=== PATIENT | male | born 1940 | race African-American/Black ===

== ENCOUNTER 2016-10-16 19:13 | Inpatient (IN) | payer MEDICARE, OTHER ==
[~2016-10-16] VITALS: Ht 172.7 cm; Wt 74.4 kg
[~2016-10-16 19:13] MED LIST: ACETAMINOP650 MG/20. PO; ACETAMINOPHEN650 M2 ORAL; ACETAMINOPHEN650 MG PO; ALBUTEROL2.5 MG/3 M HHN; ALLEGRA30 MG/5 ML PO; AMBIEN5 MG ORAL; ARANESP40 MCG/1 M IJ; ARTIFICIAL TEAR15 ML BOTH EYES; BENADRYL25 MG PO; BISACODYL10 M1 RECTAL; BISACODYL5 MG PO; BYSTOLIC 10MG10 MG ORAL; CALCITRIOL1 MCG/1 ML PO; CALCIUM ACETAT667 M1 PO; CALCIUM ACETAT667 MG ORAL; CATAPRES0.1 MG ORAL; CATAPRES0.1 MG PO; CILOXAN 0.3% O1 DROP BOTH EYES; CLARITIN10 M2 ORAL; CLONIDINE HCL0.1 MG PO; CLONIDINE0.1 MG ORAL; CLONIDINE1 EAC1 PO; COLACE100 MG PO; COUMADIN5 MG ORAL; CRANBERRY307 MG PO; CREON DR 3,0001 EACH PO; DIPHENHYDRAMINE25 M1 ORAL; DOCUSATE SODIU100 MG ORAL; DOCUSATE SODIU250 MG ORAL; DRISDOL50000 UNIT ORAL; DULCOLAX10 MG RC; EPOGEN20000 UNIT IJ; FERROUS SULFAT325 M2 PO; FERROUS SULFAT325 MG ORAL; FEXOFENADINE HC60 MG PO; FLEET ENEMA133 ML RECTAL; HEPARIN SO5000 UNIT6 IJ; HYDRALAZINE HCL25 M1 ORAL; INSULIN ASPART; IPRATROPIU0.2 MG/1 M HHN; JANUVIA25 MG ORAL; LACTULOSE20 GM/301 ORAL; LEVAQUIN500 MG ORAL; LINZESS145 MCG PO; MILK OF MA400 MG/51 ORAL; MIRALAX17 G2 ORAL; NEPHRO PO; NEPHRO-VITE RX1 EAC1 PO; NEPHROVITE1 TAB ORAL; NITROGLYCERIN0.4 MG SL; NORCO 5-325 TA1 EACH PO; NORVASC10 MG ORAL; NORVASC5 MG PO; NOVOLIN R100 UNIT/1 SUBQ; NOVOLOG100 UNIT/3 SUBQ; OMEPRAZOLE40 M1 ORAL; OXYCODONE-ACET1 EAC3 ORAL; PANCREASE1 EA ORAL; PRILOSEC20 MG ORAL; PROCRIT10000 UNIT SUBQ; PROCRIT3000 UNIT/ SUBQ; REGLAN5 MG ORAL; RENA-VITE TABL0.8 M1 PO; ROBAXIN500 MG ORAL; ROBITUSSIN DM T10 ML ORAL; SENEKOT PO; SENOKOT1 TAB ORAL; SIMETHICONE125 MG PO; SIMETHICONE80 MG ORAL; SIMETHICONE80 MG PO; SODIUM BICARBO650 MG PO; SORBITOL 70%30 ML ORAL; SORBITOL 70%30 ML PO; TRAMADOL HCL50 MG ORAL; VITAMIN C500 M1 ORAL; VITAMIN C500 M5 PO; Warfarin RX monitoring MISC; ZOFRAN8 M1 ORAL; [UNRECOGNIZED DRUG - OTHER] ORAL; [UNRECOGNIZED DRUG - REMARK]; phoslo PO
--- NOTE | 2016-10-16 19:20 | Emergency Room Report ---
History of Present Illness General Chief Complaint: Generalized Weakness Source: EMS Present Illness HPI Patient presents with hypotension. His finger on for 2 hours. The patient denies any chest pain or shortness of breath. Also denies any fevers or chills. The patient is a dialysis patient. Paramedics gave the patient a 250 mL bolus. Had dialysis yesterday. States eating well. No vomit blood, black stools. Not make urine. No URI sy. No rashes. Has vascath R. Patient poor historian who refuses to answer many questions. Patient DNR/DNI. Allergies: Coded Allergies: No Known Allergies (Unverified , 02/01/12) Patient History Limited by: medical condition Past Medical History: see triage record Social History: Reports: smoking - former, Denies: alcohol use, drug use Social History Narrative SNF Reviewed Nursing Documentation: PMH: Agreed, PSxH: Agreed Nursing Documentation-PMH Past Medical History: No History, Except For Hx Cardiac Problems: Yes - hyperlipidemia. anemia, ESRD, Hx Hypertension: No - hypotension Hx COPD: Yes Hx Diabetes: Yes Hx Cancer: No Hx Gastrointestinal Problems: Yes - Diabetic gastroparesis gastritis, colon polyps Hx Dialysis: Yes - Right upper chest Shunt (monday, , saturdays) History Of Psychiatric Problem: Yes - depression Hx Neurological Problems: Yes - Diabetic neuropathy Hx Vertigo: Yes Hx Dizziness: Yes Hx Syncope: Yes Hx Headaches: Yes Hx Numbness: Yes Hx Weakness: Yes Hx Fatigue: Yes Review of Systems All Other Systems: limited Physical Exam Vital Signs Date Time Temp Pulse Resp B/P (MAP) Pulse Ox O2 Delivery O2 Flow Rate FiO2 10/16/16 19:01 98.1 82 14 106/47 99 Room Air Sp02 EP Interpretation: reviewed, normal General Appearance: no apparent distress, other - GCS 14, Chronically Ill Head: normocephalic Eyes: bilateral eye normal inspection, bilateral eye PERRL ENT: moist mucus membranes Neck: supple Respiratory: lungs clear, normal breath sounds, other - vascath R Cardiovascular #1: regular rate, rhythm Cardiovascular #2: 2+ radial (R) Gastrointestinal: normal inspection, normal bowel sounds, non tender, no mass, non-distended Musculoskeletal: back normal, gait/station normal, normal range of motion Neurologic: alert, motor strength/tone normal, DTRs symmetric, sensory intact, oriented - X2 Psychiatric: no suicidal/homicidal ideation, other - argumentative Skin: normal inspection, warm/dry Medical Decision Making Diagnostic Impression: Primary Impression: Hypotension (arterial) Qualified Codes: I95.9 - Hypotension, unspecified Additional Impression: ESRD (end stage renal disease) on dialysis ER Course Patient with hypotension for 2 hours one day post last dialysis. DDx; AMI, sepsis, PE, dehydration, excess medication amongst others. Very complicated patient needing comprehensive analysis with EKG, CXR, labs. Will begin with gentle but aggressive (for dialysis patient) rehydration. EKG no OK. CXR, no CHF or infiltrate. Labs with negative lactate. Patient responding to fluids. BP better. He is refusimg to stay in the hospital. Discussed with Dr. Peralta. Ambulance here to take patient to SNF. Now patient refuses to go. Admit tele Dr. Peralta. Laboratory Tests Test 10/16/16 20:00 10/17/16 10:00 White Blood Count 10.8 K/UL (4.8-10.8) Red Blood Count 3.12 M/UL (4.70-6.10) L Hemoglobin 10.5 G/DL (14.2-18.0) L Hematocrit 31.2 % (42.0-52.0) L Mean Corpuscular Volume 100 FL (80-99) H Mean Corpuscular Hemoglobin 33.6 PG (27.0-31.0) H Mean Corpuscular Hemoglobin Concent 33.7 G/DL (32.0-36.0) Red Cell Distribution Width 14.2 % (11.6-14.8) Platelet Count 184 K/UL (150-450) Mean Platelet Volume 7.9 FL (6.5-10.1) Neutrophils (%) (Auto) 63.1 % (45.0-75.0) Lymphocytes (%) (Auto) 27.0 % (20.0-45.0) Monocytes (%) (Auto) 7.1 % (1.0-10.0) Eosinophils (%) (Auto) 2.1 % (0.0-3.0) Basophils (%) (Auto) 0.7 % (0.0-2.0) Prothrombin Time 11.7 SEC (9.30-11.50) H Prothrombin Time INR 1.2 (0.9-1.1) H PTT 29 SEC (23-33) Sodium Level 141 mEQ/L (135-145) Potassium Level 4.6 mEQ/L (3.4-4.9) Chloride Level 103 mEQ/L (98-107) Carbon Dioxide Level 22 mEQ/L (20-30) Anion Gap 16 (5-15) H Blood Urea Nitrogen 46 mg/dL (7-23) H Creatinine 7.6 mg/dL (0.7-1.2) H Estimate Glomerular Filtration Rate mL/min (>60) Glucose Level 153 mg/dL (74-106) H Lactic Acid Level 1.30 mmol/L (0.66-2.22) Calcium Level 8.9 mg/dL (8.6-10.2) Phosphorus Level 3.4 mg/dL (2.5-4.8) Magnesium Level 2.4 mg/dL (1.7-2.5) Total Bilirubin 0.3 mg/dL (0.0-1.2) Aspartate Amino Transferase (AST) 12 U/L (5-40) Alanine Aminotransferase (ALT) 11 U/L (3-41) Alkaline Phosphatase 102 U/L (40-129) Total Creatine Kinase 34 U/L (38-174) L Troponin I < 0.30 ng/mL (<=0.30) Pro-B-Type Natriuretic Peptide 713 pg/mL (0-450) H Total Protein 7.1 g/dL (6.6-8.7) Albumin 3.6 g/dL (3.5-5.2) Globulin 3.5 g/dL Albumin/Globulin Ratio 1.0 (1.0-2.7) Lipase 144 U/L (< 60) H Hemoglobin A1c 6.7 % (< 6.0) H EKG Diagnostic Results Rate: normal Rhythm: NSR ST Segments: no acute changes Rhythm Strip Diag. Results EP Interpretation: yes Rhythm: NSR, no PVC's, no ectopy Chest X-Ray Diagnostic Results Chest X-Ray Diagnostic Results : Chest X-Ray Ordered: Yes # of Views/Limited/Complete: 1 View Indication: Other Interpretation: no consolidation, no effusion, no pneumothorax, other - vascath Impression: Other Interpreting ER Provider: Electronically signed by Tru Bunn MD Last Vital Signs Date Time Temp Pulse Resp B/P (MAP) Pulse Ox O2 Delivery O2 Flow Rate FiO2 10/16/16 19:01 98.1 82 14 106/47 99 Room Air Disposition: ADMITTED INPATIENT Condition: Serious Tru Bunn M.D. Oct 16, 2016 19:20
[2016-10-16 19:30] VITALS: BP 107/81
[2016-10-16 20:34] LABS: BASOPHILS % (AUTO) 0.7 % (0.0-2.0); EOSINOPHILS % (AUTO) 2.1 % (0.0-3.0); MEAN CORPUSCULAR HEMOGLOBIN 33.6 PG (27.0-31.0); MEAN CORPUSCULAR HGB CONC 33.7 G/DL (32.0-36.0); MEAN CORPUSCULAR VOLUME 100 FL (80-99); MEAN PLATELET VOLUME 7.9 FL (6.5-10.1); MONOCYTES % (AUTO) 7.1 % (1.0-10.0); NEUTROPHILS % (AUTO) 63.1 % (45.0-75.0); PLATELET COUNT 184 K/UL (150-450); RED BLOOD COUNT 3.12 M/UL (4.70-6.10); RED CELL DISTRIBUTION WIDTH 14.2 % (11.6-14.8); WHITE BLOOD COUNT 10.8 K/UL (4.8-10.8)
[2016-10-16 20:37] VITALS: BP 115/53
[2016-10-16 20:45] LABS: INR 1.2 (0.9-1.1); PROTHROMBIN TIME 11.7 SEC (9.30-11.50)
[2016-10-16 20:52] LABS: TROPONIN I < 0.30 ng/mL (<=0.30)
[2016-10-16 20:57] LABS: ALANINE AMINOTRANSFERASE 11 U/L (3-41); ANION GAP 16 (5-15); ASPARTATE AMINO TRANSFERASE 12 U/L (5-40); CALCIUM 8.9 mg/dL (8.6-10.2); CARBON DIOXIDE 22 mEQ/L (20-30); CHLORIDE 103 mEQ/L (98-107); CREATININE 7.6 mg/dL (0.7-1.2); HEMOLYSIS 11; LIPASE 144 U/L (< 60); MAGNESIUM 2.4 mg/dL (1.7-2.5); PHOSPHORUS 3.4 mg/dL (2.5-4.8); POTASSIUM 4.6 mEQ/L (3.4-4.9); SODIUM 141 mEQ/L (135-145); TOTAL PROTEIN 7.1 g/dL (6.6-8.7)
[2016-10-16 21:47] VITALS: BP 112/49
[2016-10-16 23:25] VITALS: BP 110/55
[2016-10-17] VITALS (7 sets, daily range): BP systolic 99–123; BP diastolic 41–76
[2016-10-17] MEDS ORDERED: MIRTAZAPINE15 MG ORAL (01:30)
[2016-10-17] MEDS ORDERED: CREON DR 3,0001 EACH PO ×2 (01:30→03:27)
[2016-10-17] MEDS ORDERED: GLIPIZIDE5 MG ORAL (01:30)
[2016-10-17] MEDS ORDERED: MECLIZINE HCL25 MG ORAL (01:30)
[2016-10-17] MEDS ORDERED: MELATONIN3 MG ORAL (01:30)
[2016-10-17] MEDS ORDERED: AMITIZA24 MCG ORAL (01:30)
[2016-10-17] MEDS ORDERED: MIDODRINE HCL10 MG ORAL (01:30)
[2016-10-17] MEDS ORDERED: NORCO 10/3251 EA ORAL (03:23)
[2016-10-17] MEDS ORDERED: Midodrine 10mg tab ORAL SCH (05:00)
[2016-10-17] MEDS ORDERED: Simethicone 80mg tab ORAL PRN (05:00)
[2016-10-17] MEDS ORDERED: Zolpidem 5mg tab ORAL PRN (05:00)
[2016-10-17] MEDS ORDERED: Norco 10mg/325mg tab ORAL PRN (05:15)
[2016-10-17] MEDS ORDERED: GlipiZIDE 5mg tab ORAL SCH ×2 (06:30)
[2016-10-17] MEDS: NovoLOG Insulin Flexpen SUBQ SCH ×4 (06:58→22:22)
[2016-10-17] MEDS: sitaGLIPtin 25mg tab ORAL SCH (07:25)
[2016-10-17] MEDS ORDERED: Warfarin Sodium 5mg ORAL SCH (09:00)
[2016-10-17] MEDS ORDERED: HydrALAZINE 25mg tab ORAL SCH ×3 (09:00→21:00)
[2016-10-17] MEDS: Amitiza 24mcg cap ORAL SCH ×2 (10:18→22:16)
[2016-10-17] MEDS: Lactulose 20gm/30ml UDC ORAL SCH (10:20)
--- NOTE | 2016-10-17 12:03 | History & Physical ---
History and Physical History & Physicial Dictated for Int Med-Dr Peralta no. [id number]. ANTOINE PEARSON Oct 17, 2016 12:03
[2016-10-17] MEDS ORDERED: Heparin Sod 1000 units/ml 10ml IV PRN (12:30)
--- NOTE | 2016-10-17 12:47 | Consultation ---
Consult Note Consult Note Nephrology consult dictated#[id number] BELTRAN LAUREN Oct 17, 2016 12:47
--- NOTE | 2016-10-17 15:19 | Consultation ---
History of Present Illness General Date patient seen: Oct 17, 2016 Chief Complaint: Generalized Weakness Reason for Consultation: inpatinet management Present Illness HPI 76 year old male, with hx of ESRF on HD, HTN, DM, brought in from care home with CC of Hypotension. He was combative and needed restrains. He is not able to provide any history. Allergies: Coded Allergies: No Known Allergies (Unverified , 02/01/12) Medication History Scheduled Amlodipine Besylate (Norvasc), 5 MG ORAL DAILY, (Reported) Bysto (Bystolic), 10 MG ORAL DAILY, (Reported) Calcitriol (Calcitriol*), 0.25 MCG PO DAILY, (Reported) Calcium Acetate (Calcium Acetate), 667 MG PO TID, (Reported) Ciprofloxacin (Ciprofloxacin HCl), 2 DROP BOTH EYES Q4H Clonidine (Clonidine), 0.1 MG PO DAILY, (Reported) Clonidine Hcl* (Catapres*), 0.1 MG ORAL EVERY 12 HOURS, (Reported) Dextran 70/Hypromellose (Artificial Tears Eye Drops*), 2 DROP BOTH EYES EVERY 2 HOURS, (Reported) Docusate Sodium* (Docusate Sodium*), 100 MG ORAL TWICE A DAY, (Reported) Glipizide* (Glipizide*), 20 MG ORAL BIDAC, (Reported) Hydralazine Hcl* (Hydralazine Hcl*), 25 MG ORAL BID, (Reported) Insulin Regular, Human* (Novolin R*), 0 SUBQ .SLIDING SCALE, (Reported) Lactulose (Lactulose*), 30 ML ORAL DAILY, (Reported) Levofloxacin* (Levaquin*), 500 MG ORAL DAILY Linaclotide (Linzess), 145 MCG PO DAILY, (Reported) Lipase/Protease/Amylase (Creon Dr 3,000 Units Capsule), 3 EACH PO TID, (Reported ) Lipase/Protease/Amylase (Creon Dr 3,000 Units Capsule), 3 EACH PO THREE TIMES A DAY, (Reported) Loratadine (Claritin), 10 MG ORAL DAILY, (Reported) Loratadine (Claritin), 10 MG ORAL DAILY, (Reported) Lubiprostone (Amitiza*), 24 MCG ORAL EVERY 12 HOURS, (Reported) Magnesium Hydroxide* (Milk Of Magnesia*), 30 ML ORAL DAILY, (Reported) Meclizine Hcl* (Meclizine*), 25 MG ORAL THREE TIMES A DAY, (Reported) Midodrine* (Proamatine*), 10 MG ORAL PRN, (Reported) Mirtazapine* (Remeron*), 7.5 MG ORAL BEDTIME, (Reported) Na Phos,M-B/Na Phos,Di-Ba* (Fleet Enema*), 133 ML RECTAL DAILY, (Reported) Omeprazole (Omeprazole), 40 MG ORAL DAILY, (Reported) Polyethylene Glycol 3350* (Miralax*), 17 GM ORAL BID, (Reported) Sennosides (Senna-Gen), 2 TAB ORAL BEDTIME, (Reported) Sitagliptin* (Januvia*), 25 MG ORAL DAILY, (Reported) Vit B Cmplx 3/Fa/Vit C/Biotin (Nephro-Mary Rx Tablet), 1 EACH PO DAILY, ( Reported) Vitamin B Cmplx/Vit C/Folic AC (Nephro-Mary Tablet), 1 TAB ORAL DAILY, (Reported ) Warfarin Sod* (Coumadin*), 5 MG ORAL DAILY, (Reported) Scheduled PRN Acetaminophen (Acetaminophen 8 Hour), 650 MG ORAL Q6HR PRN for For Pain, ( Reported) Bisacodyl (Dulcolax), 10 MG RC DAILY PRN for Constipation, (Reported) Clonidine HCl (Clonidine HCl), 0.1 MG ORAL Q6HR PRN for For High Blood Pressure, (Reported) Diphenhydramine Hcl* (Diphenhydramine Hcl*), 25 MG ORAL Q4HR PRN for Itching, ( Reported) Hydrocodone/Acetaminophen (Hydrocodon-Acetaminophn 10-325), 1 TAB ORAL Q4H PRN for For Pain, (Reported) Melatonin (Melatonin), 3 MG ORAL BEDTIME PRN for Insomnia, (Reported) Oxycodone Hcl/Acetaminophen 5-325* (Oxycodone-Acetaminophen 5-325*), 1 TAB ORAL Q6H PRN for For Pain, (Reported) Simethicone* (Simethicone*), 80 MG ORAL Q4HR PRN, (Reported) Sorbitol (Sorbitol), 30 ML PO Q8HR PRN for Constipation, (Reported) Tramadol Hcl* (Ultram*), 50 MG ORAL Q6H PRN for For Pain, (Reported) Zolpidem Tartrate* (Ambien*), 5 MG ORAL BEDTIME PRN for Insomnia, (Reported) Zolpidem Tartrate* (Ambien*), 5 MG ORAL BEDTIME PRN for Insomnia, (Reported) [Warfarin RX monitoring], 1 EA MISC DAILY PRN for Per rx protocol Miscellaneous Medications Lipase/Protease/Amylase (Creon Dr 3,000 Units Capsule), 1 EACH PO, (Reported) Patient History Healthcare decision maker LIANG CABRERA ALEM B Resuscitation status Do Not Resuscitate Advanced Directive on File No Review of Systems All Other Systems: negative except mentioned in HPI Physical Exam Lines, tubes and drains: peripheral, central line HEENT: normocephalic, atraumatic Neck: non-tender, normal alignment, limited range of motion Respiratory/Chest: chest wall non-tender, normal breath sounds Cardiovascular/Chest: normal rate Abdomen: non tender Genitourinary/Rectal: normal genital exam, normal rectal exam Last 24 Hour Vital Signs Date Time Temp Pulse Resp B/P (MAP) Pulse Ox O2 Delivery O2 Flow Rate FiO2 10/17/16 12:00 97.4 79 18 118/57 97 Room Air 10/17/16 08:00 97.0 84 22 110/47 97 Room Air 10/17/16 04:00 99.4 87 20 120/41 100 Room Air 10/17/16 01:45 99.4 87 21 120/41 100 Room Air 10/17/16 01:20 98.1 88 21 102/51 95 Room Air 10/17/16 01:02 98.1 88 21 102/51 95 Room Air 10/16/16 23:25 98.1 82 21 110/55 96 Room Air 10/16/16 21:47 98.1 84 21 112/49 100 Room Air 10/16/16 20:37 98.1 85 22 115/53 100 Room Air 10/16/16 19:30 82 18 107/81 100 Room Air 10/16/16 19:01 98.1 82 14 106/47 99 Room Air Intake and Output 10/17/16 10/18/16 19:00 07:00 Intake Total 60 ml Balance 60 ml Intake Oral 60 ml Laboratory Tests Test 10/16/16 20:00 10/17/16 10:00 White Blood Count 10.8 K/UL (4.8-10.8) Red Blood Count 3.12 M/UL (4.70-6.10) L Hemoglobin 10.5 G/DL (14.2-18.0) L Hematocrit 31.2 % (42.0-52.0) L Mean Corpuscular Volume 100 FL (80-99) H Mean Corpuscular Hemoglobin 33.6 PG (27.0-31.0) H Mean Corpuscular Hemoglobin Concent 33.7 G/DL (32.0-36.0) Red Cell Distribution Width 14.2 % (11.6-14.8) Platelet Count 184 K/UL (150-450) Mean Platelet Volume 7.9 FL (6.5-10.1) Neutrophils (%) (Auto) 63.1 % (45.0-75.0) Lymphocytes (%) (Auto) 27.0 % (20.0-45.0) Monocytes (%) (Auto) 7.1 % (1.0-10.0) Eosinophils (%) (Auto) 2.1 % (0.0-3.0) Basophils (%) (Auto) 0.7 % (0.0-2.0) Prothrombin Time 11.7 SEC (9.30-11.50) H Prothromb Time International Ratio 1.2 (0.9-1.1) H Activated Partial Thromboplast Time 29 SEC (23-33) Urine Color Pending Urine Appearance Pending Urine pH Pending Urine Specific [place] Pending Urine Protein Pending Urine Glucose (UA) Pending Urine Ketones Pending Urine Occult Blood Pending Urine Nitrite Pending Urine Bilirubin Pending Urine Urobilinogen Pending Urine Leukocyte Esterase Pending Sodium Level 141 mEQ/L (135-145) Potassium Level 4.6 mEQ/L (3.4-4.9) Chloride Level 103 mEQ/L (98-107) Carbon Dioxide Level 22 mEQ/L (20-30) Anion Gap 16 (5-15) H Blood Urea Nitrogen 46 mg/dL (7-23) H Creatinine 7.6 mg/dL (0.7-1.2) H Estimat Glomerular Filtration Rate mL/min (>60) Glucose Level 153 mg/dL (74-106) H Lactic Acid Level 1.30 mmol/L (0.66-2.22) Calcium Level 8.9 mg/dL (8.6-10.2) Phosphorus Level 3.4 mg/dL (2.5-4.8) Magnesium Level 2.4 mg/dL (1.7-2.5) Total Bilirubin 0.3 mg/dL (0.0-1.2) Aspartate Amino Transf (AST/SGOT) 12 U/L (5-40) Alanine Aminotransferase (ALT/SGPT) 11 U/L (3-41) Alkaline Phosphatase 102 U/L (40-129) Total Creatine Kinase 34 U/L (38-174) L Troponin I < 0.30 ng/mL (<=0.30) Pro-B-Type Natriuretic Peptide 713 pg/mL (0-450) H Total Protein 7.1 g/dL (6.6-8.7) Albumin 3.6 g/dL (3.5-5.2) Globulin 3.5 g/dL Albumin/Globulin Ratio 1.0 (1.0-2.7) Lipase 144 U/L (< 60) H Hemoglobin A1c 6.7 % (< 6.0) H Height (Feet): 5 Height (Inches): 8.00 Weight (Pounds): 164 Medications Current Medications Medications (Trade) Dose Ordered Sig/Tess Route PRN Reason Start Time Stop Time Status Last Admin Dose Admin Acetaminophen (Tylenol) 650 mg Q6H PRN ORAL Mild Pain/Temp > 100.5 10/17/16 05:15 11/16/16 05:14 Acetaminophen/ Hydrocodone Bitart ([place] 10/325) 1 ea Q4H PRN ORAL For Pain 10/17/16 05:15 10/24/16 05:14 Bisacodyl (Dulcolax) 10 mg DAILY PRN RECTAL Constipation 10/17/16 05:00 11/16/16 04:59 Clonidine HCl (Catapres) 0.1 mg Q6HR PRN ORAL For High Blood Pressure 10/17/16 05:00 11/16/16 04:59 Dextrose (Dextrose 50%) STAT PRN IV Hypoglycemia 10/17/16 05:45 11/16/16 05:44 Diphenhydramine HCl (Benadryl) 25 mg Q4HR PRN ORAL Itching 10/17/16 05:00 11/16/16 04:59 Glipizide (Glucotrol) 20 mg BIAC ORAL 10/17/16 16:30 11/16/16 16:29 Heparin Sodium (Porcine) (Heparin Sod 1000 units/ml 10ml) 2,000 unit ONCE PRN IV FOR HD USE ONLY 10/17/16 12:30 10/18/16 23:59 Insulin Aspart (NovoLOG) BEFORE MEALS AND HS SUBQ 10/17/16 06:30 11/16/16 06:29 10/17/16 06:58 Lactulose (Cephulac) 20 gm DAILY ORAL 10/17/16 09:00 11/16/16 08:59 Lubiprostone (Amitiza) 24 mcg EVERY 12 HOURS ORAL 10/17/16 09:00 11/16/16 08:59 Midodrine (Pro-Amatine) 10 mg TuThSa ORAL 10/18/16 09:00 11/17/16 08:59 Mirtazapine (Remeron) 7.5 mg BEDTIME ORAL 10/17/16 21:00 11/16/16 20:59 Sennosides (Senokot) 8.6 mg BEDTIME ORAL 10/17/16 21:00 11/16/16 20:59 Simethicone (Mylicon) 80 mg Q4HR PRN ORAL GAS 10/17/16 05:00 11/16/16 04:59 Sitagliptin Phosphate (Januvia) 25 mg ACBREAKFAST ORAL 10/17/16 06:30 11/16/16 06:29 10/17/16 07:25 Warfarin Sodium (Coumadin per pharmacy) 1 ea DAILY PRN MISC . 10/17/16 07:00 11/16/16 06:59 Warfarin Sodium (Coumadin) 5 mg COUMADIN ONCE ORAL 10/17/16 17:00 10/17/16 17:01 Zolpidem Tartrate (Ambien) 5 mg BEDTIME PRN ORAL Insomnia 10/17/16 05:00 10/24/16 04:59 Assessment/Plan Problem List: (1) Hypotension ICD Codes: I95.9 - Hypotension, unspecified SNOMED: 52638294 (2) Acute encephalopathy ICD Codes: G93.40 - Encephalopathy, unspecified SNOMED: 1403598 (3) Psychosis ICD Codes: F29 - Unspecified psychosis not due to a substance or known physiological condition SNOMED: 68511109 (4) Failure to thrive ICD Codes: R62.51 - Failure to thrive (child) SNOMED: 75075014 (5) ESRD (end stage renal disease) ICD Codes: N18.6 - End stage renal disease SNOMED: 47003104 Assessment/Plan adjust BP meds Hd psych evaluation DVT prophylaxis DIANDRA MASCORRO Oct 17, 2016 15:19
[2016-10-17] MEDS ORDERED: Warfarin Sodium 5mg ORAL ONE (17:00)
--- NOTE | 2016-10-17 17:56 | Cardiac Electrophysiology PN ---
Subjective Subjective [id number] Objective Last 24 Hour Vital Signs Date Time Temp Pulse Resp B/P (MAP) Pulse Ox O2 Delivery O2 Flow Rate FiO2 10/17/16 12:00 97.4 79 18 118/57 97 Room Air 10/17/16 08:00 97.0 84 22 110/47 97 Room Air 10/17/16 04:00 99.4 87 20 120/41 100 Room Air 10/17/16 01:45 99.4 87 21 120/41 100 Room Air 10/17/16 01:20 98.1 88 21 102/51 95 Room Air 10/17/16 01:02 98.1 88 21 102/51 95 Room Air 10/16/16 23:25 98.1 82 21 110/55 96 Room Air 10/16/16 21:47 98.1 84 21 112/49 100 Room Air 10/16/16 20:37 98.1 85 22 115/53 100 Room Air 10/16/16 19:30 82 18 107/81 100 Room Air 10/16/16 19:01 98.1 82 14 106/47 99 Room Air Intake and Output 10/17/16 10/18/16 19:00 07:00 Intake Total 60 ml Balance 60 ml Intake Oral 60 ml Laboratory Tests Test 10/16/16 20:00 10/17/16 10:00 White Blood Count 10.8 K/UL (4.8-10.8) Red Blood Count 3.12 M/UL (4.70-6.10) L Hemoglobin 10.5 G/DL (14.2-18.0) L Hematocrit 31.2 % (42.0-52.0) L Mean Corpuscular Volume 100 FL (80-99) H Mean Corpuscular Hemoglobin 33.6 PG (27.0-31.0) H Mean Corpuscular Hemoglobin Concent 33.7 G/DL (32.0-36.0) Red Cell Distribution Width 14.2 % (11.6-14.8) Platelet Count 184 K/UL (150-450) Mean Platelet Volume 7.9 FL (6.5-10.1) Neutrophils (%) (Auto) 63.1 % (45.0-75.0) Lymphocytes (%) (Auto) 27.0 % (20.0-45.0) Monocytes (%) (Auto) 7.1 % (1.0-10.0) Eosinophils (%) (Auto) 2.1 % (0.0-3.0) Basophils (%) (Auto) 0.7 % (0.0-2.0) Prothrombin Time 11.7 SEC (9.30-11.50) H Prothromb Time International Ratio 1.2 (0.9-1.1) H Activated Partial Thromboplast Time 29 SEC (23-33) Urine Color Pending Urine Appearance Pending Urine pH Pending Urine Specific [place] Pending Urine Protein Pending Urine Glucose (UA) Pending Urine Ketones Pending Urine Occult Blood Pending Urine Nitrite Pending Urine Bilirubin Pending Urine Urobilinogen Pending Urine Leukocyte Esterase Pending Sodium Level 141 mEQ/L (135-145) Potassium Level 4.6 mEQ/L (3.4-4.9) Chloride Level 103 mEQ/L (98-107) Carbon Dioxide Level 22 mEQ/L (20-30) Anion Gap 16 (5-15) H Blood Urea Nitrogen 46 mg/dL (7-23) H Creatinine 7.6 mg/dL (0.7-1.2) H Estimat Glomerular Filtration Rate mL/min (>60) Glucose Level 153 mg/dL (74-106) H Lactic Acid Level 1.30 mmol/L (0.66-2.22) Calcium Level 8.9 mg/dL (8.6-10.2) Phosphorus Level 3.4 mg/dL (2.5-4.8) Magnesium Level 2.4 mg/dL (1.7-2.5) Total Bilirubin 0.3 mg/dL (0.0-1.2) Aspartate Amino Transf (AST/SGOT) 12 U/L (5-40) Alanine Aminotransferase (ALT/SGPT) 11 U/L (3-41) Alkaline Phosphatase 102 U/L (40-129) Total Creatine Kinase 34 U/L (38-174) L Troponin I < 0.30 ng/mL (<=0.30) Pro-B-Type Natriuretic Peptide 713 pg/mL (0-450) H Total Protein 7.1 g/dL (6.6-8.7) Albumin 3.6 g/dL (3.5-5.2) Globulin 3.5 g/dL Albumin/Globulin Ratio 1.0 (1.0-2.7) Lipase 144 U/L (< 60) H Hemoglobin A1c 6.7 % (< 6.0) H LUCY RG Oct 17, 2016 17:56
[2016-10-17] MEDS: GlipiZIDE 10mg tab ORAL SCH (18:48)
--- NOTE | 2016-10-17 19:34 | Cardiology Report ---
APPROVED REPORT EXAM: Two-dimensional and M-mode echocardiogram with Doppler and color Doppler. INDICATION Congestive Heart Failure M-Mode DIMENSIONS IVSd1.1 (0.7-1.1cm)Left Atrium (MM)3.1 (1.6-4.0cm) LVDd4.9 (3.5-5.6cm)Aortic Root2.7 (2.0-3.7cm) PWd0.9 (0.7-1.1cm)Aortic Cusp Exc.1.7 (1.5-2.0cm) LVDs2.5 (2.5-4.0cm) PWs1.2 cm Technically difficult study due to poor acoustic windows. Normal left ventricular chamber size, systolic function and wall motion. Left ventricular ejection fraction estimated to be 60-65%. No evidence of left ventricular hypertrophy. Small posterior pericardial fat or effusion. Right cardiac chamber sizes are within normal limits. Mild left atrial enlargement by 2D. Mild focal aortic valve sclerosis with adequate cusp excursion Thickened mitral valve leaflets with normal excursion. Mitral annulus and aortic root calcification. Pulmonic valve not well visualized. Normal tricuspid valve structure. IVC is normal in size with physiologic collapse. A color flow and spectral Doppler study was performed and revealed: No aortic regurgitation. No mitral regurgitation. Left ventricular diastolic dysfunction grade 1. No tricuspid regurgitation.
--- NOTE | 2016-10-17 19:40 | Cardiology Report ---
APPROVED REPORT EKG Measurement Heart [id number] Normal sinus rhythm Nonspecific T wave abnormality Abnormal ECG
--- NOTE | 2016-10-17 22:45 | History and Physical Report ---
DATE OF ADMISSION: 10/17/[address] Peralta. CHIEF COMPLAINT: The patient is a 76-year-old male, who presents with a chief complaint of low blood pressure. HISTORY OF PRESENT ILLNESS: The patient is a resident of [facility]. According to the staff at [facility], the patient was hypotensive yesterday, 10/16/2016. The patient had dialysis on Monday. The patient presented to [facility] emergency room. The patient had received a bolus of 250 mL normal saline in the field. The patient apparently was threatening to leave against medical advice from the emergency room. The patient himself is uncooperative with the history and physical. Much of the history and physical is obtained from the patient's chart. The patient is admitted for hypotension to rule out sepsis. PAST MEDICAL HISTORY: Significant for: 1. Hypertension. 2. Diabetes type 2. 3. End-stage renal disease, on hemodialysis every Monday, , and Monday at [facility] by Dr. Aalmo. 4. Diabetes type 2. 5. Lupus anticoagulant. 6. History of renal mass. 7. Chronic pancreatitis. 8. History of thyroid mass. 9. Diabetic nephropathy. 10. Diabetic retinopathy. 11. Diabetic gastropathy. PAST SURGICAL HISTORY: 1. Significant for arteriovenous graft in the right upper extremity for dialysis. 2. Appendectomy. CURRENT MEDICATIONS: 1. Coumadin 5 mg one tablet p.o. daily. 2. Tylenol 650 mg p.o. q.4 hours p.r.n. 3. Ambien 5 mg one tablet p.o. at bedtime p.r.n. 4. Amitiza 24 mcg p.o. twice daily. 5. Clonidine 0.1 mg one tablet p.o. q.6 hours p.r.n. 6. Bystolic 10 mg one tablet p.o. every Monday, Monday, Monday, and Monday. 7. Creon three capsules p.o. three times daily. 8. Benadryl 25 mg one tablet p.o. q.4 h. p.r.n. itching. 9. Glipizide 20 mg p.o. twice daily. 10. Hydralazine 25 mg one tablet p.o. twice daily on Monday, Monday, Monday, and Monday. 11. [place] 10/325 mg one tablet p.o. q.4 hours p.r.n. 12. Januvia 25 mg p.o. daily. 13. Lactulose 20 g p.o. daily. 14. Claritin 10 mg one tablet p.o. daily. 15. Meclizine 25 mg p.o. p.r.n. 16. Melatonin 3 mg p.o. at bedtime. 17. Midodrine 10 mg one tablet p.o. every Monday, , and Monday. 18. Novolin sliding scale. 19. Mirtazapine 7.5 mg one tablet p.o. at bedtime. 20. Senokot two tablets p.o. at bedtime. ALLERGIES: No known drug allergies. CODE STATUS: The patient is DNR/DNI per post in the chart. SOCIAL HISTORY: 1. The patient previously used tobacco, however, quit two years previously. 2. The patient also chewed tobacco, however, he quit two years previously. The patient denies alcohol or drug abuse. REVIEW OF SYSTEMS: Constitutional: The patient denies weight loss or weight gain. The patient denies fevers or chills. HEENT: The patient denies ear or throat pain. The patient denies headache. Cardiovascular: The patient has hypotension as above. The patient denies palpitations or chest pain. Chest: The patient denies wheeze or shortness of breath. Abdomen: The patient denies nausea, vomiting, diarrhea, or constipation. Genitourinary: The patient denies dysuria or increased frequency of urination. Neuromuscular: The patient denies seizures or generalized weakness. PHYSICAL EXAMINATION: VITAL SIGNS: Temperature 98.1 degrees, respirations 14, pulse 82, and blood pressure 106/47. GENERAL: The patient is a well-developed and well-nourished thin-appearing male, in no apparent distress. HEENT: Eyes, pupils equal and responsive to light and accommodation. Extraocular movements are intact. NECK: Supple without lymphadenopathy. CHEST: Lungs are clear to auscultation bilaterally without wheezes or rales. CARDIOVASCULAR: Regular rhythm and rate. S1 and S2 are normal without murmurs, rubs, or gallops. ABDOMEN: Soft, nontender, and nondistended. Positive bowel sounds. No evidence of hepatosplenomegaly. Currently, no rebounding or guarding noted. EXTREMITIES: Negative for clubbing, cyanosis, or edema. RECTAL/GENITAL: Refused. NEUROLOGIC: Cranial nerves II to XII are grossly intact without focal deficits. Motor strength is 5/5 bilaterally. Deep tendon reflexes are 2+ plantar. LABORATORY STUDIES: WBC 10.8, hemoglobin 10.5, hematocrit 31.2, and platelets 184,000. Sodium 141, potassium 4.6, chloride 103, CO2 22, BUN 46, creatinine 7.6, and glucose 153. Troponin less than 0.3. BNP elevated at 713. INR was 1.2. ASSESSMENT: This is a 76-year-old male. 1. Hypotension. 2. Diabetes type 2. 3. End-stage renal disease. 4. Lupus anticoagulant. 5. Renal mass. 6. Thyroid mass. 7. Chronic pancreatitis. 8. Diabetic retinopathy. 9. Diabetic gastropathy. TREATMENT: 1. Hypotension. A Cardiology consultation is pending with Dr. Guardado. Blood pressure medication will be withheld. Hypotension may be secondary to sepsis versus post dialysis hypotension. We will follow recommendations of Cardiology. 2. Diabetes type 2. Continue NovoLog sliding scale. 3. End-stage renal disease. A Nephrology consultation was obtained with Dr. Alamo. The patient's last hemodialysis was 10/15/2016. We will follow recommendations of Nephrology. 4. Lupus anticoagulant. Continue Coumadin as above. 5. History of renal mass. 6. History of thyroid mass. 7. History of chronic pancreatitis. 8. History of diabetic retinopathy. 9. History of diabetic gastropathy. Watson Sutherland M.D. DR: PREET JOB#: [id number] CC:
--- NOTE | 2016-10-18 02:30 | Consultation ---
DATE OF CONSULTATION: 10/17/2016 NEPHROLOGY CONSULT REFERRING PHYSICIAN: Eddie Peralta M.D. REASON FOR CONSULT: The patient with end-stage renal disease, has presented with generalized weakness. HISTORY OF PRESENT ILLNESS: This is a very pleasant, 76-year-old [place] gentleman, who has had end-stage renal disease secondary to diabetic nephropathy. He has been on hemodialysis for the past five to six years, has been in his usual state of health. He has been living in a [place], was brought to the emergency room of [facility] for generalized weakness. Apparently, he was found to be hypotensive, 250 mL of normal saline bolus was given, and has been admitted for further evaluation. His lipase was a little bit elevated and he denies however any abdominal pain. No nausea, vomiting or diarrhea. I have been asked to see him for his hemodialysis needs. He also denies any chest pain or shortness of breath at this point. PAST MEDICAL HISTORY: Significant for end-stage renal disease secondary to diabetic nephropathy, long-standing diabetes mellitus, diabetic gastroparesis, chronic constipation, internal hemorrhoids, colonic polyp, chronic pancreatitis, anemia of chronic kidney disease, dyslipidemia, and renal mass suspicious of possible renal cell carcinoma that he refused to have it worked out. PAST SURGICAL HISTORY: Status post right arm AV fistula creation. SOCIAL HISTORY: He is a resident of a [place] [facility] [place]. 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 He does chew tobacco. No alcohol abuse. He is alienated from his family. FAMILY HISTORY: Noncontributory. MEDICATIONS: Prior to admission has been amlodipine 10 mg p.o. daily, Bystolic 10 mg p.o. daily, calcitriol 0.25 mcg p.o. daily, calcium acetate 667 mg p.o. t.i.d. with each meal, clonidine patch #1 applying on a weekly basis, Artificial Tears every two hours, hydralazine 25 mg p.o. b.i.d., lactulose 20 g p.o. daily, Linzess 145 mcg p.o. daily, Creon 1 p.o. t.i.d., Claritin 10 mg p.o. daily, Amitiza 24 mcg p.o. b.i.d., meclizine 25 mg p.o. b.i.d. p.r.n., midodrine 10 mg p.o. p.r.n., mirtazapine 15 mg p.o. nightly, simethicone 80 mg p.o. daily, Januvia 25 mg p.o. daily, tramadol 50 mg p.o. q.6 hours p.r.n., [place] 5/325 mg q.6 hours p.r.n., Coumadin 5 mg p.o. daily, and Ambien 5 mg p.o. nightly p.r.n. REVIEW OF SYSTEMS: General: He has not had any significant weight change. Denies any chills and fever. Cardiovascular: Denies any chest pain, dyspnea with exertion or orthopnea. Skin: Denies any rash or photosensitivity. Musculoskeletal: Denies any arthralgia or myalgia. Urinary: He is anuric, on hemodialysis. Neurological: He has some paresthesia in the lower extremities. Endocrine: Blood sugars in the range of 120s to 130s in average. His hemoglobin A1c was 6.7%. Hematological: Denies any easy bruising or easy bleeding. Respiratory: Denies any cough, purulent sputum production, hemoptysis or wheezing. The remainder of the review of the systems has been essentially negative. PHYSICAL EXAMINATION: GENERAL: He does not seem to be in much acute distress. VITAL SIGNS: Blood pressure is 120/41, pulse of 87, respirations 20, and temperature 99.4. HEENT: Head is atraumatic. Eyes, pupils reactive to light. No evidence of papilledema. Ears, canals are clear. Tympanic membranes are intact. Nose, nares are patent without any nasal discharge. Throat without inflammation or exudates. NECK: Supple. Jugular venous distention is within normal limits. No cervical adenopathies. No thyromegaly. HEART: Regular rhythm. No gallop. LUNGS: Clear to auscultation. ABDOMEN: Supple. Bowel sounds positive. No hepatosplenomegaly. EXTREMITIES: Lower extremity shows no cyanosis or clubbing. No pedal edema. NEUROLOGICAL: Cranial nerves are intact. There is decreased deep tendon reflexes in both lower extremities. LABORATORY DATA: Showing a WBC of 10.8, hemoglobin 10.5, hematocrit is 31.2, and platelets of 184,000. Sodium 141, potassium 4.6, chloride 103, carbon dioxide 23, BUN is 46, creatinine is 7.6, and glucose 153. LFTs within normal range. Lipase was 144 and troponin less than 0.30. IMPRESSION: 1. Transient episode of hypotension and generalized weakness without any obvious source of infection. 2. He might have some pancreatitis however he does have much pain. This is in the light of the fact that he has some mild elevation of the lipase. 3. Longstanding diabetes mellitus with multiple complications. 4. End-stage renal disease, on hemodialysis. 5. He does not seem to be in volume overload, at this point. PLAN: We are going to arrange for hemodialysis tomorrow and not much fluid removal. We will check the serial lipase. At the end I would like to thank you, Dr. Peralta, for letting me involved in the care of this very nice gentleman. Please do not hesitate to contact me if you have any questions. Sincerely, Yassine Alamo M.D. DR: LUZ JOB#: [id number] CC:
[2016-10-18 04:00] VITALS: BP 115/58
--- NOTE | 2016-10-18 04:45 | Consultation ---
DATE OF CONSULTATION: 10/17/2016 CARDIOLOGY CONSULTATION CONSULTING PHYSICIAN: Cullen Guardado M.D. REFERRING PHYSICIAN: Eddie Peralta M.D. REASON FOR CONSULTATION: Management of hypotension and congestive heart failure. HISTORY OF PRESENT ILLNESS: The patient is a 76-year-old gentleman with history of hypertension, diabetes, and end-stage renal disease, on hemodialysis [facility]. The patient was also combative and needed to be restrained. The patient is unable to provide any information and was admitted to the floor and a Cardiology consultation was obtained for further evaluation and management. The patient was also on Coumadin, and his first troponin was negative. PAST MEDICAL HISTORY: 1. Hypertension. 2. Chronic encephalopathy. 3. Psychosis. 4. End-stage renal disease, on hemodialysis. FAMILY HISTORY: Noncontributory. REVIEW OF SYSTEMS: Cannot be obtained. PHYSICAL EXAMINATION: VITAL SIGNS: Blood pressure is 118/57, pulse 79, respirations 18, and temperature 97.4 degrees. HEAD AND NECK: Showed no JVD. LUNGS: Clear. CARDIOVASCULAR: Shows regular S1 and S2 with no gallop or murmur. ABDOMEN: Soft. Extremities: No pitting edema. There 01:29 in the right subclavian area. LABORATORY DATA: White count 10.8, hemoglobin 10.5, hematocrit 31.2, and platelet count 184,000. Sodium 141, potassium 4.6, BUN of 43, creatinine 7.6, and glucose 153. Troponin is negative. BNP is 713. Lipase is 144. INR is 1.2. ASSESSMENT AND PLAN: 1. Hypotension. The patient's blood pressure has stabilized and currently on midodrine 10 mg Monday, , and Monday. The patient's Bystolic and hydralazine were discontinued. We will watch the patient for further evaluation. We will get an echocardiogram to evaluate for ejection fraction and wall motion abnormality. 2. Elevated BNP, likely due to volume overload secondary to end-stage renal disease. 3. End-stage renal disease, on hemodialysis. 4. Diabetes, on Glucotrol. 5. It is also of note that the patient is on Coumadin per pharmacy, but no history of atrial fibrillation and could be secondary to his deep vein thrombosis that will be reassessed by Dr. Peralta. Thank you very much, Dr. Peralta, for allowing me to participate in the care of this gentleman. Please do not hesitate to contact me if you have any questions regarding my evaluation. It is of note that the patient's preliminary echocardiogram showed ejection fraction of 60% to 65%. Cullen Guardado M.D. DR: CHEL JOB#: [id number] CC:
[2016-10-18] MEDS: sitaGLIPtin 25mg tab ORAL SCH (06:32)
[2016-10-18] MEDS: GlipiZIDE 10mg tab ORAL SCH ×2 (06:33→16:28)
[2016-10-18] MEDS: NovoLOG Insulin Flexpen SUBQ SCH ×4 (06:34→21:00)
[2016-10-18 06:38] LABS: BASOPHILS % (AUTO) 0.5 % (0.0-2.0); EOSINOPHILS % (AUTO) 2.3 % (0.0-3.0); LYMPHOCYTES % (AUTO) 20.2 % (20.0-45.0); MEAN CORPUSCULAR HEMOGLOBIN 32.4 PG (27.0-31.0); MEAN CORPUSCULAR HGB CONC 32.4 G/DL (32.0-36.0); MEAN CORPUSCULAR VOLUME 100 FL (80-99); MEAN PLATELET VOLUME 8.3 FL (6.5-10.1); MONOCYTES % (AUTO) 7.6 % (1.0-10.0); NEUTROPHILS % (AUTO) 69.5 % (45.0-75.0); PLATELET COUNT 182 K/UL (150-450); RED BLOOD COUNT 2.93 M/UL (4.70-6.10); RED CELL DISTRIBUTION WIDTH 13.9 % (11.6-14.8); WHITE BLOOD COUNT 7.8 K/UL (4.8-10.8)
[2016-10-18 06:52] LABS: INR 1.4 (0.9-1.1); PROTHROMBIN TIME 14.7 SEC (9.30-11.50)
[2016-10-18 07:12] LABS: ALANINE AMINOTRANSFERASE 10 U/L (3-41); ANION GAP 20 (5-15); ASPARTATE AMINO TRANSFERASE 14 U/L (5-40); CALCIUM 8.5 mg/dL (8.6-10.2); CARBON DIOXIDE 19 mEQ/L (20-30); CHLORIDE 104 mEQ/L (98-107); CREATININE 11.5 mg/dL (0.7-1.2); HEMOLYSIS 4; POTASSIUM 4.5 mEQ/L (3.4-4.9); SODIUM 143 mEQ/L (135-145); TOTAL PROTEIN 6.6 g/dL (6.6-8.7); TROPONIN I < 0.30 ng/mL (<=0.30)
[2016-10-18 07:49] VITALS: BP 106/62
[2016-10-18] MEDS: Amitiza 24mcg cap ORAL SCH ×2 (09:00→10:05)
[2016-10-18] MEDS: Lactulose 20gm/30ml UDC ORAL SCH ×2 (09:00→10:05)
[2016-10-18] MEDS ORDERED: Midodrine 10mg tab ORAL SCH (09:00)
[2016-10-18 11:36] VITALS: BP 97/58
--- NOTE | 2016-10-18 13:52 | Nephrology Progress Note ---
Assessment/Plan Assessment 1) ESRD 2) Failure to thrive 3) No CHF 4) Toe pain ? etiology, Plan: Continue HD as ordered Will get foot xray Subjective Subjective He seen on HD, complaining of toe pain, not inflammed, no c/p or sob Objective Objective Last 24 Hour Vital Signs Date Time Temp Pulse Resp B/P (MAP) Pulse Ox O2 Delivery O2 Flow Rate FiO2 10/18/16 11:36 97.8 73 21 97/58 99 Room Air 10/18/16 10:20 Room Air 10/18/16 07:49 98.2 70 20 106/62 95 Room Air 10/18/16 04:00 97.8 77 20 115/58 99 Room Air 10/17/16 20:00 97.7 72 18 99/42 98 Room Air Laboratory Tests 10/18/16 05:50: White Blood Count 7.8, Red Blood Count 2.93L, Hemoglobin 9.5L, Hematocrit 29.4L , Mean Corpuscular Volume 100H, Mean Corpuscular Hemoglobin 32.4H, Mean Corpuscular Hemoglobin Concent 32.4, Red Cell Distribution Width 13.9, Platelet Count 182, Mean Platelet Volume 8.3, Neutrophils (%) (Auto) 69.5, Lymphocytes (% ) (Auto) 20.2, Monocytes (%) (Auto) 7.6, Eosinophils (%) (Auto) 2.3, Basophils ( %) (Auto) 0.5, Prothrombin Time 14.7H, Prothromb Time International Ratio 1.4H, Sodium Level 143, Potassium Level 4.5, Chloride Level 104, Carbon Dioxide Level 19L, Anion Gap 20H, Blood Urea Nitrogen 76#H, Creatinine 11.5#H, Estimat Glomerular Filtration Rate , Glucose Level 117H, Calcium Level 8.5L, Total Bilirubin 0.4, Aspartate Amino Transf (AST/SGOT) 14, Alanine Aminotransferase ( ALT/SGPT) 10, Alkaline Phosphatase 90, Troponin I < 0.30, Pro-B-Type Natriuretic Peptide 1474H, Total Protein 6.6, Albumin 3.3L, Globulin 3.3, Albumin/Globulin Ratio 1.0, Lipase 159H Height (Feet): 5 Height (Inches): 8.00 Weight (Pounds): 164 General Appearance: WD/WN EENT: PERRL/EOMI, normal ENT inspection, TMs normal Neck: non-tender, normal alignment, supple Cardiovascular: normal rate, regular rhythm Respiratory/Chest: lungs clear Abdomen: normal bowel sounds, non tender, soft Extremities: normal range of motion, non-tender, normal inspection 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
--- NOTE | 2016-10-18 15:55 | Diagnostic Imaging Report ---
Indication: Pain Comparison: None Findings: 3 views of the right foot were obtained. Bones are moderately osteopenic. There is no obvious fracture or malalignment. Extensive small vessel calcifications involving arteries demonstrated. Impression: Extensive vascular disease
--- NOTE | 2016-10-18 15:56 | Diagnostic Imaging Report ---
Indication: Pain Comparison: None Findings: 3 views of the left foot were obtained. There is a small punched-out erosion involving the distal phalange of the second toe. Please correlate clinically. This may be an old injury or erosion. Extensive vascular calcifications involving small arteries noted. Bones are moderately osteopenic. There is no acute fracture identified. Impression: Small focus of erosion involving the tuft of the second toe. Please correlate clinically. Vascular disease
[2016-10-18] MEDS ORDERED: Mylanta II UD 30ml ORAL PRN (16:15)
--- NOTE | 2016-10-18 16:15 | Internal Med Progress Note ---
Subjective Date of Service: Oct 18, 2016 Physician Name SutherlandAntoine Attending Physician Eddie Peralta MD Current Medications Medications (Trade) Dose Ordered Sig/Tess Route PRN Reason Start Time Stop Time Status Last Admin Dose Admin Acetaminophen (Tylenol) 650 mg Q6H PRN ORAL Mild Pain/Temp > 100.5 10/17/16 05:15 11/16/16 05:14 Acetaminophen/ Hydrocodone Bitart ([place] 10/325) 1 ea Q4H PRN ORAL For Pain 10/17/16 05:15 10/24/16 05:14 10/18/16 14:15 Bisacodyl (Dulcolax) 10 mg DAILY PRN RECTAL Constipation 10/17/16 05:00 11/16/16 04:59 Clonidine HCl (Catapres) 0.1 mg Q6HR PRN ORAL For High Blood Pressure 10/17/16 05:00 11/16/16 04:59 Dextrose (Dextrose 50%) STAT PRN IV Hypoglycemia 10/17/16 05:45 11/16/16 05:44 Diphenhydramine HCl (Benadryl) 25 mg Q4HR PRN ORAL Itching 10/17/16 05:00 11/16/16 04:59 Glipizide (Glucotrol) 20 mg BIAC ORAL 10/17/16 16:30 11/16/16 16:29 10/18/16 06:33 Heparin Sodium (Porcine) (Heparin Sod 1000 units/ml 10ml) 2,000 unit ONCE PRN IV FOR HD USE ONLY 10/17/16 12:30 10/18/16 23:59 Insulin Aspart (NovoLOG) BEFORE MEALS AND HS SUBQ 10/17/16 06:30 11/16/16 06:29 10/18/16 11:42 Lactulose (Cephulac) 20 gm DAILY ORAL 10/17/16 09:00 11/16/16 08:59 Lubiprostone (Amitiza) 24 mcg EVERY 12 HOURS ORAL 10/17/16 09:00 11/16/16 08:59 10/18/16 09:00 Midodrine (Pro-Amatine) 10 mg TuThSa ORAL 10/18/16 09:00 11/17/16 08:59 10/18/16 10:06 Mirtazapine (Remeron) 7.5 mg BEDTIME ORAL 10/17/16 21:00 11/16/16 20:59 10/17/16 22:15 Sennosides (Senokot) 8.6 mg BEDTIME ORAL 10/17/16 21:00 11/16/16 20:59 10/17/16 22:15 Simethicone (Mylicon) 80 mg Q4HR PRN ORAL GAS 10/17/16 05:00 11/16/16 04:59 Sitagliptin Phosphate (Januvia) 25 mg ACBREAKFAST ORAL 10/17/16 06:30 11/16/16 06:29 10/18/16 06:32 Warfarin Sodium (Coumadin per pharmacy) 1 ea DAILY PRN MISC . 10/17/16 07:00 11/16/16 06:59 Warfarin Sodium (Coumadin) 5 mg COUMADIN ORAL 10/18/16 17:00 10/18/16 17:01 Zolpidem Tartrate (Ambien) 5 mg BEDTIME PRN ORAL Insomnia 10/17/16 05:00 10/24/16 04:59 Allergies: Coded Allergies: No Known Allergies (Unverified , 02/01/12) ROS Limited/Unobtainable: No Constitutional: Reports: no symptoms HEENT: Reports: no symptoms Cardiovascular: Reports: no symptoms Respiratory: Reports: no symptoms Gastrointestinal/Abdominal: Reports: abdominal pain Genitourinary: Reports: no symptoms Neurologic/Psychiatric: Reports: no symptoms Subjective 76 YO M admitted with hypotension. C/O epigastric pain. C/O right foot pain. Cover for Falguni Peralta. Objective Last Vital Signs Date Time Temp Pulse Resp B/P (MAP) Pulse Ox O2 Delivery O2 Flow Rate FiO2 10/18/16 14:22 Room Air 10/18/16 11:36 97.8 73 21 97/58 99 General Appearance: WD/WN, no apparent distress, alert EENT: PERRL/EOMI, normal ENT inspection Neck: non-tender, normal alignment, supple Cardiovascular: normal peripheral pulses, normal rate, regular rhythm, no gallop/murmur, no JVD Respiratory/Chest: chest wall non-tender, lungs clear, normal breath sounds, no respiratory distress, no accessory muscle use Abdomen: normal bowel sounds, no organomegaly, no mass, decreased bowel sounds , tender Extremities: normal range of motion 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 Skin: normal pigmentation Laboratory Tests Test 10/18/16 05:50 White Blood Count 7.8 K/UL (4.8-10.8) Red Blood Count 2.93 M/UL (4.70-6.10) L Hemoglobin 9.5 G/DL (14.2-18.0) L Hematocrit 29.4 % (42.0-52.0) L Mean Corpuscular Volume 100 FL (80-99) H Mean Corpuscular Hemoglobin 32.4 PG (27.0-31.0) H Mean Corpuscular Hemoglobin Concent 32.4 G/DL (32.0-36.0) Red Cell Distribution Width 13.9 % (11.6-14.8) Platelet Count 182 K/UL (150-450) Mean Platelet Volume 8.3 FL (6.5-10.1) Neutrophils (%) (Auto) 69.5 % (45.0-75.0) Lymphocytes (%) (Auto) 20.2 % (20.0-45.0) Monocytes (%) (Auto) 7.6 % (1.0-10.0) Eosinophils (%) (Auto) 2.3 % (0.0-3.0) Basophils (%) (Auto) 0.5 % (0.0-2.0) Prothrombin Time 14.7 SEC (9.30-11.50) H Prothromb Time International Ratio 1.4 (0.9-1.1) H Sodium Level 143 mEQ/L (135-145) Potassium Level 4.5 mEQ/L (3.4-4.9) Chloride Level 104 mEQ/L (98-107) Carbon Dioxide Level 19 mEQ/L (20-30) L Anion Gap 20 (5-15) H Blood Urea Nitrogen 76 mg/dL (7-23) #H Creatinine 11.5 mg/dL (0.7-1.2) #H Estimat Glomerular Filtration Rate mL/min (>60) Glucose Level 117 mg/dL (74-106) H Calcium Level 8.5 mg/dL (8.6-10.2) L Total Bilirubin 0.4 mg/dL (0.0-1.2) Aspartate Amino Transf (AST/SGOT) 14 U/L (5-40) Alanine Aminotransferase (ALT/SGPT) 10 U/L (3-41) Alkaline Phosphatase 90 U/L (40-129) Troponin I < 0.30 ng/mL (<=0.30) Pro-B-Type Natriuretic Peptide 1474 pg/mL (0-450) H Total Protein 6.6 g/dL (6.6-8.7) Albumin 3.3 g/dL (3.5-5.2) L Globulin 3.3 g/dL Albumin/Globulin Ratio 1.0 (1.0-2.7) Lipase 159 U/L (< 60) H Microbiology Date/Time Source Procedure Growth Status 10/16/16 20:15 Blood Blood Culture - Preliminary NO GROWTH AFTER 24 HOURS Resulted 10/16/16 20:00 Blood Blood Culture - Preliminary NO GROWTH AFTER 24 HOURS Resulted Intake and Output 10/18/16 10/19/16 19:00 07:00 Output Total 2100 ml Balance -2100 ml Output Hemodialysis UF 2100 ml Assessment/Plan Problem List: (1) Diabetes mellitus Assessment & Plan: Continue glipizide, januvia and novolog. (2) Lupus anticoagulant disorder (3) Renal mass (4) Thyroid mass (5) Chronic pancreatitis (6) Diabetic retinopathy (7) Hypotension Assessment & Plan: Post dialysis vs antihypertensive meds. See cardiology note. (8) ESRD (end stage renal disease) on dialysis Assessment & Plan: Hemodialysis today per Dr Alamo. Status: ANTOINE Mcmanus Oct 18, 2016 16:15
[2016-10-18 16:23] VITALS: BP 118/57
[2016-10-18] MEDS ORDERED: Warfarin Sodium 5mg ORAL SCH (17:00)
--- NOTE | 2016-10-18 17:23 | Cardiac Electrophysiology PN ---
Assessment/Plan Assessment/Plan 1. Hypotension. Better on midodrine 10 mg Monday, , and Monday. Echocardiogram showed EF 65% 2. Elevated BNP, likely due to volume overload secondary to end-stage renal disease. 3. End-stage renal disease, on hemodialysis. 4. Diabetes, on Glucotrol. 5. DVT hx on Coumadin. CLARK RN Subjective Subjective Had feet pain and had X ray done. No chest pain or SOB. Had HD today Objective Last 24 Hour Vital Signs Date Time Temp Pulse Resp B/P (MAP) Pulse Ox O2 Delivery O2 Flow Rate FiO2 10/18/16 16:23 98.0 73 19 118/57 97 Room Air 10/18/16 14:22 Room Air 10/18/16 11:36 97.8 73 21 97/58 99 Room Air 10/18/16 10:20 Room Air 10/18/16 07:49 98.2 70 20 106/62 95 Room Air 10/18/16 04:00 97.8 77 20 115/58 99 Room Air 10/17/16 20:00 97.7 72 18 99/42 98 Room Air Intake and Output 10/18/16 10/19/16 19:00 07:00 Output Total 2100 ml Balance -2100 ml Output Hemodialysis UF 2100 ml Laboratory Tests Test 10/18/16 05:50 White Blood Count 7.8 K/UL (4.8-10.8) Red Blood Count 2.93 M/UL (4.70-6.10) L Hemoglobin 9.5 G/DL (14.2-18.0) L Hematocrit 29.4 % (42.0-52.0) L Mean Corpuscular Volume 100 FL (80-99) H Mean Corpuscular Hemoglobin 32.4 PG (27.0-31.0) H Mean Corpuscular Hemoglobin Concent 32.4 G/DL (32.0-36.0) Red Cell Distribution Width 13.9 % (11.6-14.8) Platelet Count 182 K/UL (150-450) Mean Platelet Volume 8.3 FL (6.5-10.1) Neutrophils (%) (Auto) 69.5 % (45.0-75.0) Lymphocytes (%) (Auto) 20.2 % (20.0-45.0) Monocytes (%) (Auto) 7.6 % (1.0-10.0) Eosinophils (%) (Auto) 2.3 % (0.0-3.0) Basophils (%) (Auto) 0.5 % (0.0-2.0) Prothrombin Time 14.7 SEC (9.30-11.50) H Prothromb Time International Ratio 1.4 (0.9-1.1) H Sodium Level 143 mEQ/L (135-145) Potassium Level 4.5 mEQ/L (3.4-4.9) Chloride Level 104 mEQ/L (98-107) Carbon Dioxide Level 19 mEQ/L (20-30) L Anion Gap 20 (5-15) H Blood Urea Nitrogen 76 mg/dL (7-23) #H Creatinine 11.5 mg/dL (0.7-1.2) #H Estimat Glomerular Filtration Rate mL/min (>60) Glucose Level 117 mg/dL (74-106) H Calcium Level 8.5 mg/dL (8.6-10.2) L Total Bilirubin 0.4 mg/dL (0.0-1.2) Aspartate Amino Transf (AST/SGOT) 14 U/L (5-40) Alanine Aminotransferase (ALT/SGPT) 10 U/L (3-41) Alkaline Phosphatase 90 U/L (40-129) Troponin I < 0.30 ng/mL (<=0.30) Pro-B-Type Natriuretic Peptide 1474 pg/mL (0-450) H Total Protein 6.6 g/dL (6.6-8.7) Albumin 3.3 g/dL (3.5-5.2) L Globulin 3.3 g/dL Albumin/Globulin Ratio 1.0 (1.0-2.7) Lipase 159 U/L (< 60) H Microbiology Date/Time Source Procedure Growth Status 10/16/16 20:15 Blood Blood Culture - Preliminary NO GROWTH AFTER 24 HOURS Resulted 10/16/16 20:00 Blood Blood Culture - Preliminary NO GROWTH AFTER 24 HOURS Resulted Objective HEAD AND NECK: Showed no JVD. LUNGS: Clear. CARDIOVASCULAR: regular S1 and S2 with no gallop or murmur. ABDOMEN: Soft. Extremities: No pitting edema. PermCath in the right subclavian area. LUCY RG Oct 18, 2016 17:23
--- NOTE | 2016-10-18 19:14 | Pulmonology Progress Note ---
Assessment/Plan Problems: (1) Hypotension (2) Acute encephalopathy (3) Psychosis (4) Failure to thrive (5) ESRD (end stage renal disease) Assessment/Plan BP better on HD, pt/ot Dr clayton for psych Subjective ROS Limited/Unobtainable: No Constitutional: Reports: no symptoms HEENT: Repors: no symptoms Respiratory: Reports: no symptoms Allergies: Coded Allergies: No Known Allergies (Unverified , 02/01/12) Objective Last 24 Hour Vital Signs Date Time Temp Pulse Resp B/P (MAP) Pulse Ox O2 Delivery O2 Flow Rate FiO2 10/18/16 16:23 98.0 73 19 118/57 97 Room Air 10/18/16 14:22 Room Air 10/18/16 11:36 97.8 73 21 97/58 99 Room Air 10/18/16 10:20 Room Air 10/18/16 07:49 98.2 70 20 106/62 95 Room Air 10/18/16 04:00 97.8 77 20 115/58 99 Room Air 10/17/16 20:00 97.7 72 18 99/42 98 Room Air Intake and Output 10/18/16 10/19/16 19:00 07:00 Intake Total 320 ml Output Total 2100 ml Balance -1780 ml Intake Oral 320 ml Output Urine Total 0 ml Hemodialysis UF 2100 ml # Bowel Movements 1 General Appearance: WD/WN HEENT: normocephalic, anicteric Respiratory/Chest: chest wall non-tender, lungs clear Cardiovascular: normal peripheral pulses, normal rate Abdomen: normal bowel sounds, soft, non tender Genitourinary: normal external genitalia Skin: no rash 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 Microbiology Date/Time Source Procedure Growth Status 10/16/16 20:15 Blood Blood Culture - Preliminary NO GROWTH AFTER 24 HOURS Resulted 10/16/16 20:00 Blood Blood Culture - Preliminary NO GROWTH AFTER 24 HOURS Resulted Laboratory Tests 10/18/16 05:50: White Blood Count 7.8, Red Blood Count 2.93L, Hemoglobin 9.5L, Hematocrit 29.4L , Mean Corpuscular Volume 100H, Mean Corpuscular Hemoglobin 32.4H, Mean Corpuscular Hemoglobin Concent 32.4, Red Cell Distribution Width 13.9, Platelet Count 182, Mean Platelet Volume 8.3, Neutrophils (%) (Auto) 69.5, Lymphocytes (% ) (Auto) 20.2, Monocytes (%) (Auto) 7.6, Eosinophils (%) (Auto) 2.3, Basophils ( %) (Auto) 0.5, Prothrombin Time 14.7H, Prothromb Time International Ratio 1.4H, Sodium Level 143, Potassium Level 4.5, Chloride Level 104, Carbon Dioxide Level 19L, Anion Gap 20H, Blood Urea Nitrogen 76#H, Creatinine 11.5#H, Estimat Glomerular Filtration Rate , Glucose Level 117H, Calcium Level 8.5L, Total Bilirubin 0.4, Aspartate Amino Transf (AST/SGOT) 14, Alanine Aminotransferase ( ALT/SGPT) 10, Alkaline Phosphatase 90, Troponin I < 0.30, Pro-B-Type Natriuretic Peptide 1474H, Total Protein 6.6, Albumin 3.3L, Globulin 3.3, Albumin/Globulin Ratio 1.0, Lipase 159H Current Medications Medications (Trade) Dose Ordered Sig/Tess Route PRN Reason Start Time Stop Time Status Last Admin Dose Admin Acetaminophen (Tylenol) 650 mg Q6H PRN ORAL Mild Pain/Temp > 100.5 10/17/16 05:15 11/16/16 05:14 Acetaminophen/ Hydrocodone Bitart ([place] 10/325) 1 ea Q4H PRN ORAL For Pain 10/17/16 05:15 10/24/16 05:14 10/18/16 14:15 Al Hydroxide/Mg Hydroxide (Mylanta II) 30 ml Q6H PRN ORAL Abdominal cramps 10/18/16 16:15 11/17/16 16:14 Bisacodyl (Dulcolax) 10 mg DAILY PRN RECTAL Constipation 10/17/16 05:00 11/16/16 04:59 Clonidine HCl (Catapres) 0.1 mg Q6HR PRN ORAL For High Blood Pressure 10/17/16 05:00 11/16/16 04:59 Dextrose (Dextrose 50%) STAT PRN IV Hypoglycemia 10/17/16 05:45 11/16/16 05:44 Diphenhydramine HCl (Benadryl) 25 mg Q4HR PRN ORAL Itching 10/17/16 05:00 11/16/16 04:59 Glipizide (Glucotrol) 20 mg BIAC ORAL 10/17/16 16:30 11/16/16 16:29 10/18/16 16:28 Heparin Sodium (Porcine) (Heparin Sod 1000 units/ml 10ml) 2,000 unit ONCE PRN IV FOR HD USE ONLY 10/17/16 12:30 10/18/16 23:59 Insulin Aspart (NovoLOG) BEFORE MEALS AND HS SUBQ 10/17/16 06:30 11/16/16 06:29 10/18/16 16:31 Lactulose (Cephulac) 20 gm DAILY ORAL 10/17/16 09:00 11/16/16 08:59 Lubiprostone (Amitiza) 24 mcg EVERY 12 HOURS ORAL 10/17/16 09:00 11/16/16 08:59 10/18/16 09:00 Midodrine (Pro-Amatine) 10 mg TuThSa ORAL 10/18/16 09:00 11/17/16 08:59 10/18/16 10:06 Mirtazapine (Remeron) 7.5 mg BEDTIME ORAL 10/17/16 21:00 11/16/16 20:59 10/17/16 22:15 Pantoprazole (Protonix) 40 mg DAILY ORAL 10/18/16 17:15 11/17/16 17:14 10/18/16 16:54 Sennosides (Senokot) 8.6 mg BEDTIME ORAL 10/17/16 21:00 11/16/16 20:59 10/17/16 22:15 Simethicone (Mylicon) 80 mg Q4HR PRN ORAL GAS 10/17/16 05:00 11/16/16 04:59 Sitagliptin Phosphate (Januvia) 25 mg ACBREAKFAST ORAL 10/17/16 06:30 11/16/16 06:29 10/18/16 06:32 Warfarin Sodium (Coumadin per pharmacy) 1 ea DAILY PRN MISC . 10/17/16 07:00 11/16/16 06:59 Zolpidem Tartrate (Ambien) 5 mg BEDTIME PRN ORAL Insomnia 10/17/16 05:00 10/24/16 04:59 DIANDRA MASCORRO Oct 18, 2016 19:14
[2016-10-18 19:46] VITALS: BP 108/49
[2016-10-19 00:10] VITALS: BP 112/56
[2016-10-19 04:00] VITALS: BP 115/61
[2016-10-19] MEDS: NovoLOG Insulin Flexpen SUBQ SCH ×2 (06:30→12:06)
[2016-10-19] MEDS: GlipiZIDE 10mg tab ORAL SCH (06:30)
[2016-10-19] MEDS: sitaGLIPtin 25mg tab ORAL SCH (06:30)
[2016-10-19 07:03] LABS: BASOPHILS % (AUTO) 0.5 % (0.0-2.0); EOSINOPHILS % (AUTO) 2.5 % (0.0-3.0); LYMPHOCYTES % (AUTO) 32.5 % (20.0-45.0); MEAN CORPUSCULAR HEMOGLOBIN 32.1 PG (27.0-31.0); MEAN CORPUSCULAR HGB CONC 32.5 G/DL (32.0-36.0); MEAN CORPUSCULAR VOLUME 99 FL (80-99); MEAN PLATELET VOLUME 8.2 FL (6.5-10.1); MONOCYTES % (AUTO) 6.6 % (1.0-10.0); NEUTROPHILS % (AUTO) 57.8 % (45.0-75.0); PLATELET COUNT 174 K/UL (150-450); RED BLOOD COUNT 2.96 M/UL (4.70-6.10); RED CELL DISTRIBUTION WIDTH 13.5 % (11.6-14.8); WHITE BLOOD COUNT 7.7 K/UL (4.8-10.8)
[2016-10-19 07:12] LABS: INR 1.6 (0.9-1.1); PROTHROMBIN TIME 16.3 SEC (9.30-11.50)
[2016-10-19 07:21] LABS: ANION GAP 19 (5-15); CALCIUM 8.1 mg/dL (8.6-10.2); CARBON DIOXIDE 26 mEQ/L (20-30); CHLORIDE 99 mEQ/L (98-107); CREATININE 10.1 mg/dL (0.7-1.2); HEMOLYSIS 1; POTASSIUM 3.5 mEQ/L (3.4-4.9); SODIUM 144 mEQ/L (135-145)
[2016-10-19] MEDS: Amitiza 24mcg cap ORAL SCH (09:40)
[2016-10-19] MEDS: Lactulose 20gm/30ml UDC ORAL SCH (09:41)
[2016-10-19] MEDS ORDERED: CLONIDINE0.1 MG ORAL (10:42)
--- NOTE | 2016-10-19 10:42 | Consultation ---
History of Present Illness General Date patient seen: Oct 18, 2016 Chief Complaint: Generalized Weakness Reason for Consultation: inpatinet management Present Illness HPI pt was seen yesterday 76-year-old [place] gentleman, who has had end-stage renal disease secondary to diabetic nephropathy. the ot has episodes of agitation the pt is on 1:1. the pt was disorganized and a poor historian. the pt has waxing and waning of consciousness and impairment of cognition. poor insight. Allergies: Coded Allergies: No Known Allergies (Unverified , 02/01/12) Medication History Scheduled Amlodipine Besylate (Norvasc), 5 MG ORAL DAILY, (Reported) Bysto (Bystolic), 10 MG ORAL DAILY, (Reported) Calcitriol (Calcitriol*), 0.25 MCG PO DAILY, (Reported) Calcium Acetate (Calcium Acetate), 667 MG PO TID, (Reported) Ciprofloxacin (Ciprofloxacin HCl), 2 DROP BOTH EYES Q4H Clonidine (Clonidine), 0.1 MG PO DAILY, (Reported) Clonidine Hcl* (Catapres*), 0.1 MG ORAL EVERY 12 HOURS, (Reported) Dextran 70/Hypromellose (Artificial Tears Eye Drops*), 2 DROP BOTH EYES EVERY 2 HOURS, (Reported) Docusate Sodium* (Docusate Sodium*), 100 MG ORAL TWICE A DAY, (Reported) Glipizide* (Glipizide*), 20 MG ORAL BIDAC, (Reported) Hydralazine Hcl* (Hydralazine Hcl*), 25 MG ORAL BID, (Reported) Insulin Regular, Human* (Novolin R*), 0 SUBQ .SLIDING SCALE, (Reported) Lactulose (Lactulose*), 30 ML ORAL DAILY, (Reported) Levofloxacin* (Levaquin*), 500 MG ORAL DAILY Linaclotide (Linzess), 145 MCG PO DAILY, (Reported) Lipase/Protease/Amylase (Creon Dr 3,000 Units Capsule), 3 EACH PO TID, (Reported ) Lipase/Protease/Amylase (Creon Dr 3,000 Units Capsule), 3 EACH PO THREE TIMES A DAY, (Reported) Loratadine (Claritin), 10 MG ORAL DAILY, (Reported) Loratadine (Claritin), 10 MG ORAL DAILY, (Reported) Lubiprostone (Amitiza*), 24 MCG ORAL EVERY 12 HOURS, (Reported) Magnesium Hydroxide* (Milk Of Magnesia*), 30 ML ORAL DAILY, (Reported) Meclizine Hcl* (Meclizine*), 25 MG ORAL THREE TIMES A DAY, (Reported) Midodrine* (Proamatine*), 10 MG ORAL PRN, (Reported) Mirtazapine* (Remeron*), 7.5 MG ORAL BEDTIME, (Reported) Na Phos,M-B/Na Phos,Di-Ba* (Fleet Enema*), 133 ML RECTAL DAILY, (Reported) Omeprazole (Omeprazole), 40 MG ORAL DAILY, (Reported) Polyethylene Glycol 3350* (Miralax*), 17 GM ORAL BID, (Reported) Sennosides (Senna-Gen), 2 TAB ORAL BEDTIME, (Reported) Sitagliptin* (Januvia*), 25 MG ORAL DAILY, (Reported) Vit B Cmplx 3/Fa/Vit C/Biotin (Nephro-Mary Rx Tablet), 1 EACH PO DAILY, ( Reported) Vitamin B Cmplx/Vit C/Folic AC (Nephro-Mary Tablet), 1 TAB ORAL DAILY, (Reported ) Warfarin Sod* (Coumadin*), 5 MG ORAL DAILY, (Reported) Scheduled PRN Acetaminophen (Acetaminophen 8 Hour), 650 MG ORAL Q6HR PRN for For Pain, ( Reported) Bisacodyl (Dulcolax), 10 MG RC DAILY PRN for Constipation, (Reported) Clonidine HCl (Clonidine HCl), 0.1 MG ORAL Q6HR PRN for For High Blood Pressure, (Reported) Diphenhydramine Hcl* (Diphenhydramine Hcl*), 25 MG ORAL Q4HR PRN for Itching, ( Reported) Hydrocodone/Acetaminophen (Hydrocodon-Acetaminophn 10-325), 1 TAB ORAL Q4H PRN for For Pain, (Reported) Melatonin (Melatonin), 3 MG ORAL BEDTIME PRN for Insomnia, (Reported) Oxycodone Hcl/Acetaminophen 5-325* (Oxycodone-Acetaminophen 5-325*), 1 TAB ORAL Q6H PRN for For Pain, (Reported) Simethicone* (Simethicone*), 80 MG ORAL Q4HR PRN, (Reported) Sorbitol (Sorbitol), 30 ML PO Q8HR PRN for Constipation, (Reported) Tramadol Hcl* (Ultram*), 50 MG ORAL Q6H PRN for For Pain, (Reported) Zolpidem Tartrate* (Ambien*), 5 MG ORAL BEDTIME PRN for Insomnia, (Reported) Zolpidem Tartrate* (Ambien*), 5 MG ORAL BEDTIME PRN for Insomnia, (Reported) [Warfarin RX monitoring], 1 EA MISC DAILY PRN for Per rx protocol Miscellaneous Medications Lipase/Protease/Amylase (Dyana Bates 3,000 Units Capsule), 1 EACH PO, (Reported) Patient History History Provided By: Patient, Medical Record, PMD Healthcare decision maker LIANG CABRERA ALEM B Resuscitation status Do Not Resuscitate Advanced Directive on File No Past Medical/Surgical History Past Medical/Surgical History: (1) [id number] (2) [id number] (3) [id number] (4) epididymitis (5) [id number] (6) Diarrhea (7) Anemia (8) Pancreatitis (9) Abdominal pain (10) C. difficile colitis (11) Edema (12) Conjunctivitis (13) Conjunctivitis (14) Swelling around both eyes (15) Flank pain (16) Proeb-xh-hoxwlge kidney injury (17) CHF (congestive heart failure) (18) Renal failure (19) Failure to thrive (20) Psychosis (21) ESRD (end stage renal disease) (22) Hypotension (23) Acute encephalopathy (24) Hypotension (arterial) (25) ESRD (end stage renal disease) on dialysis (26) Lupus anticoagulant disorder (27) Diabetes mellitus (28) Chronic pancreatitis (29) Diabetic retinopathy (30) Renal mass (31) Thyroid mass Review of Systems Constitutional: Reports: weakness Psychiatric: Reports: prior hx, emotional problems, hallucinations Physical Exam General Appearance: no apparent distress, alert, confused, agitated, overweight Neurologic: alert, responsive, disoriented Last 24 Hour Vital Signs Date Time Temp Pulse Resp B/P (MAP) Pulse Ox O2 Delivery O2 Flow Rate FiO2 10/19/16 04:00 98.4 62 20 115/61 95 10/19/16 00:10 98.2 59 18 112/56 97 Room Air 10/18/16 19:46 98.8 69 20 108/49 97 Room Air 10/18/16 16:23 98.0 73 19 118/57 97 Room Air 10/18/16 14:22 Room Air 10/18/16 11:36 97.8 73 21 97/58 99 Room Air Laboratory Tests Test 10/19/16 05:20 White Blood Count 7.7 K/UL (4.8-10.8) Red Blood Count 2.96 M/UL (4.70-6.10) L Hemoglobin 9.5 G/DL (14.2-18.0) L Hematocrit 29.3 % (42.0-52.0) L Mean Corpuscular Volume 99 FL (80-99) Mean Corpuscular Hemoglobin 32.1 PG (27.0-31.0) H Mean Corpuscular Hemoglobin Concent 32.5 G/DL (32.0-36.0) Red Cell Distribution Width 13.5 % (11.6-14.8) Platelet Count 174 K/UL (150-450) Mean Platelet Volume 8.2 FL (6.5-10.1) Neutrophils (%) (Auto) 57.8 % (45.0-75.0) Lymphocytes (%) (Auto) 32.5 % (20.0-45.0) Monocytes (%) (Auto) 6.6 % (1.0-10.0) Eosinophils (%) (Auto) 2.5 % (0.0-3.0) Basophils (%) (Auto) 0.5 % (0.0-2.0) Prothrombin Time 16.3 SEC (9.30-11.50) H Prothromb Time International Ratio 1.6 (0.9-1.1) H Sodium Level 144 mEQ/L (135-145) Potassium Level 3.5 mEQ/L (3.4-4.9) Chloride Level 99 mEQ/L (98-107) Carbon Dioxide Level 26 mEQ/L (20-30) Anion Gap 19 (5-15) H Blood Urea Nitrogen 57 mg/dL (7-23) H Creatinine 10.1 mg/dL (0.7-1.2) H Estimat Glomerular Filtration Rate mL/min (>60) Glucose Level 59 mg/dL (74-106) L Calcium Level 8.1 mg/dL (8.6-10.2) L Height (Feet): 5 Height (Inches): 8.00 Weight (Pounds): 164 Medications Current Medications Medications (Trade) Dose Ordered Sig/Tess Route PRN Reason Start Time Stop Time Status Last Admin Dose Admin Acetaminophen (Tylenol) 650 mg Q6H PRN ORAL Mild Pain/Temp > 100.5 10/17/16 05:15 11/16/16 05:14 Acetaminophen/ Hydrocodone Bitart ([place] 10/325) 1 ea Q4H PRN ORAL For Pain 10/17/16 05:15 10/24/16 05:14 10/18/16 14:15 Al Hydroxide/Mg Hydroxide (Mylanta II) 30 ml Q6H PRN ORAL Abdominal cramps 10/18/16 16:15 11/17/16 16:14 Bisacodyl (Dulcolax) 10 mg DAILY PRN RECTAL Constipation 10/17/16 05:00 11/16/16 04:59 Clonidine HCl (Catapres) 0.1 mg Q6HR PRN ORAL For High Blood Pressure 10/17/16 05:00 11/16/16 04:59 Dextrose (Dextrose 50%) STAT PRN IV Hypoglycemia 10/17/16 05:45 11/16/16 05:44 Diphenhydramine HCl (Benadryl) 25 mg Q4HR PRN ORAL Itching 10/17/16 05:00 11/16/16 04:59 Glipizide (Glucotrol) 20 mg BIAC ORAL 10/17/16 16:30 11/16/16 16:29 10/18/16 16:28 Insulin Aspart (NovoLOG) BEFORE MEALS AND HS SUBQ 10/17/16 06:30 11/16/16 06:29 10/18/16 16:31 Lactulose (Cephulac) 20 gm DAILY ORAL 10/17/16 09:00 11/16/16 08:59 Lubiprostone (Amitiza) 24 mcg EVERY 12 HOURS ORAL 10/17/16 09:00 11/16/16 08:59 10/18/16 09:00 Midodrine (Pro-Amatine) 10 mg TuThSa ORAL 10/18/16 09:00 11/17/16 08:59 10/18/16 10:06 Mirtazapine (Remeron) 7.5 mg BEDTIME ORAL 10/17/16 21:00 11/16/16 20:59 10/18/16 21:48 Pantoprazole (Protonix) 40 mg DAILY ORAL 10/18/16 17:15 11/17/16 17:14 10/18/16 16:54 Risperidone (RisperDAL) 1 mg BEDTIME ORAL 10/19/16 21:00 11/18/16 20:59 Sennosides (Senokot) 8.6 mg BEDTIME ORAL 10/17/16 21:00 11/16/16 20:59 10/18/16 21:48 Simethicone (Mylicon) 80 mg Q4HR PRN ORAL GAS 10/17/16 05:00 11/16/16 04:59 Sitagliptin Phosphate (Januvia) 25 mg ACBREAKFAST ORAL 10/17/16 06:30 11/16/16 06:29 10/18/16 06:32 Warfarin Sodium (Coumadin per pharmacy) 1 ea DAILY PRN MISC . 10/17/16 07:00 11/16/16 06:59 Warfarin Sodium (Coumadin) 6 mg COUMADIN ORAL 10/19/16 17:00 10/19/16 17:01 Zolpidem Tartrate (Ambien) 5 mg BEDTIME PRN ORAL Insomnia 10/17/16 05:00 10/24/16 04:59 Assessment/Plan Status: unchanged Assessment/Plan delirium, psychosis -risperdal -cont Frank Ray M.D. Oct 19, 2016 10:42
--- NOTE | 2016-10-19 10:44 | Internal Med Progress Note ---
Subjective Date of Service: Oct 19, 2016 Physician Name Antoine Sutherland Attending Physician Eddie Peralta MD Current Medications Medications (Trade) Dose Ordered Sig/Tess Route PRN Reason Start Time Stop Time Status Last Admin Dose Admin Acetaminophen (Tylenol) 650 mg Q6H PRN ORAL Mild Pain/Temp > 100.5 10/17/16 05:15 11/16/16 05:14 Acetaminophen/ Hydrocodone Bitart ([place] 10/325) 1 ea Q4H PRN ORAL For Pain 10/17/16 05:15 10/24/16 05:14 10/18/16 14:15 Al Hydroxide/Mg Hydroxide (Mylanta II) 30 ml Q6H PRN ORAL Abdominal cramps 10/18/16 16:15 11/17/16 16:14 Bisacodyl (Dulcolax) 10 mg DAILY PRN RECTAL Constipation 10/17/16 05:00 11/16/16 04:59 Clonidine HCl (Catapres) 0.1 mg Q6HR PRN ORAL For High Blood Pressure 10/17/16 05:00 11/16/16 04:59 Dextrose (Dextrose 50%) STAT PRN IV Hypoglycemia 10/17/16 05:45 11/16/16 05:44 Diphenhydramine HCl (Benadryl) 25 mg Q4HR PRN ORAL Itching 10/17/16 05:00 11/16/16 04:59 Glipizide (Glucotrol) 20 mg BIAC ORAL 10/17/16 16:30 11/16/16 16:29 10/18/16 16:28 Insulin Aspart (NovoLOG) BEFORE MEALS AND HS SUBQ 10/17/16 06:30 11/16/16 06:29 10/18/16 16:31 Lactulose (Cephulac) 20 gm DAILY ORAL 10/17/16 09:00 11/16/16 08:59 Lubiprostone (Amitiza) 24 mcg EVERY 12 HOURS ORAL 10/17/16 09:00 11/16/16 08:59 10/18/16 09:00 Midodrine (Pro-Amatine) 10 mg TuThSa ORAL 10/18/16 09:00 11/17/16 08:59 10/18/16 10:06 Mirtazapine (Remeron) 7.5 mg BEDTIME ORAL 10/17/16 21:00 11/16/16 20:59 10/18/16 21:48 Pantoprazole (Protonix) 40 mg DAILY ORAL 10/18/16 17:15 11/17/16 17:14 10/18/16 16:54 Risperidone (RisperDAL) 1 mg BEDTIME ORAL 10/19/16 21:00 11/18/16 20:59 Sennosides (Senokot) 8.6 mg BEDTIME ORAL 10/17/16 21:00 11/16/16 20:59 10/18/16 21:48 Simethicone (Mylicon) 80 mg Q4HR PRN ORAL GAS 10/17/16 05:00 11/16/16 04:59 Sitagliptin Phosphate (Januvia) 25 mg ACBREAKFAST ORAL 10/17/16 06:30 11/16/16 06:29 10/18/16 06:32 Warfarin Sodium (Coumadin per pharmacy) 1 ea DAILY PRN MISC . 10/17/16 07:00 11/16/16 06:59 Warfarin Sodium (Coumadin) 6 mg COUMADIN ORAL 10/19/16 17:00 10/19/16 17:01 Zolpidem Tartrate (Ambien) 5 mg BEDTIME PRN ORAL Insomnia 10/17/16 05:00 10/24/16 04:59 Allergies: Coded Allergies: No Known Allergies (Unverified , 02/01/12) ROS Limited/Unobtainable: No Constitutional: Reports: no symptoms HEENT: Reports: no symptoms Cardiovascular: Reports: no symptoms Respiratory: Reports: no symptoms Gastrointestinal/Abdominal: Reports: no symptoms Genitourinary: Reports: no symptoms Neurologic/Psychiatric: Reports: no symptoms Subjective 76 YO M admitted with hypotension. Cover for Int Mario-Dr Peralta. Objective Last Vital Signs Date Time Temp Pulse Resp B/P (MAP) Pulse Ox O2 Delivery O2 Flow Rate FiO2 10/19/16 04:00 98.4 62 20 115/61 95 10/19/16 00:10 Room Air Laboratory Tests Test 10/19/16 05:20 White Blood Count 7.7 K/UL (4.8-10.8) Red Blood Count 2.96 M/UL (4.70-6.10) L Hemoglobin 9.5 G/DL (14.2-18.0) L Hematocrit 29.3 % (42.0-52.0) L Mean Corpuscular Volume 99 FL (80-99) Mean Corpuscular Hemoglobin 32.1 PG (27.0-31.0) H Mean Corpuscular Hemoglobin Concent 32.5 G/DL (32.0-36.0) Red Cell Distribution Width 13.5 % (11.6-14.8) Platelet Count 174 K/UL (150-450) Mean Platelet Volume 8.2 FL (6.5-10.1) Neutrophils (%) (Auto) 57.8 % (45.0-75.0) Lymphocytes (%) (Auto) 32.5 % (20.0-45.0) Monocytes (%) (Auto) 6.6 % (1.0-10.0) Eosinophils (%) (Auto) 2.5 % (0.0-3.0) Basophils (%) (Auto) 0.5 % (0.0-2.0) Prothrombin Time 16.3 SEC (9.30-11.50) H Prothromb Time International Ratio 1.6 (0.9-1.1) H Sodium Level 144 mEQ/L (135-145) Potassium Level 3.5 mEQ/L (3.4-4.9) Chloride Level 99 mEQ/L (98-107) Carbon Dioxide Level 26 mEQ/L (20-30) Anion Gap 19 (5-15) H Blood Urea Nitrogen 57 mg/dL (7-23) H Creatinine 10.1 mg/dL (0.7-1.2) H Estimat Glomerular Filtration Rate mL/min (>60) Glucose Level 59 mg/dL (74-106) L Calcium Level 8.1 mg/dL (8.6-10.2) L Microbiology Date/Time Source Procedure Growth Status 10/16/16 20:15 Blood Blood Culture - Preliminary NO GROWTH AFTER 48 HOURS Resulted 10/16/16 20:00 Blood Blood Culture - Preliminary NO GROWTH AFTER 48 HOURS Resulted Objective General Appearance: WD/WN, no apparent distress, alert EENT: PERRL/EOMI, normal ENT inspection Neck: non-tender, normal alignment, supple Cardiovascular: normal peripheral pulses, normal rate, regular rhythm, no gallop/murmur, no JVD Respiratory/Chest: chest wall non-tender, lungs clear, normal breath sounds, no respiratory distress, no accessory muscle use Abdomen: normal bowel sounds, no organomegaly, no mass, decreased bowel sounds , tender Extremities: normal range of motion 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 (2) Lupus anticoagulant disorder (3) Renal mass (4) Thyroid mass (5) Chronic pancreatitis (6) Diabetic retinopathy (7) Hypotension Assessment & Plan: Post dialysis vs antihypertensive meds. See cardiology note. (8) ESRD (end stage renal disease) on dialysis Assessment & Plan: Hemodialysis today per Dr [place]amo. Status: stable Assessment/Plan Discharge to [facility] when bed available. ANTOINE SUTHERLAND Oct 19, 2016 10:44
--- NOTE | 2016-10-19 11:33 | Nephrology Progress Note ---
Assessment/Plan Assessment 1) ESRD 2) Failure to thrive 3) No CHF 4) Toe pain ? etiology, Plan: OK to be discharged HD as o/p tomorrow Subjective Subjective He had HD yesterday, no major complaint, confused Objective Objective Last 24 Hour Vital Signs Date Time Temp Pulse Resp B/P (MAP) Pulse Ox O2 Delivery O2 Flow Rate FiO2 10/19/16 04:00 98.4 62 20 115/61 95 10/19/16 00:10 98.2 59 18 112/56 97 Room Air 10/18/16 19:46 98.8 69 20 108/49 97 Room Air 10/18/16 16:23 98.0 73 19 118/57 97 Room Air 10/18/16 14:22 Room Air 10/18/16 11:36 97.8 73 21 97/58 99 Room Air Laboratory Tests 10/19/16 05:20: White Blood Count 7.7, Red Blood Count 2.96L, Hemoglobin 9.5L, Hematocrit 29.3L , Mean Corpuscular Volume 99, Mean Corpuscular Hemoglobin 32.1H, Mean Corpuscular Hemoglobin Concent 32.5, Red Cell Distribution Width 13.5, Platelet Count 174, Mean Platelet Volume 8.2, Neutrophils (%) (Auto) 57.8, Lymphocytes (% ) (Auto) 32.5, Monocytes (%) (Auto) 6.6, Eosinophils (%) (Auto) 2.5, Basophils ( %) (Auto) 0.5, Prothrombin Time 16.3H, Prothromb Time International Ratio 1.6H, Sodium Level 144, Potassium Level 3.5, Chloride Level 99, Carbon Dioxide Level 26, Anion Gap 19H, Blood Urea Nitrogen 57H, Creatinine 10.1H, Estimat Glomerular Filtration Rate , Glucose Level 59L, Calcium Level 8.1L Height (Feet): 5 Height (Inches): 8.00 Weight (Pounds): 164 General Appearance: WD/WN, no apparent distress EENT: PERRL/EOMI Neck: non-tender, normal alignment Cardiovascular: normal peripheral pulses, normal rate Respiratory/Chest: chest wall non-tender, lungs clear Abdomen: normal bowel sounds, non tender Neurologic: hospital nurse II-XII grossly normal, alert BELTRAN LAUREN Oct 19, 2016 11:33
[2016-10-19 12:00] VITALS: BP 104/57
--- NOTE | 2016-10-19 15:46 | Pulmonology Progress Note ---
Assessment/Plan Problems: (1) Hypotension (2) Acute encephalopathy (3) Psychosis (4) Failure to thrive (5) ESRD (end stage renal disease) Assessment/Plan BP better on HD, pt/ot Dr clayton for psych dc planning Subjective ROS Limited/Unobtainable: No Constitutional: Reports: no symptoms HEENT: Repors: no symptoms Respiratory: Reports: no symptoms Allergies: Coded Allergies: No Known Allergies (Unverified , 02/01/12) Objective Last 24 Hour Vital Signs Date Time Temp Pulse Resp B/P (MAP) Pulse Ox O2 Delivery O2 Flow Rate FiO2 10/19/16 12:00 98.0 87 18 104/57 95 Room Air 10/19/16 04:00 98.4 62 20 115/61 95 10/19/16 00:10 98.2 59 18 112/56 97 Room Air 10/18/16 19:46 98.8 69 20 108/49 97 Room Air 10/18/16 16:23 98.0 73 19 118/57 97 Room Air General Appearance: WD/WN, no acute distress HEENT: atraumatic, anicteric Respiratory/Chest: chest wall non-tender, lungs clear, normal breath sounds Cardiovascular: normal peripheral pulses, normal rate Abdomen: normal bowel sounds, soft, non tender Genitourinary: normal external genitalia Extremities: no cyanosis Skin: no rash Microbiology Date/Time Source Procedure Growth Status 10/16/16 20:15 Blood Blood Culture - Preliminary NO GROWTH AFTER 48 HOURS Resulted 10/16/16 20:00 Blood Blood Culture - Preliminary NO GROWTH AFTER 48 HOURS Resulted 10/17/16 01:00 Nasal Nares MRSA Culture - Final NO METHICILLIN RESISTANT STAPH AUREUS... Complete Laboratory Tests 10/19/16 05:20: White Blood Count 7.7, Red Blood Count 2.96L, Hemoglobin 9.5L, Hematocrit 29.3L , Mean Corpuscular Volume 99, Mean Corpuscular Hemoglobin 32.1H, Mean Corpuscular Hemoglobin Concent 32.5, Red Cell Distribution Width 13.5, Platelet Count 174, Mean Platelet Volume 8.2, Neutrophils (%) (Auto) 57.8, Lymphocytes (% ) (Auto) 32.5, Monocytes (%) (Auto) 6.6, Eosinophils (%) (Auto) 2.5, Basophils ( %) (Auto) 0.5, Prothrombin Time 16.3H, Prothromb Time International Ratio 1.6H, Sodium Level 144, Potassium Level 3.5, Chloride Level 99, Carbon Dioxide Level 26, Anion Gap 19H, Blood Urea Nitrogen 57H, Creatinine 10.1H, Estimat Glomerular Filtration Rate , Glucose Level 59L, Calcium Level 8.1L DIANDRA MASCORRO Oct 19, 2016 15:46
[2016-10-19] MEDS ORDERED: Warfarin Sodium 3mg ORAL SCH (17:00)
--- NOTE | 2016-10-20 00:08 | General Progress Note ---
Assessment/Plan Status: stable, progressing Assessment/Plan -cont current treatment Subjective Date patient seen: Oct 19, 2016 Constitutional: Reports: malaise, weakness Neurologic/Psychiatric: Reports: anxiety, depressed, emotional problems Allergies: Coded Allergies: No Known Allergies (Unverified , 02/01/12) Objective Last 24 Hour Vital Signs Date Time Temp Pulse Resp B/P (MAP) Pulse Ox O2 Delivery O2 Flow Rate FiO2 10/19/16 12:00 98.0 87 18 104/57 95 Room Air 10/19/16 04:00 98.4 62 20 115/61 95 10/19/16 00:10 98.2 59 18 112/56 97 Room Air Laboratory Tests 10/19/16 05:20: White Blood Count 7.7, Red Blood Count 2.96L, Hemoglobin 9.5L, Hematocrit 29.3L , Mean Corpuscular Volume 99, Mean Corpuscular Hemoglobin 32.1H, Mean Corpuscular Hemoglobin Concent 32.5, Red Cell Distribution Width 13.5, Platelet Count 174, Mean Platelet Volume 8.2, Neutrophils (%) (Auto) 57.8, Lymphocytes (% ) (Auto) 32.5, Monocytes (%) (Auto) 6.6, Eosinophils (%) (Auto) 2.5, Basophils ( %) (Auto) 0.5, Prothrombin Time 16.3H, Prothromb Time International Ratio 1.6H, Sodium Level 144, Potassium Level 3.5, Chloride Level 99, Carbon Dioxide Level 26, Anion Gap 19H, Blood Urea Nitrogen 57H, Creatinine 10.1H, Estimat Glomerular Filtration Rate , Glucose Level 59L, Calcium Level 8.1L Height (Feet): 5 Height (Inches): 8.00 Weight (Pounds): 164 General Appearance: no apparent distress, alert, confused, overweight Neurologic: alert, responsive, disoriented, depressed affect Frank Aguilera M.D. Oct 20, 2016 00:08
--- NOTE | 2016-10-20 16:03 | Discharge Summary ---
Discharge Summary Hospital Course Date of Admission Oct 17, 2016 at 01:50 Date of Discharge Oct 19, 2016 at 15:01 Admitting Diagnosis hypotension,ESRD,on dialysis KENNA Faiza Tolentino is a 76 year old male who was admitted on Oct 17, 2016 at 01:50 for Hypotension,Esrd,On Dialysis Hospital Course [id number] Discharge Discharge Disposition Patient was discharged to SNF/Subacute Facility(03) Discharge Diagnoses: Nehal Barnhart NP Oct 20, 2016 16:03
== END 2016-10-19 15:01 | DRG 314 ==
LOC: EDBD 19:13 → EMR 21:57 → EDBEDREQ 23:05 → EDBEDREQSVC 23:05 → EDBEDREQTM 23:05 → EDBEDREQ 10-17 00:15 → EDBEDREQSVC 10-17 00:41 → EDBEDREQ 10-17 00:43 → EMR 10-17 01:20 → 4E 10-17 01:20
PROC: 5A1D00Z (ICD-10-PCS; principal; 2016-10-18)
DX: I95.89 Other hypotension (principal); G93.40 Encephalopathy, unspecified; E11.22 Type 2 diabetes mellitus with diabetic chronic kidney disease; N18.6 End stage renal disease; I12.0 Hypertensive chronic kidney disease with stage 5 chronic kidney disease or end stage renal disease; K86.1 Other chronic pancreatitis; Z99.2 Dependence on renal dialysis; R62.7 Adult failure to thrive; F29 Unspecified psychosis not due to a substance or known physiological condition; Z66 Do not resuscitate; R76.0 Raised antibody titer; Z72.0 Tobacco use; E11.319 Type 2 diabetes mellitus with unspecified diabetic retinopathy without macular edema; E11.43 Type 2 diabetes mellitus with diabetic autonomic (poly)neuropathy; K31.84 Gastroparesis; Z78.1 Physical restraint status; R41.0 Disorientation, unspecified; D63.1 Anemia in chronic kidney disease; E78.5 Hyperlipidemia, unspecified; M79.674 Pain in right toe(s); F41.9 Anxiety disorder, unspecified; F32.89 Other specified depressive episodes; Z79.01 Long term (current) use of anticoagulants; Z86.718 Personal history of other venous thrombosis and embolism; Z79.84 Long term (current) use of oral hypoglycemic drugs; E07.89 Other specified disorders of thyroid
CPT/HCPCS: 36415; 71010; 80048; 80053; 82550; 82962; 83036; 83605; 83690; 83735; 83880; 84100; 84484; 85025; 85610; 85730; 86850; 86900; 86901; 87040; 87081; 93005; 93306; 99285; J1815

== ENCOUNTER 2019-01-15 11:21 | Inpatient (IN) | payer MEDICARE, OTHER ==
[~2019-01-15] VITALS: Ht 170.2 cm; Wt 47.3 kg
[~2019-01-15 11:21] MED LIST changes: +AMITIZA24 MCG ORAL; +GLIPIZIDE5 MG ORAL; +MECLIZINE HCL25 MG ORAL; +MELATONIN3 MG ORAL; +MIDODRINE HCL10 MG ORAL; +MIRTAZAPINE15 MG ORAL; +NORCO 10/3251 EA ORAL
[2019-01-15] MEDS ORDERED: ATORVASTATIN CA40 MG ORAL (11:42)
[2019-01-15 11:48] VITALS: BP 157/125
--- NOTE | 2019-01-15 11:48 | NUR ---
ED Nurse Note: Pt BRIE from [facility] d/t bilateral knee pain 11/29. Patient is a dialysis patient but has not had dialysis today. Patient placed into gown and quality assurance monitor. Patient aao x 3 and nonambulatory, needs assist. Patient c/o generalized weakness. No acute cardiovascular or respiratory distress.
[2019-01-15] MEDS ORDERED: PLAVIX75 MG ORAL (11:59)
[2019-01-15] MEDS ORDERED: HYDRALAZINE HCL25 M1 ORAL (11:59)
[2019-01-15] MEDS ORDERED: MIRTAZAPINE15 MG ORAL (11:59)
[2019-01-15] MEDS ORDERED: NORCO 5-325 TA1 EACH ORAL (11:59)
[2019-01-15] MEDS ORDERED: METOPROLOL SUC100 MG ORAL (11:59)
[2019-01-15] MEDS ORDERED: LISINOPRIL5 MG ORAL (11:59)
[2019-01-15] MEDS ORDERED: CREON DR 3,0001 EACH PO (11:59)
[2019-01-15] MEDS ORDERED: Morphine Sulfate 2mg/ml Inj(IV/IM USE ONLY) IVP ONE (12:00)
--- NOTE | 2019-01-15 12:00 | Emergency Room Report ---
History of Present Illness General Chief Complaint: General Complaint Source: Patient Present Illness HPI Patient is a 78-year-old male sent in by facility from [facility] who presented after increased bilateral lower extremity pain and weakness. Patient reports having increased pain to both knees. He reportedly had been receiving dialysis. He reports having increased pain to both knees. He denies any recent trauma. History is markedly limited by poor historian. Allergies: Coded Allergies: No Known Allergies (Unverified , 02/01/12) Patient History Past Medical History: see triage record, old chart reviewed Reviewed Nursing Documentation: PMH: Agreed; PSxH: Agreed Nursing Documentation-PMH Past Medical History: No History, Except For Hx Hypertension: Yes - MT, ESR, ENCEPHALOPATHY Hx COPD: Yes Hx Diabetes: Yes Hx Cancer: No Hx Dialysis: Yes - T TH SAT Hx Neurological Problems: Yes - Diabetic neuropathy Hx Vertigo: Yes Hx Dizziness: Yes Hx Syncope: Yes Hx Headaches: Yes Hx Numbness: Yes Hx Weakness: Yes Hx Fatigue: Yes Review of Systems All Other Systems: limited - Review of systems: Review systems is limited by patient's being a poor historian Physical Exam Vital Signs Date Time Temp Pulse Resp B/P (MAP) Pulse Ox O2 Delivery O2 Flow Rate FiO2 01/15/19 11:29 97.9 80 15 128/65 (86) 97 Room Air Sp02 EP Interpretation: reviewed, normal General Appearance: alert, cachetic, Chronically Ill Head: atraumatic Eyes: bilateral eye normal inspection ENT: normal ENT inspection, hearing grossly normal, normal voice Neck: normal inspection, full range of motion, supple, no bony tend Respiratory: normal inspection, lungs clear, normal breath sounds, no respiratory distress, no retraction, no wheezing Cardiovascular #1: regular rate, rhythm, no edema Gastrointestinal: normal inspection, normal bowel sounds, non tender, soft, no guarding, no hernia Genitourinary: no CVA tenderness Musculoskeletal: normal inspection, back normal, normal range of motion Neurologic: alert, responsive, speech normal, normal inspection Skin: no rash Medical Decision Making Diagnostic Impression: Primary Impression: Acute encephalopathy Additional Impressions: ESRD (end stage renal disease) Uncontrolled diabetes mellitus ER Course Patient presented with bilateral knee pain and generalized weakness. Differential diagnosis include was not limited to arthritis, contracture, encephalopathy among others. Patient was noted to be somewhat confused and was unable to provide some history. Patient's laboratory testing was ordered due to some confusion. Patient does show some evidence of chronic renal failure as well as uncontrolled diabetes. X-ray imaging showed degenerative changes without any definite fracture . patient will be admitted for further work-up. Dr. Eddie Peralta was contacted for inpatient management Laboratory Tests Test 01/17/19 10:10 White Blood Count 15.8 K/UL (4.8-10.8) H Red Blood Count 2.92 M/UL (4.70-6.10) L Hemoglobin 8.7 G/DL (14.2-18.0) L Hematocrit 26.8 % (42.0-52.0) L Mean Corpuscular Volume 92 FL (80-99) Mean Corpuscular Hemoglobin 30.0 PG (27.0-31.0) Mean Corpuscular Hemoglobin Concent 32.7 G/DL (32.0-36.0) Red Cell Distribution Width 16.5 % (11.6-14.8) H Platelet Count 179 K/UL (150-450) Mean Platelet Volume 6.8 FL (6.5-10.1) Neutrophils (%) (Auto) % (45.0-75.0) Lymphocytes (%) (Auto) % (20.0-45.0) Monocytes (%) (Auto) % (1.0-10.0) Eosinophils (%) (Auto) % (0.0-3.0) Basophils (%) (Auto) % (0.0-2.0) Differential Total Cells Counted 100 Neutrophils % (Manual) 85 % (45-75) H Lymphocytes % (Manual) 8 % (20-45) L Monocytes % (Manual) 7 % (1-10) Eosinophils % (Manual) 0 % (0-3) Basophils % (Manual) 0 % (0-2) Band Neutrophils 0 % (0-8) Platelet Estimate Adequate Platelet Morphology Normal Hypochromasia 2+ Anisocytosis 1+ Spherocytes 1+ Prothrombin Time 10.3 SEC (9.30-11.50) Prothrombin Time INR 1.0 (0.9-1.1) Sodium Level 144 MMOL/L (136-145) Potassium Level 6.0 MMOL/L (3.5-5.1) *H Chloride Level 104 MMOL/L (98-107) Carbon Dioxide Level 27 MMOL/L (21-32) Anion Gap 13 mmol/L (5-15) Blood Urea Nitrogen 123 mg/dL (7-18) H Creatinine 11.2 MG/DL (0.55-1.30) H Estimate Glomerular Filtration Rate mL/min (>60) Glucose Level 186 MG/DL (74-106) H Uric Acid 8.5 MG/DL (2.6-7.2) H Calcium Level 9.3 MG/DL (8.5-10.1) Calcium (Send out) Pending Phosphorus Level 4.8 MG/DL (2.5-4.9) Total Bilirubin 0.4 MG/DL (0.2-1.0) Aspartate Amino Transferase (AST) 19 U/L (15-37) Alanine Aminotransferase (ALT) 25 U/L (12-78) Alkaline Phosphatase 115 U/L (46-116) Troponin I 0.003 ng/mL (0.000-0.056) Total Protein 6.8 G/DL (6.4-8.2) Albumin 2.7 G/DL (3.4-5.0) L Globulin 4.1 g/dL Albumin/Globulin Ratio 0.7 (1.0-2.7) L Thyroid Stimulating Hormone (TSH) 0.031 uiU/mL (0.358-3.740) Free Thyroxine 0.99 NG/DL (0.76-1.46) Parathyroid Hormone (Intact) Pending Hepatitis B Surface Antigen Pending Last Vital Signs Date Time Temp Pulse Resp B/P (MAP) Pulse Ox O2 Delivery O2 Flow Rate FiO2 01/15/19 11:29 97.9 80 15 128/65 (86) 97 Room Air Status: unchanged Disposition: ADMITTED INPATIENT Condition: Stable Que Richter MD Jan 15, 2019 12:00
[2019-01-15 12:44] LABS: BASOPHILS % (AUTO) 0.2 % (0.0-2.0); EOSINOPHILS % (AUTO) 0.4 % (0.0-3.0); HEMATOCRIT 27.3 % (42.0-52.0); HEMOGLOBIN 8.8 G/DL (14.2-18.0); LYMPHOCYTES % (AUTO) 23.9 % (20.0-45.0); MEAN CORPUSCULAR VOLUME 93 FL (80-99); MONOCYTES % (AUTO) 7.3 % (1.0-10.0); NEUTROPHILS % (AUTO) 68.2 % (45.0-75.0); PLATELET COUNT 162 K/UL (150-450); RED BLOOD COUNT 2.93 M/UL (4.70-6.10); RED CELL DISTRIBUTION WIDTH 16.7 % (11.6-14.8); WHITE BLOOD COUNT 8.7 K/UL (4.8-10.8)
[2019-01-15 12:46] LABS: ANION GAP 10 mmol/L (5-15); BLOOD UREA NITROGEN 94 mg/dL (7-18); CALCIUM 9.4 MG/DL (8.5-10.1); CARBON DIOXIDE 29 MMOL/L (21-32); CHLORIDE 104 MMOL/L (98-107); CREATININE 7.7 MG/DL (0.55-1.30); SODIUM 143 MMOL/L (136-145)
[2019-01-15 12:51] LABS: ALANINE AMINOTRANSFERASE 30 U/L (12-78); ALBUMIN 2.8 G/DL (3.4-5.0); ALBUMIN/GLOBULIN RATIO 0.7 (1.0-2.7); ALKALINE PHOSPHATASE 117 U/L (46-116); ASPARTATE AMINO TRANSFERASE 23 U/L (15-37); BILIRUBIN,TOTAL 0.4 MG/DL (0.2-1.0)
--- NOTE | 2019-01-15 13:12 | NUR ---
ED Nurse Note: Patient arrived here with no dressing over dialysis catheter on the right puneet. No redness, swelling or tenderness around the area noted. Cleaned the area and applied sterile dressing.
[2019-01-15 13:28] VITALS: BP 144/59
--- NOTE | 2019-01-15 14:21 | NUR ---
ED Nurse Note: Report given to ASHA Gar. Patient has redness on bilateral heels; No open wound noted.
--- NOTE | 2019-01-15 14:33 | Diagnostic Imaging Report ---
Indication: Right knee Pain 3 views of the right knee were obtained. Findings: The right knee is severely contracted anteflexed. There is no obvious fracture identified. The bones are osteopenic. There is extensive vascular calcification present. IMPRESSION: Severe contraction deformity of the right knee which is flexed. No obvious acute fracture identified. Extensive vascular disease
--- NOTE | 2019-01-15 14:35 | NUR ---
ED Nurse Note: MRSA and VRE swabs sent to lab.
--- NOTE | 2019-01-15 14:40 | NUR ---
ED Nurse Note: Transfered patient to telemetry unit, accompained by JULES Grey with all his belongings. Patient maintaining lying position with knees bent.
--- NOTE | 2019-01-15 14:40 | NUR ---
ED Nurse Note: ERMD ok to send patient to telemetry unit with pending x-ray result. Ensorsed to f/u on the result to ASHA Gar.
--- NOTE | 2019-01-15 15:06 | Diagnostic Imaging Report ---
INDICATION: Knee Pain COMPARISON: None 3 views of the left knee were obtained. FINDINGS: These severely flexed and contracted. No obvious fracture seen. Extensive vascular calcification demonstrated. Bones are osteopenic. IMPRESSION: No obvious acute fracture. Severe chronic contraction deformity
--- NOTE | 2019-01-15 15:10 | NUR ---
NURSE NOTES: Pt was admitted to the unit arrived by kadeem. Pt Ox2 resistive to care and combative at times. Vitals WNL, on room air, lower extremities contracted, wound care involved and saw the pt, Md Sutherland notified of pt admission, skin shows injury to skin bilateral heels. IV access left AC 20,
--- NOTE | 2019-01-15 15:30 | NUR ---
NURSE NOTES:Pt presented on admission with boggy and non-blanchable R and L heels. R heel extends into plantar aspect. at distal /lateral R foot an area of fluctuance with purple area in center noted. Sacrum is dry and intact without evidence of skin breakdown.Pt observed to keep both knees drawn but was able to extend lower ext. with PROM. However,pt demonstrated physical aggression towards staff during assessment -hitting staff and immediately return to initial position withdrawing knees towards chest with both heels plantaed into mattress. Attempted to off-load heels with pillow but pt again became aggressive and kicked pillow. Tx.Plan: Apply Cavilon Skin Barrier to both heels ,malleoli and lateral aspects of both feet. Change every 7 days and prn. Apply Moisture Barrier to both heels. Cover Sacrum with Optifoam drsg. Change every 3 days and prn. Reposition at least every 2hours or as tolerated. Off-load heels with pillow.
[2019-01-15 16:40] VITALS: BP 142/74
[2019-01-15] MEDS ORDERED: LORazepam 1mg tab ORAL PRN (17:00)
[2019-01-15] MEDS ORDERED: Lisinopril 2.5mg tab ORAL PRN (17:00)
[2019-01-15] MEDS ORDERED: HYDROcodone/Acetamin 5/325 tab ORAL PRN (17:13)
[2019-01-15] MEDS ORDERED: oxyCODONE HCL/Acetaminophen 5/325mg ORAL PRN (17:15)
[2019-01-15] MEDS ORDERED: Albuterol/Ipratropium 3ml neb HHN PRN (17:15)
[2019-01-15] MEDS ORDERED: Ketorolac 30mg Inj IV PRN (17:15)
[2019-01-15] MEDS ORDERED: Miralax 17gm pkt ORAL PRN (17:15)
[2019-01-15] MEDS ORDERED: Nitroglycerin Subl 0.4mg tab SL PRN (17:15)
--- NOTE | 2019-01-15 17:33 | History & Physical ---
History and Physical History & Physicial Dictated for Int Med-Dr Peralta no. [id number] Watson Sutherland MD Jan 15, 2019 17:33
[2019-01-15] MEDS: HydrALAZINE 25mg tab ORAL SCH (18:00)
[2019-01-15] MEDS: Meclizine 25mg tab ORAL SCH (18:00)
[2019-01-15] MEDS: Morphine Sulfate 2mg/ml Inj(IV/IM USE ONLY) IVP PRN (19:08)
--- NOTE | 2019-01-15 19:50 | NUR ---
NURSE NOTES: Received pt and report from ASHA Ricketts. Observed pt resting in bed with both eyes closed; arousable to voice. desk monitor is in placed; pt is NSR. IV site intact, asymptomatic and patent. Pt has a right upper chest PermCath for HD. Bed is in the lowest position and locked, call light and bedside table within reach. No signs/symptoms of acute distress noted at this time. Will continue plan of care.
[2019-01-15 20:00] VITALS: BP 141/72
--- NOTE | 2019-01-15 20:02 | NUR ---
HAND-OFF: Report given to Josephine Nickerson.
[2019-01-15] MEDS ORDERED: NovoLOG Insulin Flexpen SUBQ SCH (21:00)
[2019-01-15] MEDS: Atorvastatin 80mg tab ORAL SCH (21:29)
[2019-01-15] MEDS: NovoLOG Insulin Flexpen SUBQ SCH (21:30)
[2019-01-15] MEDS: Heparin 5000 units/ml inj SUBQ SCH (21:31)
--- NOTE | 2019-01-15 22:00 | NUR ---
NURSE NOTES: Pt refused to get swab for CRE/VRE of rectum. Pt became agitated and states, "Please leave me alone." Will attempt to swab pt again in the morning/endorsed to dayshift nurse.
--- NOTE | 2019-01-15 22:15 | History and Physical Report ---
DATE OF ADMISSION: 01/15/2019 CHIEF COMPLAINT: The patient is a 78-year-old male, who presents with a chief complaint of bilateral knee pain and bilateral lower extremity weakness. HISTORY OF PRESENT ILLNESS: The patient is a resident of [facility]. The patient apparently was undergoing dialysis today. The patient began to experience bilateral knee pain. The patient himself is unable to contribute much to the history and physical. Much of the history and physical is taken from the patient's chart. The patient presented to [facility] emergency room. The patient is admitted with generalized weakness and bilateral knee pain. REVIEW OF SYSTEMS: Unable to assess secondary to the patient's mental status. PAST MEDICAL HISTORY: Significant for, 1. Hypertension. 2. Diabetes type 2. 3. End-stage renal disease, on hemodialysis every Monday, , and Monday at [facility] by Dr. Alamo. 4. Coronary artery disease, status post percutaneous transluminal coronary angioplasty with stent placement in December 2017. 5. Diabetes type 2. 6. Chronic obstructive pulmonary disease. 7. History of lupus anticoagulant. 8. History of renal mass. 9. Chronic pancreatitis. 10. History of thyroid mass. 11. Diabetic nephropathy. 12. Diabetic retinopathy. 13. Diabetic gastropathy. 14. Gastroesophageal reflux disease. 15. Dysphagia. 16. Major depression. 17. Hypercholesterolemia. 18. Diabetic neuropathy. 19. Vitamin D deficiency. 20. Anemia of chronic renal disease. 21. Recent hospitalization for sepsis. 22. Toxic encephalopathy secondary to sepsis as above. 23. Chronic deep venous thrombosis. 24. Protein-calorie malnutrition. PAST SURGICAL HISTORY: Significant for: 1. Arteriovenous graft in the right upper extremity for dialysis. 2. Cardiac catheterization with stent placement in December of 2017. 3. PermCath placement for dialysis. 4. Appendectomy. CURRENT MEDICATIONS: 1. Tylenol 650 mg one tab p.o. q.6 hours p.r.n. 2. Atorvastatin 80 mg p.o. at bedtime. 3. Calcium acetate 667 mg p.o. 3 times daily. 4. Plavix 75 mg p.o. daily. 5. Docusate 250 mg p.o. twice daily. 6. Hydralazine 25 mg p.o. twice daily. 7. Murray 5/325 mg one tablet p.o. q.4 hours p.r.n. 8. Regular insulin sliding scale. 9. Lactulose 30 mL p.o. daily. 10. Creon 3000 units 3 tablets p.o. 3 times daily. 11. Lisinopril 2.5 mg p.o. daily. 12. Claritin 10 mg p.o. daily. 13. Amitiza 24 mcg p.o. q.12 hours. 14. Meclizine 25 mg p.o. 3 times daily. 15. Melatonin 3 mg p.o. at bedtime. 16. Metoprolol ER 100 mg p.o. daily. 17. Remeron 7.5 mg p.o. at bedtime. 18. Omeprazole 40 mg p.o. daily. 19. MiraLAX 17 g p.o. twice daily. 20. Senna-Gen 2 tablets p.o. at bedtime. 21. Simethicone 80 mg p.o. q.4 hours p.r.n. 22. Januvia 25 mg p.o. daily. 23. Sorbitol 30 mL p.o. q.8 hours p.r.n. 24. Tramadol 50 mg p.o. q.6 hours p.r.n. 25. Vitamin B complex 1 tablet p.o. daily. 26. Coumadin 5 mg p.o. daily. ALLERGIES: No known drug allergies. SOCIAL HISTORY: The patient is . The patient denies tobacco or alcohol use. PHYSICAL EXAMINATION: VITAL SIGNS: Temperature 97.5, respirations 19, pulse 77, blood pressure 157/125. GENERAL: The patient is a well-developed and well-nourished male, who is somnolent, but arousable. HEENT: Eyes, pupils are equal and responsive to light and accommodation. Extraocular movements are intact. NECK: Supple. No lymphadenopathy. CHEST: Lungs are clear to auscultation bilaterally without wheezes or rales. CARDIOVASCULAR: Regular rhythm and rate. S1, S2 are normal without murmurs, rubs, or gallops. ABDOMEN: Soft, nontender, and nondistended. Positive bowel sounds. No evidence of hepatosplenomegaly. Currently, no rebound or guarding noted. EXTREMITIES: Negative for clubbing, cyanosis, or edema. RECTAL/GENITAL: Not performed. NEUROLOGIC: Cranial nerves II through XII are grossly intact without focal deficits. LABORATORY STUDIES: WBC 8.7, hemoglobin 8.8, hematocrit 27.3, and platelets 162,000. Sodium 143, potassium 5.0, chloride 104, CO2 29, BUN 94, creatinine 7.7, and glucose 329. Troponin 0.054. An x-ray of the bilateral knees showed severe contractures, otherwise no acute fracture. ASSESSMENT: This is a 78-year-old male. 1. Bilateral knee pain. 2. Generalized weakness. 3. Diabetes type 2. 4. End-stage renal disease. 5. Chronic obstructive pulmonary disease. 6. Coronary artery disease. 7. Lupus anticoagulant. 8. Chronic pancreatitis. 9. Diabetic nephropathy. 10. Diabetic retinopathy. 11. Diabetic gastropathy. 12. Gastroesophageal reflux disease. 13. Dysphagia. 14. Major depression. 15. Hypercholesterolemia. 16. Diabetic neuropathy. 17. Anemia of chronic renal disease. 18. Protein-calorie malnutrition. TREATMENT: 1. Bilateral knee pain. Initial x-rays were negative for fracture. The patient does have contractures. The patient will be offered Murray as above for knee pain. 2. Weakness of bilateral lower extremities. The patient has permanent contractures of bilateral knees. 3. Diabetes type 2. NovoLog sliding scale has been instituted. 4. End-stage renal disease, on hemodialysis. A Nephrology consultation has been obtained with Dr. Alamo. The patient apparently was at dialysis today. We will follow recommendations of Nephrology. 5. Chronic obstructive pulmonary disease. 6. Coronary artery disease. The patient is status post percutaneous transluminal coronary angioplasty in December of 2017 with stent placement. 7. Lupus anticoagulant. 8. Chronic pancreatitis. 9. Diabetic nephropathy. 10. Diabetic gastroparesis. 11. Gastroesophageal reflux disease. 12. Dysphagia. 13. Major depression. 14. Hypercholesterolemia. 15. Diabetic neuropathy. 16. Vitamin D deficiency. 17. Anemia of renal failure. 18. Encephalopathy. 19. Chronic deep venous thrombosis. Continue Coumadin as above. Watson Sutherland M.D. DR: PREET JOB#: [id number] CC:
[2019-01-16] VITALS: BP 148/85
[2019-01-16] MEDS: NovoLOG Insulin Flexpen SUBQ SCH ×4 (06:30→20:22)
--- NOTE | 2019-01-16 06:34 | NUR ---
NURSE NOTES: Pt refused 0400 VS, sponge bath, Insulin subQ, and morning labs. Pt states, "Please leave me alone! Please leave me alone!" Asked drama teacher to attempt blood draw again after breakfast.
--- NOTE | 2019-01-16 07:45 | NUR ---
HAND-OFF: Report given to ASHA Rivas. Plan of care endorsed.
--- NOTE | 2019-01-16 07:46 | NUR ---
NURSE NOTES: Received report from ASHA Burton. The patient is resting on the bed without acute distress or shortness of breath. The patient's bed in the lowest position, call light in reach, and fall and aspiration precaution reinforced. IV site intact and patent. R upper arm AV graft intact. The patient is resistant in all types of care. Will continue plan of care.
[2019-01-16 08:00] VITALS: BP 162/78
[2019-01-16 08:27] VITALS: BP 162/78
--- NOTE | 2019-01-16 08:30 | NUR ---
NURSE NOTES: Notified Dr. Washington regarding refusal of oral medication. Notified Dr. Washington regarding no PO intake. Notified Dr. Washington regarding abnormal vital signs of elevated blood pressure and heart rate. No new order yet. Will continue plan of care.
[2019-01-16] MEDS: Nephrovite tab (Rena-Vite) ORAL SCH ×2 (08:57→09:00)
[2019-01-16] MEDS: sitaGLIPtin 25mg tab ORAL SCH ×2 (08:57→09:00)
[2019-01-16] MEDS: Meclizine 25mg tab ORAL SCH ×4 (08:57→17:32)
[2019-01-16] MEDS: HydrALAZINE 25mg tab ORAL SCH ×4 (08:57→18:55)
[2019-01-16] MEDS: Heparin 5000 units/ml inj SUBQ SCH ×2 (08:58→20:22)
[2019-01-16] MEDS: Metoprolol Succinate XL 100mg tab ORAL SCH ×2 (08:58→09:00)
--- NOTE | 2019-01-16 09:00 | NUR ---
NURSE NOTES: Notified Dr. Washington, Dr. Sutherland, Dr. Saleem, and Dr. Alamo regarding refusal of blood test, oral medication intake, and no food intake. The patient is being combative. No new order yet. Will continue plan of care.
--- NOTE | 2019-01-16 11:47 | Internal Med Progress Note ---
Subjective Date of Service: Jan 16, 2019 Physician Name Watson Sutherland Attending Physician Eddie Peralta MD Current Medications Medications (Trade) Dose Ordered Sig/Tess Route PRN Reason Start Time Stop Time Status Last Admin Dose Admin Acetaminophen (Tylenol) 650 mg Q4H PRN ORAL Mild Pain (Pain Scale 1-3) 01/15/19 17:00 02/14/19 16:59 Acetaminophen (Tylenol) 650 mg Q4H PRN ORAL fever 01/15/19 17:00 02/14/19 16:59 Acetaminophen/ Hydrocodone Bitart (Shirley 5/325) 1 tab Q4H PRN ORAL For Pain 01/15/19 17:13 01/22/19 17:12 Albuterol/ Ipratropium (Albuterol/ Ipratropium) 3 ml Q4H PRN HHN Shortness of Breath 01/15/19 17:15 01/20/19 17:14 Atorvastatin Calcium (Lipitor) 80 mg BEDTIME ORAL 01/15/19 21:00 02/14/19 20:59 01/15/19 21:29 Clonidine HCl (Catapres Tab) 0.1 mg Q4H PRN ORAL sbp more than 160 01/15/19 17:15 02/14/19 17:14 Clopidogrel Bisulfate (Plavix) 75 mg DAILY ORAL 01/16/19 09:00 02/15/19 08:59 Dextrose (Dextrose 50%) 25 ml Q30M PRN IV Hypoglycemia 01/15/19 17:00 02/14/19 16:59 Dextrose (Dextrose 50%) 50 ml Q30M PRN IV Hypoglycemia 01/15/19 17:00 02/14/19 16:59 Heparin Sodium (Porcine) (Heparin 5000 units/ml) 5,000 units EVERY 12 HOURS SUBQ 01/15/19 21:00 02/14/19 20:59 01/16/19 08:58 Hydralazine HCl (Apresoline) 25 mg BID ORAL 01/15/19 18:00 02/14/19 17:59 Insulin Aspart (NovoLOG) BEFORE MEALS AND HS SUBQ 01/15/19 21:00 02/14/19 20:59 01/15/19 21:30 Ketorolac Tromethamine (Toradol 30mg) 30 mg Q6H PRN IV moderate pain 4-6 01/15/19 17:15 01/20/19 17:14 Lorazepam (Ativan) 1 mg Q4H PRN ORAL For Anxiety 01/15/19 17:00 01/22/19 16:59 Meclizine HCl (Antivert) 25 mg THREE TIMES A DAY ORAL 01/15/19 18:00 02/14/19 17:59 Metoprolol Succinate (Toprol XL) 100 mg DAILY ORAL 01/16/19 09:00 02/15/19 08:59 Mirtazapine (Remeron) 7.5 mg BEDTIME ORAL 01/15/19 21:00 02/14/19 20:59 01/15/19 21:29 Mirtazapine (Remeron) 7.5 mg BEDTIME PRN ORAL depression 01/15/19 17:00 02/14/19 16:59 Morphine Sulfate (Morphine Sulfate) 2 mg Q4H PRN IVP severe pain 7-10 01/15/19 17:15 01/22/19 17:14 01/15/19 19:08 Nitroglycerin (Ntg) 0.4 mg Q5M X 3 DOSES PRN SL Prn Chest Pain 01/15/19 17:15 02/14/19 17:14 Ondansetron HCl (Zofran) 4 mg Q6H PRN IVP Nausea & Vomiting 01/15/19 17:00 02/14/19 16:59 Oxycodone/ Acetaminophen (Percocet 5-325) 1 tab Q6H PRN ORAL pain 4-10 01/15/19 17:15 01/22/19 17:14 Pantoprazole (Protonix) 40 mg DAILY ORAL 01/16/19 09:00 02/15/19 08:59 Polyethylene Glycol (Miralax) 17 gm HSPRN PRN ORAL Constipation 01/15/19 17:15 02/14/19 17:14 Sitagliptin Phosphate (Januvia) 25 mg DAILY ORAL 01/16/19 09:00 02/15/19 08:59 Temazepam (Restoril) 15 mg HSPRN PRN ORAL Insomnia 01/15/19 17:15 01/22/19 17:14 Vitamin B Complex/ Vit C/Folic Acid (Nephrovite) 1 tab DAILY ORAL 01/16/19 09:00 02/15/19 08:59 Warfarin Sodium (Coumadin per pharmacy) 1 ea DAILY PRN MISC Per rx protocol 01/15/19 17:00 02/14/19 16:59 UNV Allergies: Coded Allergies: No Known Allergies (Unverified , 02/01/12) ROS Limited/Unobtainable: Yes Subjective 78 YO M admitted with chief complaint bilateral knee pain and gen weakness. Cover for Int Mario-Dr Peralta Objective Last Vital Signs Date Time Temp Pulse Resp B/P (MAP) Pulse Ox O2 Delivery O2 Flow Rate FiO2 01/16/19 09:00 Room Air 01/16/19 09:00 97 162/78 01/16/19 08:27 97.9 19 95 Laboratory Tests Test 01/15/19 11:48 White Blood Count 8.7 K/UL (4.8-10.8) Red Blood Count 2.93 M/UL (4.70-6.10) L Hemoglobin 8.8 G/DL (14.2-18.0) L Hematocrit 27.3 % (42.0-52.0) L Mean Corpuscular Volume 93 FL (80-99) Mean Corpuscular Hemoglobin 30.0 PG (27.0-31.0) Mean Corpuscular Hemoglobin Concent 32.3 G/DL (32.0-36.0) Red Cell Distribution Width 16.7 % (11.6-14.8) H Platelet Count 162 K/UL (150-450) Mean Platelet Volume 7.1 FL (6.5-10.1) Neutrophils (%) (Auto) 68.2 % (45.0-75.0) Lymphocytes (%) (Auto) 23.9 % (20.0-45.0) Monocytes (%) (Auto) 7.3 % (1.0-10.0) Eosinophils (%) (Auto) 0.4 % (0.0-3.0) Basophils (%) (Auto) 0.2 % (0.0-2.0) Activated Partial Thromboplast Time 27 SEC (23-33) Sodium Level 143 MMOL/L (136-145) Potassium Level 5.0 MMOL/L (3.5-5.1) Chloride Level 104 MMOL/L (98-107) Carbon Dioxide Level 29 MMOL/L (21-32) Anion Gap 10 mmol/L (5-15) Blood Urea Nitrogen 94 mg/dL (7-18) H Creatinine 7.7 MG/DL (0.55-1.30) H Estimat Glomerular Filtration Rate mL/min (>60) Glucose Level 329 MG/DL (74-106) H Hemoglobin A1c 5.8 % (4.3-6.0) Calcium Level 9.4 MG/DL (8.5-10.1) Total Bilirubin 0.4 MG/DL (0.2-1.0) Aspartate Amino Transf (AST/SGOT) 23 U/L (15-37) Alanine Aminotransferase (ALT/SGPT) 30 U/L (12-78) Alkaline Phosphatase 117 U/L (46-116) H Troponin I 0.054 ng/mL (0.000-0.056) Total Protein 6.7 G/DL (6.4-8.2) Albumin 2.8 G/DL (3.4-5.0) L Globulin 3.9 g/dL Albumin/Globulin Ratio 0.7 (1.0-2.7) L Intake and Output 01/15/19 01/16/19 19:00 07:00 Intake Total 0 ml 120 ml Balance 0 ml 120 ml Intake Oral 0 ml 120 ml Objective PHYSICAL EXAMINATION: GENERAL: The patient is a well-developed and well-nourished male, who is somnolent, but arousable. HEENT: Eyes, pupils are equal and responsive to light and accommodation. Extraocular movements are intact. NECK: Supple. No lymphadenopathy. CHEST: Lungs are clear to auscultation bilaterally without wheezes or rales. CARDIOVASCULAR: Regular rhythm and rate. S1, S2 are normal without murmurs, rubs, or gallops. ABDOMEN: Soft, nontender, and nondistended. Positive bowel sounds. No evidence of hepatosplenomegaly. Currently, no rebound or guarding noted. EXTREMITIES: Negative for clubbing, cyanosis, or edema. RECTAL/GENITAL: Not performed. NEUROLOGIC: Cranial nerves II through XII are grossly intact without focal deficits. Assessment/Plan Assessment/Plan ASSESSMENT: This is a 78-year-old male. 1. Bilateral knee pain. 2. Generalized weakness. 3. Diabetes type 2. 4. End-stage renal disease. 5. Chronic obstructive pulmonary disease. 6. Coronary artery disease. 7. Lupus anticoagulant. 8. Chronic pancreatitis. 9. Diabetic nephropathy. 10. Diabetic retinopathy. 11. Diabetic gastropathy. 12. Gastroesophageal reflux disease. 13. Dysphagia. 14. Major depression. 15. Hypercholesterolemia. 16. Diabetic neuropathy. 17. Anemia of chronic renal disease. 18. Protein-calorie malnutrition. 19. uncontrolled hypertension TREATMENT: 1. Bilateral knee pain. Initial x-rays were negative for fracture. The patient does have contractures. The patient will be offered Shirley as above for knee pain. 2. Weakness of bilateral lower extremities. The patient has permanent contractures of bilateral knees. 3. Diabetes type 2. NovoLog sliding scale has been instituted. 4. End-stage renal disease, on hemodialysis. A Nephrology consultation has been obtained with Dr. Alamo. The patient apparently was at dialysis today. We will follow recommendations of Nephrology. 5. Chronic obstructive pulmonary disease. 6. Coronary artery disease. The patient is status post percutaneous transluminal coronary angioplasty in December of 2017 with stent placement. 7. Lupus anticoagulant. 8. Chronic pancreatitis. 9. Diabetic nephropathy. 10. Diabetic gastroparesis. 11. Gastroesophageal reflux disease. 12. Dysphagia. 13. Major depression. 14. Hypercholesterolemia. 15. Diabetic neuropathy. 16. Vitamin D deficiency. 17. Anemia of renal failure. 18. Encephalopathy. 19. Chronic deep venous thrombosis. Continue Coumadin as above. 20. Continue hydralazine, clonidine and metoprolol Watson Sutherland MD Jan 16, 2019 11:47
[2019-01-16 12:00] VITALS: BP 141/72
--- NOTE | 2019-01-16 12:00 | NUR ---
NURSE NOTES: The patient is stable without acute distress or shortness of breath. Will continue plan of care.
--- NOTE | 2019-01-16 12:26 | Consultation ---
History of Present Illness General Date patient seen: Jan 16, 2019 Chief Complaint: General Complaint Present Illness HPI 78-year-old male with hx of DM, ESRF, on HD long term resident came from [facility] presented to ER with CC of bilateral lower extremity, knees pain and weakness. History is markedly limited by poor historian. He seems confused and doesn't know where he is. Allergies: Coded Allergies: No Known Allergies (Unverified , 02/01/12) Medication History Scheduled Atorvastatin Calcium* (Atorvastatin Calcium*), 80 MG ORAL BEDTIME, (Reported) Calcium Acetate (Calcium Acetate), 667 MG PO TID, (Reported) Clopidogrel Bisulfate* (Plavix*), 75 MG ORAL DAILY, (Reported) Docusate Sodium* (Docusate Sodium*), 100 MG ORAL TWICE A DAY, (Reported) Hydralazine Hcl* (Hydralazine Hcl*), 25 MG ORAL BID, (Reported) Insulin Regular, Human* (Novolin R*), 0 SUBQ .SLIDING SCALE, (Reported) Lactulose (Lactulose*), 30 ML ORAL DAILY, (Reported) Lipase/Protease/Amylase (Creon Dr 3,000 Units Capsule), 3 EACH PO TID, (Reported ) Lipase/Protease/Amylase (Creon Dr 3,000 Units Capsule), 3 EACH PO THREE TIMES A DAY, (Reported) Lipase/Protease/Amylase (Creon Dr 3,000 Units Capsule), 3 EACH PO THREE TIMES A DAY, (Reported) Loratadine (Claritin), 10 MG ORAL DAILY, (Reported) Loratadine (Claritin), 10 MG ORAL DAILY, (Reported) Lubiprostone (Amitiza*), 24 MCG ORAL EVERY 12 HOURS, (Reported) Magnesium Hydroxide* (Milk Of Magnesia*), 30 ML ORAL DAILY, (Reported) Meclizine Hcl* (Meclizine*), 25 MG ORAL THREE TIMES A DAY, (Reported) Metoprolol Succinate* (Metoprolol Succinate*), 100 MG ORAL DAILY, (Reported) Mirtazapine* (Remeron*), 7.5 MG ORAL BEDTIME, (Reported) Na Phos,M-B/Na Phos,Di-Ba* (Fleet Enema*), 133 ML RECTAL DAILY, (Reported) Omeprazole (Omeprazole), 40 MG ORAL DAILY, (Reported) Polyethylene Glycol 3350* (Miralax*), 17 GM ORAL BID, (Reported) Sennosides (Senna-Gen), 2 TAB ORAL BEDTIME, (Reported) Sitagliptin* (Januvia*), 25 MG ORAL DAILY, (Reported) Vit B Cmplx 3/Fa/Vit C/Biotin (Nephro-Mary Rx Tablet), 1 EACH PO DAILY, ( Reported) Vitamin B Cmplx/Vit C/Folic AC (Nephro-Mary Tablet), 1 TAB ORAL DAILY, (Reported ) Warfarin Sod* (Coumadin*), 5 MG ORAL DAILY, (Reported) Scheduled PRN Acetaminophen (Acetaminophen 8 Hour), 650 MG ORAL Q6HR PRN for For Pain, ( Reported) Hydrocodone Bit/Acetaminophen 5-325* (Pisgah 5-325*), 1 TAB ORAL Q4H PRN for For Pain, (Reported) Lisinopril (Lisinopril*), 2.5 MG ORAL DAILY PRN for For High Blood Pressure, ( Reported) Melatonin (Melatonin), 3 MG ORAL BEDTIME PRN for Insomnia, (Reported) Mirtazapine* (Remeron*), 7.5 MG ORAL BEDTIME PRN for depression, (Reported) Oxycodone Hcl/Acetaminophen 5-325* (Oxycodone-Acetaminophen 5-325*), 1 TAB ORAL Q6H PRN for For Pain, (Reported) Simethicone* (Simethicone*), 80 MG ORAL Q4HR PRN, (Reported) Sorbitol (Sorbitol), 30 ML PO Q8HR PRN for Constipation, (Reported) Tramadol Hcl* (Ultram*), 50 MG ORAL Q6H PRN for For Pain, (Reported) Zolpidem Tartrate* (Ambien*), 5 MG ORAL BEDTIME PRN for Insomnia, (Reported) Zolpidem Tartrate* (Ambien*), 5 MG ORAL BEDTIME PRN for Insomnia, (Reported) [Warfarin RX monitoring], 1 EA MISC DAILY PRN for Per rx protocol Miscellaneous Medications Lipase/Protease/Amylase (Creon Dr 3,000 Units Capsule), 1 EACH PO, (Reported) Discontinued Medications Amlodipine Besylate (Norvasc), 5 MG ORAL DAILY, (Reported) Discontinued Reason: Pt stopped taking med Bisacodyl (Dulcolax), 10 MG RC DAILY PRN for Constipation, (Reported) Discontinued Reason: Pt stopped taking med Calcitriol (Calcitriol*), 0.25 MCG PO DAILY, (Reported) Discontinued Reason: Pt stopped taking med Ciprofloxacin (Ciprofloxacin HCl), 2 DROP BOTH EYES Q4H Discontinued Reason: Pt stopped taking med Clonidine (Clonidine), 0.1 MG PO DAILY, (Reported) Discontinued Reason: Pt stopped taking med Clonidine HCl (Clonidine HCl), 0.1 MG ORAL Q6HR PRN Discontinued Reason: Pt stopped taking med Dextran 70/Hypromellose (Artificial Tears Eye Drops*), 2 DROP BOTH EYES EVERY 2 HOURS, (Reported) Discontinued Reason: Pt stopped taking med Diphenhydramine Hcl* (Diphenhydramine Hcl*), 25 MG ORAL Q4HR PRN for Itching, ( Reported) Discontinued Reason: Pt stopped taking med Glipizide* (Glipizide*), 20 MG ORAL BIDAC, (Reported) Discontinued Reason: Pt stopped taking med Hydrocodone/Acetaminophen (Hydrocodon-Acetaminophn 10-325), 1 TAB ORAL Q4H PRN for For Pain, (Reported) Discontinued Reason: Pt stopped taking med Levofloxacin* (Levaquin*), 500 MG ORAL DAILY Discontinued Reason: Pt stopped taking med Linaclotide (Linzess), 145 MCG PO DAILY, (Reported) Discontinued Reason: Pt stopped taking med Patient History Healthcare decision maker Resuscitation status Do Not Resuscitate Advanced Directive on File No Past Medical/Surgical History Past Medical/Surgical History: (1) ESRD (end stage renal disease) (2) Lupus anticoagulant disorder (3) Chronic pancreatitis (4) Diabetic retinopathy (5) Diabetes mellitus Review of Systems Constitutional: Reports: malaise, weakness All Other Systems: negative except mentioned in HPI Physical Exam General Appearance: cachetic, thin Lines, tubes and drains: peripheral HEENT: normocephalic, atraumatic Neck: non-tender, normal alignment Respiratory/Chest: chest wall non-tender, lungs clear Breasts: no masses Cardiovascular/Chest: normal rate Abdomen: normal bowel sounds, non tender Genitourinary/Rectal: normal genital exam Extremities: normal range of motion Skin Exam: normal pigmentation Last 24 Hour Vital Signs Date Time Temp Pulse Resp B/P (MAP) Pulse Ox O2 Delivery O2 Flow Rate FiO2 11/27/19 12:00 97.1 97 18 141/72 (95) 95 01/16/19 09:00 Room Air 01/16/19 09:00 97 162/78 01/16/19 09:00 162/78 01/16/19 08:27 97.9 97 19 162/78 (106) 95 01/16/19 08:00 97.9 97 18 162/78 (106) 95 01/16/19 08:00 101 01/16/19 04:00 100 01/16/19 00:00 98.1 87 20 148/85 (106) 100 01/16/19 00:00 83 01/15/19 21:00 Room Air 01/15/19 20:00 86 01/15/19 20:00 97.4 87 18 141/72 (95) 100 01/15/19 19:50 97.2 01/15/19 16:40 97.2 86 19 142/74 (96) 01/15/19 16:32 Room Air 01/15/19 16:00 78 01/15/19 14:23 78 16 159/66 99 Room Air 01/15/19 13:28 82 14 144/59 100 Room Air 01/15/19 12:51 97.5 Intake and Output 01/15/19 01/16/19 19:00 07:00 Intake Total 0 ml 120 ml Balance 0 ml 120 ml Intake Oral 0 ml 120 ml Height (Feet): 5 Height (Inches): 7.00 Weight (Pounds): 125 Medications Current Medications Medications (Trade) Dose Ordered Sig/Tess Route PRN Reason Start Time Stop Time Status Last Admin Dose Admin Acetaminophen (Tylenol) 650 mg Q4H PRN ORAL Mild Pain (Pain Scale 1-3) 01/15/19 17:00 02/14/19 16:59 Acetaminophen (Tylenol) 650 mg Q4H PRN ORAL fever 01/15/19 17:00 02/14/19 16:59 Acetaminophen/ Hydrocodone Bitart ([place]isgah 5/325) 1 tab Q4H PRN ORAL For Pain 01/15/19 17:13 01/22/19 17:12 Albuterol/ Ipratropium (Albuterol/ Ipratropium) 3 ml Q4H PRN HHN Shortness of Breath 01/15/19 17:15 121/19 17:14 Atorvastatin Calcium (Lipitor) 80 mg BEDTIME ORAL 01/15/19 21:00 02/14/19 20:59 01/15/19 21:29 Clonidine HCl (Catapres Tab) 0.1 mg Q4H PRN ORAL sbp more than 160 01/15/19 17:15 02/14/19 17:14 Clopidogrel Bisulfate (Plavix) 75 mg DAILY ORAL 01/16/19 09:00 02/15/19 08:59 Dextrose (Dextrose 50%) 25 ml Q30M PRN IV Hypoglycemia 01/15/19 17:00 02/14/19 16:59 Dextrose (Dextrose 50%) 50 ml Q30M PRN IV Hypoglycemia 01/15/19 17:00 02/14/19 16:59 Heparin Sodium (Porcine) (Heparin 5000 units/ml) 5,000 units EVERY 12 HOURS SUBQ 01/15/19 21:00 02/14/19 20:59 01/16/19 08:58 Hydralazine HCl (Apresoline) 25 mg BID ORAL 01/15/19 18:00 02/14/19 17:59 Insulin Aspart (NovoLOG) BEFORE MEALS AND HS SUBQ 01/15/19 21:00 02/14/19 20:59 01/15/19 21:30 Ketorolac Tromethamine (Toradol 30mg) 30 mg Q6H PRN IV moderate pain 4-6 01/15/19 17:15 01/20/19 17:14 Lorazepam (Ativan) 1 mg Q4H PRN ORAL For Anxiety 01/15/19 17:00 01/22/19 16:59 Meclizine HCl (Antivert) 25 mg THREE TIMES A DAY ORAL 01/15/19 18:00 02/14/19 17:59 Metoprolol Succinate (Toprol XL) 100 mg DAILY ORAL 01/16/19 09:00 02/15/19 08:59 Mirtazapine (Remeron) 7.5 mg BEDTIME ORAL 01/15/19 21:00 02/14/19 20:59 01/15/19 21:29 Mirtazapine (Remeron) 7.5 mg BEDTIME PRN ORAL depression 01/15/19 17:00 02/14/19 16:59 Morphine Sulfate (Morphine Sulfate) 2 mg Q4H PRN IVP severe pain 7-10 01/15/19 17:15 01/22/19 17:14 01/15/19 19:08 Nitroglycerin (Ntg) 0.4 mg Q5M X 3 DOSES PRN SL Prn Chest Pain 01/15/19 17:15 02/14/19 17:14 Ondansetron HCl (Zofran) 4 mg Q6H PRN IVP Nausea & Vomiting 01/15/19 17:00 02/14/19 16:59 Oxycodone/ Acetaminophen (Percocet 5-325) 1 tab Q6H PRN ORAL pain 4-10 01/15/19 17:15 01/22/19 17:14 Pantoprazole (Protonix) 40 mg DAILY ORAL 01/16/19 09:00 02/15/19 08:59 Polyethylene Glycol (Miralax) 17 gm HSPRN PRN ORAL Constipation 01/15/19 17:15 02/14/19 17:14 Sitagliptin Phosphate (Januvia) 25 mg DAILY ORAL 01/16/19 09:00 02/15/19 08:59 Temazepam (Restoril) 15 mg HSPRN PRN ORAL Insomnia 01/15/19 17:15 01/22/19 17:14 Vitamin B Complex/ Vit C/Folic Acid (Nephrovite) 1 tab DAILY ORAL 01/16/19 09:00 02/15/19 08:59 Warfarin Sodium (Coumadin per pharmacy) 1 ea DAILY PRN MISC Per rx protocol 01/15/19 17:00 02/14/19 16:59 UNV Assessment/Plan Problem List: (1) ESRD (end stage renal disease) ICD Codes: N18.6 - End stage renal disease SNOMED: 26369670 (2) Chronic pancreatitis ICD Codes: K86.1 - Other chronic pancreatitis SNOMED: 164474413 (3) Diabetic retinopathy ICD Codes: E11.319 - Type 2 diabetes mellitus with unspecified diabetic retinopathy without macular edema SNOMED: 8537644, 36494724 (4) Diabetes mellitus ICD Codes: E11.9 - Type 2 diabetes mellitus without complications SNOMED: 37760650 Assessment/Plan: symptomatic treatment titrate fio2 to pulse ox of 92% HD by powerhouse attendant sliding scale pain management knee XR's reviewed dvt prophylaxis. Kevin Washington MD Jan 16, 2019 12:26
--- NOTE | 2019-01-16 12:34 | NUR ---
RD ASSESSMENT & RECOMMENDATIONS SEE CARE ACTIVITY FOR COMPLETE ASSESSMENT DAILY ESTIMATED NEEDS: Needs based on ESRD, HD + DM/ 58kg 25-30 kcals/kg 7049-7732 total kcals 1.2-1.8 g protein/kg 70-104 g total protein 20-22 mL/kg 9607-0926 total fluid mLs NUTRITION DIAGNOSIS: * Increased kcal/prot needs R/T HD dep as evidenced by h/o ESRD, on HD, refusing meals at this time * Swallowing difficulty R/T dysphagia as evidenced by pt on [facility] soft chopped texture diet. CURRENT DIET:CCHO MED, mech soft chopped PO DIET RECOMMENDATIONS: RENAL, CCHO MED/ texture per REVERSAL PRINT INSPECTOR + Nepro BID w/ meals ADDITIONAL RECOMMENDATIONS: * Calibrated bedscale wt for accurate CBW * Monitor PO acceptance: refusing meals at this time * REVERSAL PRINT INSPECTOR eval for appropriate texture * Monitor BGs: 329 upon adm -> now improved
--- NOTE | 2019-01-16 13:00 | NUR ---
NURSE NOTES: Spoke with Galen Dejesus [facility] for HD schedule for 01/17/2019. Confirmed the schedule. Will continue plan of care.
--- NOTE | 2019-01-16 13:07 | Consultation ---
Consult Note Consult Note [id number] Yassine Alamo MD Jan 16, 2019 13:07
[2019-01-16] MEDS: Morphine Sulfate 2mg/ml Inj(IV/IM USE ONLY) IVP PRN (13:17)
--- NOTE | 2019-01-16 13:27 | NUR ---
RADIOLOGY DEPT., CHEST X-RAY DONE THIS AFTERNOON BY TECH: DARIUS
--- NOTE | 2019-01-16 14:24 | Diagnostic Imaging Report ---
Indication: Abnormal chest sounds Technique: One view of the chest Comparison: 10/16/2016 Findings: Right jugular tunneled dialysis catheter is again demonstrated. Atelectatic changes are seen at both lung bases. Lungs and pleural spaces are otherwise clear. There are surgical clips again demonstrated in the left arm. 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 No acute process otherwise Upper mediastinal mass deviating the trachea, demonstrated on multiple prior studies and seen on prior CT to represent an enlarged left thyroid lobe
--- NOTE | 2019-01-16 15:07 | Cardiology Report ---
APPROVED REPORT EKG Measurement Heart [id number] Normal sinus rhythm Normal ECG
[2019-01-16 16:00] VITALS: BP 173/87
--- NOTE | 2019-01-16 16:20 | NUR ---
NURSE NOTES: Notified Dr. Alamo regarding SBP>170 with refusal of oral blood pressure medication including scheduled Hydralazine and PRN Clonidine. No new order yet and waiting for the physician's response. The patient denies of physical symptoms. Will continue plan of care.
--- NOTE | 2019-01-16 16:21 | NUR ---
CASE MANAGEMENT: INITIAL REVIEW 78 YR OLD MALE BIBA FROM [facility] CC: GENERAL COMPLAINT SI:DM 97.8 80 15 128/65 97% ON RA H/H 8.8/27.3 BUN 94 CREAT 7.7 BG 329 ALK PHOS 117 IS: IV MORPHINE X1 \2E TELE UNIT DCP: RETURN TO FACILITY WHEN MEDICALLY STABLE PLAN: HD 01/17/19
--- NOTE | 2019-01-16 18:00 | NUR ---
NURSE NOTES: The patient is stable in terms of physical symptoms. No order received from Dr.Sharif quiroz. Will continue plan of care.
--- NOTE | 2019-01-16 18:59 | NUR ---
NURSE NOTES: Risk and benefit of non-compliance of medication explained to the patient again. The patient took blood pressure medication. Will continue plan of care.
--- NOTE | 2019-01-16 19:30 | NUR ---
HAND-OFF: Report given to ASHA Sommer. The patient is resting on the bed without acute distress or shortness of breath. The patient's bed in the lowest position, call light in reach, and fall and aspiration precaution reinforced. IV site intact and patent. AV graft and permacath intact. Endorsed plan of care.
--- NOTE | 2019-01-16 19:38 | NUR ---
NURSE NOTES: Received report from ASHA Rivas. Patient is in bed, awake and responsive. Breathing regular and unlabored with no SOB noted at this time. Monitoring patient's BP as per orders, BP meds were previously given by morning RN. Will re-check patient's BP. IV is intact and saline locked at the moment. Bed is in lowest position, breaks engaged, and call light within reach at all times. Will continue to monitor.
[2019-01-16 20:00] VITALS: BP 167/84
[2019-01-16] MEDS: Atorvastatin 80mg tab ORAL SCH (20:21)
--- NOTE | 2019-01-16 20:23 | NUR ---
Offered the patient his scheduled medications, but patient is refusing. Explained risks and benefits of all medications x3, but patient still refusing. CN Nicole was informed, patient remains stable. Will continue to monitor.
--- NOTE | 2019-01-16 20:25 | NUR ---
NURSE NOTES: Re-checked patient's BP and it is currently 167/84. Will continue to monitor and notify MD if the SBP is greater than 170. Patient is stable.
--- NOTE | 2019-01-16 21:15 | Consultation ---
DATE OF CONSULTATION: 01/16/2019 NEPHROLOGY CONSULTATION CONSULTING PHYSICIAN: Yassine Alamo M.D. REFERRING PHYSICIAN: Eddie Peralta M.D. REASON FOR CONSULT: The patient with end-stage renal disease, has presented with severe bilateral knee pain. HISTORY OF PRESENT ILLNESS: This is a very pleasant, 78-year-old gentleman resident of a shelter who I am seeing him on dialysis. He has end-stage renal disease being on hemodialysis three days a week on Monday, , and Monday. On Monday, almost at the end of his treatment in the dialysis unit, apparently he started to have severe pain in both knees and also felt some weakness for which he was brought to the emergency room of [facility] and has been admitted, and I have been asked to see him and assess him for his hemodialysis needs. He is somewhat forgetful and has some underlying dementia. He is not able to give me a very fruitful history nevertheless. He denies also any chills or fever. The knees are severely tender to touch. PAST MEDICAL HISTORY: Significant for type 2 diabetes mellitus, end-stage renal disease secondary to hypertension and diabetes mellitus, on hemodialysis three days a week, dyslipidemia, gastroesophageal reflux disease, chronic constipation, discovery of a left renal mass which has not been operated on, hypercoagulable state, previous ST-elevation myocardial infarction status post PCI of the LAD. Also previous upper GI bleed due to a small bowel source, status post angiogram with embolization of SMA branch which saved his life, and multinodular goiter which has been there for few years now. PAST SURGICAL HISTORY: He is status post appendectomy, status post lithotripsy, status post AV fistula creation for hemodialysis, and status post PermCath placement. MEDICATIONS: Prior to admission has been atorvastatin 80 mg p.o. daily, Nephro-Mary one tablet p.o. daily, Dulcolax 10 mg suppository as needed constipation, PhosLo 667 mg p.o. three times a day with each meal, Plavix 75 mg p.o. daily, Catapres 0.1 mg p.o. every 6 hours as needed hypertension, docusate 100 mg p.o. twice a day, Marinol 2.5 mg p.o. twice a day, hydralazine 25 mg p.o. twice a day, [place] 5/325 mg every 6 hours as needed, Humalog insulin on sliding scale, lactulose 45 mL as needed for constipation, Zestril 2.5 mg p.o. daily, metoprolol 100 mg p.o. daily, omeprazole 40 mg p.o. daily, MiraLAX 17 g p.o. daily, warfarin 10 mg p.o. daily which has been on hold now, and Creon three capsules p.o. three times a day with each meal. FAMILY HISTORY: Noncontributory. SOCIAL HISTORY: He is resident of a shelter. Does not have anybody with him. He has a son in [place] who is not very involved in his care. 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 He was born in [facility]. No smoking. No drinking. REVIEW OF SYSTEMS: Somewhat sketchy since he is not able to give me a very fruitful history. Other than the fact that he is having some bilateral knee pain, I cannot get much. He denies also any chest pain, shortness of breath, chills, or fever. No nausea or vomiting. PHYSICAL EXAMINATION: GENERAL: He does not seem to be in much acute distress. VITAL SIGNS: Blood pressure is 141/72, pulse of 95, respirations 18, and temperature 97.1. HEENT: Head is atraumatic. Eyes, pupils are reactive to light. No evidence of papilledema. Ears, canals are clear. Tympanic membranes are intact. Nose, nares are patent without any nasal discharge. Throat without inflammation or exudate. NECK: Supple. Jugular venous distention within normal limits. No cervical adenopathy. No thyromegaly. HEART: Regular rhythm. No gallop. LUNGS: Clear to auscultation. ABDOMEN: Supple. Bowel sounds positive. No hepatosplenomegaly. EXTREMITIES: Lower extremity shows no cyanosis or clubbing. No pedal edema. NEUROLOGICAL: Cranial nerves are grossly intact. Deep tendon reflexes are symmetrically decreased in both lower extremities. Both knees are very tender to touch. No redness or swelling of them. LABORATORY DATA: Showing sodium 143, potassium 5.0, chloride 104, carbon dioxide 29, BUN 94, and creatinine 7.7. Glucose 329. Hemoglobin A1c was 5.8. Calcium 9.4. Alkaline phosphatase is 117. LFTs within normal range. Albumin is 2.8. WBC is 8.7, hemoglobin 8.8, hematocrit 27.3, and platelets of 162,000. IMPRESSION: 1. End-stage renal disease. 2. Severe bilateral knee pain, rule out gout versus pseudogout. Also consider renal osteodystrophy causing problems with the knees. On x-rays, there is no signs of fracture at this point. 3. No signs of fluid overload or congestive heart failure. 4. Type 2 diabetes mellitus. PLAN: We are going to arrange for dialysis tomorrow. I am going to check his serum uric acid. We are going to check intact PTH and phosphorus level on him and we go from there. Yassine Alamo M.D. DR: CHELSEY JOB#: [id number] CC:
--- NOTE | 2019-01-17 00:34 | NUR ---
NURSE NOTES: Re-checked patient's BP and it is now 150/75. Patient is refusing to let us check the rest of his vital signs. Patient seems to be calm, but when re-positioned patient becomes agitated and does not want to be touched. Other cline patient is calm and not in distress. Will continue to monitor.
[2019-01-17 00:39] VITALS: BP 150/75
[2019-01-17 04:00] VITALS: BP 170/90
--- NOTE | 2019-01-17 04:54 | NUR ---
NURSE NOTES: Upon checking the patient's VS, the BP was 170/90. Notified about the patient's condition. Grant is refusing his BP meds, made aware. Will await for response. Patient is in stable condition.
--- NOTE | 2019-01-17 06:16 | NUR ---
NURSE NOTES: Dr. Alamo aware of patient's BP and he said "That's ok." Patient is in stable condition, will continue to monitor.
[2019-01-17] MEDS: NovoLOG Insulin Flexpen SUBQ SCH ×4 (06:30→20:39)
--- NOTE | 2019-01-17 07:13 | NUR ---
HAND-OFF: Report given to ASHA Rivas. Patient in stable condition. Plan of care endorsed.
--- NOTE | 2019-01-17 07:30 | NUR ---
NURSE NOTES: Received report from ASHA Ornelas. The patient is resting on the bed without acute distress or shortness of breath. The patient's bed in the lowest position, call light in reach, and fall and aspiration precaution reinforced. IV site intact and patent. Permacath and AV graft intact. The patient is scheduled for HD today. Will continue plan of care.
[2019-01-17 08:00] VITALS: BP 151/72
[2019-01-17] MEDS: Metoprolol Succinate XL 100mg tab ORAL SCH (09:00)
[2019-01-17] MEDS: HydrALAZINE 25mg tab ORAL SCH ×3 (09:00→17:45)
[2019-01-17] MEDS: Heparin 5000 units/ml inj SUBQ SCH ×2 (09:00→20:23)
[2019-01-17] MEDS: sitaGLIPtin 25mg tab ORAL SCH (09:10)
[2019-01-17] MEDS: Meclizine 25mg tab ORAL SCH ×4 (09:10→17:45)
[2019-01-17] MEDS: Nephrovite tab (Rena-Vite) ORAL SCH (09:11)
--- NOTE | 2019-01-17 10:10 | NUR ---
NURSE NOTES: HD nurse came in for scheduled HD per Dr. Alamo's order. The patient denies of acute distress or shortness of breath. Will continue plan of care.
--- NOTE | 2019-01-17 10:26 | Nephrology Progress Note ---
Assessment/Plan Assessment 1) ESRD 2) Dementia 3) bilateral knee pain Plan: Continue HD as ordered today Subjective Subjective He is seen on HD, tolerating it ok, no c/p or sob Objective Objective Last 24 Hour Vital Signs Date Time Temp Pulse Resp B/P (MAP) Pulse Ox O2 Delivery O2 Flow Rate FiO2 01/17/19 09:00 Room Air 01/17/19 09:00 91 151/72 01/17/19 09:00 151/72 01/17/19 08:25 80 16 96 Room Air 21 01/17/19 08:00 97.7 91 18 151/72 (98) 96 01/17/19 08:00 92 01/17/19 04:00 95 01/17/19 04:00 97.3 98 18 170/90 (116) 99 01/17/19 00:39 150/75 (100) 01/17/19 00:00 96 01/16/19 21:00 Room Air 01/16/19 20:00 97.7 104 20 167/84 (111) 97 01/16/19 20:00 101 01/16/19 20:00 78 18 97 Room Air 21 01/16/19 18:56 173/87 01/16/19 18:55 173/87 01/16/19 17:33 173/87 01/16/19 16:00 97.2 100 18 173/87 (115) 100 01/16/19 16:00 102 01/16/19 12:00 95 01/16/19 12:00 97.1 97 18 141/72 (95) 95 Intake and Output 01/16/19 01/17/19 19:00 07:00 Intake Total 100 ml 50 ml Balance 100 ml 50 ml Intake Oral 100 ml 50 ml Height (Feet): 5 Height (Inches): 7.00 Weight (Pounds): 120 General Appearance: WD/WN EENT: normal ENT inspection Neck: normal alignment Cardiovascular: normal rate, regular rhythm Respiratory/Chest: lungs clear Abdomen: non tender, soft 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
[2019-01-17 10:59] LABS: HEMATOCRIT 26.8 % (42.0-52.0); HEMOGLOBIN 8.7 G/DL (14.2-18.0); MEAN CORPUSCULAR VOLUME 92 FL (80-99); PLATELET COUNT 179 K/UL (150-450); RED BLOOD COUNT 2.92 M/UL (4.70-6.10); RED CELL DISTRIBUTION WIDTH 16.5 % (11.6-14.8); WHITE BLOOD COUNT 15.8 K/UL (4.8-10.8)
--- NOTE | 2019-01-17 11:00 | NUR ---
NURSE NOTES: Notified Dr. Alamo regarding abnormal lab including elevated potassium, low hemoglobin, elevated WBC, elevated BUN and Cr, and elevated uric acid level. The patient is getting HD now as scheduled per order. Also notified elevated WBC level to Dr. Washington. Dr. Washington consulted with Dr. Page. Notified Dr. Page regarding elevated WBC. Dr. Elmore will be informed about the patient's condition per Dr. Page. Will continue plan of care.
--- NOTE | 2019-01-17 11:04 | Pulmonology Progress Note ---
Assessment/Plan Problems: (1) ESRD (end stage renal disease) (2) Chronic pancreatitis (3) Diabetic retinopathy (4) Diabetes mellitus Assessment/Plan getting dialyzed now still confused symptomatic treatment sliding scale check electrolytes Subjective ROS Limited/Unobtainable: No Constitutional: Reports: no symptoms HEENT: Repors: no symptoms Respiratory: Reports: no symptoms Allergies: Coded Allergies: No Known Allergies (Unverified , 02/01/12) Objective Last 24 Hour Vital Signs Date Time Temp Pulse Resp B/P (MAP) Pulse Ox O2 Delivery O2 Flow Rate FiO2 01/17/19 09:00 Room Air 01/17/19 09:00 91 151/72 01/17/19 09:00 151/72 01/17/19 08:25 80 16 96 Room Air 21 01/17/19 08:00 97.7 91 18 151/72 (98) 96 01/17/19 08:00 92 01/17/19 04:00 95 01/17/19 04:00 97.3 98 18 170/90 (116) 99 01/17/19 00:39 150/75 (100) 01/17/19 00:00 96 01/16/19 21:00 Room Air 01/16/19 20:00 97.7 104 20 167/84 (111) 97 01/16/19 20:00 101 01/16/19 20:00 78 18 97 Room Air 21 01/16/19 18:56 173/87 01/16/19 18:55 173/87 01/16/19 17:33 173/87 01/16/19 16:00 97.2 100 18 173/87 (115) 100 01/16/19 16:00 102 01/16/19 12:00 95 01/16/19 12:00 97.1 97 18 141/72 (95) 95 Intake and Output 01/16/19 01/17/19 19:00 07:00 Intake Total 100 ml 50 ml Balance 100 ml 50 ml Intake Oral 100 ml 50 ml General Appearance: WD/WN HEENT: normocephalic, atraumatic Respiratory/Chest: chest wall non-tender, lungs clear Cardiovascular: normal peripheral pulses, normal rate Abdomen: normal bowel sounds, soft, non tender Genitourinary: normal external genitalia Extremities: no cyanosis Skin: no rash, no ulcers 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 Complete Laboratory Tests 01/17/19 10:10: White Blood Count [Pending], Red Blood Count [Pending], Hemoglobin [Pending], Hematocrit [Pending], Mean Corpuscular Volume [Pending], Mean Corpuscular Hemoglobin [Pending], Mean Corpuscular Hemoglobin Concent [Pending], Red Cell Distribution Width [Pending], Platelet Count [Pending], Mean Platelet Volume [ Pending], Neutrophils (%) (Auto) [Pending], Lymphocytes (%) (Auto) [Pending], Monocytes (%) (Auto) [Pending], Eosinophils (%) (Auto) [Pending], Basophils (%) (Auto) [Pending], Prothrombin Time [Pending], Prothromb Time International Ratio [Pending], Sodium Level [Pending], Potassium Level [Pending], Chloride Level [Pending], Carbon Dioxide Level [Pending], Blood Urea Nitrogen [Pending], Creatinine [Pending], Estimat Glomerular Filtration Rate [Pending], Glucose Level [Pending], Uric Acid [Pending], Calcium Level [Pending], Calcium (Send out ) [Pending], Phosphorus Level [Pending], Total Bilirubin [Pending], Aspartate Amino Transf (AST/SGOT) [Pending], Alanine Aminotransferase (ALT/SGPT) [Pending] , Alkaline Phosphatase [Pending], Troponin I [Pending], Total Protein [Pending] , Albumin [Pending], Globulin [Pending], Parathyroid Hormone (Intact) [Pending] Current Medications Medications (Trade) Dose Ordered Sig/Tess Route PRN Reason Start Time Stop Time Status Last Admin Dose Admin Acetaminophen (Tylenol) 650 mg Q4H PRN ORAL Mild Pain (Pain Scale 1-3) 01/15/19 17:00 02/14/19 16:59 Acetaminophen (Tylenol) 650 mg Q4H PRN ORAL fever 01/15/19 17:00 02/14/19 16:59 Acetaminophen/ Hydrocodone Bitart ([place] 5/325) 1 tab Q4H PRN ORAL For Pain 01/15/19 17:13 12/19 17:12 Albuterol/ Ipratropium (Albuterol/ Ipratropium) 3 ml Q4H PRN HHN Shortness of Breath 01/15/19 17:15 01/20/19 17:14 Atorvastatin Calcium (Lipitor) 80 mg BEDTIME ORAL 01/15/19 21:00 02/14/19 20:59 01/15/19 21:29 Clonidine HCl (Catapres Tab) 0.1 mg Q4H PRN ORAL sbp more than 160 01/15/19 17:15 02/14/19 17:14 01/16/19 18:56 Clopidogrel Bisulfate (Plavix) 75 mg DAILY ORAL 01/16/19 09:00 02/15/19 08:59 01/17/19 09:11 Dextrose (Dextrose 50%) 25 ml Q30M PRN IV Hypoglycemia 01/15/19 17:00 02/14/19 16:59 Dextrose (Dextrose 50%) 50 ml Q30M PRN IV Hypoglycemia 01/15/19 17:00 02/14/19 16:59 Heparin Sodium (Porcine) (Heparin 5000 units/ml) 5,000 units EVERY 12 HOURS SUBQ 01/15/19 21:00 02/14/19 20:59 01/16/19 08:58 Hydralazine HCl (Apresoline) 25 mg BID ORAL 01/15/19 18:00 02/14/19 17:59 01/16/19 18:55 Insulin Aspart (NovoLOG) BEFORE MEALS AND HS SUBQ 01/15/19 21:00 02/14/19 20:59 01/15/19 21:30 Ketorolac Tromethamine (Toradol 30mg) 30 mg Q6H PRN IV moderate pain 4-6 01/15/19 17:15 01/20/19 17:14 Lorazepam (Ativan) 1 mg Q4H PRN ORAL For Anxiety 01/15/19 17:00 01/22/19 16:59 Meclizine HCl (Antivert) 25 mg THREE TIMES A DAY ORAL 01/15/19 18:00 02/14/19 17:59 01/17/19 09:10 Metoprolol Succinate (Toprol XL) 100 mg DAILY ORAL 01/16/19 09:00 02/15/19 08:59 Mirtazapine (Remeron) 7.5 mg BEDTIME ORAL 01/15/19 21:00 02/14/19 20:59 01/15/19 21:29 Mirtazapine (Remeron) 7.5 mg BEDTIME PRN ORAL depression 01/15/19 17:00 02/14/19 16:59 Morphine Sulfate (Morphine Sulfate) 2 mg Q4H PRN IVP severe pain 7-10 01/15/19 17:15 01/22/19 17:14 01/16/19 13:17 Nitroglycerin (Ntg) 0.4 mg Q5M X 3 DOSES PRN SL Prn Chest Pain 01/15/19 17:15 02/14/19 17:14 Ondansetron HCl (Zofran) 4 mg Q6H PRN IVP Nausea & Vomiting 01/15/19 17:00 02/14/19 16:59 Oxycodone/ Acetaminophen (Percocet 5-325) 1 tab Q6H PRN ORAL pain 4-10 01/15/19 17:15 01/22/19 17:14 Pantoprazole (Protonix) 40 mg DAILY ORAL 01/16/19 09:00 02/15/19 08:59 01/17/19 09:11 Polyethylene Glycol (Miralax) 17 gm HSPRN PRN ORAL Constipation 01/15/19 17:15 02/14/19 17:14 Sitagliptin Phosphate (Januvia) 25 mg DAILY ORAL 01/16/19 09:00 02/15/19 08:59 01/17/19 09:10 Temazepam (Restoril) 15 mg HSPRN PRN ORAL Insomnia 01/15/19 17:15 01/22/19 17:14 Vitamin B Complex/ Vit C/Folic Acid (Nephrovite) 1 tab DAILY ORAL 01/16/19 09:00 02/15/19 08:59 01/17/19 09:11 Warfarin Sodium (Coumadin per pharmacy) 1 ea DAILY PRN MISC Per rx protocol 01/15/19 17:00 02/14/19 16:59 Kevin Milan MD Jan 17, 2019 11:04
--- NOTE | 2019-01-17 11:09 | General Progress Note ---
Assessment/Plan Problem List: (1) Thyroid mass ICD Codes: E07.9 - Disorder of thyroid, unspecified SNOMED: 484705577 (2) ESRD (end stage renal disease) ICD Codes: N18.6 - End stage renal disease SNOMED: 74373871 (3) Diabetes mellitus ICD Codes: E11.9 - Type 2 diabetes mellitus without complications SNOMED: 81136370 Assessment/Plan: continue Januvia 25 mg daily continue NISS ac / hs check thyroid function thyroid US ordered for evaluation of thyroid mass Subjective ROS Limited/Unobtainable: Yes Allergies: Coded Allergies: No Known Allergies (Unverified , 02/01/12) Subjective events noted glucose values are stable HD in progress Item Value Date Time Bedside Blood Glucose 198 mg/dl H 01/17/19 0630 Bedside Blood Glucose 197 mg/dl H 01/16/19 2100 Bedside Blood Glucose 158 mg/dl H 01/16/19 1630 Bedside Blood Glucose 146 mg/dl H 01/16/19 1130 Objective Last 24 Hour Vital Signs Date Time Temp Pulse Resp B/P (MAP) Pulse Ox O2 Delivery O2 Flow Rate FiO2 01/17/19 09:00 Room Air 01/17/19 09:00 91 151/72 01/17/19 09:00 151/72 01/17/19 08:25 80 16 96 Room Air 21 01/17/19 08:00 97.7 91 18 151/72 (98) 96 01/17/19 08:00 92 01/17/19 04:00 95 01/17/19 04:00 97.3 98 18 170/90 (116) 99 01/17/19 00:39 150/75 (100) 01/17/19 00:00 96 01/16/19 21:00 Room Air 01/16/19 20:00 97.7 104 20 167/84 (111) 97 01/16/19 20:00 101 01/16/19 20:00 78 18 97 Room Air 21 01/16/19 18:56 173/87 01/16/19 18:55 173/87 01/16/19 17:33 173/87 01/16/19 16:00 97.2 100 18 173/87 (115) 100 01/16/19 16:00 102 01/16/19 12:00 95 01/16/19 12:00 97.1 97 18 141/72 (95) 95 Intake and Output 01/16/19 01/17/19 19:00 07:00 Intake Total 100 ml 50 ml Balance 100 ml 50 ml Intake Oral 100 ml 50 ml Laboratory Tests 01/17/19 10:10: White Blood Count 15.8H, Red Blood Count 2.92L, Hemoglobin 8.7L, Hematocrit 26.8L, Mean Corpuscular Volume 92, Mean Corpuscular Hemoglobin 30.0, Mean Corpuscular Hemoglobin Concent 32.7, Red Cell Distribution Width 16.5H, Platelet Count 179, Mean Platelet Volume 6.8, Neutrophils (%) (Auto) , Lymphocytes (%) (Auto) , Monocytes (%) (Auto) , Eosinophils (%) (Auto) , Basophils (%) (Auto) , Neutrophils % (Manual) [Pending], Lymphocytes % (Manual) [Pending], Platelet Estimate [Pending], Platelet Morphology [Pending], Prothrombin Time [Pending], Prothromb Time International Ratio [Pending], Sodium Level [Pending], Potassium Level [Pending], Chloride Level [Pending], Carbon Dioxide Level [Pending], Blood Urea Nitrogen [Pending], Creatinine [ Pending], Estimat Glomerular Filtration Rate [Pending], Glucose Level [Pending] , Uric Acid [Pending], Calcium Level [Pending], Calcium (Send out) [Pending], Phosphorus Level [Pending], Total Bilirubin [Pending], Aspartate Amino Transf ( AST/SGOT) [Pending], Alanine Aminotransferase (ALT/SGPT) [Pending], Alkaline Phosphatase [Pending], Troponin I [Pending], Total Protein [Pending], Albumin [ Pending], Globulin [Pending], Parathyroid Hormone (Intact) [Pending], Hepatitis B Surface Antigen [Pending] Height (Feet): 5 Height (Inches): 7.00 Weight (Pounds): 120 General Appearance: no apparent distress Neck: normal alignment Cardiovascular: normal rate Respiratory/Chest: decreased breath sounds Abdomen: normal bowel sounds Objective Current Medications Medications (Trade) Dose Ordered Sig/Tess Route PRN Reason Start Time Stop Time Status Last Admin Dose Admin Acetaminophen (Tylenol) 650 mg Q4H PRN ORAL Mild Pain (Pain Scale 1-3) 01/15/19 17:00 02/14/19 16:59 Acetaminophen (Tylenol) 650 mg Q4H PRN ORAL fever 01/15/19 17:00 02/14/19 16:59 Acetaminophen/ Hydrocodone Bitart ([place] 5/325) 1 tab Q4H PRN ORAL For Pain 01/15/19 17:13 01/22/19 17:12 Albuterol/ Ipratropium (Albuterol/ Ipratropium) 3 ml Q4H PRN HHN Shortness of Breath 01/15/19 17:15 01/20/19 17:14 Atorvastatin Calcium (Lipitor) 80 mg BEDTIME ORAL 01/15/19 21:00 02/14/19 20:59 01/15/19 21:29 Clonidine HCl (Catapres Tab) 0.1 mg Q4H PRN ORAL sbp more than 160 01/15/19 17:15 02/14/19 17:14 01/16/19 18:56 Clopidogrel Bisulfate (Plavix) 75 mg DAILY ORAL 01/16/19 09:00 02/15/19 08:59 01/17/19 09:11 Dextrose (Dextrose 50%) 25 ml Q30M PRN IV Hypoglycemia 01/15/19 17:00 02/14/19 16:59 Dextrose (Dextrose 50%) 50 ml Q30M PRN IV Hypoglycemia 01/15/19 17:00 02/14/19 16:59 Heparin Sodium (Porcine) (Heparin 5000 units/ml) 5,000 units EVERY 12 HOURS SUBQ 01/15/19 21:00 02/14/19 20:59 01/16/19 08:58 Hydralazine HCl (Apresoline) 25 mg BID ORAL 01/15/19 18:00 02/14/19 17:59 01/16/19 18:55 Insulin Aspart (NovoLOG) BEFORE MEALS AND HS SUBQ 01/15/19 21:00 02/14/19 20:59 01/15/19 21:30 Ketorolac Tromethamine (Toradol 30mg) 30 mg Q6H PRN IV moderate pain 4-6 01/15/19 17:15 01/20/19 17:14 Lorazepam (Ativan) 1 mg Q4H PRN ORAL For Anxiety 01/15/19 17:00 01/22/19 16:59 Meclizine HCl (Antivert) 25 mg THREE TIMES A DAY ORAL 01/15/19 18:00 02/14/19 17:59 01/17/19 09:10 Metoprolol Succinate (Toprol XL) 100 mg DAILY ORAL 01/16/19 09:00 02/15/19 08:59 Mirtazapine (Remeron) 7.5 mg BEDTIME ORAL 01/15/19 21:00 02/14/19 20:59 01/15/19 21:29 Mirtazapine (Remeron) 7.5 mg BEDTIME PRN ORAL depression 01/15/19 17:00 02/14/19 16:59 Morphine Sulfate (Morphine Sulfate) 2 mg Q4H PRN IVP severe pain 7-10 01/15/19 17:15 01/22/19 17:14 01/16/19 13:17 Nitroglycerin (Ntg) 0.4 mg Q5M X 3 DOSES PRN SL Prn Chest Pain 01/15/19 17:15 02/14/19 17:14 Ondansetron HCl (Zofran) 4 mg Q6H PRN IVP Nausea & Vomiting 01/15/19 17:00 02/14/19 16:59 Oxycodone/ Acetaminophen (Percocet 5-325) 1 tab Q6H PRN ORAL pain 4-10 01/15/19 17:15 01/22/19 17:14 Pantoprazole (Protonix) 40 mg DAILY ORAL 01/16/19 09:00 02/15/19 08:59 01/17/19 09:11 Polyethylene Glycol (Miralax) 17 gm HSPRN PRN ORAL Constipation 01/15/19 17:15 02/14/19 17:14 Sitagliptin Phosphate (Januvia) 25 mg DAILY ORAL 01/16/19 09:00 02/15/19 08:59 01/17/19 09:10 Temazepam (Restoril) 15 mg HSPRN PRN ORAL Insomnia 01/15/19 17:15 01/22/19 17:14 Vitamin B Complex/ Vit C/Folic Acid (Nephrovite) 1 tab DAILY ORAL 01/16/19 09:00 02/15/19 08:59 01/17/19 09:11 Warfarin Sodium (Coumadin per pharmacy) 1 ea DAILY PRN MISC Per rx protocol 01/15/19 17:00 02/14/19 16:59 Andrés Dhaliwal MD Jan 17, 2019 11:09
[2019-01-17 11:20] LABS: ALANINE AMINOTRANSFERASE 25 U/L (12-78); ALBUMIN 2.7 G/DL (3.4-5.0); ALBUMIN/GLOBULIN RATIO 0.7 (1.0-2.7); ALKALINE PHOSPHATASE 115 U/L (46-116); ANION GAP 13 mmol/L (5-15); ASPARTATE AMINO TRANSFERASE 19 U/L (15-37); BILIRUBIN,TOTAL 0.4 MG/DL (0.2-1.0); BLOOD UREA NITROGEN 123 mg/dL (7-18); CALCIUM 9.3 MG/DL (8.5-10.1); CARBON DIOXIDE 27 MMOL/L (21-32); CHLORIDE 104 MMOL/L (98-107); CREATININE 11.2 MG/DL (0.55-1.30); PHOSPHORUS 4.8 MG/DL (2.5-4.9); SODIUM 144 MMOL/L (136-145)
--- NOTE | 2019-01-17 11:30 | NUR ---
NURSE NOTES: Dr. Sutherland was notified regarding elevated WBC. Dr. Sutherland ordered blood culture. Paged for elevated WBC. No new order yet. Will continue plan of care.
--- NOTE | 2019-01-17 11:39 | Internal Med Progress Note ---
Subjective Date of Service: Jan 17, 2019 Physician Name Watson Sutherland Attending Physician Eddie Peralta MD Current Medications Medications (Trade) Dose Ordered Sig/Tess Route PRN Reason Start Time Stop Time Status Last Admin Dose Admin Acetaminophen (Tylenol) 650 mg Q4H PRN ORAL Mild Pain (Pain Scale 1-3) 01/15/19 17:00 02/14/19 16:59 Acetaminophen (Tylenol) 650 mg Q4H PRN ORAL fever 01/15/19 17:00 02/14/19 16:59 Acetaminophen/ Hydrocodone Bitart ([place] 5/325) 1 tab Q4H PRN ORAL For Pain 01/15/19 17:13 01/22/19 17:12 Albuterol/ Ipratropium (Albuterol/ Ipratropium) 3 ml Q4H PRN HHN Shortness of Breath 01/15/19 17:15 01/20/19 17:14 Atorvastatin Calcium (Lipitor) 80 mg BEDTIME ORAL 01/15/19 21:00 02/14/19 20:59 01/15/19 21:29 Clonidine HCl (Catapres Tab) 0.1 mg Q4H PRN ORAL sbp more than 160 01/15/19 17:15 02/14/19 17:14 01/16/19 18:56 Clopidogrel Bisulfate (Plavix) 75 mg DAILY ORAL 01/16/19 09:00 02/15/19 08:59 01/17/19 09:11 Dextrose (Dextrose 50%) 25 ml Q30M PRN IV Hypoglycemia 01/15/19 17:00 02/14/19 16:59 Dextrose (Dextrose 50%) 50 ml Q30M PRN IV Hypoglycemia 01/15/19 17:00 02/14/19 16:59 Heparin Sodium (Porcine) (Heparin 5000 units/ml) 5,000 units EVERY 12 HOURS SUBQ 01/15/19 21:00 02/14/19 20:59 01/16/19 08:58 Hydralazine HCl (Apresoline) 25 mg BID ORAL 01/15/19 18:00 02/14/19 17:59 01/16/19 18:55 Insulin Aspart (NovoLOG) BEFORE MEALS AND HS SUBQ 01/15/19 21:00 02/14/19 20:59 01/15/19 21:30 Ketorolac Tromethamine (Toradol 30mg) 30 mg Q6H PRN IV moderate pain 4-6 01/15/19 17:15 01/20/19 17:14 Lorazepam (Ativan) 1 mg Q4H PRN ORAL For Anxiety 01/15/19 17:00 01/22/19 16:59 Meclizine HCl (Antivert) 25 mg THREE TIMES A DAY ORAL 01/15/19 18:00 02/14/19 17:59 01/17/19 09:10 Metoprolol Succinate (Toprol XL) 100 mg DAILY ORAL 01/16/19 09:00 02/15/19 08:59 Mirtazapine (Remeron) 7.5 mg BEDTIME ORAL 01/15/19 21:00 02/14/19 20:59 01/15/19 21:29 Mirtazapine (Remeron) 7.5 mg BEDTIME PRN ORAL depression 01/15/19 17:00 02/14/19 16:59 Morphine Sulfate (Morphine Sulfate) 2 mg Q4H PRN IVP severe pain 7-10 01/15/19 17:15 01/22/19 17:14 01/16/19 13:17 Nitroglycerin (Ntg) 0.4 mg Q5M X 3 DOSES PRN SL Prn Chest Pain 01/15/19 17:15 02/14/19 17:14 Ondansetron HCl (Zofran) 4 mg Q6H PRN IVP Nausea & Vomiting 01/15/19 17:00 02/14/19 16:59 Oxycodone/ Acetaminophen (Percocet 5-325) 1 tab Q6H PRN ORAL pain 4-10 01/15/19 17:15 01/22/19 17:14 Pantoprazole (Protonix) 40 mg DAILY ORAL 01/16/19 09:00 02/15/19 08:59 01/17/19 09:11 Polyethylene Glycol (Miralax) 17 gm HSPRN PRN ORAL Constipation 01/15/19 17:15 02/14/19 17:14 Sitagliptin Phosphate (Januvia) 25 mg DAILY ORAL 01/16/19 09:00 02/15/19 08:59 01/17/19 09:10 Temazepam (Restoril) 15 mg HSPRN PRN ORAL Insomnia 01/15/19 17:15 01/22/19 17:14 Vitamin B Complex/ Vit C/Folic Acid (Nephrovite) 1 tab DAILY ORAL 01/16/19 09:00 02/15/19 08:59 01/17/19 09:11 Warfarin Sodium (Coumadin per pharmacy) 1 ea DAILY PRN MISC Per rx protocol 01/15/19 17:00 02/14/19 16:59 UNV Allergies: Coded Allergies: No Known Allergies (Unverified , 02/01/12) ROS Limited/Unobtainable: Yes Subjective 78 YO M admitted with chief complaint bilateral knee pain and gen weakness. Cover for Int Med-Dr Peralta Objective Last Vital Signs Date Time Temp Pulse Resp B/P (MAP) Pulse Ox O2 Delivery O2 Flow Rate FiO2 01/17/19 09:00 Room Air 01/17/19 09:00 91 151/72 01/17/19 08:25 16 96 21 01/17/19 08:00 97.7 Laboratory Tests Test 01/17/19 10:10 White Blood Count 15.8 K/UL (4.8-10.8) H Red Blood Count 2.92 M/UL (4.70-6.10) L Hemoglobin 8.7 G/DL (14.2-18.0) L Hematocrit 26.8 % (42.0-52.0) L Mean Corpuscular Volume 92 FL (80-99) Mean Corpuscular Hemoglobin 30.0 PG (27.0-31.0) Mean Corpuscular Hemoglobin Concent 32.7 G/DL (32.0-36.0) Red Cell Distribution Width 16.5 % (11.6-14.8) H Platelet Count 179 K/UL (150-450) Mean Platelet Volume 6.8 FL (6.5-10.1) Neutrophils (%) (Auto) % (45.0-75.0) Lymphocytes (%) (Auto) % (20.0-45.0) Monocytes (%) (Auto) % (1.0-10.0) Eosinophils (%) (Auto) % (0.0-3.0) Basophils (%) (Auto) % (0.0-2.0) Differential Total Cells Counted 100 Neutrophils % (Manual) 85 % (45-75) H Lymphocytes % (Manual) 8 % (20-45) L Monocytes % (Manual) 7 % (1-10) Eosinophils % (Manual) 0 % (0-3) Basophils % (Manual) 0 % (0-2) Band Neutrophils 0 % (0-8) Platelet Estimate Adequate Platelet Morphology Normal Hypochromasia 2+ Anisocytosis 1+ Spherocytes 1+ Prothrombin Time 10.3 SEC (9.30-11.50) Prothromb Time International Ratio 1.0 (0.9-1.1) Sodium Level 144 MMOL/L (136-145) Potassium Level 6.0 MMOL/L (3.5-5.1) *H Chloride Level 104 MMOL/L (98-107) Carbon Dioxide Level 27 MMOL/L (21-32) Anion Gap 13 mmol/L (5-15) Blood Urea Nitrogen 123 mg/dL (7-18) H Creatinine 11.2 MG/DL (0.55-1.30) H Estimat Glomerular Filtration Rate mL/min (>60) Glucose Level 186 MG/DL (74-106) H Uric Acid 8.5 MG/DL (2.6-7.2) H Calcium Level 9.3 MG/DL (8.5-10.1) Calcium (Send out) Pending Phosphorus Level 4.8 MG/DL (2.5-4.9) Total Bilirubin 0.4 MG/DL (0.2-1.0) Aspartate Amino Transf (AST/SGOT) 19 U/L (15-37) Alanine Aminotransferase (ALT/SGPT) 25 U/L (12-78) Alkaline Phosphatase 115 U/L (46-116) Troponin I 0.003 ng/mL (0.000-0.056) Total Protein 6.8 G/DL (6.4-8.2) Albumin 2.7 G/DL (3.4-5.0) L Globulin 4.1 g/dL Albumin/Globulin Ratio 0.7 (1.0-2.7) L Thyroid Stimulating Hormone (TSH) Pending Free Thyroxine Pending Parathyroid Hormone (Intact) Pending Hepatitis B Surface Antigen Pending Microbiology Date/Time Source Procedure Growth Status 01/15/19 14:15 Nasal Nares MRSA Culture - Final NO METHICILLIN RESISTANT STAPH AUREUS... Complete Intake and Output 01/16/19 01/17/19 19:00 07:00 Intake Total 100 ml 50 ml Balance 100 ml 50 ml Intake Oral 100 ml 50 ml Objective PHYSICAL EXAMINATION: GENERAL: The patient is a well-developed and well-nourished male, who is somnolent, but arousable. HEENT: Eyes, pupils are equal and responsive to light and accommodation. Extraocular movements are intact. NECK: Supple. No lymphadenopathy. CHEST: Lungs are clear to auscultation bilaterally without wheezes or rales. CARDIOVASCULAR: Regular rhythm and rate. S1, S2 are normal without murmurs, rubs, or gallops. ABDOMEN: Soft, nontender, and nondistended. Positive bowel sounds. No evidence of hepatosplenomegaly. Currently, no rebound or guarding noted. EXTREMITIES: Negative for clubbing, cyanosis, or edema. RECTAL/GENITAL: Not performed. NEUROLOGIC: Cranial nerves II through XII are grossly intact without focal deficits. Assessment/Plan Assessment/Plan ASSESSMENT: This is a 78-year-old male. 1. Bilateral knee pain. 2. Generalized weakness. 3. Diabetes type 2. 4. End-stage renal disease. 5. Chronic obstructive pulmonary disease. 6. Coronary artery disease. 7. Lupus anticoagulant. 8. Chronic pancreatitis. 9. Diabetic nephropathy. 10. Diabetic retinopathy. 11. Diabetic gastropathy. 12. Gastroesophageal reflux disease. 13. Dysphagia. 14. Major depression. 15. Hypercholesterolemia. 16. Diabetic neuropathy. 17. Anemia of chronic renal disease. 18. Protein-calorie malnutrition. 19. uncontrolled hypertension TREATMENT: 1. Bilateral knee pain. Initial x-rays were negative for fracture. The patient does have contractures. The patient will be offered [place] as above for knee pain. 2. Weakness of bilateral lower extremities. The patient has permanent contractures of bilateral knees. 3. Diabetes type 2. NovoLog sliding scale has been instituted. 4. End-stage renal disease, on hemodialysis. A Nephrology consultation has been obtained with Dr. Alamo. We will follow recommendations of Nephrology. Hemodialysis 01/17/19 5. Chronic obstructive pulmonary disease. 6. Coronary artery disease. The patient is status post percutaneous transluminal coronary angioplasty in December of 2017 with stent placement. 7. Lupus anticoagulant. 8. Chronic pancreatitis. 9. Diabetic nephropathy. 10. Diabetic gastroparesis. 11. Gastroesophageal reflux disease. 12. Dysphagia. 13. Major depression. 14. Hypercholesterolemia. 15. Diabetic neuropathy. 16. Vitamin D deficiency. 17. Anemia of renal failure. 18. Encephalopathy. 19. Chronic deep venous thrombosis. Continue Coumadin as above. 20. Continue hydralazine, clonidine and metoprolol Watson Sutherland MD Jan 17, 2019 11:39
[2019-01-17 12:00] VITALS: BP 125/64
--- NOTE | 2019-01-17 12:15 | NUR ---
NURSE NOTES: HD output 1500mL per HD nurse. The patient is stable without acute distress or shortness of breath. Will continue plan of care.
--- NOTE | 2019-01-17 13:02 | Consultation ---
History of Present Illness General Date patient seen: Jan 17, 2019 Chief Complaint: General Complaint Present Illness HPI This is a 78-year-old ill-appearing male senior care resident with multiple medical comorbidities who is on dialysis that has been admitted for medical care management. On admission identified to have multiple wounds requiring care and management. Surgery called to evaluate and assist with care. Patient seen, patient evaluated, chart reviewed. Patient is somewhat responsive but not fully coherent and compliant with examination. No nausea vomiting fever chills. No complaints. Allergies: Coded Allergies: No Known Allergies (Unverified , 02/01/12) Medication History Scheduled Atorvastatin Calcium* (Atorvastatin Calcium*), 80 MG ORAL BEDTIME, (Reported) Calcium Acetate (Calcium Acetate), 667 MG PO TID, (Reported) Clopidogrel Bisulfate* (Plavix*), 75 MG ORAL DAILY, (Reported) Docusate Sodium* (Docusate Sodium*), 100 MG ORAL TWICE A DAY, (Reported) Hydralazine Hcl* (Hydralazine Hcl*), 25 MG ORAL BID, (Reported) Insulin Regular, Human* (Novolin R*), 0 SUBQ .SLIDING SCALE, (Reported) Lactulose (Lactulose*), 30 ML ORAL DAILY, (Reported) Lipase/Protease/Amylase (Creon Dr 3,000 Units Capsule), 3 EACH PO TID, (Reported ) Lipase/Protease/Amylase (Creon Dr 3,000 Units Capsule), 3 EACH PO THREE TIMES A DAY, (Reported) Lipase/Protease/Amylase (Creon Dr 3,000 Units Capsule), 3 EACH PO THREE TIMES A DAY, (Reported) Loratadine (Claritin), 10 MG ORAL DAILY, (Reported) Loratadine (Claritin), 10 MG ORAL DAILY, (Reported) Lubiprostone (Amitiza*), 24 MCG ORAL EVERY 12 HOURS, (Reported) Magnesium Hydroxide* (Milk Of Magnesia*), 30 ML ORAL DAILY, (Reported) Meclizine Hcl* (Meclizine*), 25 MG ORAL THREE TIMES A DAY, (Reported) Metoprolol Succinate* (Metoprolol Succinate*), 100 MG ORAL DAILY, (Reported) Mirtazapine* (Remeron*), 7.5 MG ORAL BEDTIME, (Reported) Na Phos,M-B/Na Phos,Di-Ba* (Fleet Enema*), 133 ML RECTAL DAILY, (Reported) Omeprazole (Omeprazole), 40 MG ORAL DAILY, (Reported) Polyethylene Glycol 3350* (Miralax*), 17 GM ORAL BID, (Reported) Sennosides (Senna-Gen), 2 TAB ORAL BEDTIME, (Reported) Sitagliptin* (Januvia*), 25 MG ORAL DAILY, (Reported) Vit B Cmplx 3/Fa/Vit C/Biotin (Nephro-Mary Rx Tablet), 1 EACH PO DAILY, ( Reported) Vitamin B Cmplx/Vit C/Folic AC (Nephro-Mary Tablet), 1 TAB ORAL DAILY, (Reported ) Warfarin Sod* (Coumadin*), 5 MG ORAL DAILY, (Reported) Scheduled PRN Acetaminophen (Acetaminophen 8 Hour), 650 MG ORAL Q6HR PRN for For Pain, ( Reported) Hydrocodone Bit/Acetaminophen 5-325* (Lind[place] 5-325*), 1 TAB ORAL Q4H PRN for For Pain, (Reported) Lisinopril (Lisinopril*), 2.5 MG ORAL DAILY PRN for For High Blood Pressure, ( Reported) Melatonin (Melatonin), 3 MG ORAL BEDTIME PRN for Insomnia, (Reported) Mirtazapine* (Remeron*), 7.5 MG ORAL BEDTIME PRN for depression, (Reported) Oxycodone Hcl/Acetaminophen 5-325* (Oxycodone-Acetaminophen 5-325*), 1 TAB ORAL Q6H PRN for For Pain, (Reported) Simethicone* (Simethicone*), 80 MG ORAL Q4HR PRN, (Reported) Sorbitol (Sorbitol), 30 ML PO Q8HR PRN for Constipation, (Reported) Tramadol Hcl* (Ultram*), 50 MG ORAL Q6H PRN for For Pain, (Reported) Zolpidem Tartrate* (Ambien*), 5 MG ORAL BEDTIME PRN for Insomnia, (Reported) Zolpidem Tartrate* (Ambien*), 5 MG ORAL BEDTIME PRN for Insomnia, (Reported) [Warfarin RX monitoring], 1 EA MISC DAILY PRN for Per rx protocol Miscellaneous Medications Lipase/Protease/Amylase (Creon Dr 3,000 Units Capsule), 1 EACH PO, (Reported) Discontinued Medications Amlodipine Besylate (Norvasc), 5 MG ORAL DAILY, (Reported) Discontinued Reason: Pt stopped taking med Bisacodyl (Dulcolax), 10 MG RC DAILY PRN for Constipation, (Reported) Discontinued Reason: Pt stopped taking med Calcitriol (Calcitriol*), 0.25 MCG PO DAILY, (Reported) Discontinued Reason: Pt stopped taking med Ciprofloxacin (Ciprofloxacin HCl), 2 DROP BOTH EYES Q4H Discontinued Reason: Pt stopped taking med Clonidine (Clonidine), 0.1 MG PO DAILY, (Reported) Discontinued Reason: Pt stopped taking med Clonidine HCl (Clonidine HCl), 0.1 MG ORAL Q6HR PRN Discontinued Reason: Pt stopped taking med Dextran 70/Hypromellose (Artificial Tears Eye Drops*), 2 DROP BOTH EYES EVERY 2 HOURS, (Reported) Discontinued Reason: Pt stopped taking med Diphenhydramine Hcl* (Diphenhydramine Hcl*), 25 MG ORAL Q4HR PRN for Itching, ( Reported) Discontinued Reason: Pt stopped taking med Glipizide* (Glipizide*), 20 MG ORAL BIDAC, (Reported) Discontinued Reason: Pt stopped taking med Hydrocodone/Acetaminophen (Hydrocodon-Acetaminophn 10-325), 1 TAB ORAL Q4H PRN for For Pain, (Reported) Discontinued Reason: Pt stopped taking med Levofloxacin* (Levaquin*), 500 MG ORAL DAILY Discontinued Reason: Pt stopped taking med Linaclotide (Linzess), 145 MCG PO DAILY, (Reported) Discontinued Reason: Pt stopped taking med Patient History Limited by: medical condition History Provided By: Medical Record Healthcare decision maker Resuscitation status Do Not Resuscitate Advanced Directive on File No Past Medical/Surgical History Past Medical/Surgical History: (1) Psychosis (2) ESRD (end stage renal disease) (3) Acute encephalopathy (4) Lupus anticoagulant disorder (5) Chronic pancreatitis (6) Diabetic retinopathy (7) Renal mass (8) Thyroid mass (9) Diarrhea (10) C. difficile colitis (11) Diabetes mellitus Review of Systems ROS Narrative Difficult to obtain given medical condition. Physical Exam General Appearance: no apparent distress Lines, tubes and drains: peripheral HEENT: mucous membranes moist Neck: supple, normal inspection Respiratory/Chest: no respiratory distress, no accessory muscle use, decreased breath sounds Cardiovascular/Chest: regular rhythm Abdomen: soft, no organomegaly, no mass Extremities: non-tender, normal inspection Skin Exam: warm/dry Neurologic: alert Last 24 Hour Vital Signs Date Time Temp Pulse Resp B/P (MAP) Pulse Ox O2 Delivery O2 Flow Rate FiO2 01/17/19 12:00 97.3 88 18 125/64 (84) 95 01/17/19 09:00 Room Air 01/17/19 09:00 91 151/72 01/17/19 09:00 151/72 01/17/19 08:25 80 16 96 Room Air 21 01/17/19 08:00 97.7 91 18 151/72 (98) 96 01/17/19 08:00 92 01/17/19 04:00 95 01/17/19 04:00 97.3 98 18 170/90 (116) 99 01/17/19 00:39 150/75 (100) 01/17/19 00:00 96 01/16/19 21:00 Room Air 01/16/19 20:00 97.7 104 20 167/84 (111) 97 01/16/19 20:00 101 01/16/19 20:00 78 18 97 Room Air 21 01/16/19 18:56 173/87 01/16/19 18:55 173/87 01/16/19 17:33 173/87 01/16/19 16:00 97.2 100 18 173/87 (115) 100 01/16/19 16:00 102 Intake and Output 01/16/19 01/17/19 19:00 07:00 Intake Total 100 ml 50 ml Balance 100 ml 50 ml Intake Oral 100 ml 50 ml Laboratory Tests Test 01/17/19 10:10 White Blood Count 15.8 K/UL (4.8-10.8) H Red Blood Count 2.92 M/UL (4.70-6.10) L Hemoglobin 8.7 G/DL (14.2-18.0) L Hematocrit 26.8 % (42.0-52.0) L Mean Corpuscular Volume 92 FL (80-99) Mean Corpuscular Hemoglobin 30.0 PG (27.0-31.0) Mean Corpuscular Hemoglobin Concent 32.7 G/DL (32.0-36.0) Red Cell Distribution Width 16.5 % (11.6-14.8) H Platelet Count 179 K/UL (150-450) Mean Platelet Volume 6.8 FL (6.5-10.1) Neutrophils (%) (Auto) % (45.0-75.0) Lymphocytes (%) (Auto) % (20.0-45.0) Monocytes (%) (Auto) % (1.0-10.0) Eosinophils (%) (Auto) % (0.0-3.0) Basophils (%) (Auto) % (0.0-2.0) Differential Total Cells Counted 100 Neutrophils % (Manual) 85 % (45-75) H Lymphocytes % (Manual) 8 % (20-45) L Monocytes % (Manual) 7 % (1-10) Eosinophils % (Manual) 0 % (0-3) Basophils % (Manual) 0 % (0-2) Band Neutrophils 0 % (0-8) Platelet Estimate Adequate Platelet Morphology Normal Hypochromasia 2+ Anisocytosis 1+ Spherocytes 1+ Prothrombin Time 10.3 SEC (9.30-11.50) Prothromb Time International Ratio 1.0 (0.9-1.1) Sodium Level 144 MMOL/L (136-145) Potassium Level 6.0 MMOL/L (3.5-5.1) *H Chloride Level 104 MMOL/L (98-107) Carbon Dioxide Level 27 MMOL/L (21-32) Anion Gap 13 mmol/L (5-15) Blood Urea Nitrogen 123 mg/dL (7-18) H Creatinine 11.2 MG/DL (0.55-1.30) H Estimat Glomerular Filtration Rate mL/min (>60) Glucose Level 186 MG/DL (74-106) H Uric Acid 8.5 MG/DL (2.6-7.2) H Calcium Level 9.3 MG/DL (8.5-10.1) Calcium (Send out) Pending Phosphorus Level 4.8 MG/DL (2.5-4.9) Total Bilirubin 0.4 MG/DL (0.2-1.0) Aspartate Amino Transf (AST/SGOT) 19 U/L (15-37) Alanine Aminotransferase (ALT/SGPT) 25 U/L (12-78) Alkaline Phosphatase 115 U/L (46-116) Troponin I 0.003 ng/mL (0.000-0.056) Total Protein 6.8 G/DL (6.4-8.2) Albumin 2.7 G/DL (3.4-5.0) L Globulin 4.1 g/dL Albumin/Globulin Ratio 0.7 (1.0-2.7) L Thyroid Stimulating Hormone (TSH) 0.031 uiU/mL (0.358-3.740) Free Thyroxine 0.99 NG/DL (0.76-1.46) Parathyroid Hormone (Intact) Pending Hepatitis B Surface Antigen Pending Height (Feet): 5 Height (Inches): 7.00 Weight (Pounds): 120 Medications Current Medications Medications (Trade) Dose Ordered Sig/Tess Route PRN Reason Start Time Stop Time Status Last Admin Dose Admin Acetaminophen (Tylenol) 650 mg Q4H PRN ORAL Mild Pain (Pain Scale 1-3) 01/15/19 17:00 02/14/19 16:59 Acetaminophen (Tylenol) 650 mg Q4H PRN ORAL fever 01/15/19 17:00 02/14/19 16:59 Acetaminophen/ Hydrocodone Bitart ([place] 5/325) 1 tab Q4H PRN ORAL For Pain 01/15/19 17:13 01/22/19 17:12 Albuterol/ Ipratropium (Albuterol/ Ipratropium) 3 ml Q4H PRN HHN Shortness of Breath 01/15/19 17:15 01/20/19 17:14 Atorvastatin Calcium (Lipitor) 80 mg BEDTIME ORAL 01/15/19 21:00 02/14/19 20:59 01/15/19 21:29 Clonidine HCl (Catapres Tab) 0.1 mg Q4H PRN ORAL sbp more than 160 01/15/19 17:15 02/14/19 17:14 01/16/19 18:56 Clopidogrel Bisulfate (Plavix) 75 mg DAILY ORAL 01/16/19 09:00 02/15/19 08:59 01/17/19 09:11 Dextrose (Dextrose 50%) 25 ml Q30M PRN IV Hypoglycemia 01/15/19 17:00 02/14/19 16:59 Dextrose (Dextrose 50%) 50 ml Q30M PRN IV Hypoglycemia 01/15/19 17:00 02/14/19 16:59 Heparin Sodium (Porcine) (Heparin 5000 units/ml) 5,000 units EVERY 12 HOURS SUBQ 01/15/19 21:00 02/14/19 20:59 01/16/19 08:58 Hydralazine HCl (Apresoline) 25 mg BID ORAL 01/15/19 18:00 02/14/19 17:59 01/16/19 18:55 Insulin Aspart (NovoLOG) BEFORE MEALS AND HS SUBQ 01/15/19 21:00 02/14/19 20:59 01/15/19 21:30 Ketorolac Tromethamine (Toradol 30mg) 30 mg Q6H PRN IV moderate pain 4-6 01/15/19 17:15 01/20/19 17:14 Lorazepam (Ativan) 1 mg Q4H PRN ORAL For Anxiety 01/15/19 17:00 01/22/19 16:59 Meclizine HCl (Antivert) 25 mg THREE TIMES A DAY ORAL 01/15/19 18:00 02/14/19 17:59 01/17/19 09:10 Metoprolol Succinate (Toprol XL) 100 mg DAILY ORAL 01/16/19 09:00 02/15/19 08:59 Mirtazapine (Remeron) 7.5 mg BEDTIME ORAL 01/15/19 21:00 02/14/19 20:59 01/15/19 21:29 Mirtazapine (Remeron) 7.5 mg BEDTIME PRN ORAL depression 01/15/19 17:00 02/14/19 16:59 Morphine Sulfate (Morphine Sulfate) 2 mg Q4H PRN IVP severe pain 7-10 01/15/19 17:15 01/22/19 17:14 01/16/19 13:17 Nitroglycerin (Ntg) 0.4 mg Q5M X 3 DOSES PRN SL Prn Chest Pain 01/15/19 17:15 02/14/19 17:14 Ondansetron HCl (Zofran) 4 mg Q6H PRN IVP Nausea & Vomiting 01/15/19 17:00 02/14/19 16:59 Oxycodone/ Acetaminophen (Percocet 5-325) 1 tab Q6H PRN ORAL pain 4-10 01/15/19 17:15 01/22/19 17:14 Pantoprazole (Protonix) 40 mg DAILY ORAL 01/16/19 09:00 02/15/19 08:59 01/17/19 09:11 Polyethylene Glycol (Miralax) 17 gm HSPRN PRN ORAL Constipation 01/15/19 17:15 02/14/19 17:14 Sitagliptin Phosphate (Januvia) 25 mg DAILY ORAL 01/16/19 09:00 02/15/19 08:59 01/17/19 09:10 Temazepam (Restoril) 15 mg HSPRN PRN ORAL Insomnia 01/15/19 17:15 01/22/19 17:14 Vitamin B Complex/ Vit C/Folic Acid (Nephrovite) 1 tab DAILY ORAL 01/16/19 09:00 02/15/19 08:59 01/17/19 09:11 Warfarin Sodium (Coumadin per pharmacy) 1 ea DAILY PRN MISC Per rx protocol 01/15/19 17:00 02/14/19 16:59 Warfarin Sodium (Coumadin) 5 mg COUMADIN ORAL 01/17/19 17:00 01/17/19 18:00 Assessment/Plan Problem List: (1) Decubitus skin ulcer Assessment & Plan: Pt presented on admission with boggy and non-blanchable R and L heels. R heel extends into plantar aspect at distal / lateral R foot an area of fluctuance with purple area in center noted. Sacrum is dry and intact without evidence of skin breakdown. Pt observed to keep both knees drawn but was able to extend lower ext. with PROM. Non complaint with care plan for wounds agitated and aggressive at times Tx.Plan: Apply Cavilon Skin Barrier to both heels ,malleoli and lateral aspects of both feet. Change every 7 days and prn. Apply Moisture Barrier to both heels. Cover Sacrum with Optifoam drsg. Change every 3 days and prn. Reposition at least every 2hours or as tolerated. Off-load heels with pillow. ICD Codes: L89.90 - Pressure ulcer of unspecified site, unspecified stage SNOMED: [id number] StivenAjit Jan 17, 2019 13:02
--- NOTE | 2019-01-17 15:35 | Diagnostic Imaging Report ---
Indication:Thyroid nodule Technique: Grayscale and duplex Doppler imaging of the thyroid gland performed. Comparison: None Findings: Within the right thyroid lobe there is a hypoechoic lesion measuring 1 cm, wider than tall with smooth borders having a TIRADS score of 3. Other tiny hypoechoic lesions demonstrated throughout both lobes. The thyroid gland is moderately heterogeneous. The right lobe measures 3.7 x 1.6 x 2.6 cm. The left lobe 5.5 x 1.9 x 5.5 cm. IMPRESSION: Heterogeneous multinodular thyroid gland with a larger left lobe. Largest single lesion is 1 cm within the left lobe with a TIRADS score of 3. Per ACR recommendations, this lesion could be disregarded. Interpretation is based on ACR Thyroid Imaging Reporting and Data System (ACR TI-RADS).
[2019-01-17 16:00] VITALS: BP 145/66
[2019-01-17] MEDS: Warfarin Sodium 5mg ORAL SCH ×2 (17:00→17:39)
--- NOTE | 2019-01-17 17:45 | NUR ---
NURSE NOTES: Notified Dr. Washington and Dr. Alamo regarding refusal of the oral medication. No new order yet. Will continue plan of care.
--- NOTE | 2019-01-17 17:50 | NUR ---
NURSE NOTES: Dr. Alamo ordered to discontinue Warfarin. Carried out the order. Will continue plan of care.
--- NOTE | 2019-01-17 17:51 | NUR ---
NURSE NOTES: Spoke with Christopher, the pharmacist, regarding wasting of Warfarin as the patient refused the medication. The patient refused taking PO medication including warfarin. No new order from the doctors. Will continue plan of care.
--- NOTE | 2019-01-17 18:00 | NUR ---
NURSE NOTES: The patient is stable without acute distress or shortness of breath. Will continue plan of care.
--- NOTE | 2019-01-17 18:58 | NUR ---
HAND-OFF: Report given to ASHA Ornelas. The patient is resting on the bed without acute distress or shortness of breath. The patient's bed in the lowest position, call light in reach, and fall and aspiration precaution reinforced. IV site intact and patent. Endorsed plan of care.
--- NOTE | 2019-01-17 19:29 | NUR ---
NURSE NOTES: Received report from ASHA Rivas. Patient is in bed, awake and responsive. Breathing regular and unlabored with no s/s of SOB noted at this time. IV is intact and saline locked, permacath is intact. Bed is in lowest position, breaks engaged, call light within reach at all times. Continuing to monitor patient's blood pressure. Will continue to monitor.
[2019-01-17 20:00] VITALS: BP 145/73
[2019-01-17] MEDS: Atorvastatin 80mg tab ORAL SCH (20:23)
--- NOTE | 2019-01-17 22:53 | NUR ---
NURSE NOTES: Upon offering patient his scheduled PM medications, patient insistently refusing all of the medications. Explained to the patient risks and benefits of the medications, but patient still refused. Patient only allowed for his BG to be checked, but refused the Insulin. MD was previously notified and is aware. Patient is stable, will continue to monitor.
--- NOTE | 2019-01-17 23:46 | NUR ---
NURSE NOTES: Noticed that patient had spit out some mucous like sputum, tried to assess the patient and perform oral suctioning, but patient did not allow it. The patient is holding the blanket against his mouth and wants to be left alone. Patient is stable, will continue to monitor.
[2019-01-18] VITALS: BP 120/75
[2019-01-18 04:00] VITALS: BP 114/66
--- NOTE | 2019-01-18 05:28 | NUR ---
NURSE NOTES: Patient refused to have his BG checked. Refused x3.
[2019-01-18] MEDS: NovoLOG Insulin Flexpen SUBQ SCH ×4 (05:31→21:00)
--- NOTE | 2019-01-18 07:09 | NUR ---
HAND-OFF: Report given to ASHA Rivas. Plan of care endorsed.
--- NOTE | 2019-01-18 07:30 | NUR ---
NURSE NOTES: Received report from ASHA Ornelas. The patient is resting on the bed without acute distress or shortness of breath. The patient is still combative, agitated, and resistant in care. Reported to Dr. Elmore regarding uptrend of WBC with hypotension, agitation, and tachycardia. Dr. Elmore ordered Zosyn 2.25mg IVPB Q8H. Carried out the order. The patient's bed in the lowest position, call light in reach, and fall and aspiration precaution reinforced. IV site intact and patent. Will continue plan of care.
[2019-01-18 08:00] VITALS: BP 153/71
--- NOTE | 2019-01-18 08:51 | NUR ---
CASE MANAGEMENT: REVIEW 01/17/19 SI:ESRD ON HD . DM 97.7 91 18 151/72 96% ON RA WBC 15.8 RBC 2.92 H/H 8.7/26.8 K+ 6.0 BUN 123 CREAT 11.2 BG 186 URIC ACID 8.5 IS: PROTONIX PO QD IV CLONIDINE Q4/PRN NEPHROVITE PO QD \2E TELE UNIT DCP: RETURN TO FACILITY WHEN MEDICALLY STABLE PLAN: HD 01/17/19 WOUND CONSULT CASE MANAGEMENT: REVIEW 01/18/19 SI:ESRD ON HD . DM 97.0 99 18 153/71 99% ON RA IS: PROTONIX PO QD IV CLONIDINE Q4/PRN NEPHROVITE PO QD \2E TELE UNIT DCP: RETURN TO FACILITY WHEN MEDICALLY STABLE PLAN: START ON ZOSYN
[2019-01-18] MEDS: Heparin 5000 units/ml inj SUBQ SCH ×2 (09:00→20:40)
[2019-01-18] MEDS: Metoprolol Succinate XL 100mg tab ORAL SCH (09:00)
[2019-01-18] MEDS: Meclizine 25mg tab ORAL SCH ×3 (09:00→17:34)
[2019-01-18] MEDS: HydrALAZINE 25mg tab ORAL SCH ×2 (09:00→17:34)
[2019-01-18] MEDS: Nephrovite tab (Rena-Vite) ORAL SCH (09:00)
[2019-01-18] MEDS: sitaGLIPtin 25mg tab ORAL SCH (09:00)
[2019-01-18] MEDS: Piperacillin/Tazobactam 2.25 GM in NS 110 ML IV SCH ×3 (09:20→22:11)
--- NOTE | 2019-01-18 10:00 | NUR ---
NURSE NOTES: Notified to Dr. Washington, Dr. Alamo, and Dr. Sutherland regarding refusal of oral medications, oral feeding, and blood draw. No new order yet. Will continue plan of care.
--- NOTE | 2019-01-18 10:37 | Consultation ---
History of Present Illness General Date patient seen: Jan 18, 2019 Time patient seen: 10:09 Chief Complaint: General Complaint Present Illness HPI 78 y/o M with hx of Dm2 c/w neuropathy/retinopathy/nephropathy/gastropathy, chronic DVT, HTN, GERD, AOCD, COPD, L renal mass, HLD, s/p appendectomy, s/p lithotripsy, UGIB s/p SMA embolization, multinodular goiter, hypercoagulable state (lupus anticoagulant), chronic pancreatitis, dementia, CAD s/p LAD PCI, ESRD on HD via perma cath, s/p AVG [facility], [place] resident presented to ED on 01/15 with severe b/l knee pain, weakness Denied f/c, CP, SOB, n/v. Allergies: Coded Allergies: No Known Allergies (Unverified , 02/01/12) Medication History Scheduled Atorvastatin Calcium* (Atorvastatin Calcium*), 80 MG ORAL BEDTIME, (Reported) Calcium Acetate (Calcium Acetate), 667 MG PO TID, (Reported) Clopidogrel Bisulfate* (Plavix*), 75 MG ORAL DAILY, (Reported) Docusate Sodium* (Docusate Sodium*), 100 MG ORAL TWICE A DAY, (Reported) Hydralazine Hcl* (Hydralazine Hcl*), 25 MG ORAL BID, (Reported) Insulin Regular, Human* (Novolin R*), 0 SUBQ .SLIDING SCALE, (Reported) Lactulose (Lactulose*), 30 ML ORAL DAILY, (Reported) Lipase/Protease/Amylase (Creon Dr 3,000 Units Capsule), 3 EACH PO TID, (Reported ) Lipase/Protease/Amylase (Creon Dr 3,000 Units Capsule), 3 EACH PO THREE TIMES A DAY, (Reported) Lipase/Protease/Amylase (Creon Dr 3,000 Units Capsule), 3 EACH PO THREE TIMES A DAY, (Reported) Loratadine (Claritin), 10 MG ORAL DAILY, (Reported) Loratadine (Claritin), 10 MG ORAL DAILY, (Reported) Lubiprostone (Amitiza*), 24 MCG ORAL EVERY 12 HOURS, (Reported) Magnesium Hydroxide* (Milk Of Magnesia*), 30 ML ORAL DAILY, (Reported) Meclizine Hcl* (Meclizine*), 25 MG ORAL THREE TIMES A DAY, (Reported) Metoprolol Succinate* (Metoprolol Succinate*), 100 MG ORAL DAILY, (Reported) Mirtazapine* (Remeron*), 7.5 MG ORAL BEDTIME, (Reported) Na Phos,M-B/Na Phos,Di-Ba* (Fleet Enema*), 133 ML RECTAL DAILY, (Reported) Omeprazole (Omeprazole), 40 MG ORAL DAILY, (Reported) Polyethylene Glycol 3350* (Miralax*), 17 GM ORAL BID, (Reported) Sennosides (Senna-Gen), 2 TAB ORAL BEDTIME, (Reported) Sitagliptin* (Januvia*), 25 MG ORAL DAILY, (Reported) Vit B Cmplx 3/Fa/Vit C/Biotin (Nephro-Mary Rx Tablet), 1 EACH PO DAILY, ( Reported) Vitamin B Cmplx/Vit C/Folic AC (Nephro-Mary Tablet), 1 TAB ORAL DAILY, (Reported ) Warfarin Sod* (Coumadin*), 5 MG ORAL DAILY, (Reported) Scheduled PRN Acetaminophen (Acetaminophen 8 Hour), 650 MG ORAL Q6HR PRN for For Pain, ( Reported) Hydrocodone Bit/Acetaminophen 5-325* ([place] 5-325*), 1 TAB ORAL Q4H PRN for For Pain, (Reported) Lisinopril (Lisinopril*), 2.5 MG ORAL DAILY PRN for For High Blood Pressure, ( Reported) Melatonin (Melatonin), 3 MG ORAL BEDTIME PRN for Insomnia, (Reported) Mirtazapine* (Remeron*), 7.5 MG ORAL BEDTIME PRN for depression, (Reported) Oxycodone Hcl/Acetaminophen 5-325* (Oxycodone-Acetaminophen 5-325*), 1 TAB ORAL Q6H PRN for For Pain, (Reported) Simethicone* (Simethicone*), 80 MG ORAL Q4HR PRN, (Reported) Sorbitol (Sorbitol), 30 ML PO Q8HR PRN for Constipation, (Reported) Tramadol Hcl* (Ultram*), 50 MG ORAL Q6H PRN for For Pain, (Reported) Zolpidem Tartrate* (Ambien*), 5 MG ORAL BEDTIME PRN for Insomnia, (Reported) Zolpidem Tartrate* (Ambien*), 5 MG ORAL BEDTIME PRN for Insomnia, (Reported) [Warfarin RX monitoring], 1 EA MISC DAILY PRN for Per rx protocol Miscellaneous Medications Lipase/Protease/Amylase (Creon Dr 3,000 Units Capsule), 1 EACH PO, (Reported) Discontinued Medications Amlodipine Besylate (Norvasc), 5 MG ORAL DAILY, (Reported) Discontinued Reason: Pt stopped taking med Bisacodyl (Dulcolax), 10 MG RC DAILY PRN for Constipation, (Reported) Discontinued Reason: Pt stopped taking med Calcitriol (Calcitriol*), 0.25 MCG PO DAILY, (Reported) Discontinued Reason: Pt stopped taking med Ciprofloxacin (Ciprofloxacin HCl), 2 DROP BOTH EYES Q4H Discontinued Reason: Pt stopped taking med Clonidine (Clonidine), 0.1 MG PO DAILY, (Reported) Discontinued Reason: Pt stopped taking med Clonidine HCl (Clonidine HCl), 0.1 MG ORAL Q6HR PRN Discontinued Reason: Pt stopped taking med Dextran 70/Hypromellose (Artificial Tears Eye Drops*), 2 DROP BOTH EYES EVERY 2 HOURS, (Reported) Discontinued Reason: Pt stopped taking med Diphenhydramine Hcl* (Diphenhydramine Hcl*), 25 MG ORAL Q4HR PRN for Itching, ( Reported) Discontinued Reason: Pt stopped taking med Glipizide* (Glipizide*), 20 MG ORAL BIDAC, (Reported) Discontinued Reason: Pt stopped taking med Hydrocodone/Acetaminophen (Hydrocodon-Acetaminophn 10-325), 1 TAB ORAL Q4H PRN for For Pain, (Reported) Discontinued Reason: Pt stopped taking med Levofloxacin* (Levaquin*), 500 MG ORAL DAILY Discontinued Reason: Pt stopped taking med Linaclotide (Linzess), 145 MCG PO DAILY, (Reported) Discontinued Reason: Pt stopped taking med Patient History Healthcare decision maker Resuscitation status Do Not Resuscitate Advanced Directive on File No Patient History Narrative Pmhx: as above Shx: He is resident of a retirement. Does not have anybody with him. He has a son in [place] who is not very involved in his care. 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 He was born in [facility]. No smoking. No drinking. Fhx: non contributory Review of Systems All Other Systems: negative except mentioned in HPI Physical Exam Physical Exam Narrative GENERAL: The patient is a well-developed and well-nourished male, who is somnolent, but arousable. HEENT: Eyes, pupils are equal and responsive to light and accommodation. Extraocular movements are intact. NECK: Supple. No lymphadenopathy. CHEST: Lungs are clear to auscultation bilaterally without wheezes or rales. CARDIOVASCULAR: Regular rhythm and rate. S1, S2 are normal without murmurs, rubs, or gallops. ABDOMEN: Soft, nontender, and nondistended. Positive bowel sounds. No evidence of hepatosplenomegaly. Currently, no rebound or guarding noted. EXTREMITIES: Negative for clubbing, cyanosis, or edema. Last 24 Hour Vital Signs Date Time Temp Pulse Resp B/P (MAP) Pulse Ox O2 Delivery O2 Flow Rate FiO2 01/18/19 08:00 97.0 99 18 153/71 (98) 99 01/18/19 04:00 98.0 100 16 114/66 (82) 96 01/18/19 04:00 94 01/18/19 00:00 90 01/18/19 00:00 98.7 98 20 120/75 (90) 97 01/17/19 23:40 82 16 97 Room Air 21 01/17/19 21:00 Room Air 01/17/19 20:00 90 01/17/19 20:00 97.8 95 18 145/73 (97) 98 01/17/19 17:45 145/66 01/17/19 16:00 97.5 95 18 145/66 (92) 98 01/17/19 16:00 87 01/17/19 12:00 93 01/17/19 12:00 97.3 88 18 125/64 (84) 95 Intake and Output 01/17/19 01/18/19 19:00 07:00 Intake Total 0 ml Output Total 3000 ml Balance -3000 ml Intake Oral 0 ml Output Hemodialysis UF 3000 ml # Voids 1 Laboratory Tests Test 01/17/19 10:10 White Blood Count 15.8 K/UL (4.8-10.8) H Red Blood Count 2.92 M/UL (4.70-6.10) L Hemoglobin 8.7 G/DL (14.2-18.0) L Hematocrit 26.8 % (42.0-52.0) L Mean Corpuscular Volume 92 FL (80-99) Mean Corpuscular Hemoglobin 30.0 PG (27.0-31.0) Mean Corpuscular Hemoglobin Concent 32.7 G/DL (32.0-36.0) Red Cell Distribution Width 16.5 % (11.6-14.8) H Platelet Count 179 K/UL (150-450) Mean Platelet Volume 6.8 FL (6.5-10.1) Neutrophils (%) (Auto) % (45.0-75.0) Lymphocytes (%) (Auto) % (20.0-45.0) Monocytes (%) (Auto) % (1.0-10.0) Eosinophils (%) (Auto) % (0.0-3.0) Basophils (%) (Auto) % (0.0-2.0) Differential Total Cells Counted 100 Neutrophils % (Manual) 85 % (45-75) H Lymphocytes % (Manual) 8 % (20-45) L Monocytes % (Manual) 7 % (1-10) Eosinophils % (Manual) 0 % (0-3) Basophils % (Manual) 0 % (0-2) Band Neutrophils 0 % (0-8) Platelet Estimate Adequate Platelet Morphology Normal Hypochromasia 2+ Anisocytosis 1+ Spherocytes 1+ Prothrombin Time 10.3 SEC (9.30-11.50) Prothromb Time International Ratio 1.0 (0.9-1.1) Sodium Level 144 MMOL/L (136-145) Potassium Level 6.0 MMOL/L (3.5-5.1) *H Chloride Level 104 MMOL/L (98-107) Carbon Dioxide Level 27 MMOL/L (21-32) Anion Gap 13 mmol/L (5-15) Blood Urea Nitrogen 123 mg/dL (7-18) H Creatinine 11.2 MG/DL (0.55-1.30) H Estimat Glomerular Filtration Rate mL/min (>60) Glucose Level 186 MG/DL (74-106) H Uric Acid 8.5 MG/DL (2.6-7.2) H Calcium Level 9.3 MG/DL (8.5-10.1) Calcium (Send out) Pending Phosphorus Level 4.8 MG/DL (2.5-4.9) Total Bilirubin 0.4 MG/DL (0.2-1.0) Aspartate Amino Transf (AST/SGOT) 19 U/L (15-37) Alanine Aminotransferase (ALT/SGPT) 25 U/L (12-78) Alkaline Phosphatase 115 U/L (46-116) Troponin I 0.003 ng/mL (0.000-0.056) Total Protein 6.8 G/DL (6.4-8.2) Albumin 2.7 G/DL (3.4-5.0) L Globulin 4.1 g/dL Albumin/Globulin Ratio 0.7 (1.0-2.7) L Thyroid Stimulating Hormone (TSH) 0.031 uiU/mL (0.358-3.740) Free Thyroxine 0.99 NG/DL (0.76-1.46) Parathyroid Hormone (Intact) Pending Hepatitis B Surface Antigen Pending Height (Feet): 5 Height (Inches): 7.00 Weight (Pounds): 119 Medications Current Medications Medications (Trade) Dose Ordered Sig/Tess Route PRN Reason Start Time Stop Time Status Last Admin Dose Admin Acetaminophen (Tylenol) 650 mg Q4H PRN ORAL Mild Pain (Pain Scale 1-3) 01/15/19 17:00 02/14/19 16:59 Acetaminophen (Tylenol) 650 mg Q4H PRN ORAL fever 01/15/19 17:00 02/14/19 16:59 Acetaminophen/ Hydrocodone Bitart ([place] 5/325) 1 tab Q4H PRN ORAL For Pain 01/15/19 17:13 01/22/19 17:12 Albuterol/ Ipratropium (Albuterol/ Ipratropium) 3 ml Q4H PRN HHN Shortness of Breath 01/15/19 17:15 01/20/19 17:14 Atorvastatin Calcium (Lipitor) 80 mg BEDTIME ORAL 01/15/19 21:00 02/14/19 20:59 01/15/19 21:29 Clonidine HCl (Catapres Tab) 0.1 mg Q4H PRN ORAL sbp more than 160 01/15/19 17:15 02/14/19 17:14 01/16/19 18:56 Clopidogrel Bisulfate (Plavix) 75 mg DAILY ORAL 01/16/19 09:00 02/15/19 08:59 01/17/19 09:11 Dextrose (Dextrose 50%) 25 ml Q30M PRN IV Hypoglycemia 01/15/19 17:00 02/14/19 16:59 Dextrose (Dextrose 50%) 50 ml Q30M PRN IV Hypoglycemia 01/15/19 17:00 02/14/19 16:59 Heparin Sodium (Porcine) (Heparin 5000 units/ml) 5,000 units EVERY 12 HOURS SUBQ 01/15/19 21:00 02/14/19 20:59 01/16/19 08:58 Hydralazine HCl (Apresoline) 25 mg BID ORAL 01/15/19 18:00 02/14/19 17:59 01/16/19 18:55 Insulin Aspart (NovoLOG) BEFORE MEALS AND HS SUBQ 01/15/19 21:00 02/14/19 20:59 01/15/19 21:30 Ketorolac Tromethamine (Toradol 30mg) 30 mg Q6H PRN IV moderate pain 4-6 01/15/19 17:15 01/20/19 17:14 Lorazepam (Ativan) 1 mg Q4H PRN ORAL For Anxiety 01/15/19 17:00 01/22/19 16:59 Meclizine HCl (Antivert) 25 mg THREE TIMES A DAY ORAL 01/15/19 18:00 02/14/19 17:59 01/17/19 09:10 Metoprolol Succinate (Toprol XL) 100 mg DAILY ORAL 01/16/19 09:00 02/15/19 08:59 Mirtazapine (Remeron) 7.5 mg BEDTIME ORAL 01/15/19 21:00 02/14/19 20:59 01/15/19 21:29 Mirtazapine (Remeron) 7.5 mg BEDTIME PRN ORAL depression 01/15/19 17:00 02/14/19 16:59 Morphine Sulfate (Morphine Sulfate) 2 mg Q4H PRN IVP severe pain 7-10 01/15/19 17:15 01/22/19 17:14 01/16/19 13:17 Nitroglycerin (Ntg) 0.4 mg Q5M X 3 DOSES PRN SL Prn Chest Pain 01/15/19 17:15 02/14/19 17:14 Ondansetron HCl (Zofran) 4 mg Q6H PRN IVP Nausea & Vomiting 01/15/19 17:00 02/14/19 16:59 Oxycodone/ Acetaminophen (Percocet 5-325) 1 tab Q6H PRN ORAL pain 4-10 01/15/19 17:15 01/22/19 17:14 Pantoprazole (Protonix) 40 mg DAILY ORAL 01/16/19 09:00 02/15/19 08:59 01/17/19 09:11 Piperacillin Sod/ Tazobactam Sod 2.25 gm/Sodium Chloride 110 ml @ 220 mls/hr EVERY 8 HOURS IV 01/18/19 09:00 01/25/19 08:59 01/18/19 09:20 Polyethylene Glycol (Miralax) 17 gm HSPRN PRN ORAL Constipation 01/15/19 17:15 02/14/19 17:14 Sitagliptin Phosphate (Januvia) 25 mg DAILY ORAL 01/16/19 09:00 02/15/19 08:59 01/17/19 09:10 Temazepam (Restoril) 15 mg HSPRN PRN ORAL Insomnia 01/15/19 17:15 01/22/19 17:14 Vitamin B Complex/ Vit C/Folic Acid (Nephrovite) 1 tab DAILY ORAL 01/16/19 09:00 02/15/19 08:59 01/17/19 09:11 Assessment/Plan Assessment/Plan: Abx: Zosyn 01/18- Assessment: Probable sepsis- ?source Leukocytosis Afebrile -CXR: Basilar atelectatic changes. No acute process otherwise. Upper mediastinal mass deviating the trachea, demonstrated on multiple prior studies and seen on prior CT to represent an enlarged left thyroid lobe B/l knee pain- limited examination as patient did not allowed me but does not appear to be septic -L knee xray: No obvious acute fracture. Severe chronic contraction deformity -R knee xray: Severe contraction deformity of the right knee which is flexed. No obvious acute fracture identified. 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 Largest single lesion is 1 cm within the left lobe with a TIRADS score of 3. Per ACR recommendations, this lesion could be disregarded. Interpretation is based on ACR Thyroid Imaging Reporting and Data System (ACR TI-RADS). hypercoagulable state (lupus anticoagulant) chronic pancreatitis dementia CAD s/p LAD PCI ESRD on HD via perma cath s/p AVG RUG [place] resident Plan: -Continue empiric Zosyn #1 for now -f/u cx -Monitor CBC/CMP, temperatures -Bcx x2 Thank you for this consultation. Will continue to follow along with you. Discussed with Kristina Turk M.D. Jan 18, 2019 10:37
--- NOTE | 2019-01-18 11:04 | General Progress Note ---
Assessment/Plan Problem List: (1) Thyroid mass ICD Codes: E07.9 - Disorder of thyroid, unspecified SNOMED: 946803912 (2) ESRD (end stage renal disease) ICD Codes: N18.6 - End stage renal disease SNOMED: 10122753 (3) Diabetes mellitus ICD Codes: E11.9 - Type 2 diabetes mellitus without complications SNOMED: 66107541 (4) Subclinical hyperthyroidism ICD Codes: E05.90 - Thyrotoxicosis, unspecified without thyrotoxic crisis or storm SNOMED: 799467806 Assessment/Plan: continue Januvia 25 mg daily continue NISS ac / hs TSH is suppressed - free T4 is normal thyroid US revealed a non suspicious 1 cm nodule without need for FNA - check free T3 - check TSI and ATPO r/o Graves' Subjective ROS Limited/Unobtainable: Yes Allergies: Coded Allergies: No Known Allergies (Unverified , 02/01/12) Subjective events noted glucose values are stable he is not eating - insulin has been held Item Value Date Time Bedside Blood Glucose 129 mg/dl H 01/18/19 0630 Bedside Blood Glucose 134 mg/dl H 01/17/19 2100 Bedside Blood Glucose 154 mg/dl H 01/17/19 1630 Bedside Blood Glucose 129 mg/dl H 01/17/19 1130 Objective Last 24 Hour Vital Signs Date Time Temp Pulse Resp B/P (MAP) Pulse Ox O2 Delivery O2 Flow Rate FiO2 01/18/19 09:00 99 153/71 01/18/19 09:00 153/71 01/18/19 08:00 97.0 99 18 153/71 (98) 99 01/18/19 04:00 98.0 100 16 114/66 (82) 96 01/18/19 04:00 94 01/18/19 00:00 90 01/18/19 00:00 98.7 98 20 120/75 (90) 97 01/17/19 23:40 82 16 97 Room Air 21 01/17/19 21:00 Room Air 01/17/19 20:00 90 01/17/19 20:00 97.8 95 18 145/73 (97) 98 01/17/19 17:45 145/66 01/17/19 16:00 97.5 95 18 145/66 (92) 98 01/17/19 16:00 87 01/17/19 12:00 93 01/17/19 12:00 97.3 88 18 125/64 (84) 95 Intake and Output 01/17/19 01/18/19 19:00 07:00 Intake Total 0 ml Output Total 3000 ml Balance -3000 ml Intake Oral 0 ml Output Hemodialysis UF 3000 ml # Voids 1 Height (Feet): 5 Height (Inches): 7.00 Weight (Pounds): 119 General Appearance: no apparent distress Neck: normal alignment Respiratory/Chest: lungs clear Abdomen: normal bowel sounds Objective Current Medications Medications (Trade) Dose Ordered Sig/Tess Route PRN Reason Start Time Stop Time Status Last Admin Dose Admin Acetaminophen (Tylenol) 650 mg Q4H PRN ORAL Mild Pain (Pain Scale 1-3) 01/15/19 17:00 02/14/19 16:59 Acetaminophen (Tylenol) 650 mg Q4H PRN ORAL fever 01/15/19 17:00 02/14/19 16:59 Acetaminophen/ Hydrocodone Bitart ([place] 5/325) 1 tab Q4H PRN ORAL For Pain 01/15/19 17:13 01/22/19 17:12 Albuterol/ Ipratropium (Albuterol/ Ipratropium) 3 ml Q4H PRN HHN Shortness of Breath 01/15/19 17:15 01/20/19 17:14 Atorvastatin Calcium (Lipitor) 80 mg BEDTIME ORAL 01/15/19 21:00 02/14/19 20:59 01/15/19 21:29 Clonidine HCl (Catapres Tab) 0.1 mg Q4H PRN ORAL sbp more than 160 01/15/19 17:15 02/14/19 17:14 01/16/19 18:56 Clopidogrel Bisulfate (Plavix) 75 mg DAILY ORAL 01/16/19 09:00 02/15/19 08:59 01/17/19 09:11 Dextrose (Dextrose 50%) 25 ml Q30M PRN IV Hypoglycemia 01/15/19 17:00 02/14/19 16:59 Dextrose (Dextrose 50%) 50 ml Q30M PRN IV Hypoglycemia 01/15/19 17:00 02/14/19 16:59 Heparin Sodium (Porcine) (Heparin 5000 units/ml) 5,000 units EVERY 12 HOURS SUBQ 01/15/19 21:00 02/14/19 20:59 01/16/19 08:58 Hydralazine HCl (Apresoline) 25 mg BID ORAL 01/15/19 18:00 02/14/19 17:59 01/16/19 18:55 Insulin Aspart (NovoLOG) BEFORE MEALS AND HS SUBQ 01/15/19 21:00 02/14/19 20:59 01/15/19 21:30 Ketorolac Tromethamine (Toradol 30mg) 30 mg Q6H PRN IV moderate pain 4-6 01/15/19 17:15 01/20/19 17:14 Lorazepam (Ativan) 1 mg Q4H PRN ORAL For Anxiety 01/15/19 17:00 01/22/19 16:59 Meclizine HCl (Antivert) 25 mg THREE TIMES A DAY ORAL 01/15/19 18:00 02/14/19 17:59 01/17/19 09:10 Metoprolol Succinate (Toprol XL) 100 mg DAILY ORAL 01/16/19 09:00 02/15/19 08:59 Mirtazapine (Remeron) 7.5 mg BEDTIME ORAL 01/15/19 21:00 02/14/19 20:59 01/15/19 21:29 Mirtazapine (Remeron) 7.5 mg BEDTIME PRN ORAL depression 01/15/19 17:00 02/14/19 16:59 Morphine Sulfate (Morphine Sulfate) 2 mg Q4H PRN IVP severe pain 7-10 01/15/19 17:15 01/22/19 17:14 01/16/19 13:17 Nitroglycerin (Ntg) 0.4 mg Q5M X 3 DOSES PRN SL Prn Chest Pain 01/15/19 17:15 02/14/19 17:14 Ondansetron HCl (Zofran) 4 mg Q6H PRN IVP Nausea & Vomiting 01/15/19 17:00 02/14/19 16:59 Oxycodone/ Acetaminophen (Percocet 5-325) 1 tab Q6H PRN ORAL pain 4-10 01/15/19 17:15 01/22/19 17:14 Pantoprazole (Protonix) 40 mg DAILY ORAL 01/16/19 09:00 02/15/19 08:59 01/17/19 09:11 Piperacillin Sod/ Tazobactam Sod 2.25 gm/Sodium Chloride 110 ml @ 220 mls/hr EVERY 8 HOURS IV 01/18/19 09:00 01/25/19 08:59 01/18/19 09:20 Polyethylene Glycol (Miralax) 17 gm HSPRN PRN ORAL Constipation 01/15/19 17:15 02/14/19 17:14 Sitagliptin Phosphate (Januvia) 25 mg DAILY ORAL 01/16/19 09:00 02/15/19 08:59 01/17/19 09:10 Temazepam (Restoril) 15 mg HSPRN PRN ORAL Insomnia 01/15/19 17:15 01/22/19 17:14 Vitamin B Complex/ Vit C/Folic Acid (Nephrovite) 1 tab DAILY ORAL 01/16/19 09:00 02/15/19 08:59 01/17/19 09:11 Andrés Bansal MD Jan 18, 2019 11:04
--- NOTE | 2019-01-18 11:41 | NUR ---
NURSE NOTES: Made Md Washington of pt refusing to eat and not taking his medication, he said he he will look at him, no further orders
--- NOTE | 2019-01-18 11:46 | Pulmonology Progress Note ---
Assessment/Plan Problems: (1) Sepsis (2) Refuses to eat (3) ESRD (end stage renal disease) (4) Chronic pancreatitis (5) Diabetic retinopathy (6) Diabetes mellitus Assessment/Plan trial of Marinol day time and Remeron at night to increase the still confused symptomatic treatment HD by portfolio architect neuro and psych evaluation. sliding scale check electrolytes Subjective Constitutional: Reports: no symptoms HEENT: Repors: no symptoms Respiratory: Reports: no symptoms Allergies: Coded Allergies: No Known Allergies (Unverified , 02/01/12) Objective Last 24 Hour Vital Signs Date Time Temp Pulse Resp B/P (MAP) Pulse Ox O2 Delivery O2 Flow Rate FiO2 01/18/19 09:00 99 153/71 01/18/19 09:00 153/71 01/18/19 08:00 97.0 99 18 153/71 (98) 99 01/18/19 04:00 98.0 100 16 114/66 (82) 96 01/18/19 04:00 94 01/18/19 00:00 90 01/18/19 00:00 98.7 98 20 120/75 (90) 97 01/17/19 23:40 82 16 97 Room Air 21 01/17/19 21:00 Room Air 01/17/19 20:00 90 01/17/19 20:00 97.8 95 18 145/73 (97) 98 01/17/19 17:45 145/66 01/17/19 16:00 97.5 95 18 145/66 (92) 98 01/17/19 16:00 87 01/17/19 12:00 93 01/17/19 12:00 97.3 88 18 125/64 (84) 95 Intake and Output 01/17/19 01/18/19 19:00 07:00 Intake Total 0 ml Output Total 3000 ml Balance -3000 ml Intake Oral 0 ml Output Hemodialysis UF 3000 ml # Voids 1 General Appearance: WD/WN HEENT: normocephalic, atraumatic Respiratory/Chest: chest wall non-tender, lungs clear Cardiovascular: normal peripheral pulses, regular rhythm Abdomen: normal bowel sounds, soft, non tender Neurologic/Psychiatric: internist II-XII grossly normal Lymphatic: no neck adenopathy Microbiology Date/Time Source Procedure Growth Status 01/15/19 14:15 Nasal Nares MRSA Culture - Final NO METHICILLIN RESISTANT STAPH AUREUS... Complete Current Medications Medications (Trade) Dose Ordered Sig/Tess Route PRN Reason Start Time Stop Time Status Last Admin Dose Admin Acetaminophen (Tylenol) 650 mg Q4H PRN ORAL Mild Pain (Pain Scale 1-3) 01/15/19 17:00 02/14/19 16:59 Acetaminophen (Tylenol) 650 mg Q4H PRN ORAL fever 01/15/19 17:00 02/14/19 16:59 Acetaminophen/ Hydrocodone Bitart ([place] 5/325) 1 tab Q4H PRN ORAL For Pain 01/15/19 17:13 01/22/19 17:12 Albuterol/ Ipratropium (Albuterol/ Ipratropium) 3 ml Q4H PRN HHN Shortness of Breath 01/15/19 17:15 01/20/19 17:14 Atorvastatin Calcium (Lipitor) 80 mg BEDTIME ORAL 01/15/19 21:00 02/14/19 20:59 01/15/19 21:29 Clonidine HCl (Catapres Tab) 0.1 mg Q4H PRN ORAL sbp more than 160 01/15/19 17:15 02/14/19 17:14 01/16/19 18:56 Clopidogrel Bisulfate (Plavix) 75 mg DAILY ORAL 01/16/19 09:00 02/15/19 08:59 01/17/19 09:11 Dextrose (Dextrose 50%) 25 ml Q30M PRN IV Hypoglycemia 01/15/19 17:00 02/14/19 16:59 Dextrose (Dextrose 50%) 50 ml Q30M PRN IV Hypoglycemia 01/15/19 17:00 02/14/19 16:59 Heparin Sodium (Porcine) (Heparin 5000 units/ml) 5,000 units EVERY 12 HOURS SUBQ 01/15/19 21:00 02/14/19 20:59 01/16/19 08:58 Hydralazine HCl (Apresoline) 25 mg BID ORAL 01/15/19 18:00 02/14/19 17:59 01/16/19 18:55 Insulin Aspart (NovoLOG) BEFORE MEALS AND HS SUBQ 01/15/19 21:00 02/14/19 20:59 01/15/19 21:30 Ketorolac Tromethamine (Toradol 30mg) 30 mg Q6H PRN IV moderate pain 4-6 01/15/19 17:15 01/20/19 17:14 Lorazepam (Ativan) 1 mg Q4H PRN ORAL For Anxiety 01/15/19 17:00 01/22/19 16:59 Meclizine HCl (Antivert) 25 mg THREE TIMES A DAY ORAL 01/15/19 18:00 02/14/19 17:59 01/17/19 09:10 Metoprolol Succinate (Toprol XL) 100 mg DAILY ORAL 01/16/19 09:00 02/15/19 08:59 Mirtazapine (Remeron) 7.5 mg BEDTIME ORAL 01/15/19 21:00 02/14/19 20:59 01/15/19 21:29 Mirtazapine (Remeron) 7.5 mg BEDTIME PRN ORAL depression 01/15/19 17:00 02/14/19 16:59 Morphine Sulfate (Morphine Sulfate) 2 mg Q4H PRN IVP severe pain 7-10 01/15/19 17:15 01/22/19 17:14 01/16/19 13:17 Nitroglycerin (Ntg) 0.4 mg Q5M X 3 DOSES PRN SL Prn Chest Pain 01/15/19 17:15 02/14/19 17:14 Ondansetron HCl (Zofran) 4 mg Q6H PRN IVP Nausea & Vomiting 01/15/19 17:00 02/14/19 16:59 Oxycodone/ Acetaminophen (Percocet 5-325) 1 tab Q6H PRN ORAL pain 4-10 01/15/19 17:15 01/22/19 17:14 Pantoprazole (Protonix) 40 mg DAILY ORAL 01/16/19 09:00 02/15/19 08:59 01/17/19 09:11 Piperacillin Sod/ Tazobactam Sod 2.25 gm/Sodium Chloride 110 ml @ 220 mls/hr EVERY 8 HOURS IV 01/18/19 09:00 01/25/19 08:59 01/18/19 09:20 Polyethylene Glycol (Miralax) 17 gm HSPRN PRN ORAL Constipation 01/15/19 17:15 02/14/19 17:14 Sitagliptin Phosphate (Januvia) 25 mg DAILY ORAL 01/16/19 09:00 02/15/19 08:59 01/17/19 09:10 Temazepam (Restoril) 15 mg HSPRN PRN ORAL Insomnia 01/15/19 17:15 01/22/19 17:14 Vitamin B Complex/ Vit C/Folic Acid (Nephrovite) 1 tab DAILY ORAL 01/16/19 09:00 02/15/19 08:59 01/17/19 09:11 Kevin Washington MD Jan 18, 2019 11:46
[2019-01-18 12:00] VITALS: BP 146/67
--- NOTE | 2019-01-18 12:30 | NUR ---
NURSE NOTES: The patient is stable without acute distress or shortness of breath. Will continue plan of care.
--- NOTE | 2019-01-18 13:30 | Nephrology Progress Note ---
Assessment/Plan Assessment 1) ESRD 2) Dementia 3) bilateral knee pain 4) ? Uremia 5) Leukocytosis with underlying ? infection Plan: HD tomorrow IV ATB Labs in AM Subjective Subjective He had Hd yesterday, not feeling good, can not explain his malaise, WBC is up to 15K, started on Zosyn Objective Objective Last 24 Hour Vital Signs Date Time Temp Pulse Resp B/P (MAP) Pulse Ox O2 Delivery O2 Flow Rate FiO2 01/18/19 09:00 99 153/71 01/18/19 09:00 153/71 01/18/19 08:00 97.0 99 18 153/71 (98) 99 01/18/19 04:00 98.0 100 16 114/66 (82) 96 01/18/19 04:00 94 01/18/19 00:00 90 01/18/19 00:00 98.7 98 20 120/75 (90) 97 01/17/19 23:40 82 16 97 Room Air 21 01/17/19 21:00 Room Air 01/17/19 20:00 90 01/17/19 20:00 97.8 95 18 145/73 (97) 98 01/17/19 17:45 145/66 01/17/19 16:00 97.5 95 18 145/66 (92) 98 01/17/19 16:00 87 Intake and Output 01/17/19 01/18/19 19:00 07:00 Intake Total 0 ml Output Total 3000 ml Balance -3000 ml Intake Oral 0 ml Output Hemodialysis UF 3000 ml # Voids 1 Height (Feet): 5 Height (Inches): 7.00 Weight (Pounds): 119 General Appearance: WD/WN, no apparent distress EENT: PERRL/EOMI Neck: non-tender Cardiovascular: normal rate, regular rhythm, no JVD Respiratory/Chest: lungs clear Abdomen: normal bowel sounds, non tender Extremities: normal range of motion, non-tender Neurologic: chief scientist II-XII grossly normal, no motor/sensory deficits, other - disoriented Yassine Alamo MD Jan 18, 2019 13:30
--- NOTE | 2019-01-18 14:17 | Internal Med Progress Note ---
Subjective Date of Service: Jan 18, 2019 Physician Name Watson Sutherland Attending Physician Eddie Peralta MD Current Medications Medications (Trade) Dose Ordered Sig/Tess Route PRN Reason Start Time Stop Time Status Last Admin Dose Admin Acetaminophen (Tylenol) 650 mg Q4H PRN ORAL Mild Pain (Pain Scale 1-3) 01/15/19 17:00 02/14/19 16:59 Acetaminophen (Tylenol) 650 mg Q4H PRN ORAL fever 01/15/19 17:00 02/14/19 16:59 Acetaminophen/ Hydrocodone Bitart ([place] 5/325) 1 tab Q4H PRN ORAL For Pain 01/15/19 17:13 01/22/19 17:12 Albuterol/ Ipratropium (Albuterol/ Ipratropium) 3 ml Q4H PRN HHN Shortness of Breath 01/15/19 17:15 01/20/19 17:14 Atorvastatin Calcium (Lipitor) 80 mg BEDTIME ORAL 01/15/19 21:00 02/14/19 20:59 01/15/19 21:29 Clonidine HCl (Catapres Tab) 0.1 mg Q4H PRN ORAL sbp more than 160 01/15/19 17:15 02/14/19 17:14 01/16/19 18:56 Clopidogrel Bisulfate (Plavix) 75 mg DAILY ORAL 01/16/19 09:00 02/15/19 08:59 01/17/19 09:11 Dextrose (Dextrose 50%) 25 ml Q30M PRN IV Hypoglycemia 01/15/19 17:00 02/14/19 16:59 Dextrose (Dextrose 50%) 50 ml Q30M PRN IV Hypoglycemia 01/15/19 17:00 02/14/19 16:59 Dronabinol (Marinol) 2.5 mg BEFORE BREAKFAST ORAL 01/19/19 06:30 02/18/19 06:29 Heparin Sodium (Porcine) (Heparin 5000 units/ml) 5,000 units EVERY 12 HOURS SUBQ 01/15/19 21:00 02/14/19 20:59 01/16/19 08:58 Heparin Sodium (Porcine) (Heparin Sod 1000 units/ml 10ml) 2,000 unit ONCE PRN IV dialysis 01/19/19 09:00 01/19/19 23:59 Hydralazine HCl (Apresoline) 25 mg BID ORAL 01/15/19 18:00 02/14/19 17:59 01/16/19 18:55 Insulin Aspart (NovoLOG) BEFORE MEALS AND HS SUBQ 01/15/19 21:00 02/14/19 20:59 01/15/19 21:30 Lorazepam (Ativan) 1 mg Q4H PRN ORAL For Anxiety 01/15/19 17:00 01/22/19 16:59 Meclizine HCl (Antivert) 25 mg THREE TIMES A DAY ORAL 01/15/19 18:00 02/14/19 17:59 01/18/19 12:43 Metoprolol Succinate (Toprol XL) 100 mg DAILY ORAL 01/16/19 09:00 02/15/19 08:59 Mirtazapine (Remeron) 7.5 mg BEDTIME ORAL 01/15/19 21:00 02/14/19 20:59 01/15/19 21:29 Mirtazapine (Remeron) 7.5 mg BEDTIME PRN ORAL depression 01/15/19 17:00 02/14/19 16:59 Morphine Sulfate (Morphine Sulfate) 2 mg Q4H PRN IVP severe pain 7-10 01/15/19 17:15 01/22/19 17:14 01/16/19 13:17 Nitroglycerin (Ntg) 0.4 mg Q5M X 3 DOSES PRN SL Prn Chest Pain 01/15/19 17:15 02/14/19 17:14 Ondansetron HCl (Zofran) 4 mg Q6H PRN IVP Nausea & Vomiting 01/15/19 17:00 02/14/19 16:59 Oxycodone/ Acetaminophen (Percocet 5-325) 1 tab Q6H PRN ORAL pain 4-10 01/15/19 17:15 01/22/19 17:14 Pantoprazole (Protonix) 40 mg DAILY ORAL 01/16/19 09:00 02/15/19 08:59 01/17/19 09:11 Piperacillin Sod/ Tazobactam Sod 2.25 gm/Sodium Chloride 110 ml @ 220 mls/hr EVERY 8 HOURS IV 01/18/19 09:00 01/25/19 08:59 01/18/19 14:01 Polyethylene Glycol (Miralax) 17 gm HSPRN PRN ORAL Constipation 01/15/19 17:15 02/14/19 17:14 Sitagliptin Phosphate (Januvia) 25 mg DAILY ORAL 01/16/19 09:00 02/15/19 08:59 01/17/19 09:10 Temazepam (Restoril) 15 mg HSPRN PRN ORAL Insomnia 01/15/19 17:15 01/22/19 17:14 Vitamin B Complex/ Vit C/Folic Acid (Nephrovite) 1 tab DAILY ORAL 01/16/19 09:00 02/15/19 08:59 01/17/19 09:11 Allergies: Coded Allergies: No Known Allergies (Unverified , 02/01/12) ROS Limited/Unobtainable: Yes Subjective 78 YO M admitted with chief complaint bilateral knee pain and gen weakness. Cover for Int Med-Dr Peralta Objective Last Vital Signs Date Time Temp Pulse Resp B/P (MAP) Pulse Ox O2 Delivery O2 Flow Rate FiO2 01/18/19 12:00 97.9 99 18 146/67 (93) 97 01/18/19 09:00 Room Air 01/17/19 23:40 21 Intake and Output 01/17/19 01/18/19 19:00 07:00 Intake Total 0 ml Output Total 3000 ml Balance -3000 ml Intake Oral 0 ml Output Hemodialysis UF 3000 ml # Voids 1 Objective PHYSICAL EXAMINATION: GENERAL: The patient is a well-developed and well-nourished male, who is somnolent, but arousable. HEENT: Eyes, pupils are equal and responsive to light and accommodation. Extraocular movements are intact. NECK: Supple. No lymphadenopathy. CHEST: Lungs are clear to auscultation bilaterally without wheezes or rales. CARDIOVASCULAR: Regular rhythm and rate. S1, S2 are normal without murmurs, rubs, or gallops. ABDOMEN: Soft, nontender, and nondistended. Positive bowel sounds. No evidence of hepatosplenomegaly. Currently, no rebound or guarding noted. EXTREMITIES: Negative for clubbing, cyanosis, or edema. RECTAL/GENITAL: Not performed. NEUROLOGIC: Cranial nerves II through XII are grossly intact without focal deficits. Assessment/Plan Assessment/Plan ASSESSMENT: This is a 78-year-old male. 1. Bilateral knee pain. 2. Generalized weakness. 3. Diabetes type 2. 4. End-stage renal disease. 5. Chronic obstructive pulmonary disease. 6. Coronary artery disease. 7. Lupus anticoagulant. 8. Chronic pancreatitis. 9. Diabetic nephropathy. 10. Diabetic retinopathy. 11. Diabetic gastropathy. 12. Gastroesophageal reflux disease. 13. Dysphagia. 14. Major depression. 15. Hypercholesterolemia. 16. Diabetic neuropathy. 17. Anemia of chronic renal disease. 18. Protein-calorie malnutrition. 19. uncontrolled hypertension 20. Leukocytosis TREATMENT: 1. Bilateral knee pain. Initial x-rays were negative for fracture. The patient does have contractures. The patient will be offered [place] as above for knee pain. 2. Weakness of bilateral lower extremities. The patient has permanent contractures of bilateral knees. 3. Diabetes type 2. NovoLog sliding scale has been instituted. 4. End-stage renal disease, on hemodialysis. A Nephrology consultation has been obtained with Dr. Alamo. We will follow recommendations of Nephrology. Hemodialysis 01/17/19 5. Chronic obstructive pulmonary disease. 6. Coronary artery disease. The patient is status post percutaneous transluminal coronary angioplasty in December of 2017 with stent placement. 7. Lupus anticoagulant. 8. Chronic pancreatitis. 9. Diabetic nephropathy. 10. Diabetic gastroparesis. 11. Gastroesophageal reflux disease. 12. Dysphagia. 13. Major depression. 14. Hypercholesterolemia. 15. Diabetic neuropathy. 16. Vitamin D deficiency. 17. Anemia of renal failure. 18. Encephalopathy. 19. Chronic deep venous thrombosis. Continue Coumadin as above. 20. Continue hydralazine, clonidine and metoprolol 21. Continue zosyn per Watson Manjarrez MD Jan 18, 2019 14:17
--- NOTE | 2019-01-18 15:00 | NUR ---
NURSE NOTES: Called [facility] for HD schedule on 01/19/[address] Jasmeet ferrer. Spoke with Silvano for confirmation of scheduled HD on 01/19/2019. Will continue plan of care.
[2019-01-18 16:00] VITALS: BP 155/69
--- NOTE | 2019-01-18 16:31 | Surgery Progress Note ---
Surgery Progress Note Subjective Additional Comments no acute events thyroid US noted exam stable comfortable labs noted HD repeat labs Objective Last 24 Hour Vital Signs Date Time Temp Pulse Resp B/P (MAP) Pulse Ox O2 Delivery O2 Flow Rate FiO2 01/18/19 12:00 97.9 99 18 146/67 (93) 97 01/18/19 12:00 98 01/18/19 09:00 Room Air 01/18/19 09:00 99 153/71 01/18/19 09:00 153/71 01/18/19 08:00 99 01/18/19 08:00 97.0 99 18 153/71 (98) 99 01/18/19 04:00 98.0 100 16 114/66 (82) 96 01/18/19 04:00 94 01/18/19 00:00 90 01/18/19 00:00 98.7 98 20 120/75 (90) 97 01/17/19 23:40 82 16 97 Room Air 21 01/17/19 21:00 Room Air 01/17/19 20:00 90 01/17/19 20:00 97.8 95 18 145/73 (97) 98 01/17/19 17:45 145/66 I&O Intake and Output 01/17/19 01/18/19 19:00 07:00 Intake Total 0 ml Output Total 3000 ml Balance -3000 ml Intake Oral 0 ml Output Hemodialysis UF 3000 ml # Voids 1 Dressing: other Wound: other Drains: other Cardiovascular: RSR Respiratory: decreased breath sounds Abdomen: soft, present bowel sounds Extremities: no cyanosis, other Plan Problems: (1) Decubitus skin ulcer Assessment & Plan: Pt presented on admission with boggy and non-blanchable R and L heels. R heel extends into plantar aspect at distal / lateral R foot an area of fluctuance with purple area in center noted. Sacrum is dry and intact without evidence of skin breakdown. Pt observed to keep both knees drawn but was able to extend lower ext. with PROM. Non complaint with care plan for wounds agitated and aggressive at times Tx.Plan: Apply [place] Skin Barrier to both heels ,malleoli and lateral aspects of both feet. Change every 7 days and prn. Apply Moisture Barrier to both heels. Cover Sacrum with Optifoam drsg. Change every 3 days and prn. Reposition at least every 2hours or as tolerated. Off-load heels with pillow. Ajit Saleem Jan 18, 2019 16:31
--- NOTE | 2019-01-18 18:00 | NUR ---
NURSE NOTES: The patient is stable without acute distress or shortness of breath. Will continue plan of care.
--- NOTE | 2019-01-18 19:30 | NUR ---
HAND-OFF: Report given to ASHA Mcdonald. The patient is resting on the bed without acute distress or shortness of breath. The patient's bed in the lowest position, call light in reach, and fall and aspiration precaution reinforced. IV site intact and patent. Permacath intact. HD schedule called and confirmed. Endorsed plan of care.
--- NOTE | 2019-01-18 19:46 | NUR ---
NURSE NOTES: Received patient from ASHA Rivas. Patient alert and talkative. No signs of distress, shortness of breath, or pain noted. Patient able to make needs known to a limited degree. IV site checked, intact and patent, no signs of redness, bleeding, or infiltration noted. Bed in lowest position, brakes on, side rails up x3, and call light within reach. Will continue with plan of care.
[2019-01-18 20:00] VITALS: BP 159/79
[2019-01-18] MEDS: Atorvastatin 80mg tab ORAL SCH (21:00)
--- NOTE | 2019-01-18 21:00 | NUR ---
NURSE NOTES: Patient refused medications after risks and benefits explained 3 times. Charge nurse aware. Will continue with plan of care.
[2019-01-19] VITALS: BP 134/68
[2019-01-19 04:00] VITALS: BP 150/86
[2019-01-19] MEDS: Piperacillin/Tazobactam 2.25 GM in NS 110 ML IV SCH ×2 (05:56→12:55)
[2019-01-19] MEDS ORDERED: Dronabinol 2.5mg Cap ORAL SCH (06:30)
[2019-01-19] MEDS: NovoLOG Insulin Flexpen SUBQ SCH ×4 (06:30→21:00)
--- NOTE | 2019-01-19 06:47 | NUR ---
NURSE NOTES: Patient refused medications, risks and benefits explained. Will continue to monitor.
--- NOTE | 2019-01-19 07:23 | General Progress Note ---
Assessment/Plan Problem List: (1) Thyroid mass ICD Codes: E07.9 - Disorder of thyroid, unspecified SNOMED: 099615270 (2) ESRD (end stage renal disease) ICD Codes: N18.6 - End stage renal disease SNOMED: 79167725 (3) Diabetes mellitus ICD Codes: E11.9 - Type 2 diabetes mellitus without complications SNOMED: 89937622 (4) Subclinical hyperthyroidism ICD Codes: E05.90 - Thyrotoxicosis, unspecified without thyrotoxic crisis or storm SNOMED: 395466617 Assessment/Plan: continue Januvia 25 mg daily continue NISS ac / hs TSH is suppressed - free T4 is normal thyroid US revealed a non suspicious 1 cm nodule without need for FNA - follow free T3 - pending - follow TSI and ATPO r/o Graves' - pending Subjective ROS Limited/Unobtainable: Yes Allergies: Coded Allergies: No Known Allergies (Unverified , 02/01/12) Subjective events noted Item Value Date Time Bedside Blood Glucose 130 mg/dl H 01/19/19 0630 Bedside Blood Glucose 198 mg/dl H 01/18/19 2100 Bedside Blood Glucose 172 mg/dl H 01/18/19 1630 Bedside Blood Glucose 139 mg/dl H 01/18/19 1130 Bedside Blood Glucose 129 mg/dl H 01/18/19 0630 Objective Last 24 Hour Vital Signs Date Time Temp Pulse Resp B/P (MAP) Pulse Ox O2 Delivery O2 Flow Rate FiO2 01/19/19 04:00 94 01/19/19 04:00 98.2 96 18 150/86 (107) 98 01/19/19 00:00 94 01/19/19 00:00 98.2 98 19 134/68 (90) 95 01/18/19 21:00 Room Air 01/18/19 20:00 96 01/18/19 20:00 98.1 88 18 159/79 (105) 95 01/18/19 19:43 95 18 97 Room Air 21 01/18/19 17:34 155/69 01/18/19 16:00 98 01/18/19 16:00 98.0 98 18 155/69 (97) 96 01/18/19 12:00 97.9 99 18 146/67 (93) 97 01/18/19 12:00 98 01/18/19 09:00 Room Air 01/18/19 09:00 99 153/71 01/18/19 09:00 153/71 01/18/19 08:00 99 01/18/19 08:00 97.0 99 18 153/71 (98) 99 Intake and Output 01/18/19 01/19/19 19:00 07:00 Intake Total 0 ml Balance 0 ml Intake Oral 0 ml Height (Feet): 5 Height (Inches): 7.00 Weight (Pounds): 116 General Appearance: no apparent distress Neck: normal alignment Cardiovascular: normal rate Respiratory/Chest: decreased breath sounds Abdomen: normal bowel sounds Objective Current Medications Medications (Trade) Dose Ordered Sig/Tess Route PRN Reason Start Time Stop Time Status Last Admin Dose Admin Acetaminophen (Tylenol) 650 mg Q4H PRN ORAL Mild Pain (Pain Scale 1-3) 01/15/19 17:00 02/14/19 16:59 Acetaminophen (Tylenol) 650 mg Q4H PRN ORAL fever 01/15/19 17:00 02/14/19 16:59 Acetaminophen/ Hydrocodone Bitart ([place] 5/325) 1 tab Q4H PRN ORAL For Pain 01/15/19 17:13 01/22/19 17:12 Albuterol/ Ipratropium (Albuterol/ Ipratropium) 3 ml Q4H PRN HHN Shortness of Breath 01/15/19 17:15 01/20/19 17:14 Atorvastatin Calcium (Lipitor) 80 mg BEDTIME ORAL 01/15/19 21:00 02/14/19 20:59 01/15/19 21:29 Clonidine HCl (Catapres Tab) 0.1 mg Q4H PRN ORAL sbp more than 160 01/15/19 17:15 02/14/19 17:14 01/16/19 18:56 Clopidogrel Bisulfate (Plavix) 75 mg DAILY ORAL 01/16/19 09:00 02/15/19 08:59 01/17/19 09:11 Dextrose (Dextrose 50%) 25 ml Q30M PRN IV Hypoglycemia 01/15/19 17:00 02/14/19 16:59 Dextrose (Dextrose 50%) 50 ml Q30M PRN IV Hypoglycemia 01/15/19 17:00 02/14/19 16:59 Dronabinol (Marinol) 2.5 mg BEFORE BREAKFAST ORAL 01/19/19 06:30 02/18/19 06:29 Heparin Sodium (Porcine) (Heparin 5000 units/ml) 5,000 units EVERY 12 HOURS SUBQ 01/15/19 21:00 02/14/19 20:59 01/16/19 08:58 Heparin Sodium (Porcine) (Heparin Sod 1000 units/ml 10ml) 2,000 unit ONCE PRN IV dialysis 01/19/19 09:00 01/19/19 23:59 Hydralazine HCl (Apresoline) 25 mg BID ORAL 01/15/19 18:00 02/14/19 17:59 01/18/19 17:34 Insulin Aspart (NovoLOG) BEFORE MEALS AND HS SUBQ 01/15/19 21:00 02/14/19 20:59 01/15/19 21:30 Lorazepam (Ativan) 1 mg Q4H PRN ORAL For Anxiety 01/15/19 17:00 01/22/19 16:59 Meclizine HCl (Antivert) 25 mg THREE TIMES A DAY ORAL 01/15/19 18:00 02/14/19 17:59 01/18/19 17:34 Metoprolol Succinate (Toprol XL) 100 mg DAILY ORAL 01/16/19 09:00 02/15/19 08:59 Mirtazapine (Remeron) 7.5 mg BEDTIME ORAL 01/15/19 21:00 02/14/19 20:59 01/15/19 21:29 Mirtazapine (Remeron) 7.5 mg BEDTIME PRN ORAL depression 01/15/19 17:00 02/14/19 16:59 Morphine Sulfate (Morphine Sulfate) 2 mg Q4H PRN IVP severe pain 7-10 01/15/19 17:15 01/22/19 17:14 01/16/19 13:17 Nitroglycerin (Ntg) 0.4 mg Q5M X 3 DOSES PRN SL Prn Chest Pain 01/15/19 17:15 02/14/19 17:14 Ondansetron HCl (Zofran) 4 mg Q6H PRN IVP Nausea & Vomiting 01/15/19 17:00 02/14/19 16:59 Oxycodone/ Acetaminophen (Percocet 5-325) 1 tab Q6H PRN ORAL pain 4-10 01/15/19 17:15 01/22/19 17:14 Pantoprazole (Protonix) 40 mg DAILY ORAL 01/16/19 09:00 02/15/19 08:59 01/17/19 09:11 Piperacillin Sod/ Tazobactam Sod 2.25 gm/Sodium Chloride 110 ml @ 220 mls/hr EVERY 8 HOURS IV 01/18/19 09:00 01/25/19 08:59 01/19/19 05:56 Polyethylene Glycol (Miralax) 17 gm HSPRN PRN ORAL Constipation 01/15/19 17:15 02/14/19 17:14 Sitagliptin Phosphate (Januvia) 25 mg DAILY ORAL 01/16/19 09:00 02/15/19 08:59 01/17/19 09:10 Temazepam (Restoril) 15 mg HSPRN PRN ORAL Insomnia 01/15/19 17:15 01/22/19 17:14 Vitamin B Complex/ Vit C/Folic Acid (Nephrovite) 1 tab DAILY ORAL 01/16/19 09:00 02/15/19 08:59 01/17/19 09:11 Andrés Bansal MD Jan 19, 2019 07:23
--- NOTE | 2019-01-19 07:37 | NUR ---
HAND-OFF: Report given to ASHA Rivera. Patient in stable condition, plan of care endorsed.
--- NOTE | 2019-01-19 07:40 | NUR ---
NURSE NOTES: Report received from ASHA Mcdonald. Patient shows no signs of distress, denies pain/SOB. A+Ox2. Respirations are even and unlabored on room air. IV site intact. Patient has other IV site in AC that is leaking, but patient refuses it to be removed. Bed is at lowest position, brakes engaged, siderails x2, bed alarm on, and call light within reach. Pt is in stable condition; will continue to monitor.
[2019-01-19 08:00] VITALS: BP 148/79
--- NOTE | 2019-01-19 08:11 | NUR ---
NURSE NOTES: Pt's linoleum floor layer leads need to be fixed, so patient's rhythm shows up on monitor. Patient refusing to let staff replace them. He keeps saying "no no no no." Will try again at a later time.
[2019-01-19] MEDS: HydrALAZINE 25mg tab ORAL SCH ×2 (08:59→17:17)
[2019-01-19] MEDS: Metoprolol Succinate XL 100mg tab ORAL SCH (08:59)
[2019-01-19] MEDS: sitaGLIPtin 25mg tab ORAL SCH (09:00)
[2019-01-19] MEDS: Heparin 5000 units/ml inj SUBQ SCH ×2 (09:00→20:26)
[2019-01-19] MEDS ORDERED: Heparin Sod 1000 units/ml 10ml IV PRN (09:00)
[2019-01-19] MEDS: Meclizine 25mg tab ORAL SCH ×3 (09:44→17:17)
[2019-01-19] MEDS: Nephrovite tab (Rena-Vite) ORAL SCH (09:44)
--- NOTE | 2019-01-19 09:49 | NUR ---
NURSE NOTES: Dailysis nurse attempting to start dialysis and patient is pushing him and trying to pull out permacath. Applied emergency bilateral soft wrist restraints @ 929. Called Dr. Alamo @ 0945 and let him know about patient's situation. He said okay to put in order for soft bilateral wrist restraints for pulling out devices. Order noted and carried out.
[2019-01-19 09:52] LABS: INR 0.9 (0.9-1.1)
[2019-01-19 10:00] LABS: ALANINE AMINOTRANSFERASE 20 U/L (12-78); ALBUMIN 2.5 G/DL (3.4-5.0); ALBUMIN/GLOBULIN RATIO 0.6 (1.0-2.7); ALKALINE PHOSPHATASE 111 U/L (46-116); ANION GAP 17 mmol/L (5-15); ASPARTATE AMINO TRANSFERASE 18 U/L (15-37); BILIRUBIN,TOTAL 0.5 MG/DL (0.2-1.0); BLOOD UREA NITROGEN 112 mg/dL (7-18); CALCIUM 8.7 MG/DL (8.5-10.1); CARBON DIOXIDE 24 MMOL/L (21-32); CHLORIDE 104 MMOL/L (98-107); CREATININE 10.8 MG/DL (0.55-1.30); POTASSIUM 5.7 MMOL/L (3.5-5.1); SODIUM 145 MMOL/L (136-145)
[2019-01-19 10:19] LABS: BASOPHILS % (AUTO) 0.3 % (0.0-2.0); EOSINOPHILS % (AUTO) 0.6 % (0.0-3.0); HEMATOCRIT 27.3 % (42.0-52.0); HEMOGLOBIN 8.8 G/DL (14.2-18.0); LYMPHOCYTES % (AUTO) 12.7 % (20.0-45.0); MEAN CORPUSCULAR VOLUME 91 FL (80-99); MONOCYTES % (AUTO) 6.9 % (1.0-10.0); NEUTROPHILS % (AUTO) 79.5 % (45.0-75.0); PLATELET COUNT 228 K/UL (150-450); RED CELL DISTRIBUTION WIDTH 15.9 % (11.6-14.8)
--- NOTE | 2019-01-19 10:34 | NUR ---
NURSE NOTES: Patient refusing skin assessment.
--- NOTE | 2019-01-19 11:15 | NUR ---
NURSE NOTES: HD complete. 1.5 L out. Restraints temporarily removed to assess if patient is still pulling on permacath and see if there is still a need for restraints. Patient in stable condition.
--- NOTE | 2019-01-19 11:38 | Pulmonology Progress Note ---
Assessment/Plan Assessment/Plan ASSESSMENT Possible sepsis Leukocytosis Acute encephalopathy Diabetes mellitus [id number] with complication/neuropathy nephropathy retinopathy gastroparesis ESRD, on HD Subclinical hyperthyroidism Multinodular thyroid goiter Bilateral knee pain Chronic pancreatitis COPD Hypertension Deep tissue pressure injury bilateral heels, present on admission Dementia PLAN OF CARE on tele declining monitor O2 HHN PRN CXR no acute pulmonary pathology ,basilar atelectasis pulse ox stable on room air HD as per nephro , today monitor volumes, renal parameters , electrolytes abx as per ID BCX preliminary negative ; leukocytosis trending down ; remains afebrile BS management as per endo with Januvia and SSI. [id number] Low TSH high free T3 thyroid US with heterogeneous multinodular thyroid gland with the largest left lobe single lesion 1 c; no need for FNB as per endo further labs pending to rule out Graves' disease pain management X-ray bilateral knee noted ; no evidence of fracture ASA, statin, beta-luisito DVT , GI prophylaxis wound care as per surgeon recommendation continue wound care at the facility sacral intact supportive care DNR/DNI status transfer to [facility] floor case discussed and evaluated by supervising physician Subjective Allergies: Coded Allergies: No Known Allergies (Unverified , 02/01/12) Subjective declining monitor HD this am anxious leuk trending down, remains afebrile pulse ox stable on RA Objective Last 24 Hour Vital Signs Date Time Temp Pulse Resp B/P (MAP) Pulse Ox O2 Delivery O2 Flow Rate FiO2 01/19/19 09:00 Room Air 01/19/19 08:59 99 148/79 01/19/19 08:59 148/79 01/19/19 08:25 99 20 99 Room Air 21 01/19/19 08:00 97.8 97 20 148/79 (102) 97 01/19/19 04:00 94 01/19/19 04:00 98.2 96 18 150/86 (107) 98 01/19/19 00:00 94 01/19/19 00:00 98.2 98 19 134/68 (90) 95 01/18/19 21:00 Room Air 01/18/19 20:00 96 01/18/19 20:00 98.1 88 18 159/79 (105) 95 01/18/19 19:43 95 18 97 Room Air 21 01/18/19 17:34 155/69 01/18/19 16:00 98 11/29/19 16:00 98.0 98 18 155/69 (97) 96 01/18/19 12:00 97.9 99 18 146/67 (93) 97 01/18/19 12:00 98 Intake and Output 01/18/19 01/19/19 19:00 07:00 Intake Total 0 ml Balance 0 ml Intake Oral 0 ml General Appearance: no acute distress, other - anxious, noncompliant AA male HEENT: normocephalic, atraumatic, anicteric Respiratory/Chest: lungs clear, no accessory muscle use Cardiovascular: normal peripheral pulses, normal rate Abdomen: soft, non tender, non distended Extremities: no edema Neurologic/Psychiatric: alert, responsive Musculoskeletal: atrophy - BLE Microbiology Date/Time Source Procedure Growth Status 01/17/19 12:00 Blood Blood Culture - Preliminary NO GROWTH AFTER 24 HOURS Resulted 01/17/19 12:00 Blood Blood Culture - Preliminary NO GROWTH AFTER 24 HOURS Resulted Laboratory Tests 01/19/19 09:30: White Blood Count 13.0H, Red Blood Count 3.00L, Hemoglobin 8.8L, Hematocrit 27.3L, Mean Corpuscular Volume 91, Mean Corpuscular Hemoglobin 29.2, Mean Corpuscular Hemoglobin Concent 32.0, Red Cell Distribution Width 15.9H, Platelet Count 228, Mean Platelet Volume 6.0L, Neutrophils (%) (Auto) 79.5H, Lymphocytes (%) (Auto) 12.7L, Monocytes (%) (Auto) 6.9, Eosinophils (%) (Auto) 0.6, Basophils (%) (Auto) 0.3, Erythrocyte Sedimentation Rate 125H, Prothrombin Time 10.0, Prothromb Time International Ratio 0.9, Sodium Level 145, Potassium Level 5.7H, Chloride Level 104, Carbon Dioxide Level 24, Anion Gap 17H, Blood Urea Nitrogen 112H, Creatinine 10.8H, Estimat Glomerular Filtration Rate , Glucose Level 148H, Calcium Level 8.7, Total Bilirubin 0.5, Aspartate Amino Transf (AST/SGOT) 18, Alanine Aminotransferase (ALT/SGPT) 20, Alkaline Phosphatase 111, C-Reactive Protein, Quantitative > 70.0H, Total Protein 7.0, Albumin 2.5L, Globulin 4.5, Albumin/Globulin Ratio 0.6L, Free Triiodothyronine 1.6L, Thyroid Stimulating Immunoglobulin [Pending], Thyroglobulin Antibody [ Pending] Current Medications Medications (Trade) Dose Ordered Sig/Tess Route PRN Reason Start Time Stop Time Status Last Admin Dose Admin Acetaminophen (Tylenol) 650 mg Q4H PRN ORAL Mild Pain (Pain Scale 1-3) 01/15/19 17:00 02/14/19 16:59 Acetaminophen (Tylenol) 650 mg Q4H PRN ORAL fever 01/15/19 17:00 02/14/19 16:59 Acetaminophen/ Hydrocodone Bitart ([place] 5/325) 1 tab Q4H PRN ORAL For Pain 01/15/19 17:13 01/22/19 17:12 Albuterol/ Ipratropium (Albuterol/ Ipratropium) 3 ml Q4H PRN HHN Shortness of Breath 01/15/19 17:15 01/20/19 17:14 Atorvastatin Calcium (Lipitor) 80 mg BEDTIME ORAL 01/15/19 21:00 02/14/19 20:59 01/15/19 21:29 Clonidine HCl (Catapres Tab) 0.1 mg Q4H PRN ORAL sbp more than 160 01/15/19 17:15 02/14/19 17:14 01/16/19 18:56 Clopidogrel Bisulfate (Plavix) 75 mg DAILY ORAL 01/16/19 09:00 02/15/19 08:59 01/17/19 09:11 Dextrose (Dextrose 50%) 25 ml Q30M PRN IV Hypoglycemia 01/15/19 17:00 02/14/19 16:59 Dextrose (Dextrose 50%) 50 ml Q30M PRN IV Hypoglycemia 01/15/19 17:00 02/14/19 16:59 Dronabinol (Marinol) 2.5 mg BEFORE BREAKFAST ORAL 01/19/19 06:30 02/18/19 06:29 Heparin Sodium (Porcine) (Heparin 5000 units/ml) 5,000 units EVERY 12 HOURS SUBQ 01/15/19 21:00 02/14/19 20:59 01/16/19 08:58 Heparin Sodium (Porcine) (Heparin Sod 1000 units/ml 10ml) 2,000 unit ONCE PRN IV dialysis 01/19/19 09:00 01/19/19 23:59 Hydralazine HCl (Apresoline) 25 mg BID ORAL 01/15/19 18:00 02/14/19 17:59 01/18/19 17:34 Insulin Aspart (NovoLOG) BEFORE MEALS AND HS SUBQ 01/15/19 21:00 02/14/19 20:59 01/15/19 21:30 Lorazepam (Ativan) 1 mg Q4H PRN ORAL For Anxiety 01/15/19 17:00 01/22/19 16:59 Meclizine HCl (Antivert) 25 mg THREE TIMES A DAY ORAL 01/15/19 18:00 02/14/19 17:59 01/18/19 17:34 Metoprolol Succinate (Toprol XL) 100 mg DAILY ORAL 01/16/19 09:00 02/15/19 08:59 Mirtazapine (Remeron) 7.5 mg BEDTIME ORAL 01/15/19 21:00 02/14/19 20:59 01/15/19 21:29 Mirtazapine (Remeron) 7.5 mg BEDTIME PRN ORAL depression 01/15/19 17:00 02/14/19 16:59 Morphine Sulfate (Morphine Sulfate) 2 mg Q4H PRN IVP severe pain 7-10 01/15/19 17:15 01/22/19 17:14 01/16/19 13:17 Nitroglycerin (Ntg) 0.4 mg Q5M X 3 DOSES PRN SL Prn Chest Pain 01/15/19 17:15 02/14/19 17:14 Ondansetron HCl (Zofran) 4 mg Q6H PRN IVP Nausea & Vomiting 01/15/19 17:00 02/14/19 16:59 Oxycodone/ Acetaminophen (Percocet 5-325) 1 tab Q6H PRN ORAL pain 4-10 01/15/19 17:15 01/22/19 17:14 Pantoprazole (Protonix) 40 mg DAILY ORAL 01/16/19 09:00 02/15/19 08:59 01/17/19 09:11 Piperacillin Sod/ Tazobactam Sod 2.25 gm/Sodium Chloride 110 ml @ 220 mls/hr EVERY 8 HOURS IV 01/18/19 09:00 01/25/19 08:59 01/19/19 05:56 Polyethylene Glycol (Miralax) 17 gm HSPRN PRN ORAL Constipation 01/15/19 17:15 02/14/19 17:14 Sitagliptin Phosphate (Januvia) 25 mg DAILY ORAL 01/16/19 09:00 02/15/19 08:59 01/17/19 09:10 Temazepam (Restoril) 15 mg HSPRN PRN ORAL Insomnia 01/15/19 17:15 01/22/19 17:14 Vitamin B Complex/ Vit C/Folic Acid (Nephrovite) 1 tab DAILY ORAL 01/16/19 09:00 02/15/19 08:59 01/17/19 09:11 Seda Matute PROOFER Jan 19, 2019 11:38
--- NOTE | 2019-01-19 11:49 | Nephrology Progress Note ---
Assessment/Plan Problem List: (1) Decubitus skin ulcer (2) Refuses to eat (3) Psychosis (4) ESRD (end stage renal disease) (5) Acute encephalopathy (6) Diabetes mellitus Plan seen on dialysis, stable, refuses po diet and meds, high K and BUN pre HD, may need feeding tube Subjective ROS Limited/Unobtainable: Yes Objective Objective Last 24 Hour Vital Signs Date Time Temp Pulse Resp B/P (MAP) Pulse Ox O2 Delivery O2 Flow Rate FiO2 01/19/19 09:00 Room Air 01/19/19 08:59 99 148/79 01/19/19 08:59 148/79 01/19/19 08:25 99 20 99 Room Air 21 01/19/19 08:00 97.8 97 20 148/79 (102) 97 01/19/19 04:00 94 01/19/19 04:00 98.2 96 18 150/86 (107) 98 01/19/19 00:00 94 01/19/19 00:00 98.2 98 19 134/68 (90) 95 01/18/19 21:00 Room Air 01/18/19 20:00 96 01/18/19 20:00 98.1 88 18 159/79 (105) 95 01/18/19 19:43 95 18 97 Room Air 21 01/18/19 17:34 155/69 01/18/19 16:00 98 01/18/19 16:00 98.0 98 18 155/69 (97) 96 01/18/19 12:00 97.9 99 18 146/67 (93) 97 01/18/19 12:00 98 Intake and Output 01/18/19 01/19/19 19:00 07:00 Intake Total 0 ml Balance 0 ml Intake Oral 0 ml Laboratory Tests 01/19/19 09:30: White Blood Count 13.0H, Red Blood Count 3.00L, Hemoglobin 8.8L, Hematocrit 27.3L, Mean Corpuscular Volume 91, Mean Corpuscular Hemoglobin 29.2, Mean Corpuscular Hemoglobin Concent 32.0, Red Cell Distribution Width 15.9H, Platelet Count 228, Mean Platelet Volume 6.0L, Neutrophils (%) (Auto) 79.5H, Lymphocytes (%) (Auto) 12.7L, Monocytes (%) (Auto) 6.9, Eosinophils (%) (Auto) 0.6, Basophils (%) (Auto) 0.3, Erythrocyte Sedimentation Rate 125H, Prothrombin Time 10.0, Prothromb Time International Ratio 0.9, Sodium Level 145, Potassium Level 5.7H, Chloride Level 104, Carbon Dioxide Level 24, Anion Gap 17H, Blood Urea Nitrogen 112H, Creatinine 10.8H, Estimat Glomerular Filtration Rate , Glucose Level 148H, Calcium Level 8.7, Total Bilirubin 0.5, Aspartate Amino Transf (AST/SGOT) 18, Alanine Aminotransferase (ALT/SGPT) 20, Alkaline Phosphatase 111, C-Reactive Protein, Quantitative > 70.0H, Total Protein 7.0, Albumin 2.5L, Globulin 4.5, Albumin/Globulin Ratio 0.6L, Free Triiodothyronine 1.6L, Thyroid Stimulating Immunoglobulin [Pending], Thyroglobulin Antibody [ Pending] Height (Feet): 5 Height (Inches): 7.00 Weight (Pounds): 116 General Appearance: lethargic, confused EENT: normal ENT inspection Neck: normal alignment Cardiovascular: normal rate, regular rhythm Respiratory/Chest: lungs clear Abdomen: non tender, soft, no organomegaly Neurologic: motor weakness, disoriented Objective dti both heels Kt Jacobo MD Jan 19, 2019 11:49
[2019-01-19] MEDS ORDERED: Albuterol/Ipratropium 3ml neb HHN PRN (11:50)
[2019-01-19 12:00] VITALS: BP 129/70
--- NOTE | 2019-01-19 13:51 | Internal Med Progress Note ---
Subjective Date of Service: Jan 19, 2019 Physician Name Watson Sutherland Attending Physician Eddie Peralta MD Current Medications Medications (Trade) Dose Ordered Sig/Tess Route PRN Reason Start Time Stop Time Status Last Admin Dose Admin Acetaminophen (Tylenol) 650 mg Q4H PRN ORAL Mild Pain (Pain Scale 1-3) 01/15/19 17:00 02/14/19 16:59 Acetaminophen (Tylenol) 650 mg Q4H PRN ORAL fever 01/15/19 17:00 02/14/19 16:59 Acetaminophen/ Hydrocodone Bitart ([place] 5/325) 1 tab Q4H PRN ORAL For Pain 01/15/19 17:13 01/22/19 17:12 Albuterol/ Ipratropium (Albuterol/ Ipratropium) 3 ml Q4H PRN HHN Shortness of Breath 01/19/19 11:50 01/24/19 11:49 Atorvastatin Calcium (Lipitor) 80 mg BEDTIME ORAL 01/15/19 21:00 02/14/19 20:59 01/15/19 21:29 Clonidine HCl (Catapres Tab) 0.1 mg Q4H PRN ORAL sbp more than 160 01/15/19 17:15 02/14/19 17:14 01/16/19 18:56 Clopidogrel Bisulfate (Plavix) 75 mg DAILY ORAL 01/16/19 09:00 02/15/19 08:59 01/17/19 09:11 Dextrose (Dextrose 50%) 25 ml Q30M PRN IV Hypoglycemia 01/15/19 17:00 02/14/19 16:59 Dextrose (Dextrose 50%) 50 ml Q30M PRN IV Hypoglycemia 01/15/19 17:00 02/14/19 16:59 Dronabinol (Marinol) 2.5 mg BEFORE BREAKFAST ORAL 01/19/19 06:30 02/18/19 06:29 Heparin Sodium (Porcine) (Heparin 5000 units/ml) 5,000 units EVERY 12 HOURS SUBQ 01/15/19 21:00 02/14/19 20:59 01/16/19 08:58 Heparin Sodium (Porcine) (Heparin Sod 1000 units/ml 10ml) 2,000 unit ONCE PRN IV dialysis 01/19/19 09:00 01/19/19 23:59 Hydralazine HCl (Apresoline) 25 mg BID ORAL 01/15/19 18:00 02/14/19 17:59 01/18/19 17:34 Insulin Aspart (NovoLOG) BEFORE MEALS AND HS SUBQ 01/15/19 21:00 02/14/19 20:59 01/15/19 21:30 Lorazepam (Ativan) 1 mg Q4H PRN ORAL For Anxiety 01/15/19 17:00 01/22/19 16:59 Meclizine HCl (Antivert) 25 mg THREE TIMES A DAY ORAL 01/15/19 18:00 02/14/19 17:59 01/18/19 17:34 Metoprolol Succinate (Toprol XL) 100 mg DAILY ORAL 01/16/19 09:00 02/15/19 08:59 Mirtazapine (Remeron) 7.5 mg BEDTIME ORAL 01/15/19 21:00 02/14/19 20:59 01/15/19 21:29 Mirtazapine (Remeron) 7.5 mg BEDTIME PRN ORAL depression 01/15/19 17:00 02/14/19 16:59 Morphine Sulfate (Morphine Sulfate) 2 mg Q4H PRN IVP severe pain 7-10 01/15/19 17:15 01/22/19 17:14 01/16/19 13:17 Nitroglycerin (Ntg) 0.4 mg Q5M X 3 DOSES PRN SL Prn Chest Pain 01/15/19 17:15 02/14/19 17:14 Ondansetron HCl (Zofran) 4 mg Q6H PRN IVP Nausea & Vomiting 01/15/19 17:00 02/14/19 16:59 Oxycodone/ Acetaminophen (Percocet 5-325) 1 tab Q6H PRN ORAL pain 4-10 01/15/19 17:15 01/22/19 17:14 Pantoprazole (Protonix) 40 mg DAILY ORAL 01/16/19 09:00 02/15/19 08:59 01/17/19 09:11 Piperacillin Sod/ Tazobactam Sod 2.25 gm/Sodium Chloride 110 ml @ 220 mls/hr EVERY 8 HOURS IV 01/18/19 09:00 01/25/19 08:59 01/19/19 12:55 Polyethylene Glycol (Miralax) 17 gm HSPRN PRN ORAL Constipation 01/15/19 17:15 02/14/19 17:14 Sitagliptin Phosphate (Januvia) 25 mg DAILY ORAL 01/16/19 09:00 02/15/19 08:59 01/17/19 09:10 Temazepam (Restoril) 15 mg HSPRN PRN ORAL Insomnia 01/15/19 17:15 01/22/19 17:14 Vitamin B Complex/ Vit C/Folic Acid (Nephrovite) 1 tab DAILY ORAL 01/16/19 09:00 02/15/19 08:59 01/17/19 09:11 Allergies: Coded Allergies: No Known Allergies (Unverified , 02/01/12) ROS Limited/Unobtainable: No Constitutional: Reports: no symptoms HEENT: Reports: no symptoms Cardiovascular: Reports: no symptoms Respiratory: Reports: no symptoms Gastrointestinal/Abdominal: Reports: no symptoms Genitourinary: Reports: no symptoms Neurologic/Psychiatric: Reports: no symptoms Subjective 78 YO M admitted with chief complaint bilateral knee pain and gen weakness. Leukocytosis improving. Cover for Int Med-Dr Peralta Objective Last Vital Signs Date Time Temp Pulse Resp B/P (MAP) Pulse Ox O2 Delivery O2 Flow Rate FiO2 01/19/19 12:00 97.0 98 18 129/70 (89) 96 01/19/19 09:00 Room Air 01/19/19 08:25 21 Laboratory Tests Test 01/19/19 09:30 White Blood Count 13.0 K/UL (4.8-10.8) H Red Blood Count 3.00 M/UL (4.70-6.10) L Hemoglobin 8.8 G/DL (14.2-18.0) L Hematocrit 27.3 % (42.0-52.0) L Mean Corpuscular Volume 91 FL (80-99) Mean Corpuscular Hemoglobin 29.2 PG (27.0-31.0) Mean Corpuscular Hemoglobin Concent 32.0 G/DL (32.0-36.0) Red Cell Distribution Width 15.9 % (11.6-14.8) H Platelet Count 228 K/UL (150-450) Mean Platelet Volume 6.0 FL (6.5-10.1) L Neutrophils (%) (Auto) 79.5 % (45.0-75.0) H Lymphocytes (%) (Auto) 12.7 % (20.0-45.0) L Monocytes (%) (Auto) 6.9 % (1.0-10.0) Eosinophils (%) (Auto) 0.6 % (0.0-3.0) Basophils (%) (Auto) 0.3 % (0.0-2.0) Erythrocyte Sedimentation Rate 125 MM/HR (0-20) H Prothrombin Time 10.0 SEC (9.30-11.50) Prothromb Time International Ratio 0.9 (0.9-1.1) Sodium Level 145 MMOL/L (136-145) Potassium Level 5.7 MMOL/L (3.5-5.1) H Chloride Level 104 MMOL/L (98-107) Carbon Dioxide Level 24 MMOL/L (21-32) Anion Gap 17 mmol/L (5-15) H Blood Urea Nitrogen 112 mg/dL (7-18) H Creatinine 10.8 MG/DL (0.55-1.30) H Estimat Glomerular Filtration Rate mL/min (>60) Glucose Level 148 MG/DL (74-106) H Calcium Level 8.7 MG/DL (8.5-10.1) Total Bilirubin 0.5 MG/DL (0.2-1.0) Aspartate Amino Transf (AST/SGOT) 18 U/L (15-37) Alanine Aminotransferase (ALT/SGPT) 20 U/L (12-78) Alkaline Phosphatase 111 U/L (46-116) C-Reactive Protein, Quantitative > 70.0 mg/dL (0.00-0.90) H Total Protein 7.0 G/DL (6.4-8.2) Albumin 2.5 G/DL (3.4-5.0) L Globulin 4.5 g/dL Albumin/Globulin Ratio 0.6 (1.0-2.7) L Free Triiodothyronine 1.6 pg/mL (2.3-4.2) L Thyroid Stimulating Immunoglobulin Pending Thyroglobulin Antibody Pending Microbiology Date/Time Source Procedure Growth Status 01/17/19 12:00 Blood Blood Culture - Preliminary NO GROWTH AFTER 24 HOURS Resulted 01/17/19 12:00 Blood Blood Culture - Preliminary NO GROWTH AFTER 24 HOURS Resulted Intake and Output 01/18/19 01/19/19 19:00 07:00 Intake Total 0 ml Balance 0 ml Intake Oral 0 ml Objective PHYSICAL EXAMINATION: GENERAL: The patient is a well-developed and well-nourished male, who is somnolent, but arousable. HEENT: Eyes, pupils are equal and responsive to light and accommodation. Extraocular movements are intact. NECK: Supple. No lymphadenopathy. CHEST: Lungs are clear to auscultation bilaterally without wheezes or rales. CARDIOVASCULAR: Regular rhythm and rate. S1, S2 are normal without murmurs, rubs, or gallops. ABDOMEN: Soft, nontender, and nondistended. Positive bowel sounds. No evidence of hepatosplenomegaly. Currently, no rebound or guarding noted. EXTREMITIES: Negative for clubbing, cyanosis, or edema. RECTAL/GENITAL: Not performed. NEUROLOGIC: Cranial nerves II through XII are grossly intact without focal deficits. Assessment/Plan Assessment/Plan ASSESSMENT: This is a 78-year-old male. 1. Bilateral knee pain. 2. Generalized weakness. 3. Diabetes type 2. 4. End-stage renal disease. 5. Chronic obstructive pulmonary disease. 6. Coronary artery disease. 7. Lupus anticoagulant. 8. Chronic pancreatitis. 9. Diabetic nephropathy. 10. Diabetic retinopathy. 11. Diabetic gastropathy. 12. Gastroesophageal reflux disease. 13. Dysphagia. 14. Major depression. 15. Hypercholesterolemia. 16. Diabetic neuropathy. 17. Anemia of chronic renal disease. 18. Protein-calorie malnutrition. 19. uncontrolled hypertension 20. Leukocytosis TREATMENT: 1. Bilateral knee pain. Initial x-rays were negative for fracture. The patient does have contractures. The patient will be offered [place] as above for knee pain. 2. Weakness of bilateral lower extremities. The patient has permanent contractures of bilateral knees. 3. Diabetes type 2. NovoLog sliding scale has been instituted. 4. End-stage renal disease, on hemodialysis. A Nephrology consultation has been obtained with Dr. Alamo. We will follow recommendations of Nephrology. Hemodialysis 01/17/19 5. Chronic obstructive pulmonary disease. 6. Coronary artery disease. The patient is status post percutaneous transluminal coronary angioplasty in December of 2017 with stent placement. 7. Lupus anticoagulant. 8. Chronic pancreatitis. 9. Diabetic nephropathy. 10. Diabetic gastroparesis. 11. Gastroesophageal reflux disease. 12. Dysphagia. 13. Major depression. 14. Hypercholesterolemia. 15. Diabetic neuropathy. 16. Vitamin D deficiency. 17. Anemia of renal failure. 18. Encephalopathy. 19. Chronic deep venous thrombosis. Continue Coumadin as above. 20. Continue hydralazine, clonidine and metoprolol 21. Continue zosyn per Watson Manjarrez MD Jan 19, 2019 13:51
--- NOTE | 2019-01-19 14:15 | Surgery Progress Note ---
Surgery Progress Note Subjective Additional Comments leukocytosis improved ESR and CRP significantly elevated needs new peripheral line today ill appearing Objective Last 24 Hour Vital Signs Date Time Temp Pulse Resp B/P (MAP) Pulse Ox O2 Delivery O2 Flow Rate FiO2 01/19/19 12:00 97.0 98 18 129/70 (89) 96 01/19/19 09:00 Room Air 01/19/19 08:59 99 148/79 01/19/19 08:59 148/79 01/19/19 08:25 99 20 99 Room Air 21 01/19/19 08:00 97.8 97 20 148/79 (102) 97 01/19/19 04:00 94 01/19/19 04:00 98.2 96 18 150/86 (107) 98 01/19/19 00:00 94 01/19/19 00:00 98.2 98 19 134/68 (90) 95 01/18/19 21:00 Room Air 01/18/19 20:00 96 01/18/19 20:00 98.1 88 18 159/79 (105) 95 01/18/19 19:43 95 18 97 Room Air 21 01/18/19 17:34 155/69 01/18/19 16:00 98 01/18/19 16:00 98.0 98 18 155/69 (97) 96 I&O Intake and Output 01/18/19 01/19/19 19:00 07:00 Intake Total 0 ml Balance 0 ml Intake Oral 0 ml Dressing: other Wound: other Drains: other Cardiovascular: RSR Respiratory: decreased breath sounds Abdomen: soft, non-distended Extremities: no cyanosis, other Laboratory Tests Test 01/19/19 09:30 White Blood Count 13.0 K/UL (4.8-10.8) H Red Blood Count 3.00 M/UL (4.70-6.10) L Hemoglobin 8.8 G/DL (14.2-18.0) L Hematocrit 27.3 % (42.0-52.0) L Mean Corpuscular Volume 91 FL (80-99) Mean Corpuscular Hemoglobin 29.2 PG (27.0-31.0) Mean Corpuscular Hemoglobin Concent 32.0 G/DL (32.0-36.0) Red Cell Distribution Width 15.9 % (11.6-14.8) H Platelet Count 228 K/UL (150-450) Mean Platelet Volume 6.0 FL (6.5-10.1) L Neutrophils (%) (Auto) 79.5 % (45.0-75.0) H Lymphocytes (%) (Auto) 12.7 % (20.0-45.0) L Monocytes (%) (Auto) 6.9 % (1.0-10.0) Eosinophils (%) (Auto) 0.6 % (0.0-3.0) Basophils (%) (Auto) 0.3 % (0.0-2.0) Erythrocyte Sedimentation Rate 125 MM/HR (0-20) H Prothrombin Time 10.0 SEC (9.30-11.50) Prothromb Time International Ratio 0.9 (0.9-1.1) Sodium Level 145 MMOL/L (136-145) Potassium Level 5.7 MMOL/L (3.5-5.1) H Chloride Level 104 MMOL/L (98-107) Carbon Dioxide Level 24 MMOL/L (21-32) Anion Gap 17 mmol/L (5-15) H Blood Urea Nitrogen 112 mg/dL (7-18) H Creatinine 10.8 MG/DL (0.55-1.30) H Estimat Glomerular Filtration Rate mL/min (>60) Glucose Level 148 MG/DL (74-106) H Calcium Level 8.7 MG/DL (8.5-10.1) Total Bilirubin 0.5 MG/DL (0.2-1.0) Aspartate Amino Transf (AST/SGOT) 18 U/L (15-37) Alanine Aminotransferase (ALT/SGPT) 20 U/L (12-78) Alkaline Phosphatase 111 U/L (46-116) C-Reactive Protein, Quantitative > 70.0 mg/dL (0.00-0.90) H Total Protein 7.0 G/DL (6.4-8.2) Albumin 2.5 G/DL (3.4-5.0) L Globulin 4.5 g/dL Albumin/Globulin Ratio 0.6 (1.0-2.7) L Free Triiodothyronine 1.6 pg/mL (2.3-4.2) L Thyroid Stimulating Immunoglobulin Pending Thyroglobulin Antibody Pending Plan Problems: (1) Decubitus skin ulcer Assessment & Plan: Pt presented on admission with boggy and non-blanchable R and L heels. R heel extends into plantar aspect at distal / lateral R foot an area of fluctuance with purple area in center noted. Sacrum is dry and intact without evidence of skin breakdown. Pt observed to keep both knees drawn but was able to extend lower ext. with PROM. Non complaint with care plan for wounds agitated and aggressive at times Tx.Plan: Apply Cavilon Skin Barrier to both heels ,malleoli and lateral aspects of both feet. Change every 7 days and prn. Apply Moisture Barrier to both heels. Cover Sacrum with Optifoam drsg. Change every 3 days and prn. Reposition at least every 2hours or as tolerated. Off-load heels with pillow. Ajit Saleem Jan 19, 2019 14:14
--- NOTE | 2019-01-19 14:35 | NUR ---
NURSE NOTES: Multiple nurses have tried getting IV access. Spoke with Dr. Sutherland who said to ask ID if we can switch to PO abx. Called Dr. Elmore and Dr. Galan called back. We discussed patient results. He said to put her on doxycline and augmentin and he will see him tomorrow.
[2019-01-19 16:00] VITALS: BP 153/70
--- NOTE | 2019-01-19 19:14 | NUR ---
HAND-OFF: Report given to ASHA Stanley. Pt is in stable condition; plan of care endorsed.
--- NOTE | 2019-01-19 19:20 | NUR ---
NURSE NOTES: Received report from Sumaya Villaseñor RN. Patient in bed awake with no complaints of acute pain or discomfort noted at this time. Kept clean,. dry, and comfortable in bed. No IV line established d/t hard stick status and episode of uncooperativeness; MD aware. Placed on continuous cardiac monitoring per protocol. WC consult for bilateral heel DTI, kept clean and off pressure. Safety precaution in place; siderails X3 up, call light within reach, bed in lowest position, brakes and alarm on at all times. Needs and wants anticipated and attended, will continue plan of care and monitor for any changes noted.
[2019-01-19 20:00] VITALS: BP 135/65
[2019-01-19] MEDS: Atorvastatin 80mg tab ORAL SCH (20:25)
--- NOTE | 2019-01-19 20:55 | NUR ---
INTER-FACILITY TRANSFER: Patient transferred to [facility], per YORDAN Matute. Report given to ASHA Edwards. Patient transferred with belongings verified upon transfer and given to RN. Endorsed plan of care.
[2019-01-19] MEDS ORDERED: Doxycycline Monohydrate 100mg ORAL SCH (21:00)
[2019-01-19] MEDS ORDERED: Augmentin 875mg Tab ORAL SCH (21:00)
--- NOTE | 2019-01-19 21:00 | NUR ---
NURSE NOTES: Received pt from ASHA Stanley. Pt transferred from tele. AAO x 2, on room air. No IV site noted, aware. R upper chest perma cath intact. Bilateral heel DTI and wound pic taken. All belongings reviewed. Contact and fall precaution maintained. Vitals 98.2F, 100HR, 20RR, 150/74BP, 97% O2. Bed locked, lowest position, alarm on, side rails up, call light within reach. Will continue to monitor.
[2019-01-19] MEDS ORDERED: HYDROcodone/Acetamin 5/325 tab ORAL PRN (21:15)
[2019-01-19] MEDS ORDERED: Nitroglycerin Subl 0.4mg tab SL PRN (21:15)
[2019-01-19] MEDS ORDERED: oxyCODONE HCL/Acetaminophen 5/325mg ORAL PRN (23:15)
[2019-01-20] VITALS: BP 132/86
[2019-01-20] MEDS ORDERED: Albuterol/Ipratropium 3ml neb HHN PRN
[2019-01-20] MEDS ORDERED: LORazepam 1mg tab ORAL PRN (01:00)
[2019-01-20] MEDS ORDERED: Morphine Sulfate 2mg/ml Inj(IV/IM USE ONLY) IVP PRN (01:15)
[2019-01-20 04:00] VITALS: BP 124/62
[2019-01-20] MEDS: NovoLOG Insulin Flexpen SUBQ SCH ×4 (06:30→20:22)
[2019-01-20] MEDS: Dronabinol 2.5mg Cap ORAL SCH (06:36)
--- NOTE | 2019-01-20 07:00 | NUR ---
pt resting in bed, awake, A/O x 1-2, denies pain, perm cath right chest, dressing rex heels CDI, no IV site, MD aware, call light within reach, bed alarm on , fall precaution maintained. will continue to monitor.
--- NOTE | 2019-01-20 07:05 | NUR ---
NURSE NOTES: Pt BS was 68 @ [id number]. 1 apple juice given and recheck after 15 min was 70. Notified Dr. Peralta.
[2019-01-20 07:18] LABS: BASOPHILS % (AUTO) 0.3 % (0.0-2.0); EOSINOPHILS % (AUTO) 0.1 % (0.0-3.0); HEMATOCRIT 26.3 % (42.0-52.0); HEMOGLOBIN 8.8 G/DL (14.2-18.0); MEAN CORPUSCULAR VOLUME 92 FL (80-99); MONOCYTES % (AUTO) 8.8 % (1.0-10.0); NEUTROPHILS % (AUTO) 76.8 % (45.0-75.0); PLATELET COUNT 203 K/UL (150-450); RED BLOOD COUNT 2.87 M/UL (4.70-6.10); RED CELL DISTRIBUTION WIDTH 16.8 % (11.6-14.8); WHITE BLOOD COUNT 12.5 K/UL (4.8-10.8)
[2019-01-20 07:20] LABS: ANION GAP 17 mmol/L (5-15); BLOOD UREA NITROGEN 84 mg/dL (7-18); CARBON DIOXIDE 22 MMOL/L (21-32); CHLORIDE 106 MMOL/L (98-107); CREATININE 8.9 MG/DL (0.55-1.30); SODIUM 145 MMOL/L (136-145)
--- NOTE | 2019-01-20 07:45 | NUR ---
HAND-OFF: Report given to ASHA Brewer.
[2019-01-20 07:53] LABS: POTASSIUM 6.3 MMOL/L (3.5-5.1)
--- NOTE | 2019-01-20 07:57 | NUR ---
NURSE NOTES: Critical lab result K 6.3, left message to Dr Peralta, waiting for call back.
[2019-01-20 08:00] VITALS: BP 128/64
[2019-01-20] MEDS: Heparin Sod 1000 units/ml 10ml IV SCH (09:00)
[2019-01-20] MEDS: Heparin 5000 units/ml inj SUBQ SCH ×2 (09:00→20:40)
[2019-01-20] MEDS ORDERED: sitaGLIPtin 25mg tab ORAL SCH (09:00)
[2019-01-20] MEDS: Nephrovite tab (Rena-Vite) ORAL SCH (09:26)
[2019-01-20] MEDS: Metoprolol Succinate XL 100mg tab ORAL SCH (09:26)
[2019-01-20] MEDS: Meclizine 25mg tab ORAL SCH ×3 (09:26→17:17)
[2019-01-20] MEDS: HydrALAZINE 25mg tab ORAL SCH ×2 (09:27→17:17)
[2019-01-20] MEDS: Doxycycline Monohydrate 100mg ORAL SCH ×2 (09:27→21:44)
[2019-01-20] MEDS: Augmentin 875mg Tab ORAL SCH ×2 (09:27→21:44)
--- NOTE | 2019-01-20 10:50 | Nephrology Progress Note ---
Assessment/Plan Problem List: (1) Decubitus skin ulcer (2) Refuses to eat (3) Psychosis (4) ESRD (end stage renal disease) (5) Acute encephalopathy (6) Diabetes mellitus (7) Hyperkalemia Plan extra dialysis, stable, refuses po diet and meds, high K and BUN pre HD, may need feeding tube Subjective ROS Limited/Unobtainable: Yes Subjective awake confused refused diet Objective Objective Last 24 Hour Vital Signs Date Time Temp Pulse Resp B/P (MAP) Pulse Ox O2 Delivery O2 Flow Rate FiO2 01/20/19 09:27 128/64 01/20/19 09:26 103 128/64 01/20/19 09:00 Room Air 01/20/19 08:00 98.0 103 18 128/64 (85) 100 01/20/19 04:00 98.3 100 18 124/62 (82) 98 01/20/19 00:00 97.0 99 19 132/86 (101) 98 01/19/19 21:00 Room Air 01/19/19 20:00 92 18 96 Room Air 21 01/19/19 20:00 97.3 96 19 135/65 (88) 98 01/19/19 17:17 153/70 01/19/19 16:00 97.0 94 20 153/70 (97) 98 01/19/19 12:00 97.0 98 18 129/70 (89) 96 01/19/19 12:00 96 Intake and Output 01/19/19 01/20/19 19:00 07:00 Output Total 0 ml Balance 0 ml Output Urine Total 0 ml Laboratory Tests 01/20/19 06:30: White Blood Count 12.5H, Red Blood Count 2.87L, Hemoglobin 8.8L, Hematocrit 26.3L, Mean Corpuscular Volume 92, Mean Corpuscular Hemoglobin 30.7, Mean Corpuscular Hemoglobin Concent 33.6, Red Cell Distribution Width 16.8H, Platelet Count 203, Mean Platelet Volume 5.9L, Neutrophils (%) (Auto) 76.8H, Lymphocytes (%) (Auto) 14.0L, Monocytes (%) (Auto) 8.8, Eosinophils (%) (Auto) 0.1, Basophils (%) (Auto) 0.3, Sodium Level 145, Potassium Level 6.3*H, Chloride Level 106, Carbon Dioxide Level 22, Anion Gap 17H, Blood Urea Nitrogen 84H, Creatinine 8.9H, Estimat Glomerular Filtration Rate , Glucose Level 73L, Calcium Level 9.0 Height (Feet): 5 Height (Inches): 7.00 Weight (Pounds): 104 General Appearance: thin EENT: normal ENT inspection Neck: normal alignment Cardiovascular: normal rate, regular rhythm Respiratory/Chest: lungs clear Abdomen: non tender Extremities: no edema, other - djd knees 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
--- NOTE | 2019-01-20 10:53 | Pulmonology Progress Note ---
Assessment/Plan Assessment/Plan ASSESSMENT Possible sepsis Leukocytosis Acute encephalopathy Diabetes mellitus int-ki-zawrity with complications/neuropathy nephropathy retinopathy gastroparesis ESRD, on HD Subclinical hyperthyroidism Multinodular thyroid goiter Bilateral knee pain Chronic pancreatitis COPD Hypertension Deep tissue pressure injury bilateral heels, present on admission Dementia Hyperkalemia PLAN OF CARE [facility] floor O2 HHN PRN CXR no acute pulmonary pathology ,basilar atelectasis pulse ox stable on room air HD as per nephro , done 01/19 monitor volumes, renal parameters , electrolytes this am still elevated K-6.3; give Kayexalate - noncompliant with diet abx as per ID BCX preliminary negative ; leukocytosis trending down ; remains afebrile BS management as per endo with Januvia and SSI. [id number] Low TSH high free T3 thyroid US with heterogeneous multinodular thyroid gland with the largest left lobe single lesion 1 c; no need for FNB as per endo further labs pending to rule out Graves' disease pain management X-ray bilateral knee noted ; no evidence of fracture ASA, statin, beta-luisito DVT , GI prophylaxis wound care as per surgeon recommendation continue wound care at the facility sacral intact supportive care DNR/DNI status case discussed and evaluated by supervising physician Subjective Allergies: Coded Allergies: No Known Allergies (Unverified , 02/01/12) Subjective declined monitor, transferred to [facility] floor HD done 01/19 , K-6.3 this am anxious leuk trending down, remains afebrile pulse ox stable on RA Objective Last 24 Hour Vital Signs Date Time Temp Pulse Resp B/P (MAP) Pulse Ox O2 Delivery O2 Flow Rate FiO2 01/20/19 09:27 128/64 01/20/19 09:26 103 128/64 01/20/19 09:00 Room Air 01/20/19 08:00 98.0 103 18 128/64 (85) 100 01/20/19 04:00 98.3 100 18 124/62 (82) 98 01/20/19 00:00 97.0 99 19 132/86 (101) 98 01/19/19 21:00 Room Air 01/19/19 20:00 92 18 96 Room Air 21 01/19/19 20:00 97.3 96 19 135/65 (88) 98 01/19/19 17:17 153/70 01/19/19 16:00 97.0 94 20 153/70 (97) 98 01/19/19 12:00 97.0 98 18 129/70 (89) 96 01/19/19 12:00 96 Intake and Output 01/19/19 01/20/19 19:00 07:00 Output Total 0 ml Balance 0 ml Output Urine Total 0 ml Objective General Appearance: no acute distress, anxious, noncompliant AA male HEENT: normocephalic, atraumatic, anicteric Respiratory/Chest: lungs clear, no accessory muscle use Cardiovascular: normal peripheral pulses, normal rate Abdomen: soft, non tender, non distended Extremities: no edema Neurologic/Psychiatric: alert, responsive Musculoskeletal: atrophy - BLE Microbiology Date/Time Source Procedure Growth Status 01/17/19 12:00 Blood Blood Culture - Preliminary NO GROWTH AFTER 48 HOURS Resulted 01/17/19 12:00 Blood Blood Culture - Preliminary NO GROWTH AFTER 48 HOURS Resulted Laboratory Tests 01/20/19 06:30: White Blood Count 12.5H, Red Blood Count 2.87L, Hemoglobin 8.8L, Hematocrit 26.3L, Mean Corpuscular Volume 92, Mean Corpuscular Hemoglobin 30.7, Mean Corpuscular Hemoglobin Concent 33.6, Red Cell Distribution Width 16.8H, Platelet Count 203, Mean Platelet Volume 5.9L, Neutrophils (%) (Auto) 76.8H, Lymphocytes (%) (Auto) 14.0L, Monocytes (%) (Auto) 8.8, Eosinophils (%) (Auto) 0.1, Basophils (%) (Auto) 0.3, Sodium Level 145, Potassium Level 6.3*H, Chloride Level 106, Carbon Dioxide Level 22, Anion Gap 17H, Blood Urea Nitrogen 84H, Creatinine 8.9H, Estimat Glomerular Filtration Rate , Glucose Level 73L, Calcium Level 9.0 Current Medications Medications (Trade) Dose Ordered Sig/Tess Route PRN Reason Start Time Stop Time Status Last Admin Dose Admin Acetaminophen (Tylenol) 650 mg Q4H PRN ORAL Mild Pain (Pain Scale 1-3) 01/20/19 01:00 02/14/19 16:59 Acetaminophen (Tylenol) 650 mg Q4H PRN ORAL fever 01/20/19 01:00 02/14/19 16:59 Acetaminophen/ Hydrocodone Bitart ([place] 5/325) 1 tab Q4H PRN ORAL For Pain 01/19/19 21:15 01/22/19 17:12 Albuterol/ Ipratropium (Albuterol/ Ipratropium) 3 ml Q4H PRN HHN Shortness of Breath 01/20/19 00:00 01/24/19 11:49 Amoxicillin/ Clavulanate Potassium (Augmentin) 875 mg EVERY 12 HOURS ORAL 01/20/19 09:00 01/26/19 20:59 01/20/19 09:27 Atorvastatin Calcium (Lipitor) 80 mg BEDTIME ORAL 01/20/19 21:00 02/14/19 20:59 Clonidine HCl (Catapres Tab) 0.1 mg Q4H PRN ORAL sbp more than 160 01/20/19 01:15 02/14/19 17:14 Clopidogrel Bisulfate (Plavix) 75 mg DAILY ORAL 01/20/19 09:00 02/15/19 08:59 01/20/19 09:26 Dextrose (Dextrose 50%) 25 ml Q30M PRN IV Hypoglycemia 01/19/19 21:30 02/14/19 16:59 Dextrose (Dextrose 50%) 50 ml Q30M PRN IV Hypoglycemia 01/19/19 21:30 02/14/19 16:59 Doxycycline Monohydrate (Doxycycline Monohydrate) 100 mg EVERY 12 HOURS ORAL 01/20/19 09:00 01/26/19 20:59 01/20/19 09:27 Dronabinol (Marinol) 2.5 mg BEFORE BREAKFAST ORAL 01/20/19 06:30 02/18/19 06:29 01/20/19 06:36 Heparin Sodium (Porcine) (Heparin 5000 units/ml) 5,000 units EVERY 12 HOURS SUBQ 01/20/19 09:00 02/14/19 20:59 Heparin Sodium (Porcine) (Heparin Sod 1000 units/ml 10ml) 2,000 unit ONCE IV 01/20/19 09:00 01/25/19 08:59 Hydralazine HCl (Apresoline) 25 mg BID ORAL 01/20/19 09:00 02/14/19 17:59 01/20/19 09:27 Insulin Aspart (NovoLOG) BEFORE MEALS AND HS SUBQ 01/20/19 06:30 02/14/19 20:59 Lorazepam (Ativan) 1 mg Q4H PRN ORAL For Anxiety 01/20/19 01:00 01/22/19 16:59 Meclizine HCl (Antivert) 25 mg THREE TIMES A DAY ORAL 01/20/19 09:00 02/14/19 17:59 01/20/19 09:26 Metoprolol Succinate (Toprol XL) 100 mg DAILY ORAL 01/20/19 09:00 02/15/19 08:59 01/20/19 09:26 Mirtazapine (Remeron) 7.5 mg BEDTIME ORAL 01/20/19 21:00 02/14/19 20:59 Mirtazapine (Remeron) 7.5 mg BEDTIME PRN ORAL depression 01/20/19 21:00 02/14/19 16:59 Morphine Sulfate (Morphine Sulfate) 2 mg Q4H PRN IVP severe pain 7-10 01/20/19 01:15 01/22/19 17:14 Nitroglycerin (Ntg) 0.4 mg Q5M X 3 DOSES PRN SL Prn Chest Pain 01/19/19 21:15 02/14/19 17:14 Ondansetron HCl (Zofran) 4 mg Q6H PRN IVP Nausea & Vomiting 01/19/19 23:00 02/14/19 16:59 Oxycodone/ Acetaminophen (Percocet 5-325) 1 tab Q6H PRN ORAL pain 4-10 01/19/19 23:15 01/22/19 17:14 01/20/19 09:31 Pantoprazole (Protonix) 40 mg DAILY ORAL 01/20/19 09:00 02/15/19 08:59 Polyethylene Glycol (Miralax) 17 gm HSPRN PRN ORAL Constipation 01/20/19 17:15 02/14/19 17:14 Sitagliptin Phosphate (Januvia) 25 mg DAILY ORAL 01/20/19 09:00 02/15/19 08:59 01/20/19 09:27 Temazepam (Restoril) 15 mg HSPRN PRN ORAL Insomnia 01/20/19 17:15 01/22/19 17:14 Vitamin B Complex/ Vit C/Folic Acid (Nephrovite) 1 tab DAILY ORAL 01/20/19 09:00 02/15/19 08:59 01/20/19 09:26 Seda Matute NP Jan 20, 2019 10:53
[2019-01-20] MEDS ORDERED: Sodium Polystyrene Sulfonate 15gm Powder ORAL SCH (11:00)
--- NOTE | 2019-01-20 11:08 | NUR ---
Call [facility] for HD today per order, spoke with Frieda waiting for call back. Addendum: 01/20/19 at 1113 by Daniella Mcclelland RN spoke with Frieda, regarding HD 01/21/2019 per order, waiting for call back.
--- NOTE | 2019-01-20 11:57 | NUR ---
spoke with CHARMAINE CHIN RN, will see pt today /late afternoon.
[2019-01-20 12:00] VITALS: BP 139/72
--- NOTE | 2019-01-20 12:00 | Infectious Diseases Prog Note ---
Assessment/Plan Assessment/Plan Abx: Zosyn 01/18- Assessment: Probable sepsis- ?source Leukocytosis Afebrile -CXR: Basilar atelectatic changes. No acute process otherwise. Upper mediastinal mass deviating the trachea, demonstrated on multiple prior studies and seen on prior CT to represent an enlarged left thyroid lobe B/l knee pain- limited examination as patient did not allowed me but does not appear to be septic -L knee xray: No obvious acute fracture. Severe chronic contraction deformity -R knee xray: Severe contraction deformity of the right knee which is flexed. No obvious acute fracture identified. 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 Largest single lesion is 1 cm within the left lobe with a TIRADS score of 3. Per ACR recommendations, this lesion could be disregarded. Interpretation is based on ACR Thyroid Imaging Reporting and Data System (ACR TI-RADS). hypercoagulable state (lupus anticoagulant) chronic pancreatitis dementia CAD s/p LAD PCI ESRD on HD via perma cath s/p AVG RUG NH resident Plan: -Continue empiric Zosyn #3 for now -f/u cx -Monitor CBC/CMP, temperatures -Bcx x2 Thank you for this consultation. Will continue to follow along with you. Discussed with RN Subjective Allergies: Coded Allergies: No Known Allergies (Unverified , 02/01/12) Subjective Afebrile Leukocytosis improving Objective Vital Signs Last 24 Hour Vital Signs Date Time Temp Pulse Resp B/P (MAP) Pulse Ox O2 Delivery O2 Flow Rate FiO2 01/20/19 10:01 98.0 01/20/19 09:27 128/64 01/20/19 09:26 103 128/64 01/20/19 09:00 Room Air 01/20/19 08:00 98.0 103 18 128/64 (85) 100 01/20/19 04:00 98.3 100 18 124/62 (82) 98 01/20/19 00:00 97.0 99 19 132/86 (101) 98 01/19/19 21:00 Room Air 01/19/19 20:00 92 18 96 Room Air 21 01/19/19 20:00 97.3 96 19 135/65 (88) 98 01/19/19 17:17 153/70 01/19/19 16:00 97.0 94 20 153/70 (97) 98 01/19/19 12:00 97.0 98 18 129/70 (89) 96 01/19/19 12:00 96 Height (Feet): 5 Height (Inches): 7.00 Weight (Pounds): 104 Objective GENERAL: NAD HEENT: NCAT, MMM, EOMI CHEST: Lungs are clear to auscultation bilaterally without wheezes or rales. CARDIOVASCULAR: Regular rhythm and rate. S1, S2 ABDOMEN: Soft, nontender, and nondistended. Positive bowel sounds Microbiology Date/Time Source Procedure Growth Status 01/17/19 12:00 Blood Blood Culture - Preliminary NO GROWTH AFTER 48 HOURS Resulted 01/17/19 12:00 Blood Blood Culture - Preliminary NO GROWTH AFTER 48 HOURS Resulted Laboratory Tests Test 01/20/19 06:30 White Blood Count 12.5 K/UL (4.8-10.8) H Red Blood Count 2.87 M/UL (4.70-6.10) L Hemoglobin 8.8 G/DL (14.2-18.0) L Hematocrit 26.3 % (42.0-52.0) L Mean Corpuscular Volume 92 FL (80-99) Mean Corpuscular Hemoglobin 30.7 PG (27.0-31.0) Mean Corpuscular Hemoglobin Concent 33.6 G/DL (32.0-36.0) Red Cell Distribution Width 16.8 % (11.6-14.8) H Platelet Count 203 K/UL (150-450) Mean Platelet Volume 5.9 FL (6.5-10.1) L Neutrophils (%) (Auto) 76.8 % (45.0-75.0) H Lymphocytes (%) (Auto) 14.0 % (20.0-45.0) L Monocytes (%) (Auto) 8.8 % (1.0-10.0) Eosinophils (%) (Auto) 0.1 % (0.0-3.0) Basophils (%) (Auto) 0.3 % (0.0-2.0) Sodium Level 145 MMOL/L (136-145) Potassium Level 6.3 MMOL/L (3.5-5.1) *H Chloride Level 106 MMOL/L (98-107) Carbon Dioxide Level 22 MMOL/L (21-32) Anion Gap 17 mmol/L (5-15) H Blood Urea Nitrogen 84 mg/dL (7-18) H Creatinine 8.9 MG/DL (0.55-1.30) H Estimat Glomerular Filtration Rate mL/min (>60) Glucose Level 73 MG/DL (74-106) L Calcium Level 9.0 MG/DL (8.5-10.1) Current Medications Medications (Trade) Dose Ordered Sig/Tess Route PRN Reason Start Time Stop Time Status Last Admin Dose Admin Acetaminophen (Tylenol) 650 mg Q4H PRN ORAL Mild Pain (Pain Scale 1-3) 01/20/19 01:00 02/14/19 16:59 Acetaminophen (Tylenol) 650 mg Q4H PRN ORAL fever 01/20/19 01:00 02/14/19 16:59 Acetaminophen/ Hydrocodone Bitart ([place] 5/325) 1 tab Q4H PRN ORAL For Pain 01/19/19 21:15 01/22/19 17:12 Albuterol/ Ipratropium (Albuterol/ Ipratropium) 3 ml Q4H PRN HHN Shortness of Breath 01/20/19 00:00 01/24/19 11:49 Amoxicillin/ Clavulanate Potassium (Augmentin) 875 mg EVERY 12 HOURS ORAL 01/20/19 09:00 01/26/19 20:59 01/20/19 09:27 Atorvastatin Calcium (Lipitor) 80 mg BEDTIME ORAL 01/20/19 21:00 02/14/19 20:59 Clonidine HCl (Catapres Tab) 0.1 mg Q4H PRN ORAL sbp more than 160 01/20/19 01:15 02/14/19 17:14 Clopidogrel Bisulfate (Plavix) 75 mg DAILY ORAL 01/20/19 09:00 02/15/19 08:59 01/20/19 09:26 Dextrose (Dextrose 50%) 25 ml Q30M PRN IV Hypoglycemia 01/19/19 21:30 02/14/19 16:59 Dextrose (Dextrose 50%) 50 ml Q30M PRN IV Hypoglycemia 01/19/19 21:30 02/14/19 16:59 Doxycycline Monohydrate (Doxycycline Monohydrate) 100 mg EVERY 12 HOURS ORAL 01/20/19 09:00 01/26/19 20:59 01/20/19 09:27 Dronabinol (Marinol) 2.5 mg BEFORE BREAKFAST ORAL 01/20/19 06:30 02/18/19 06:29 01/20/19 06:36 Heparin Sodium (Porcine) (Heparin 5000 units/ml) 5,000 units EVERY 12 HOURS SUBQ 01/20/19 09:00 02/14/19 20:59 Heparin Sodium (Porcine) (Heparin Sod 1000 units/ml 10ml) 2,000 unit ONCE IV 01/20/19 09:00 01/25/19 08:59 Heparin Sodium (Porcine) (Heparin Sod 1000 units/ml 10ml) 2,000 unit ONCE IV 01/21/19 11:00 01/21/19 13:00 Hydralazine HCl (Apresoline) 25 mg BID ORAL 01/20/19 09:00 02/14/19 17:59 01/20/19 09:27 Insulin Aspart (NovoLOG) BEFORE MEALS AND HS SUBQ 01/20/19 06:30 02/14/19 20:59 Lorazepam (Ativan) 1 mg Q4H PRN ORAL For Anxiety 01/20/19 01:00 01/22/19 16:59 Meclizine HCl (Antivert) 25 mg THREE TIMES A DAY ORAL 01/20/19 09:00 02/14/19 17:59 01/20/19 09:26 Metoprolol Succinate (Toprol XL) 100 mg DAILY ORAL 01/20/19 09:00 02/15/19 08:59 01/20/19 09:26 Mirtazapine (Remeron) 7.5 mg BEDTIME ORAL 01/20/19 21:00 02/14/19 20:59 Mirtazapine (Remeron) 7.5 mg BEDTIME PRN ORAL depression 01/20/19 21:00 02/14/19 16:59 Morphine Sulfate (Morphine Sulfate) 2 mg Q4H PRN IVP severe pain 7-10 01/20/19 01:15 01/22/19 17:14 Nitroglycerin (Ntg) 0.4 mg Q5M X 3 DOSES PRN SL Prn Chest Pain 01/19/19 21:15 02/14/19 17:14 Ondansetron HCl (Zofran) 4 mg Q6H PRN IVP Nausea & Vomiting 01/19/19 23:00 02/14/19 16:59 Oxycodone/ Acetaminophen (Percocet 5-325) 1 tab Q6H PRN ORAL pain 4-10 01/19/19 23:15 01/22/19 17:14 01/20/19 09:31 Pantoprazole (Protonix) 40 mg DAILY ORAL 01/20/19 09:00 02/15/19 08:59 Polyethylene Glycol (Miralax) 17 gm HSPRN PRN ORAL Constipation 01/20/19 17:15 02/14/19 17:14 Sitagliptin Phosphate (Januvia) 25 mg DAILY ORAL 01/20/19 09:00 02/15/19 08:59 01/20/19 09:27 Sodium Polystyrene Sulfonate (Kayexalate) 30 gm ONCE ORAL 01/20/19 11:00 01/20/19 13:00 Sodium Chloride 1,000 ml @ 500 mls/hr Q2H PRN IVLG sbp<90 during hd 01/21/19 10:50 02/20/19 10:49 Temazepam (Restoril) 15 mg HSPRN PRN ORAL Insomnia 01/20/19 17:15 01/22/19 17:14 Vitamin B Complex/ Vit C/Folic Acid (Nephrovite) 1 tab DAILY ORAL 01/20/19 09:00 02/15/19 08:59 01/20/19 09:26 Tru Galan MD Jan 20, 2019 12:00
--- NOTE | 2019-01-20 13:36 | General Progress Note ---
Assessment/Plan Problem List: (1) Thyroid mass ICD Codes: E07.9 - Disorder of thyroid, unspecified SNOMED: 924088644 (2) ESRD (end stage renal disease) ICD Codes: N18.6 - End stage renal disease SNOMED: 59679474 (3) Diabetes mellitus ICD Codes: E11.9 - Type 2 diabetes mellitus without complications SNOMED: 27386189 (4) Subclinical hyperthyroidism ICD Codes: E05.90 - Thyrotoxicosis, unspecified without thyrotoxic crisis or storm SNOMED: 594744593 Assessment/Plan: continue Januvia 25 mg daily continue NISS ac / hs TSH is suppressed - free T4 is normal - free T3 is low thyroid US revealed a non suspicious 1 cm nodule without need for FNA - no need for anti thyroid medications - follow TSI and ATPO r/o Graves' - pending Subjective ROS Limited/Unobtainable: Yes Allergies: Coded Allergies: No Known Allergies (Unverified , 02/01/12) Subjective events noted mild hypoglycemia this morning Item Value Date Time Bedside Blood Glucose 129 mg/dl H 01/20/19 1252 Bedside Blood Glucose 70 mg/dl 01/20/19 0700 Bedside Blood Glucose 68 mg/dl L 01/20/19 0645 Bedside Blood Glucose 139 mg/dl H 01/19/19 2100 Bedside Blood Glucose 110 mg/dl 01/19/19 1630 Objective Last 24 Hour Vital Signs Date Time Temp Pulse Resp B/P (MAP) Pulse Ox O2 Delivery O2 Flow Rate FiO2 01/20/19 12:00 98.4 87 16 139/72 (94) 98 01/20/19 10:01 98.0 01/20/19 09:27 128/64 01/20/19 09:26 103 128/64 01/20/19 09:00 Room Air 01/20/19 08:00 98.0 103 18 128/64 (85) 100 01/20/19 04:00 98.3 100 18 124/62 (82) 98 01/20/19 00:00 97.0 99 19 132/86 (101) 98 01/19/19 21:00 Room Air 01/19/19 20:00 92 18 96 Room Air 21 01/19/19 20:00 97.3 96 19 135/65 (88) 98 01/19/19 17:17 153/70 01/19/19 16:00 97.0 94 20 153/70 (97) 98 Intake and Output 01/19/19 01/20/19 19:00 07:00 Output Total 0 ml Balance 0 ml Output Urine Total 0 ml Laboratory Tests 01/20/19 06:30: White Blood Count 12.5H, Red Blood Count 2.87L, Hemoglobin 8.8L, Hematocrit 26.3L, Mean Corpuscular Volume 92, Mean Corpuscular Hemoglobin 30.7, Mean Corpuscular Hemoglobin Concent 33.6, Red Cell Distribution Width 16.8H, Platelet Count 203, Mean Platelet Volume 5.9L, Neutrophils (%) (Auto) 76.8H, Lymphocytes (%) (Auto) 14.0L, Monocytes (%) (Auto) 8.8, Eosinophils (%) (Auto) 0.1, Basophils (%) (Auto) 0.3, Sodium Level 145, Potassium Level 6.3*H, Chloride Level 106, Carbon Dioxide Level 22, Anion Gap 17H, Blood Urea Nitrogen 84H, Creatinine 8.9H, Estimat Glomerular Filtration Rate , Glucose Level 73L, Calcium Level 9.0 Height (Feet): 5 Height (Inches): 7.00 Weight (Pounds): 104 General Appearance: no apparent distress Neck: normal alignment Cardiovascular: normal rate Respiratory/Chest: lungs clear Abdomen: normal bowel sounds Objective Current Medications Medications (Trade) Dose Ordered Sig/Tess Route PRN Reason Start Time Stop Time Status Last Admin Dose Admin Acetaminophen (Tylenol) 650 mg Q4H PRN ORAL Mild Pain (Pain Scale 1-3) 01/20/19 01:00 02/14/19 16:59 Acetaminophen (Tylenol) 650 mg Q4H PRN ORAL fever 01/20/19 01:00 02/14/19 16:59 Acetaminophen/ Hydrocodone Bitart ([place] 5/325) 1 tab Q4H PRN ORAL For Pain 01/19/19 21:15 01/22/19 17:12 Albuterol/ Ipratropium (Albuterol/ Ipratropium) 3 ml Q4H PRN HHN Shortness of Breath 01/20/19 00:00 01/24/19 11:49 Amoxicillin/ Clavulanate Potassium (Augmentin) 875 mg EVERY 12 HOURS ORAL 01/20/19 09:00 01/26/19 20:59 01/20/19 09:27 Atorvastatin Calcium (Lipitor) 80 mg BEDTIME ORAL 01/20/19 21:00 02/14/19 20:59 Clonidine HCl (Catapres Tab) 0.1 mg Q4H PRN ORAL sbp more than 160 01/20/19 01:15 02/14/19 17:14 Clopidogrel Bisulfate (Plavix) 75 mg DAILY ORAL 01/20/19 09:00 02/15/19 08:59 01/20/19 09:26 Dextrose (Dextrose 50%) 25 ml Q30M PRN IV Hypoglycemia 01/19/19 21:30 02/14/19 16:59 Dextrose (Dextrose 50%) 50 ml Q30M PRN IV Hypoglycemia 01/19/19 21:30 02/14/19 16:59 Doxycycline Monohydrate (Doxycycline Monohydrate) 100 mg EVERY 12 HOURS ORAL 01/20/19 09:00 01/26/19 20:59 01/20/19 09:27 Dronabinol (Marinol) 2.5 mg BEFORE BREAKFAST ORAL 01/20/19 06:30 02/18/19 06:29 01/20/19 06:36 Heparin Sodium (Porcine) (Heparin 5000 units/ml) 5,000 units EVERY 12 HOURS SUBQ 01/20/19 09:00 02/14/19 20:59 Heparin Sodium (Porcine) (Heparin Sod 1000 units/ml 10ml) 2,000 unit ONCE IV 01/20/19 09:00 01/25/19 08:59 Heparin Sodium (Porcine) (Heparin Sod 1000 units/ml 10ml) 2,000 unit ONCE IV 01/21/19 11:00 01/21/19 13:00 Hydralazine HCl (Apresoline) 25 mg BID ORAL 01/20/19 09:00 02/14/19 17:59 01/20/19 09:27 Insulin Aspart (NovoLOG) BEFORE MEALS AND HS SUBQ 01/20/19 06:30 02/14/19 20:59 01/20/19 12:52 Lorazepam (Ativan) 1 mg Q4H PRN ORAL For Anxiety 01/20/19 01:00 01/22/19 16:59 Meclizine HCl (Antivert) 25 mg THREE TIMES A DAY ORAL 01/20/19 09:00 02/14/19 17:59 01/20/19 09:26 Metoprolol Succinate (Toprol XL) 100 mg DAILY ORAL 01/20/19 09:00 02/15/19 08:59 01/20/19 09:26 Mirtazapine (Remeron) 7.5 mg BEDTIME ORAL 01/20/19 21:00 02/14/19 20:59 Mirtazapine (Remeron) 7.5 mg BEDTIME PRN ORAL depression 01/20/19 21:00 02/14/19 16:59 Morphine Sulfate (Morphine Sulfate) 2 mg Q4H PRN IVP severe pain 7-10 01/20/19 01:15 01/22/19 17:14 Nitroglycerin (Ntg) 0.4 mg Q5M X 3 DOSES PRN SL Prn Chest Pain 01/19/19 21:15 02/14/19 17:14 Ondansetron HCl (Zofran) 4 mg Q6H PRN IVP Nausea & Vomiting 01/19/19 23:00 02/14/19 16:59 Oxycodone/ Acetaminophen (Percocet 5-325) 1 tab Q6H PRN ORAL pain 4-10 01/19/19 23:15 01/22/19 17:14 01/20/19 09:31 Pantoprazole (Protonix) 40 mg DAILY ORAL 01/20/19 09:00 02/15/19 08:59 Polyethylene Glycol (Miralax) 17 gm HSPRN PRN ORAL Constipation 01/20/19 17:15 02/14/19 17:14 Sitagliptin Phosphate (Januvia) 25 mg DAILY ORAL 01/20/19 09:00 02/15/19 08:59 01/20/19 09:27 Sodium Chloride 1,000 ml @ 500 mls/hr Q2H PRN IVLG sbp<90 during hd 01/21/19 10:50 02/20/19 10:49 Temazepam (Restoril) 15 mg HSPRN PRN ORAL Insomnia 01/20/19 17:15 01/22/19 17:14 Vitamin B Complex/ Vit C/Folic Acid (Nephrovite) 1 tab DAILY ORAL 01/20/19 09:00 02/15/19 08:59 01/20/19 09:26 Andrés Bansal MD Jan 20, 2019 13:36
--- NOTE | 2019-01-20 13:50 | Surgery Progress Note ---
Surgery Progress Note Subjective Additional Comments Patient seen and examined bedside. Ill-appearing. Leukocytosis. Overall prognosis guarded. Objective Last 24 Hour Vital Signs Date Time Temp Pulse Resp B/P (MAP) Pulse Ox O2 Delivery O2 Flow Rate FiO2 01/20/19 12:00 98.4 87 16 139/72 (94) 98 01/20/19 10:01 98.0 01/20/19 09:27 128/64 01/20/19 09:26 103 128/64 01/20/19 09:00 Room Air 01/20/19 08:00 98.0 103 18 128/64 (85) 100 01/20/19 04:00 98.3 100 18 124/62 (82) 98 01/20/19 00:00 97.0 99 19 132/86 (101) 98 01/19/19 21:00 Room Air 01/19/19 20:00 92 18 96 Room Air 21 01/19/19 20:00 97.3 96 19 135/65 (88) 98 01/19/19 17:17 153/70 01/19/19 16:00 97.0 94 20 153/70 (97) 98 I&O Intake and Output 01/19/19 01/20/19 19:00 07:00 Output Total 0 ml Balance 0 ml Output Urine Total 0 ml Dressing: other Wound: other Drains: other Cardiovascular: RSR Respiratory: decreased breath sounds Abdomen: soft, present bowel sounds Extremities: no cyanosis, other Laboratory Tests Test 01/20/19 06:30 White Blood Count 12.5 K/UL (4.8-10.8) H Red Blood Count 2.87 M/UL (4.70-6.10) L Hemoglobin 8.8 G/DL (14.2-18.0) L Hematocrit 26.3 % (42.0-52.0) L Mean Corpuscular Volume 92 FL (80-99) Mean Corpuscular Hemoglobin 30.7 PG (27.0-31.0) Mean Corpuscular Hemoglobin Concent 33.6 G/DL (32.0-36.0) Red Cell Distribution Width 16.8 % (11.6-14.8) H Platelet Count 203 K/UL (150-450) Mean Platelet Volume 5.9 FL (6.5-10.1) L Neutrophils (%) (Auto) 76.8 % (45.0-75.0) H Lymphocytes (%) (Auto) 14.0 % (20.0-45.0) L Monocytes (%) (Auto) 8.8 % (1.0-10.0) Eosinophils (%) (Auto) 0.1 % (0.0-3.0) Basophils (%) (Auto) 0.3 % (0.0-2.0) Sodium Level 145 MMOL/L (136-145) Potassium Level 6.3 MMOL/L (3.5-5.1) *H Chloride Level 106 MMOL/L (98-107) Carbon Dioxide Level 22 MMOL/L (21-32) Anion Gap 17 mmol/L (5-15) H Blood Urea Nitrogen 84 mg/dL (7-18) H Creatinine 8.9 MG/DL (0.55-1.30) H Estimat Glomerular Filtration Rate mL/min (>60) Glucose Level 73 MG/DL (74-106) L Calcium Level 9.0 MG/DL (8.5-10.1) Plan Problems: (1) Decubitus skin ulcer Assessment & Plan: Pt presented on admission with boggy and non-blanchable R and L heels. R heel extends into plantar aspect at distal / lateral R foot an area of fluctuance with purple area in center noted. Sacrum is dry and intact without evidence of skin breakdown. Pt observed to keep both knees drawn but was able to extend lower ext. with PROM. Non complaint with care plan for wounds agitated and aggressive at times Overall prognosis guarded. Continue with care plan as below upon discharge. Tx.Plan: Apply Cavilon Skin Barrier to both heels ,malleoli and lateral aspects of both feet. Change every 7 days and prn. Apply Moisture Barrier to both heels. Cover Sacrum with Optifoam drsg. Change every 3 days and prn. Reposition at least every 2hours or as tolerated. Off-load heels with pillow. Ajit Saleem Jan 20, 2019 13:50
--- NOTE | 2019-01-20 14:34 | Internal Med Progress Note ---
Subjective Date of Service: Jan 20, 2019 Physician Name Watson Sutherland Attending Physician Eddie Peralta MD Current Medications Medications (Trade) Dose Ordered Sig/Tess Route PRN Reason Start Time Stop Time Status Last Admin Dose Admin Acetaminophen (Tylenol) 650 mg Q4H PRN ORAL Mild Pain (Pain Scale 1-3) 01/20/19 01:00 02/14/19 16:59 Acetaminophen (Tylenol) 650 mg Q4H PRN ORAL fever 01/20/19 01:00 02/14/19 16:59 Acetaminophen/ Hydrocodone Bitart ([place] 5/325) 1 tab Q4H PRN ORAL For Pain 01/19/19 21:15 01/22/19 17:12 Albuterol/ Ipratropium (Albuterol/ Ipratropium) 3 ml Q4H PRN HHN Shortness of Breath 01/20/19 00:00 01/24/19 11:49 Amoxicillin/ Clavulanate Potassium (Augmentin) 875 mg EVERY 12 HOURS ORAL 01/20/19 09:00 01/26/19 20:59 01/20/19 09:27 Atorvastatin Calcium (Lipitor) 80 mg BEDTIME ORAL 01/20/19 21:00 02/14/19 20:59 Clonidine HCl (Catapres Tab) 0.1 mg Q4H PRN ORAL sbp more than 160 01/20/19 01:15 02/14/19 17:14 Clopidogrel Bisulfate (Plavix) 75 mg DAILY ORAL 01/20/19 09:00 02/15/19 08:59 01/20/19 09:26 Dextrose (Dextrose 50%) 25 ml Q30M PRN IV Hypoglycemia 01/19/19 21:30 02/14/19 16:59 Dextrose (Dextrose 50%) 50 ml Q30M PRN IV Hypoglycemia 01/19/19 21:30 02/14/19 16:59 Doxycycline Monohydrate (Doxycycline Monohydrate) 100 mg EVERY 12 HOURS ORAL 01/20/19 09:00 01/26/19 20:59 01/20/19 09:27 Dronabinol (Marinol) 2.5 mg BEFORE BREAKFAST ORAL 01/20/19 06:30 02/18/19 06:29 01/20/19 06:36 Heparin Sodium (Porcine) (Heparin 5000 units/ml) 5,000 units EVERY 12 HOURS SUBQ 01/20/19 09:00 02/14/19 20:59 Heparin Sodium (Porcine) (Heparin Sod 1000 units/ml 10ml) 2,000 unit ONCE IV 01/20/19 09:00 01/25/19 08:59 Heparin Sodium (Porcine) (Heparin Sod 1000 units/ml 10ml) 2,000 unit ONCE IV 01/21/19 11:00 01/21/19 13:00 Hydralazine HCl (Apresoline) 25 mg BID ORAL 01/20/19 09:00 02/14/19 17:59 01/20/19 09:27 Insulin Aspart (NovoLOG) BEFORE MEALS AND HS SUBQ 01/20/19 06:30 02/14/19 20:59 01/20/19 12:52 Lorazepam (Ativan) 1 mg Q4H PRN ORAL For Anxiety 01/20/19 01:00 01/22/19 16:59 Meclizine HCl (Antivert) 25 mg THREE TIMES A DAY ORAL 01/20/19 09:00 02/14/19 17:59 01/20/19 09:26 Metoprolol Succinate (Toprol XL) 100 mg DAILY ORAL 01/20/19 09:00 02/15/19 08:59 01/20/19 09:26 Mirtazapine (Remeron) 7.5 mg BEDTIME ORAL 01/20/19 21:00 02/14/19 20:59 Mirtazapine (Remeron) 7.5 mg BEDTIME PRN ORAL depression 01/20/19 21:00 02/14/19 16:59 Morphine Sulfate (Morphine Sulfate) 2 mg Q4H PRN IVP severe pain 7-10 01/20/19 01:15 01/22/19 17:14 Nitroglycerin (Ntg) 0.4 mg Q5M X 3 DOSES PRN SL Prn Chest Pain 01/19/19 21:15 02/14/19 17:14 Ondansetron HCl (Zofran) 4 mg Q6H PRN IVP Nausea & Vomiting 01/19/19 23:00 02/14/19 16:59 Oxycodone/ Acetaminophen (Percocet 5-325) 1 tab Q6H PRN ORAL pain 4-10 01/19/19 23:15 01/22/19 17:14 01/20/19 09:31 Pantoprazole (Protonix) 40 mg DAILY ORAL 01/20/19 09:00 02/15/19 08:59 Polyethylene Glycol (Miralax) 17 gm HSPRN PRN ORAL Constipation 01/20/19 17:15 02/14/19 17:14 Sitagliptin Phosphate (Januvia) 25 mg DAILY ORAL 01/20/19 09:00 02/15/19 08:59 01/20/19 09:27 Sodium Chloride 1,000 ml @ 500 mls/hr Q2H PRN IVLG sbp<90 during hd 01/21/19 10:50 02/20/19 10:49 Temazepam (Restoril) 15 mg HSPRN PRN ORAL Insomnia 01/20/19 17:15 01/22/19 17:14 Vitamin B Complex/ Vit C/Folic Acid (Nephrovite) 1 tab DAILY ORAL 01/20/19 09:00 02/15/19 08:59 01/20/19 09:26 Allergies: Coded Allergies: No Known Allergies (Unverified , 02/01/12) ROS Limited/Unobtainable: No Subjective 78 YO M admitted with chief complaint bilateral knee pain and gen weakness. Leukocytosis improving. Cover for Int Med-Dr Peralta. Refusing to eat Objective Last Vital Signs Date Time Temp Pulse Resp B/P (MAP) Pulse Ox O2 Delivery O2 Flow Rate FiO2 01/20/19 12:00 98.4 87 16 139/72 (94) 98 01/20/19 09:00 Room Air 01/19/19 20:00 21 Laboratory Tests Test 01/20/19 06:30 White Blood Count 12.5 K/UL (4.8-10.8) H Red Blood Count 2.87 M/UL (4.70-6.10) L Hemoglobin 8.8 G/DL (14.2-18.0) L Hematocrit 26.3 % (42.0-52.0) L Mean Corpuscular Volume 92 FL (80-99) Mean Corpuscular Hemoglobin 30.7 PG (27.0-31.0) Mean Corpuscular Hemoglobin Concent 33.6 G/DL (32.0-36.0) Red Cell Distribution Width 16.8 % (11.6-14.8) H Platelet Count 203 K/UL (150-450) Mean Platelet Volume 5.9 FL (6.5-10.1) L Neutrophils (%) (Auto) 76.8 % (45.0-75.0) H Lymphocytes (%) (Auto) 14.0 % (20.0-45.0) L Monocytes (%) (Auto) 8.8 % (1.0-10.0) Eosinophils (%) (Auto) 0.1 % (0.0-3.0) Basophils (%) (Auto) 0.3 % (0.0-2.0) Sodium Level 145 MMOL/L (136-145) Potassium Level 6.3 MMOL/L (3.5-5.1) *H Chloride Level 106 MMOL/L (98-107) Carbon Dioxide Level 22 MMOL/L (21-32) Anion Gap 17 mmol/L (5-15) H Blood Urea Nitrogen 84 mg/dL (7-18) H Creatinine 8.9 MG/DL (0.55-1.30) H Estimat Glomerular Filtration Rate mL/min (>60) Glucose Level 73 MG/DL (74-106) L Calcium Level 9.0 MG/DL (8.5-10.1) Intake and Output 01/19/19 01/20/19 19:00 07:00 Output Total 0 ml Balance 0 ml Output Urine Total 0 ml Objective PHYSICAL EXAMINATION: GENERAL: The patient is a well-developed and well-nourished male, who is somnolent, but arousable. HEENT: Eyes, pupils are equal and responsive to light and accommodation. Extraocular movements are intact. NECK: Supple. No lymphadenopathy. CHEST: Lungs are clear to auscultation bilaterally without wheezes or rales. CARDIOVASCULAR: Regular rhythm and rate. S1, S2 are normal without murmurs, rubs, or gallops. ABDOMEN: Soft, nontender, and nondistended. Positive bowel sounds. No evidence of hepatosplenomegaly. Currently, no rebound or guarding noted. EXTREMITIES: Negative for clubbing, cyanosis, or edema. RECTAL/GENITAL: Not performed. NEUROLOGIC: Cranial nerves II through XII are grossly intact without focal deficits. Assessment/Plan Assessment/Plan ASSESSMENT: This is a 78-year-old male. 1. Bilateral knee pain. 2. Generalized weakness. 3. Diabetes type 2. 4. End-stage renal disease. 5. Chronic obstructive pulmonary disease. 6. Coronary artery disease. 7. Lupus anticoagulant. 8. Chronic pancreatitis. 9. Diabetic nephropathy. 10. Diabetic retinopathy. 11. Diabetic gastropathy. 12. Gastroesophageal reflux disease. 13. Dysphagia. 14. Major depression. 15. Hypercholesterolemia. 16. Diabetic neuropathy. 17. Anemia of chronic renal disease. 18. Protein-calorie malnutrition. 19. uncontrolled hypertension 20. Leukocytosis 21. Anorexia TREATMENT: 1. Bilateral knee pain. Initial x-rays were negative for fracture. The patient does have contractures. The patient will be offered Leola as above for knee pain. 2. Weakness of bilateral lower extremities. The patient has permanent contractures of bilateral knees. 3. Diabetes type 2. NovoLog sliding scale has been instituted. 4. End-stage renal disease, on hemodialysis. A Nephrology consultation has been obtained with Dr. Alamo. We will follow recommendations of Nephrology. Hemodialysis 01/19/19 and again 01/20/19 due to hyperkalemia 5. Chronic obstructive pulmonary disease. 6. Coronary artery disease. The patient is status post percutaneous transluminal coronary angioplasty in December of 2017 with stent placement. 7. Lupus anticoagulant. 8. Chronic pancreatitis. 9. Diabetic nephropathy. 10. Diabetic gastroparesis. 11. Gastroesophageal reflux disease. 12. Dysphagia. 13. Major depression. 14. Hypercholesterolemia. 15. Diabetic neuropathy. 16. Vitamin D deficiency. 17. Anemia of renal failure. 18. Encephalopathy. 19. Chronic deep venous thrombosis. Continue Coumadin as above. 20. Continue hydralazine, clonidine and metoprolol 21. Continue zosyn per ID 22. Calorie count; PEG Watson Aguero MD Jan 20, 2019 14:34
[2019-01-20 16:00] VITALS: BP 138/70
[2019-01-20] MEDS ORDERED: Miralax 17gm pkt ORAL PRN (17:15)
--- NOTE | 2019-01-20 17:28 | NUR ---
pt refused med and food, will continue to monitor.
--- NOTE | 2019-01-20 19:00 | NUR ---
NURSE NOTES: Received a report from ASHA Brewer. Pt is in stable condition. AOX1. On room air. No pain/discomfort noted. No IV access, aware. Bed in lowest position. Bed alarm is on. Call light within reach. Will continue to monitor.
[2019-01-20 20:00] VITALS: BP 106/46
[2019-01-20] MEDS ORDERED: Atorvastatin 80mg tab ORAL SCH (21:00)
[2019-01-21 04:00] VITALS: BP 148/70
[2019-01-21] MEDS: NovoLOG Insulin Flexpen SUBQ SCH ×4 (06:01→20:22)
[2019-01-21] MEDS: Dronabinol 2.5mg Cap ORAL SCH (06:30)
--- NOTE | 2019-01-21 07:04 | General Progress Note ---
Assessment/Plan Problem List: (1) Thyroid mass ICD Codes: E07.9 - Disorder of thyroid, unspecified SNOMED: 126210287 (2) ESRD (end stage renal disease) ICD Codes: N18.6 - End stage renal disease SNOMED: 16186511 (3) Diabetes mellitus ICD Codes: E11.9 - Type 2 diabetes mellitus without complications SNOMED: 17668740 (4) Subclinical hyperthyroidism ICD Codes: E05.90 - Thyrotoxicosis, unspecified without thyrotoxic crisis or storm SNOMED: 420069048 Assessment/Plan: DC Januvia continue NISS ac / hs TSH is suppressed - free T4 is normal - free T3 is low thyroid US revealed a non suspicious 1 cm nodule without need for FNA - no need for anti thyroid medications - follow TSI and ATPO r/o Graves' - pending Subjective ROS Limited/Unobtainable: Yes Allergies: Coded Allergies: No Known Allergies (Unverified , 02/01/12) Subjective events noted fasting hypoglycemia x 2 days Item Value Date Time Bedside Blood Glucose 63 mg/dl L 01/21/19 0601 Bedside Blood Glucose 83 mg/dl 01/20/19 2022 Bedside Blood Glucose 129 mg/dl H 01/20/19 1252 Bedside Blood Glucose 70 mg/dl 01/20/19 0700 Bedside Blood Glucose 68 mg/dl L 01/20/19 0645 Objective Last 24 Hour Vital Signs Date Time Temp Pulse Resp B/P (MAP) Pulse Ox O2 Delivery O2 Flow Rate FiO2 01/21/19 06:57 78 18 97 Room Air 21 01/21/19 04:00 96.6 93 18 148/70 (96) 94 01/20/19 21:00 Room Air 01/20/19 20:00 96.0 87 16 106/46 (66) 99 01/20/19 19:45 85 18 98 Room Air 21 01/20/19 17:17 138/70 01/20/19 16:00 98.4 80 18 138/70 (92) 99 01/20/19 12:00 98.4 87 16 139/72 (94) 98 01/20/19 10:01 98.0 01/20/19 09:27 128/64 01/20/19 09:26 103 128/64 01/20/19 09:00 Room Air 01/20/19 08:00 98.0 103 18 128/64 (85) 100 Height (Feet): 5 Height (Inches): 7.00 Weight (Pounds): 103 General Appearance: no apparent distress Neck: normal alignment Cardiovascular: normal rate Respiratory/Chest: lungs clear Abdomen: normal bowel sounds Objective Current Medications Medications (Trade) Dose Ordered Sig/Tess Route PRN Reason Start Time Stop Time Status Last Admin Dose Admin Acetaminophen (Tylenol) 650 mg Q4H PRN ORAL Mild Pain (Pain Scale 1-3) 01/20/19 01:00 02/14/19 16:59 Acetaminophen (Tylenol) 650 mg Q4H PRN ORAL fever 01/20/19 01:00 02/14/19 16:59 Acetaminophen/ Hydrocodone Bitart ([place] 5/325) 1 tab Q4H PRN ORAL For Pain 01/19/19 21:15 01/22/19 17:12 Albuterol/ Ipratropium (Albuterol/ Ipratropium) 3 ml Q4H PRN HHN Shortness of Breath 01/20/19 00:00 01/24/19 11:49 Amoxicillin/ Clavulanate Potassium (Augmentin) 875 mg EVERY 12 HOURS ORAL 01/20/19 09:00 01/26/19 20:59 01/20/19 21:44 Atorvastatin Calcium (Lipitor) 80 mg BEDTIME ORAL 01/20/19 21:00 02/14/19 20:59 01/20/19 21:44 Clonidine HCl (Catapres Tab) 0.1 mg Q4H PRN ORAL sbp more than 160 01/20/19 01:15 02/14/19 17:14 Clopidogrel Bisulfate (Plavix) 75 mg DAILY ORAL 01/20/19 09:00 02/15/19 08:59 01/20/19 09:26 Dextrose (Dextrose 50%) 25 ml Q30M PRN IV Hypoglycemia 01/19/19 21:30 02/14/19 16:59 Dextrose (Dextrose 50%) 50 ml Q30M PRN IV Hypoglycemia 01/19/19 21:30 02/14/19 16:59 Doxycycline Monohydrate (Doxycycline Monohydrate) 100 mg EVERY 12 HOURS ORAL 01/20/19 09:00 01/26/19 20:59 01/20/19 21:44 Dronabinol (Marinol) 2.5 mg BEFORE BREAKFAST ORAL 01/20/19 06:30 02/18/19 06:29 01/20/19 06:36 Heparin Sodium (Porcine) (Heparin 5000 units/ml) 5,000 units EVERY 12 HOURS SUBQ 01/20/19 09:00 02/14/19 20:59 Heparin Sodium (Porcine) (Heparin Sod 1000 units/ml 10ml) 2,000 unit ONCE IV 01/20/19 09:00 01/25/19 08:59 Heparin Sodium (Porcine) (Heparin Sod 1000 units/ml 10ml) 2,000 unit ONCE IV 01/21/19 11:00 01/21/19 13:00 Hydralazine HCl (Apresoline) 25 mg BID ORAL 01/20/19 09:00 02/14/19 17:59 01/20/19 09:27 Insulin Aspart (NovoLOG) BEFORE MEALS AND HS SUBQ 01/20/19 06:30 02/14/19 20:59 01/20/19 12:52 Lorazepam (Ativan) 1 mg Q4H PRN ORAL For Anxiety 01/20/19 01:00 01/22/19 16:59 Meclizine HCl (Antivert) 25 mg THREE TIMES A DAY ORAL 01/20/19 09:00 02/14/19 17:59 01/20/19 09:26 Metoprolol Succinate (Toprol XL) 100 mg DAILY ORAL 01/20/19 09:00 02/15/19 08:59 01/20/19 09:26 Mirtazapine (Remeron) 7.5 mg BEDTIME ORAL 01/20/19 21:00 02/14/19 20:59 01/20/19 21:44 Mirtazapine (Remeron) 7.5 mg BEDTIME PRN ORAL depression 01/20/19 21:00 02/14/19 16:59 Morphine Sulfate (Morphine Sulfate) 2 mg Q4H PRN IVP severe pain 7-10 01/20/19 01:15 01/22/19 17:14 Nitroglycerin (Ntg) 0.4 mg Q5M X 3 DOSES PRN SL Prn Chest Pain 01/19/19 21:15 02/14/19 17:14 Ondansetron HCl (Zofran) 4 mg Q6H PRN IVP Nausea & Vomiting 01/19/19 23:00 02/14/19 16:59 Oxycodone/ Acetaminophen (Percocet 5-325) 1 tab Q6H PRN ORAL pain 4-10 01/19/19 23:15 01/22/19 17:14 01/20/19 09:31 Pantoprazole (Protonix) 40 mg DAILY ORAL 01/20/19 09:00 02/15/19 08:59 Polyethylene Glycol (Miralax) 17 gm HSPRN PRN ORAL Constipation 01/20/19 17:15 02/14/19 17:14 Sitagliptin Phosphate (Januvia) 25 mg DAILY ORAL 01/20/19 09:00 02/15/19 08:59 01/20/19 09:27 Sodium Chloride 1,000 ml @ 500 mls/hr Q2H PRN IVLG sbp<90 during hd 01/21/19 10:50 02/20/19 10:49 Temazepam (Restoril) 15 mg HSPRN PRN ORAL Insomnia 01/20/19 17:15 01/22/19 17:14 Vitamin B Complex/ Vit C/Folic Acid (Nephrovite) 1 tab DAILY ORAL 01/20/19 09:00 02/15/19 08:59 01/20/19 09:26 Andrés Bansal MD Jan 21, 2019 07:04
--- NOTE | 2019-01-21 07:30 | NUR ---
NURSE NOTES: Received pt from ASHA FERNANDEZ. pt is awake A&O X2. Pt is in RA, no SOB or acute respiratory distress noted. No complain of pain at this moment. all needs attended, bed is locked and is in the lowest position, call light within easy reach. will continue to monitor.
--- NOTE | 2019-01-21 07:36 | NUR ---
HAND-OFF: Report given to ASHA Dickerson.
[2019-01-21 08:00] VITALS: BP 141/70
[2019-01-21] MEDS: Heparin Sod 1000 units/ml 10ml IV SCH (09:00)
[2019-01-21] MEDS: Doxycycline Monohydrate 100mg ORAL SCH ×2 (09:45→21:00)
[2019-01-21] MEDS: Heparin 5000 units/ml inj SUBQ SCH ×2 (09:45→20:18)
[2019-01-21] MEDS: Metoprolol Succinate XL 100mg tab ORAL SCH (09:45)
[2019-01-21] MEDS: Meclizine 25mg tab ORAL SCH ×3 (09:45→17:57)
[2019-01-21] MEDS: HydrALAZINE 25mg tab ORAL SCH ×2 (09:45→17:57)
[2019-01-21] MEDS: Nephrovite tab (Rena-Vite) ORAL SCH (09:45)
[2019-01-21] MEDS: Augmentin 875mg Tab ORAL SCH ×2 (09:45→21:00)
--- NOTE | 2019-01-21 09:50 | NUR ---
NURSE NOTES: pt refused all meds x3 attempts, explained risks, Dr MASCORRO notified, no new order to RN. Will continue to monitor.
[2019-01-21] MEDS ORDERED: Heparin Sod 1000 units/ml 10ml IV SCH (11:00)
[2019-01-21 12:00] VITALS: BP 149/71
--- NOTE | 2019-01-21 12:37 | Infectious Diseases Prog Note ---
Assessment/Plan Assessment/Plan Assessment: Probable sepsis- ?source -01/17 Bcx NTD Leukocytosis; improving Afebrile -CXR: Basilar atelectatic changes. No acute process otherwise. Upper mediastinal mass deviating the trachea, demonstrated on multiple prior studies and seen on prior CT to represent an enlarged left thyroid lobe thyroid mass -thyroid US: Heterogeneous multinodular thyroid gland with a larger left lobe. Largest single lesion is 1 cm within the left lobe with a TIRADS score of 3. Per ACR recommendations, this lesion could be disregarded. B/l knee pain- limited examination as patient did not allowed me but does not appear to be septic -L knee xray: No obvious acute fracture. Severe chronic contraction deformity -R knee xray: Severe contraction deformity of the right knee which is flexed. No obvious acute fracture identified. 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 Largest single lesion is 1 cm within the left lobe with a TIRADS score of 3. Per ACR recommendations, this lesion could be disregarded. Interpretation is based on ACR Thyroid Imaging Reporting and Data System (ACR TI-RADS). hypercoagulable state (lupus anticoagulant) chronic pancreatitis dementia CAD s/p LAD PCI ESRD on HD via perma cath s/p AVG RUG [facility] resident Plan: -On empiric Doxycycline and Augmentin #3 (abx d #4) -01/19 SP Zosyn #2 -f/u cx -Monitor CBC/CMP, temperatures -f/u Bcx x2 Thank you for this consultation. Will continue to follow along with you. Discussed with RN Subjective Allergies: Coded Allergies: No Known Allergies (Unverified , 02/01/12) Subjective afebrile wbc improving Bcx NTD Objective Vital Signs Last 24 Hour Vital Signs Date Time Temp Pulse Resp B/P (MAP) Pulse Ox O2 Delivery O2 Flow Rate FiO2 01/21/19 09:00 Room Air 01/21/19 08:00 97.7 93 18 141/70 (93) 94 01/21/19 06:57 78 18 97 Room Air 21 12/2/19 04:00 96.6 93 18 148/70 (96) 94 01/20/19 21:00 Room Air 01/20/19 20:00 96.0 87 16 106/46 (66) 99 01/20/19 19:45 85 18 98 Room Air 21 01/20/19 17:17 138/70 01/20/19 16:00 98.4 80 18 138/70 (92) 99 Height (Feet): 5 Height (Inches): 7.00 Weight (Pounds): 103 Objective GENERAL: The patient is a well-developed and well-nourished male, who is somnolent, but arousable. HEENT: Eyes, pupils are equal and responsive to light and accommodation. Extraocular movements are intact. NECK: Supple. No lymphadenopathy. CHEST: Lungs are clear to auscultation bilaterally without wheezes or rales. CARDIOVASCULAR: Regular rhythm and rate. S1, S2 are normal without murmurs, rubs, or gallops. ABDOMEN: Soft, nontender, and nondistended. Positive bowel sounds. No evidence of hepatosplenomegaly. Currently, no rebound or guarding noted. EXTREMITIES: Negative for clubbing, cyanosis, or edema. Current Medications Medications (Trade) Dose Ordered Sig/Tess Route PRN Reason Start Time Stop Time Status Last Admin Dose Admin Acetaminophen (Tylenol) 650 mg Q4H PRN ORAL Mild Pain (Pain Scale 1-3) 01/20/19 01:00 02/14/19 16:59 Acetaminophen (Tylenol) 650 mg Q4H PRN ORAL fever 01/20/19 01:00 02/14/19 16:59 Acetaminophen/ Hydrocodone Bitart ([place] 5/325) 1 tab Q4H PRN ORAL For Pain 01/19/19 21:15 01/22/19 17:12 Albuterol/ Ipratropium (Albuterol/ Ipratropium) 3 ml Q4H PRN HHN Shortness of Breath 01/20/19 00:00 01/24/19 11:49 Amoxicillin/ Clavulanate Potassium (Augmentin) 875 mg EVERY 12 HOURS ORAL 01/20/19 09:00 01/26/19 20:59 01/20/19 21:44 Atorvastatin Calcium (Lipitor) 80 mg BEDTIME ORAL 01/20/19 21:00 02/14/19 20:59 01/20/19 21:44 Clonidine HCl (Catapres Tab) 0.1 mg Q4H PRN ORAL sbp more than 160 01/20/19 01:15 02/14/19 17:14 Clopidogrel Bisulfate (Plavix) 75 mg DAILY ORAL 01/20/19 09:00 02/15/19 08:59 01/20/19 09:26 Dextrose (Dextrose 50%) 25 ml Q30M PRN IV Hypoglycemia 01/19/19 21:30 02/14/19 16:59 Dextrose (Dextrose 50%) 50 ml Q30M PRN IV Hypoglycemia 01/19/19 21:30 02/14/19 16:59 Doxycycline Monohydrate (Doxycycline Monohydrate) 100 mg EVERY 12 HOURS ORAL 01/20/19 09:00 01/26/19 20:59 01/20/19 21:44 Dronabinol (Marinol) 2.5 mg BEFORE BREAKFAST ORAL 01/20/19 06:30 02/18/19 06:29 01/20/19 06:36 Heparin Sodium (Porcine) (Heparin 5000 units/ml) 5,000 units EVERY 12 HOURS SUBQ 01/20/19 09:00 02/14/19 20:59 Heparin Sodium (Porcine) (Heparin Sod 1000 units/ml 10ml) 2,000 unit ONCE IV 01/20/19 09:00 01/25/19 08:59 Heparin Sodium (Porcine) (Heparin Sod 1000 units/ml 10ml) 2,000 unit ONCE IV 01/21/19 11:00 01/21/19 13:00 Hydralazine HCl (Apresoline) 25 mg BID ORAL 01/20/19 09:00 02/14/19 17:59 01/20/19 09:27 Insulin Aspart (NovoLOG) BEFORE MEALS AND HS SUBQ 01/20/19 06:30 02/14/19 20:59 01/20/19 12:52 Lorazepam (Ativan) 1 mg Q4H PRN ORAL For Anxiety 01/20/19 01:00 01/22/19 16:59 Meclizine HCl (Antivert) 25 mg THREE TIMES A DAY ORAL 01/20/19 09:00 02/14/19 17:59 01/20/19 09:26 Metoprolol Succinate (Toprol XL) 100 mg DAILY ORAL 01/20/19 09:00 02/15/19 08:59 01/20/19 09:26 Mirtazapine (Remeron) 7.5 mg BEDTIME ORAL 01/20/19 21:00 02/14/19 20:59 01/20/19 21:44 Mirtazapine (Remeron) 7.5 mg BEDTIME PRN ORAL depression 01/20/19 21:00 02/14/19 16:59 Morphine Sulfate (Morphine Sulfate) 2 mg Q4H PRN IVP severe pain 7-10 01/20/19 01:15 01/22/19 17:14 Nitroglycerin (Ntg) 0.4 mg Q5M X 3 DOSES PRN SL Prn Chest Pain 01/19/19 21:15 02/14/19 17:14 Ondansetron HCl (Zofran) 4 mg Q6H PRN IVP Nausea & Vomiting 01/19/19 23:00 02/14/19 16:59 Oxycodone/ Acetaminophen (Percocet 5-325) 1 tab Q6H PRN ORAL pain 4-10 01/19/19 23:15 01/22/19 17:14 01/20/19 09:31 Pantoprazole (Protonix) 40 mg DAILY ORAL 01/20/19 09:00 02/15/19 08:59 Polyethylene Glycol (Miralax) 17 gm HSPRN PRN ORAL Constipation 01/20/19 17:15 02/14/19 17:14 Sodium Chloride 1,000 ml @ 500 mls/hr Q2H PRN IVLG sbp<90 during hd 01/21/19 10:50 02/20/19 10:49 Temazepam (Restoril) 15 mg HSPRN PRN ORAL Insomnia 01/20/19 17:15 01/22/19 17:14 Vitamin B Complex/ Vit C/Folic Acid (Nephrovite) 1 tab DAILY ORAL 01/20/19 09:00 02/15/19 08:59 01/20/19 09:26 Kristina Elmore M.D. Jan 21, 2019 12:37
--- NOTE | 2019-01-21 12:42 | NUR ---
NURSE NOTES: F[employer] MACHINE OPERATOR CHAYO visited pt, he is aware pt refused food and meds today, no new order to RN. Will continue to monitor pt.
--- NOTE | 2019-01-21 13:03 | NUR ---
NURSE NOTES: RN spoke with HD RN REID regarding HD for today, he will come late in the afternoon, will continue to monitor.
--- NOTE | 2019-01-21 13:17 | GI Initial Consult Note ---
History of Present Illness General Date patient seen: Jan 21, 2019 Time patient seen: 13:12 Reason for Hospitalization: General Complaint Referring physician: SHAMEKA BOCANEGRA Reason for Consultation: PEG Eval Present Illness HPI Patient is a 78-year-old male sent in by facility from [facility] who presented after increased bilateral lower extremity pain and weakness. Patient reports having increased pain to both knees. He reportedly had been receiving dialysis. He reports having increased pain to both knees. He denies any recent trauma. History is markedly limited by poor historian. GI consulted for PEG evaluation. ROS limited, patient seen awake alert no apparent distress. Discussion with the RN reported that the patient has been refusing all care.. Has been refusing to eat, a.m. labs and also medication administration. Unknown history of endoscopic colonoscopy. Note that the patient is currently on Plavix. Home Meds Active Scripts [Warfarin RX monitoring] [facility] No Conflict Check, [facility] DAILY PRN for Per rx protocol Prov:TREMAYNE MARTINEZ N.PMartín 08/04/14 Reported Medications Metoprolol Succinate* (METOPROLOL SUCCINATE*) 100 Mg Tab.er.24h, 100 MG ORAL DAILY for HTN, TAB 01/15/19 Mirtazapine* (REMERON*) 15 Mg Tablet, 7.5 MG ORAL BEDTIME PRN for depression, TAB 01/15/19 Hydrocodone Bit/Acetaminophen 5-325* (NORCO 5-325*) 1 Each Tablet, 1 TAB ORAL Q4H PRN for For Pain, #10 TAB 0 Refills 01/15/19 Lisinopril (LISINOPRIL*) 5 Mg Tablet, 2.5 MG ORAL DAILY PRN for For High Blood Pressure, TAB 01/15/19 Hydralazine Hcl* (HYDRALAZINE HCL*) 25 Mg Tablet, 25 MG ORAL BID for HTN, TAB 0 Refills 01/15/19 Lipase/Protease/Amylase (DAI VICENTE 3,000 UNITS CAPSULE) 1 Each Capsule., 3 EACH PO THREE TIMES A DAY for CKD, CAP 01/15/19 Clopidogrel Bisulfate* (PLAVIX*) 75 Mg Tablet, 75 MG ORAL DAILY for dvt ppx, TAB 01/15/19 Atorvastatin Calcium* (ATORVASTATIN CALCIUM*) 40 Mg Tablet, 80 MG ORAL BEDTIME for hyperlipidemia, TAB 11/26/19 Lipase/Protease/Amylase (DAI VICENTE 3,000 UNITS CAPSULE) 1 Each Capsule.dr, 3 EACH PO THREE TIMES A DAY for ENZYME REPLACEMENT, CAP 10/17/16 Mirtazapine* (REMERON*) 15 Mg Tablet, 7.5 MG ORAL BEDTIME, TAB 10/17/16 Melatonin (MELATONIN) 3 Mg Tablet, 3 MG ORAL BEDTIME PRN for Insomnia, TAB 10/17/16 Meclizine Hcl* (MECLIZINE*) 25 Mg Tablet, 25 MG ORAL THREE TIMES A DAY, TAB 10/17/16 Lipase/Protease/Amylase (DAI VICENTE 3,000 UNITS CAPSULE) 1 Each Capsule.dr, 1 EACH PO, CAP 10/17/16 Lubiprostone (AMITIZA*) 24 Mcg Capsule, 24 MCG ORAL EVERY 12 HOURS, CAP 10/17/16 Vit B Cmplx 3/Fa/Vit C/Biotin (NEPHRO-SHIRA RX TABLET) 1 Each Tablet, 1 EACH PO DAILY, TAB 06/04/14 Sitagliptin* (JANUVIA*) 25 Mg Tablet, 25 MG ORAL DAILY, TAB 06/04/14 Warfarin Sod* (COUMADIN*) 5 Mg Tablet, 5 MG ORAL DAILY, TAB 06/04/14 Calcium Acetate (CALCIUM ACETATE) 667 Mg Capsule, 667 MG PO TID, CAP 06/04/14 Loratadine (CLARITIN) 10 Mg Capsule, 10 MG ORAL DAILY, CAP 03/27/13 Zolpidem Tartrate* (AMBIEN*) 5 Mg Tablet, 5 MG ORAL BEDTIME PRN for Insomnia, TAB 03/27/13 Tramadol Hcl* (ULTRAM*) 50 Mg Tablet, 50 MG ORAL Q6H PRN for For Pain, TAB 0 Refills 03/25/13 Acetaminophen (Acetaminophen 8 Hour) 650 Mg Tablet, 650 MG ORAL Q6HR PRN for For Pain, TAB 03/25/13 Oxycodone Hcl/Acetaminophen 5-325* (OXYCODONE-ACETAMINOPHEN 5-325*) 1 Each Tablet, 1 TAB ORAL Q6H PRN for For Pain, TAB 0 Refills 03/25/13 Omeprazole (OMEPRAZOLE) 40 Mg Capsule.dr, 40 MG ORAL DAILY, CAP 03/25/13 Lactulose (LACTULOSE*) 20 Gm/30 Ml Solution, 30 ML ORAL DAILY, ML 0 Refills 03/25/13 Insulin Regular, Human* (NOVOLIN R*) 100 Unit/1 Ml Vial, 0 SUBQ .SLIDING SCALE, UNITS 03/25/13 Na Phos,M-B/Na Phos,Di-Ba* (FLEET ENEMA*) 133 Ml Enema, 133 ML RECTAL DAILY, ML 0 Refills 03/25/13 Magnesium Hydroxide* (MILK OF MAGNESIA*) 400 Mg/5 Ml Oral.susp, 30 ML ORAL DAILY , ML 03/25/13 Lipase/Protease/Amylase (DAI VICENTE 3,000 UNITS CAPSULE) 1 Each Capsule.dr, 3 EACH PO TID 02/20/13 Vitamin B Cmplx/Vit C/Folic AC (Nephro-Shira Tablet) 1 Tab Tab, 1 TAB ORAL DAILY , TAB 0 Refills 02/11/13 Docusate Sodium* (DOCUSATE SODIUM*) 250 Mg Capsule, 100 MG ORAL TWICE A DAY, CAP 12/22/12 Sorbitol (Sorbitol) 30 Ml Soln, 30 ML PO Q8HR PRN for Constipation 12/22/12 Simethicone* (SIMETHICONE*) 80 Mg Tab.chew, 80 MG ORAL Q4HR PRN, TAB 0 Refills 12/22/12 Polyethylene Glycol 3350* (MIRALAX*) 17 Gm Powd.pack, 17 GM ORAL BID, PACKET 11/20/12 Sennosides (Senna-Gen) 1 Tab Tab, 2 TAB ORAL BEDTIME, TAB 10/03/12 Loratadine (CLARITIN) 10 Mg Capsule, 10 MG ORAL DAILY 07/26/12 Zolpidem Tartrate* (AMBIEN*) 5 Mg Tablet, 5 MG ORAL BEDTIME PRN for Insomnia 02/01/12 Discontinued Reported Medications Hydrocodone/Acetaminophen (Hydrocodon-Acetaminophn 10-325) 1 Each Tablet, 1 TAB ORAL Q4H PRN for For Pain, #30 TAB 0 Refills 10/17/16 Glipizide* (GLIPIZIDE*) 5 Mg Tablet, 20 MG ORAL BIDAC, TAB 10/17/16 Diphenhydramine Hcl* (DIPHENHYDRAMINE HCL*) 25 Mg Capsule, 25 MG ORAL Q4HR PRN for Itching, #30 CAP 0 Refills 06/04/14 Clonidine (CLONIDINE) 1 Each Patch.tdwk, 0.1 MG PO DAILY, PATCH 03/27/13 Dextran 70/Hypromellose (ARTIFICIAL TEARS EYE DROPS*) 15 Ml Drops, 2 DROP BOTH EYES EVERY 2 HOURS, ML 0 Refills 03/25/13 Bisacodyl (DULCOLAX) 10 Mg Supp.rect, 10 MG RC DAILY PRN for Constipation, SUPP 03/25/13 Linaclotide (LINZESS) 145 Mcg Capsule, 145 MCG PO DAILY 02/20/13 Calcitriol (CALCITRIOL*) 1 Mcg/1 Ml Ampul, 0.25 MCG PO DAILY, MCG 0 Refills 02/11/13 Amlodipine Besylate (Norvasc) 10 Mg Tab, 5 MG ORAL DAILY 07/26/12 Discontinued Scripts Clonidine HCl (Clonidine HCl) 0.1 Mg Tablet, 0.1 MG ORAL Q6HR PRN for 30 Days, TAB Prov:Watson Sutherland MD 10/19/16 Ciprofloxacin (Ciprofloxacin HCl) 1 Drop Soln, 2 DROP BOTH EYES Q4H for 7 Days, DROP Prov:Alfredito Cai MD 05/27/14 Levofloxacin* (LEVAQUIN*) 500 Mg Tablet, 500 MG ORAL DAILY, #28 TAB 0 Refills Prov:SOO ROSA D.O. 03/25/13 Med list reviewed/reconciled: Yes Allergies: Coded Allergies: No Known Allergies (Unverified , 02/01/12) Patient History Limited by: medical condition History Provided By: Medical Record PMH Narrative Past Medical History: see triage record, old chart reviewed Reviewed Nursing Documentation: PMH: Agreed; PSxH: Agreed Nursing Documentation-PMH Past Medical History: No History, Except For Hx Hypertension: Yes - [place], ESR, ENCEPHALOPATHY Hx COPD: Yes Hx Diabetes: Yes Hx Cancer: No Hx Dialysis: Yes - T TH SAT Hx Neurological Problems: Yes - Diabetic neuropathy Hx Vertigo: Yes Hx Dizziness: Yes Hx Syncope: Yes Hx Headaches: Yes Hx Numbness: Yes Hx Weakness: Yes Hx Fatigue: Yes Social History: Denies: smoking, alcohol use, drug use, other Review of Systems All Other Systems: limited Physical Exam Vital Signs Date Time Temp Pulse Resp B/P (MAP) Pulse Ox O2 Delivery O2 Flow Rate FiO2 01/17/19 08:00 92 01/17/19 08:00 97.7 18 151/72 (98) 96 01/17/19 08:25 Room Air 21 Sp02 EP Interpretation: reviewed, normal General Appearance: no apparent distress Head: normocephalic EENT: PERRL/EOMI, normal ENT inspection Neck: supple Respiratory: normal breath sounds, no respiratory distress Cardiovascular: normal rate Gastrointestinal: normal inspection, non tender, soft, normal bowel sounds, non -distended Rectal: deferred Genitourinary: deferred Musculoskeletal: normal inspection Neurologic: alert, responsive, normal inspection Skin: normal inspection, normal color, no rash, warm/dry, palpation normal, well hydrated Lymphatic: normal inspection, no adenopathy Current Medications Current Medications Medications (Trade) Dose Ordered Sig/Tess Route PRN Reason Start Time Stop Time Status Last Admin Dose Admin Acetaminophen (Tylenol) 650 mg Q4H PRN ORAL Mild Pain (Pain Scale 1-3) 01/20/19 01:00 02/14/19 16:59 Acetaminophen (Tylenol) 650 mg Q4H PRN ORAL fever 01/20/19 01:00 02/14/19 16:59 Acetaminophen/ Hydrocodone Bitart ([place] 5/325) 1 tab Q4H PRN ORAL For Pain 01/19/19 21:15 01/22/19 17:12 Albuterol/ Ipratropium (Albuterol/ Ipratropium) 3 ml Q4H PRN HHN Shortness of Breath 01/20/19 00:00 01/24/19 11:49 Amoxicillin/ Clavulanate Potassium (Augmentin) 875 mg EVERY 12 HOURS ORAL 01/20/19 09:00 01/26/19 20:59 01/20/19 21:44 Atorvastatin Calcium (Lipitor) 80 mg BEDTIME ORAL 01/20/19 21:00 02/14/19 20:59 01/20/19 21:44 Clonidine HCl (Catapres Tab) 0.1 mg Q4H PRN ORAL sbp more than 160 01/20/19 01:15 02/14/19 17:14 Clopidogrel Bisulfate (Plavix) 75 mg DAILY ORAL 01/20/19 09:00 02/15/19 08:59 01/20/19 09:26 Dextrose (Dextrose 50%) 25 ml Q30M PRN IV Hypoglycemia 01/19/19 21:30 02/14/19 16:59 Dextrose (Dextrose 50%) 50 ml Q30M PRN IV Hypoglycemia 01/19/19 21:30 02/14/19 16:59 Doxycycline Monohydrate (Doxycycline Monohydrate) 100 mg EVERY 12 HOURS ORAL 01/20/19 09:00 01/26/19 20:59 01/20/19 21:44 Dronabinol (Marinol) 2.5 mg BEFORE BREAKFAST ORAL 01/20/19 06:30 02/18/19 06:29 01/20/19 06:36 Heparin Sodium (Porcine) (Heparin 5000 units/ml) 5,000 units EVERY 12 HOURS SUBQ 01/20/19 09:00 02/14/19 20:59 Heparin Sodium (Porcine) (Heparin Sod 1000 units/ml 10ml) 2,000 unit ONCE IV 01/20/19 09:00 01/25/19 08:59 Hydralazine HCl (Apresoline) 25 mg BID ORAL 01/20/19 09:00 02/14/19 17:59 01/20/19 09:27 Insulin Aspart (NovoLOG) BEFORE MEALS AND HS SUBQ 01/20/19 06:30 02/14/19 20:59 01/20/19 12:52 Lorazepam (Ativan) 1 mg Q4H PRN ORAL For Anxiety 01/20/19 01:00 01/22/19 16:59 Meclizine HCl (Antivert) 25 mg THREE TIMES A DAY ORAL 01/20/19 09:00 02/14/19 17:59 01/20/19 09:26 Metoprolol Succinate (Toprol XL) 100 mg DAILY ORAL 01/20/19 09:00 02/15/19 08:59 01/20/19 09:26 Mirtazapine (Remeron) 7.5 mg BEDTIME ORAL 01/20/19 21:00 02/14/19 20:59 01/20/19 21:44 Mirtazapine (Remeron) 7.5 mg BEDTIME PRN ORAL depression 01/20/19 21:00 02/14/19 16:59 Morphine Sulfate (Morphine Sulfate) 2 mg Q4H PRN IVP severe pain 7-10 01/20/19 01:15 01/22/19 17:14 Nitroglycerin (Ntg) 0.4 mg Q5M X 3 DOSES PRN SL Prn Chest Pain 01/19/19 21:15 02/14/19 17:14 Ondansetron HCl (Zofran) 4 mg Q6H PRN IVP Nausea & Vomiting 01/19/19 23:00 02/14/19 16:59 Oxycodone/ Acetaminophen (Percocet 5-325) 1 tab Q6H PRN ORAL pain 4-10 01/19/19 23:15 01/22/19 17:14 01/20/19 09:31 Pantoprazole (Protonix) 40 mg DAILY ORAL 01/20/19 09:00 02/15/19 08:59 Polyethylene Glycol (Miralax) 17 gm HSPRN PRN ORAL Constipation 01/20/19 17:15 02/14/19 17:14 Sodium Chloride 1,000 ml @ 500 mls/hr Q2H PRN IVLG sbp<90 during hd 01/21/19 10:50 02/20/19 10:49 Temazepam (Restoril) 15 mg HSPRN PRN ORAL Insomnia 01/20/19 17:15 01/22/19 17:14 Vitamin B Complex/ Vit C/Folic Acid (Nephrovite) 1 tab DAILY ORAL 01/20/19 09:00 02/15/19 08:59 01/20/19 09:26 GI: Plan Problems: (1) Failure to thrive (2) Dehydration (3) Encounter for PEG (percutaneous endoscopic gastrostomy) (4) Diabetes mellitus (5) Refuses to eat (6) Uncontrolled diabetes mellitus Plan POLST reviewed >> NO artificial tubes or feeding. Calorie count is in progress. push PO PRN transfusion IV p.o. hydration plus electrolyte correction PPI We will follow on a daily basis with any additional recommendations Discussed with Dr. Durbin. Thank you for this patient referral, we will follow. The patient was seen and examined at bedside and all new and available data was reviewed in the patients chart. I agree with the above findings, impression and plan. (Patient seen earlier today. Signature stamp does not reflect patient encounter time.). - MD Sosa Mccarthy,[facility] Jan 21, 2019 13:17
--- NOTE | 2019-01-21 13:47 | Pulmonology Progress Note ---
Assessment/Plan Problems: (1) Sepsis (2) Refuses to eat (3) ESRD (end stage renal disease) (4) Chronic pancreatitis (5) Diabetic retinopathy (6) Diabetes mellitus Assessment/Plan afebrile, no new complains, still confuse trial of Marinol day time and Remeron at night to increase the still confused symptomatic treatment HD by environmental health technician neuro and psych evaluation. sliding scale check electrolytes Subjective ROS Limited/Unobtainable: No Constitutional: Reports: no symptoms HEENT: Repors: no symptoms Allergies: Coded Allergies: No Known Allergies (Unverified , 02/01/12) Objective Last 24 Hour Vital Signs Date Time Temp Pulse Resp B/P (MAP) Pulse Ox O2 Delivery O2 Flow Rate FiO2 01/21/19 12:00 97.7 91 18 149/71 (97) 99 01/21/19 09:00 Room Air 01/21/19 08:00 97.7 93 18 141/70 (93) 94 01/21/19 06:57 78 18 97 Room Air 21 01/21/19 04:00 96.6 93 18 148/70 (96) 94 01/20/19 21:00 Room Air 01/20/19 20:00 96.0 87 16 106/46 (66) 99 01/20/19 19:45 85 18 98 Room Air 21 01/20/19 17:17 138/70 01/20/19 16:00 98.4 80 18 138/70 (92) 99 Intake and Output 01/20/19 01/21/19 19:00 07:00 Intake Total 240 ml Balance 240 ml Intake Oral 240 ml General Appearance: cachetic Respiratory/Chest: chest wall non-tender, lungs clear Cardiovascular: normal peripheral pulses, normal rate Abdomen: normal bowel sounds, no organomegaly Genitourinary: normal external genitalia Skin: no rash, no lesions Current Medications Medications (Trade) Dose Ordered Sig/Tess Route PRN Reason Start Time Stop Time Status Last Admin Dose Admin Acetaminophen (Tylenol) 650 mg Q4H PRN ORAL Mild Pain (Pain Scale 1-3) 01/20/19 01:00 02/14/19 16:59 Acetaminophen (Tylenol) 650 mg Q4H PRN ORAL fever 01/20/19 01:00 02/14/19 16:59 Acetaminophen/ Hydrocodone Bitart ([place] 5/325) 1 tab Q4H PRN ORAL For Pain 01/19/19 21:15 01/22/19 17:12 Albuterol/ Ipratropium (Albuterol/ Ipratropium) 3 ml Q4H PRN HHN Shortness of Breath 01/20/19 00:00 01/24/19 11:49 Amoxicillin/ Clavulanate Potassium (Augmentin) 875 mg EVERY 12 HOURS ORAL 01/20/19 09:00 01/26/19 20:59 01/20/19 21:44 Atorvastatin Calcium (Lipitor) 80 mg BEDTIME ORAL 01/20/19 21:00 02/14/19 20:59 01/20/19 21:44 Clonidine HCl (Catapres Tab) 0.1 mg Q4H PRN ORAL sbp more than 160 01/20/19 01:15 02/14/19 17:14 Clopidogrel Bisulfate (Plavix) 75 mg DAILY ORAL 01/20/19 09:00 02/15/19 08:59 01/20/19 09:26 Dextrose (Dextrose 50%) 25 ml Q30M PRN IV Hypoglycemia 01/19/19 21:30 02/14/19 16:59 Dextrose (Dextrose 50%) 50 ml Q30M PRN IV Hypoglycemia 01/19/19 21:30 02/14/19 16:59 Doxycycline Monohydrate (Doxycycline Monohydrate) 100 mg EVERY 12 HOURS ORAL 01/20/19 09:00 01/26/19 20:59 01/20/19 21:44 Dronabinol (Marinol) 2.5 mg BEFORE BREAKFAST ORAL 01/20/19 06:30 02/18/19 06:29 01/20/19 06:36 Heparin Sodium (Porcine) (Heparin 5000 units/ml) 5,000 units EVERY 12 HOURS SUBQ 01/20/19 09:00 02/14/19 20:59 Heparin Sodium (Porcine) (Heparin Sod 1000 units/ml 10ml) 2,000 unit ONCE IV 01/20/19 09:00 01/25/19 08:59 Hydralazine HCl (Apresoline) 25 mg BID ORAL 01/20/19 09:00 02/14/19 17:59 01/20/19 09:27 Insulin Aspart (NovoLOG) BEFORE MEALS AND HS SUBQ 01/20/19 06:30 02/14/19 20:59 01/20/19 12:52 Lorazepam (Ativan) 1 mg Q4H PRN ORAL For Anxiety 01/20/19 01:00 01/22/19 16:59 Meclizine HCl (Antivert) 25 mg THREE TIMES A DAY ORAL 01/20/19 09:00 02/14/19 17:59 01/20/19 09:26 Metoprolol Succinate (Toprol XL) 100 mg DAILY ORAL 01/20/19 09:00 02/15/19 08:59 01/20/19 09:26 Mirtazapine (Remeron) 7.5 mg BEDTIME ORAL 01/20/19 21:00 02/14/19 20:59 01/20/19 21:44 Mirtazapine (Remeron) 7.5 mg BEDTIME PRN ORAL depression 01/20/19 21:00 02/14/19 16:59 Morphine Sulfate (Morphine Sulfate) 2 mg Q4H PRN IVP severe pain 7-10 01/20/19 01:15 01/22/19 17:14 Nitroglycerin (Ntg) 0.4 mg Q5M X 3 DOSES PRN SL Prn Chest Pain 01/19/19 21:15 02/14/19 17:14 Ondansetron HCl (Zofran) 4 mg Q6H PRN IVP Nausea & Vomiting 01/19/19 23:00 02/14/19 16:59 Oxycodone/ Acetaminophen (Percocet 5-325) 1 tab Q6H PRN ORAL pain 4-10 01/19/19 23:15 01/22/19 17:14 01/20/19 09:31 Pantoprazole (Protonix) 40 mg DAILY ORAL 01/20/19 09:00 02/15/19 08:59 Polyethylene Glycol (Miralax) 17 gm HSPRN PRN ORAL Constipation 01/20/19 17:15 02/14/19 17:14 Sodium Chloride 1,000 ml @ 500 mls/hr Q2H PRN IVLG sbp<90 during hd 01/21/19 10:50 02/20/19 10:49 Temazepam (Restoril) 15 mg HSPRN PRN ORAL Insomnia 01/20/19 17:15 01/22/19 17:14 Vitamin B Complex/ Vit C/Folic Acid (Nephrovite) 1 tab DAILY ORAL 01/20/19 09:00 02/15/19 08:59 01/20/19 09:26 Kevin Washington MD Jan 21, 2019 13:47
--- NOTE | 2019-01-21 15:22 | NUR ---
CASE MANAGEMENT: REVIEW 01/21/19 SI:ESRD ON HD . DM . HTN. FAILURE TO THRIVE 97.7 93 18 141/70 94% ON RA NO LABS THIS AM IS: DOXYCYCLINE PO BID HEPARIN SQ BID HYDRALAZINE PO BID TOPROL PO QD REMERON PO QHS AUGMENTIN PO BID PROTONIX PO QD NEPHROVITE PO QD MARINOL PO QAC NOVOLOG SQ AC&HS \4E MED SURG DCP: RETURN TO FACILITY WHEN MEDICALLY STABLE PLAN: BEDSIDE VIDEO SWALLOW STUDY PATIENT REFUSED ALL MEDS TODAY PATIENT REFUSE NG TUBE PATIENT DNR/DNI LABS IN AM
[2019-01-21 16:00] VITALS: BP 141/73
[2019-01-21] MEDS ORDERED: oxyCODONE HCL/Acetaminophen 5/325mg ORAL PRN (17:30)
[2019-01-21] MEDS ORDERED: Morphine Sulfate 2mg/ml Inj(IV/IM USE ONLY) IVP PRN (17:30)
[2019-01-21] MEDS ORDERED: HYDROcodone/Acetamin 5/325 tab ORAL PRN (17:30)
[2019-01-21] MEDS ORDERED: LORazepam 1mg tab ORAL PRN (17:30)
--- NOTE | 2019-01-21 18:35 | Surgery Progress Note ---
Surgery Progress Note Subjective Additional Comments leukocytosis somewhat responsive no n/v/f/c Objective Last 24 Hour Vital Signs Date Time Temp Pulse Resp B/P (MAP) Pulse Ox O2 Delivery O2 Flow Rate FiO2 01/21/19 17:57 141/73 01/21/19 16:00 98.3 96 18 141/73 (95) 100 01/21/19 12:00 97.7 91 18 149/71 (97) 99 01/21/19 09:00 Room Air 01/21/19 08:00 97.7 93 18 141/70 (93) 94 01/21/19 06:57 78 18 97 Room Air 21 01/21/19 04:00 96.6 93 18 148/70 (96) 94 01/20/19 21:00 Room Air 01/20/19 20:00 96.0 87 16 106/46 (66) 99 01/20/19 19:45 85 18 98 Room Air 21 I&O Intake and Output 01/20/19 01/21/19 19:00 07:00 Intake Total 240 ml Balance 240 ml Intake Oral 240 ml Dressing: other Wound: other Drains: other Cardiovascular: RSR Respiratory: decreased breath sounds Abdomen: soft, present bowel sounds Extremities: no cyanosis Plan Problems: (1) Decubitus skin ulcer Assessment & Plan: Pt presented on admission with boggy and non-blanchable R and L heels. R heel extends into plantar aspect at distal / lateral R foot an area of fluctuance with purple area in center noted. Sacrum is dry and intact without evidence of skin breakdown. Pt observed to keep both knees drawn but was able to extend lower ext. with PROM. Non complaint with care plan for wounds agitated and aggressive at times Overall prognosis guarded. Continue with care plan as below upon discharge. Tx.Plan: Apply Cavilon Skin Barrier to both heels ,malleoli and lateral aspects of both feet. Change every 7 days and prn. Apply Moisture Barrier to both heels. Cover Sacrum with Optifoam drsg. Change every 3 days and prn. Reposition at least every 2hours or as tolerated. Off-load heels with pillow. Ajit Saleem Jan 21, 2019 18:35
--- NOTE | 2019-01-21 19:02 | Internal Med Progress Note ---
Subjective Date of Service: Jan 21, 2019 Physician Name Watson Sutherland Attending Physician Eddie Peralta MD Current Medications Medications (Trade) Dose Ordered Sig/Tess Route PRN Reason Start Time Stop Time Status Last Admin Dose Admin Acetaminophen (Tylenol) 650 mg Q4H PRN ORAL Mild Pain (Pain Scale 1-3) 01/20/19 01:00 02/14/19 16:59 Acetaminophen (Tylenol) 650 mg Q4H PRN ORAL fever 01/20/19 01:00 02/14/19 16:59 Acetaminophen/ Hydrocodone Bitart ([place] 5/325) 1 tab Q4H PRN ORAL For Pain 01/21/19 17:30 01/24/19 17:29 Albuterol/ Ipratropium (Albuterol/ Ipratropium) 3 ml Q4H PRN HHN Shortness of Breath 01/20/19 00:00 01/24/19 11:49 Amoxicillin/ Clavulanate Potassium (Augmentin) 875 mg EVERY 12 HOURS ORAL 01/20/19 09:00 01/26/19 20:59 01/20/19 21:44 Atorvastatin Calcium (Lipitor) 80 mg BEDTIME ORAL 01/20/19 21:00 02/14/19 20:59 01/20/19 21:44 Clonidine HCl (Catapres Tab) 0.1 mg Q4H PRN ORAL sbp more than 160 01/20/19 01:15 02/14/19 17:14 Clopidogrel Bisulfate (Plavix) 75 mg DAILY ORAL 01/20/19 09:00 02/15/19 08:59 01/20/19 09:26 Dextrose (Dextrose 50%) 25 ml Q30M PRN IV Hypoglycemia 01/19/19 21:30 02/14/19 16:59 Dextrose (Dextrose 50%) 50 ml Q30M PRN IV Hypoglycemia 01/19/19 21:30 02/14/19 16:59 Doxycycline Monohydrate (Doxycycline Monohydrate) 100 mg EVERY 12 HOURS ORAL 01/20/19 09:00 01/26/19 20:59 01/20/19 21:44 Dronabinol (Marinol) 2.5 mg BEFORE BREAKFAST ORAL 01/20/19 06:30 02/18/19 06:29 01/20/19 06:36 Heparin Sodium (Porcine) (Heparin 5000 units/ml) 5,000 units EVERY 12 HOURS SUBQ 01/20/19 09:00 02/14/19 20:59 Heparin Sodium (Porcine) (Heparin Sod 1000 units/ml 10ml) 2,000 unit ONCE IV 01/20/19 09:00 01/25/19 08:59 Hydralazine HCl (Apresoline) 25 mg BID ORAL 01/20/19 09:00 02/14/19 17:59 01/21/19 17:57 Insulin Aspart (NovoLOG) BEFORE MEALS AND HS SUBQ 01/20/19 06:30 02/14/19 20:59 01/20/19 12:52 Lorazepam (Ativan) 1 mg Q4H PRN ORAL For Anxiety 01/21/19 17:30 01/24/19 17:29 Meclizine HCl (Antivert) 25 mg THREE TIMES A DAY ORAL 01/20/19 09:00 02/14/19 17:59 01/21/19 17:57 Metoprolol Succinate (Toprol XL) 100 mg DAILY ORAL 01/20/19 09:00 02/15/19 08:59 01/20/19 09:26 Mirtazapine (Remeron) 7.5 mg BEDTIME ORAL 01/20/19 21:00 02/14/19 20:59 01/20/19 21:44 Mirtazapine (Remeron) 7.5 mg BEDTIME PRN ORAL depression 01/20/19 21:00 02/14/19 16:59 Morphine Sulfate (Morphine Sulfate) 2 mg Q4H PRN IVP severe pain 7-10 01/21/19 17:30 01/24/19 17:29 Nitroglycerin (Ntg) 0.4 mg Q5M X 3 DOSES PRN SL Prn Chest Pain 01/19/19 21:15 02/14/19 17:14 Ondansetron HCl (Zofran) 4 mg Q6H PRN IVP Nausea & Vomiting 01/19/19 23:00 02/14/19 16:59 Oxycodone/ Acetaminophen (Percocet 5-325) 1 tab Q6H PRN ORAL pain 4-10 01/21/19 17:30 01/24/19 17:29 Pantoprazole (Protonix) 40 mg DAILY ORAL 01/20/19 09:00 02/15/19 08:59 Polyethylene Glycol (Miralax) 17 gm HSPRN PRN ORAL Constipation 01/20/19 17:15 02/14/19 17:14 Sodium Chloride 1,000 ml @ 500 mls/hr Q2H PRN IVLG sbp<90 during hd 01/21/19 10:50 02/20/19 10:49 Temazepam (Restoril) 15 mg HSPRN PRN ORAL Insomnia 01/21/19 17:30 01/23/19 17:29 Vitamin B Complex/ Vit C/Folic Acid (Nephrovite) 1 tab DAILY ORAL 01/20/19 09:00 02/15/19 08:59 01/20/19 09:26 Allergies: Coded Allergies: No Known Allergies (Unverified , 02/01/12) Subjective 78 YO M admitted with chief complaint bilateral knee pain and gen weakness. Leukocytosis improving. Cover for Int Med-Dr Peralta. Refusing to eat Objective Last Vital Signs Date Time Temp Pulse Resp B/P (MAP) Pulse Ox O2 Delivery O2 Flow Rate FiO2 01/21/19 17:57 141/73 01/21/19 16:00 98.3 96 18 100 01/21/19 09:00 Room Air 01/21/19 06:57 21 Intake and Output 01/20/19 01/21/19 19:00 07:00 Intake Total 240 ml Balance 240 ml Intake Oral 240 ml Objective PHYSICAL EXAMINATION: GENERAL: The patient is a well-developed and well-nourished male, who is somnolent, but arousable. HEENT: Eyes, pupils are equal and responsive to light and accommodation. Extraocular movements are intact. NECK: Supple. No lymphadenopathy. CHEST: Lungs are clear to auscultation bilaterally without wheezes or rales. CARDIOVASCULAR: Regular rhythm and rate. S1, S2 are normal without murmurs, rubs, or gallops. ABDOMEN: Soft, nontender, and nondistended. Positive bowel sounds. No evidence of hepatosplenomegaly. Currently, no rebound or guarding noted. EXTREMITIES: Negative for clubbing, cyanosis, or edema. RECTAL/GENITAL: Not performed. NEUROLOGIC: Cranial nerves II through XII are grossly intact without focal deficits. Assessment/Plan Assessment/Plan ASSESSMENT: This is a 78-year-old male. 1. Bilateral knee pain. 2. Generalized weakness. 3. Diabetes type 2. 4. End-stage renal disease. 5. Chronic obstructive pulmonary disease. 6. Coronary artery disease. 7. Lupus anticoagulant. 8. Chronic pancreatitis. 9. Diabetic nephropathy. 10. Diabetic retinopathy. 11. Diabetic gastropathy. 12. Gastroesophageal reflux disease. 13. Dysphagia. 14. Major depression. 15. Hypercholesterolemia. 16. Diabetic neuropathy. 17. Anemia of chronic renal disease. 18. Protein-calorie malnutrition. 19. uncontrolled hypertension 20. Leukocytosis 21. Anorexia TREATMENT: 1. Bilateral knee pain. Initial x-rays were negative for fracture. The patient does have contractures. The patient will be offered [place] as above for knee pain. 2. Weakness of bilateral lower extremities. The patient has permanent contractures of bilateral knees. 3. Diabetes type 2. NovoLog sliding scale has been instituted. 4. End-stage renal disease, on hemodialysis. A Nephrology consultation has been obtained with Dr. Alamo. We will follow recommendations of Nephrology. Hemodialysis 01/19/19 and again 01/20/19 due to hyperkalemia 5. Chronic obstructive pulmonary disease. 6. Coronary artery disease. The patient is status post percutaneous transluminal coronary angioplasty in December of 2017 with stent placement. 7. Lupus anticoagulant. 8. Chronic pancreatitis. 9. Diabetic nephropathy. 10. Diabetic gastroparesis. 11. Gastroesophageal reflux disease. 12. Dysphagia. 13. Major depression. 14. Hypercholesterolemia. 15. Diabetic neuropathy. 16. Vitamin D deficiency. 17. Anemia of renal failure. 18. Encephalopathy. 19. Chronic deep venous thrombosis. Continue Coumadin as above. 20. Continue hydralazine, clonidine and metoprolol 21. Continue zosyn per ID 22. Calorie count; PEG Watson Aguero MD Jan 21, 2019 19:02
--- NOTE | 2019-01-21 19:05 | NUR ---
NURSE NOTES: Received pt resting in bed. AAO x 1-2, on room air. No IV access noted and MD aware it. Perma cath on R upper chest intact. No c/o pain/resp. distress. Bed locked, lowest position, side rails up, call light within reach. Will continue to monitor.
--- NOTE | 2019-01-21 19:31 | NUR ---
HAND-OFF: Report given to PALMER CRUMP RN.Pt is awake and stable. Endorsed to F/U for HD.
--- NOTE | 2019-01-21 19:32 | Nephrology Progress Note ---
Assessment/Plan Assessment 1) ESRD 2) Dementia 3) bilateral knee pain 4) ? Uremia 5) Leukocytosis with underlying ? infection 6) Diffuse pain most likely due to statin Plan: HD today ATB per ID D/C statin Subjective Subjective He is supposed to get dialyzed today, hurts all over the body, he is on statin Objective Objective Last 24 Hour Vital Signs Date Time Temp Pulse Resp B/P (MAP) Pulse Ox O2 Delivery O2 Flow Rate FiO2 01/21/19 17:57 141/73 01/21/19 16:00 98.3 96 18 141/73 (95) 100 01/21/19 12:00 97.7 91 18 149/71 (97) 99 01/21/19 09:00 Room Air 01/21/19 08:00 97.7 93 18 141/70 (93) 94 01/21/19 06:57 78 18 97 Room Air 21 01/21/19 04:00 96.6 93 18 148/70 (96) 94 01/20/19 21:00 Room Air 01/20/19 20:00 96.0 87 16 106/46 (66) 99 01/20/19 19:45 85 18 98 Room Air 21 Intake and Output 01/20/19 01/21/19 19:00 07:00 Intake Total 240 ml Balance 240 ml Intake Oral 240 ml Height (Feet): 5 Height (Inches): 7.00 Weight (Pounds): 103 General Appearance: WD/WN, no apparent distress EENT: PERRL/EOMI Neck: non-tender, normal alignment Cardiovascular: normal peripheral pulses, no JVD Respiratory/Chest: lungs clear Abdomen: non tender, soft Yassine Alamo MD Jan 21, 2019 19:32
[2019-01-21 20:00] VITALS: BP 119/51
--- NOTE | 2019-01-21 20:03 | NUR ---
NURSE NOTES: Called [facility] for HD schedule today. cemetery warden nurse will call back. Addendum: 01/22/19 at 0026 by PALMER CRUMP RN RN NURSE NOTES: Received call back. HD nurse will visit after other pt HD is done. Addendum: 01/22/19 at 0059 by PALMER CRUMP RN RN NURSE NOTES: HD nurse came and pt is receiving HD.
[2019-01-22] VITALS: BP 92/45
[2019-01-22 04:00] VITALS: BP 123/54
[2019-01-22] MEDS: NovoLOG Insulin Flexpen SUBQ SCH ×4 (05:31→20:28)
[2019-01-22] MEDS: Dronabinol 2.5mg Cap ORAL SCH ×3 (05:50→18:42)
--- NOTE | 2019-01-22 06:16 | General Progress Note ---
Assessment/Plan Assessment/Plan: GI: Plan Problems: (1) Failure to thrive (2) Dehydration (3) Encounter for PEG (percutaneous endoscopic gastrostomy) (4) Diabetes mellitus (5) Refuses to eat (6) Uncontrolled diabetes mellitus (7) Anemia (8) ESRD Plan POLST reviewed >> NO artificial tubes or feeding. Calorie count is in progress. push PO PRN transfusion IV p.o. hydration plus electrolyte correction PPI We will follow on a daily basis with any additional recommendations increase Marinol to 2.5 mg BIB continue Remeron consider adding Megace Subjective ROS Limited/Unobtainable: Yes Allergies: Coded Allergies: No Known Allergies (Unverified , 02/01/12) Objective Last 24 Hour Vital Signs Date Time Temp Pulse Resp B/P (MAP) Pulse Ox O2 Delivery O2 Flow Rate FiO2 01/22/19 04:00 97.0 93 19 123/54 (77) 98 01/22/19 00:00 98.4 97 18 92/45 (61) 98 01/21/19 21:00 Room Air 01/21/19 20:03 77 18 96 Room Air 21 01/21/19 20:00 96.9 99 19 119/51 (73) 99 01/21/19 17:57 141/73 01/21/19 16:00 98.3 96 18 141/73 (95) 100 01/21/19 12:00 97.7 91 18 149/71 (97) 99 01/21/19 09:00 Room Air 01/21/19 08:00 97.7 93 18 141/70 (93) 94 01/21/19 06:57 78 18 97 Room Air 21 Intake and Output 01/21/19 01/22/19 19:00 07:00 Intake Total 240 ml Balance 240 ml Intake Oral 240 ml Height (Feet): 5 Height (Inches): 7.00 Weight (Pounds): 103 General Appearance: alert Neck: normal alignment Cardiovascular: normal rate Respiratory/Chest: decreased breath sounds Abdomen: normal bowel sounds, non tender, soft Varun Durbin MD Jan 22, 2019 06:16
--- NOTE | 2019-01-22 06:17 | General Progress Note ---
Assessment/Plan Problem List: (1) Thyroid mass ICD Codes: E07.9 - Disorder of thyroid, unspecified SNOMED: 545357235 (2) ESRD (end stage renal disease) ICD Codes: N18.6 - End stage renal disease SNOMED: 61086152 (3) Diabetes mellitus ICD Codes: E11.9 - Type 2 diabetes mellitus without complications SNOMED: 12349453 (4) Subclinical hyperthyroidism ICD Codes: E05.90 - Thyrotoxicosis, unspecified without thyrotoxic crisis or storm SNOMED: 311838325 Assessment/Plan: continue NISS ac / hs TSH is suppressed - free T4 is normal - free T3 is low thyroid US revealed a non suspicious 1 cm nodule without need for FNA - no need for anti thyroid medications - follow TSI and ATPO r/o Graves' - pending Subjective ROS Limited/Unobtainable: Yes Allergies: Coded Allergies: No Known Allergies (Unverified , 02/01/12) Subjective events noted no hypoglycemic this morning Item Value Date Time Bedside Blood Glucose 74 mg/dl 01/22/19 0532 Bedside Blood Glucose 215 mg/dl H 01/21/19 2100 Bedside Blood Glucose 154 mg/dl H 01/21/19 1630 Bedside Blood Glucose 129 mg/dl H 01/21/19 1130 Bedside Blood Glucose 63 mg/dl L 01/21/19 0601 Objective Last 24 Hour Vital Signs Date Time Temp Pulse Resp B/P (MAP) Pulse Ox O2 Delivery O2 Flow Rate FiO2 01/22/19 04:00 97.0 93 19 123/54 (77) 98 01/22/19 00:00 98.4 97 18 92/45 (61) 98 01/21/19 21:00 Room Air 01/21/19 20:03 77 18 96 Room Air 21 01/21/19 20:00 96.9 99 19 119/51 (73) 99 01/21/19 17:57 141/73 01/21/19 16:00 98.3 96 18 141/73 (95) 100 01/21/19 12:00 97.7 91 18 149/71 (97) 99 01/21/19 09:00 Room Air 01/21/19 08:00 97.7 93 18 141/70 (93) 94 01/21/19 06:57 78 18 97 Room Air 21 Intake and Output 01/21/19 01/22/19 19:00 07:00 Intake Total 240 ml Balance 240 ml Intake Oral 240 ml Height (Feet): 5 Height (Inches): 7.00 Weight (Pounds): 103 General Appearance: no apparent distress Neck: normal alignment Cardiovascular: normal rate Respiratory/Chest: lungs clear Abdomen: normal bowel sounds Objective Current Medications Medications (Trade) Dose Ordered Sig/Tess Route PRN Reason Start Time Stop Time Status Last Admin Dose Admin Acetaminophen (Tylenol) 650 mg Q4H PRN ORAL Mild Pain (Pain Scale 1-3) 01/20/19 01:00 02/14/19 16:59 Acetaminophen (Tylenol) 650 mg Q4H PRN ORAL fever 01/20/19 01:00 02/14/19 16:59 Acetaminophen/ Hydrocodone Bitart ([place] 5/325) 1 tab Q4H PRN ORAL For Pain 01/21/19 17:30 01/24/19 17:29 Albuterol/ Ipratropium (Albuterol/ Ipratropium) 3 ml Q4H PRN HHN Shortness of Breath 01/20/19 00:00 01/24/19 11:49 Amoxicillin/ Clavulanate Potassium (Augmentin) 875 mg EVERY 12 HOURS ORAL 01/20/19 09:00 01/26/19 20:59 01/20/19 21:44 Clonidine HCl (Catapres Tab) 0.1 mg Q4H PRN ORAL sbp more than 160 01/20/19 01:15 02/14/19 17:14 Clopidogrel Bisulfate (Plavix) 75 mg DAILY ORAL 01/20/19 09:00 02/15/19 08:59 01/20/19 09:26 Dextrose (Dextrose 50%) 25 ml Q30M PRN IV Hypoglycemia 01/19/19 21:30 02/14/19 16:59 Dextrose (Dextrose 50%) 50 ml Q30M PRN IV Hypoglycemia 01/19/19 21:30 02/14/19 16:59 Doxycycline Monohydrate (Doxycycline Monohydrate) 100 mg EVERY 12 HOURS ORAL 01/20/19 09:00 01/26/19 20:59 01/20/19 21:44 Dronabinol (Marinol) 2.5 mg BEFORE BREAKFAST ORAL 01/20/19 06:30 02/18/19 06:29 01/22/19 05:50 Heparin Sodium (Porcine) (Heparin 5000 units/ml) 5,000 units EVERY 12 HOURS SUBQ 01/20/19 09:00 02/14/19 20:59 Heparin Sodium (Porcine) (Heparin Sod 1000 units/ml 10ml) 2,000 unit ONCE IV 01/20/19 09:00 01/25/19 08:59 Hydralazine HCl (Apresoline) 25 mg BID ORAL 01/20/19 09:00 02/14/19 17:59 01/21/19 17:57 Insulin Aspart (NovoLOG) BEFORE MEALS AND HS SUBQ 01/20/19 06:30 02/14/19 20:59 01/21/19 20:22 Lorazepam (Ativan) 1 mg Q4H PRN ORAL For Anxiety 01/21/19 17:30 01/24/19 17:29 Meclizine HCl (Antivert) 25 mg THREE TIMES A DAY ORAL 01/20/19 09:00 02/14/19 17:59 01/21/19 17:57 Metoprolol Succinate (Toprol XL) 100 mg DAILY ORAL 01/20/19 09:00 02/15/19 08:59 01/20/19 09:26 Mirtazapine (Remeron) 7.5 mg BEDTIME ORAL 01/20/19 21:00 02/14/19 20:59 01/20/19 21:44 Mirtazapine (Remeron) 7.5 mg BEDTIME PRN ORAL depression 01/20/19 21:00 02/14/19 16:59 Morphine Sulfate (Morphine Sulfate) 2 mg Q4H PRN IVP severe pain 7-10 01/21/19 17:30 01/24/19 17:29 Nitroglycerin (Ntg) 0.4 mg Q5M X 3 DOSES PRN SL Prn Chest Pain 01/19/19 21:15 02/14/19 17:14 Ondansetron HCl (Zofran) 4 mg Q6H PRN IVP Nausea & Vomiting 01/19/19 23:00 02/14/19 16:59 Oxycodone/ Acetaminophen (Percocet 5-325) 1 tab Q6H PRN ORAL pain 4-10 01/21/19 17:30 01/24/19 17:29 Pantoprazole (Protonix) 40 mg DAILY ORAL 01/20/19 09:00 02/15/19 08:59 Polyethylene Glycol (Miralax) 17 gm HSPRN PRN ORAL Constipation 01/20/19 17:15 02/14/19 17:14 Sodium Chloride 1,000 ml @ 500 mls/hr Q2H PRN IVLG sbp<90 during hd 01/21/19 10:50 02/20/19 10:49 Temazepam (Restoril) 15 mg HSPRN PRN ORAL Insomnia 01/21/19 17:30 01/23/19 17:29 Vitamin B Complex/ Vit C/Folic Acid (Nephrovite) 1 tab DAILY ORAL 01/20/19 09:00 02/15/19 08:59 01/20/19 09:26 Andrés Bansal MD Jan 22, 2019 06:17
[2019-01-22 07:17] LABS: ANION GAP 9 mmol/L (5-15); CALCIUM 8.4 MG/DL (8.5-10.1); CARBON DIOXIDE 28 MMOL/L (21-32); CHLORIDE 102 MMOL/L (98-107); CREATININE 4.6 MG/DL (0.55-1.30); POTASSIUM 3.7 MMOL/L (3.5-5.1); SODIUM 139 MMOL/L (136-145)
[2019-01-22 07:21] LABS: BASOPHILS % (AUTO) 0.5 % (0.0-2.0); EOSINOPHILS % (AUTO) 0.5 % (0.0-3.0); HEMATOCRIT 28.2 % (42.0-52.0); LYMPHOCYTES % (AUTO) 18.3 % (20.0-45.0); MEAN CORPUSCULAR VOLUME 94 FL (80-99); MONOCYTES % (AUTO) 10.3 % (1.0-10.0); NEUTROPHILS % (AUTO) 70.4 % (45.0-75.0); PLATELET COUNT 218 K/UL (150-450); WHITE BLOOD COUNT 7.4 K/UL (4.8-10.8)
--- NOTE | 2019-01-22 07:28 | NUR ---
HAND-OFF: Report given to ASHA Scott.
--- NOTE | 2019-01-22 07:35 | NUR ---
NURSE NOTES: Received patient in bed, awake, right upper chest perma cath dressing is intact. No s/s pain or discomfort. Patient refused to eat. Encouraged patient to increase po intake but patient refused. Will follow up.
[2019-01-22 07:41] LABS: BLOOD UREA NITROGEN 27 mg/dL (7-18)
[2019-01-22 08:00] VITALS: BP 129/67
[2019-01-22 08:06] LABS: PHOSPHORUS 3.7 MG/DL (2.5-4.9)
--- NOTE | 2019-01-22 08:10 | NUR ---
NURSE NOTES: Patient consumed few spoons of cream of wheat and drank some juice.
[2019-01-22] MEDS ORDERED: Glucagon 1mg Inj IM PRN (08:30)
--- NOTE | 2019-01-22 08:33 | NUR ---
NURSE NOTES: Patient blood sugar is 63. Patient is awake, verbally responsive. Patient able to drink little bit of juice with sugar but refused to drink it after that. Patient has no IV access. RN contacted Dr. Bansal and relayed patient's condition with new order to give glucagon IM x1 for BS <65. Will continue to monitor and will try IV.
--- NOTE | 2019-01-22 08:38 | NUR ---
NURSE NOTES: RN tried to put IV but patient refused stating " Leave me alone." RN re-educated about hypoglycemia. Patient still refused x3.
[2019-01-22] MEDS: Nephrovite tab (Rena-Vite) ORAL SCH (09:00)
[2019-01-22] MEDS: Doxycycline Monohydrate 100mg ORAL SCH (09:00)
[2019-01-22] MEDS: Augmentin 875mg Tab ORAL SCH (09:00)
[2019-01-22] MEDS: HydrALAZINE 25mg tab ORAL SCH ×2 (09:00→18:00)
[2019-01-22] MEDS: Meclizine 25mg tab ORAL SCH ×3 (09:00→18:43)
[2019-01-22] MEDS: Heparin 5000 units/ml inj SUBQ SCH ×2 (09:00→20:28)
[2019-01-22] MEDS: Heparin Sod 1000 units/ml 10ml IV SCH (09:00)
[2019-01-22] MEDS: Metoprolol Succinate XL 100mg tab ORAL SCH (09:00)
--- NOTE | 2019-01-22 10:20 | NUR ---
NURSE NOTES: Patient's blood sugar is 121mg/dl. Awake, verbally responsive. Patient refused to take 9:00am scheduled medications. RN re-educated on medications. Patient refused x3.
--- NOTE | 2019-01-22 11:23 | Infectious Diseases Prog Note ---
Assessment/Plan Assessment/Plan Assessment: Probable sepsis- ?source -01/17 Bcx NTD Leukocytosis; SP Afebrile -CXR: Basilar atelectatic changes. No acute process otherwise. Upper mediastinal mass deviating the trachea, demonstrated on multiple prior studies and seen on prior CT to represent an enlarged left thyroid lobe thyroid mass -thyroid US: Heterogeneous multinodular thyroid gland with a larger left lobe. Largest single lesion is 1 cm within the left lobe with a TIRADS score of 3. Per ACR recommendations, this lesion could be disregarded. B/l knee pain- limited examination as patient did not allowed me but does not appear to be septic- ?gout- sensitive even with the touch of the bedsheets -L knee xray: No obvious acute fracture. Severe chronic contraction deformity -R knee xray: Severe contraction deformity of the right knee which is flexed. No obvious acute fracture identified. 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 Largest single lesion is 1 cm within the left lobe with a TIRADS score of 3. Per ACR recommendations, this lesion could be disregarded. Interpretation is based on ACR Thyroid Imaging Reporting and Data System (ACR TI-RADS). hypercoagulable state (lupus anticoagulant) chronic pancreatitis dementia CAD s/p LAD PCI ESRD on HD via perma cath s/p AVG RUG [place] resident Plan: -D/c empiric Doxycycline and Augmentin #4 (abx d #5) and monitor offa bx -01/19 SP Zosyn #2 -f/u cx -Monitor CBC/CMP, temperatures -f/u Bcx x2 Thank you for this consultation. Will continue to follow along with you. Discussed with RN Subjective Allergies: Coded Allergies: No Known Allergies (Unverified , 02/01/12) Subjective afebrile leukocytosis resolved Bcx NTD refusing oral antibiotics Objective Vital Signs Last 24 Hour Vital Signs Date Time Temp Pulse Resp B/P (MAP) Pulse Ox O2 Delivery O2 Flow Rate FiO2 01/22/19 09:00 Room Air 01/22/19 08:06 89 16 97 Room Air 21 01/22/19 08:00 97.1 93 17 129/67 (87) 100 01/22/19 04:00 97.0 93 19 123/54 (77) 98 01/22/19 00:00 98.4 97 18 92/45 (61) 98 01/21/19 21:00 Room Air 01/21/19 20:03 77 18 96 Room Air 21 01/21/19 20:00 96.9 99 19 119/51 (73) 99 01/21/19 17:57 141/73 01/21/19 16:00 98.3 96 18 141/73 (95) 100 01/21/19 12:00 97.7 91 18 149/71 (97) 99 Height (Feet): 5 Height (Inches): 7.00 Weight (Pounds): 100 Objective GENERAL: The patient is a well-developed and well-nourished male, who is somnolent, but arousable. HEENT: Eyes, pupils are equal and responsive to light and accommodation. Extraocular movements are intact. NECK: Supple. No lymphadenopathy. CHEST: Lungs are clear to auscultation bilaterally without wheezes or rales. CARDIOVASCULAR: Regular rhythm and rate. S1, S2 are normal without murmurs, rubs, or gallops. ABDOMEN: Soft, nontender, and nondistended. Positive bowel sounds. No evidence of hepatosplenomegaly. Currently, no rebound or guarding noted. EXTREMITIES: Negative for clubbing, cyanosis, or edema. Laboratory Tests Test 01/22/19 06:10 White Blood Count 7.4 K/UL (4.8-10.8) Red Blood Count 3.00 M/UL (4.70-6.10) L Hemoglobin 9.0 G/DL (14.2-18.0) L Hematocrit 28.2 % (42.0-52.0) L Mean Corpuscular Volume 94 FL (80-99) Mean Corpuscular Hemoglobin 29.8 PG (27.0-31.0) Mean Corpuscular Hemoglobin Concent 31.8 G/DL (32.0-36.0) L Red Cell Distribution Width 16.0 % (11.6-14.8) H Platelet Count 218 K/UL (150-450) Mean Platelet Volume 6.3 FL (6.5-10.1) L Neutrophils (%) (Auto) 70.4 % (45.0-75.0) Lymphocytes (%) (Auto) 18.3 % (20.0-45.0) L Monocytes (%) (Auto) 10.3 % (1.0-10.0) H Eosinophils (%) (Auto) 0.5 % (0.0-3.0) Basophils (%) (Auto) 0.5 % (0.0-2.0) Sodium Level 139 MMOL/L (136-145) Potassium Level 3.7 MMOL/L (3.5-5.1) Chloride Level 102 MMOL/L (98-107) Carbon Dioxide Level 28 MMOL/L (21-32) Anion Gap 9 mmol/L (5-15) Blood Urea Nitrogen 27 mg/dL (7-18) H Creatinine 4.6 MG/DL (0.55-1.30) H Estimat Glomerular Filtration Rate mL/min (>60) Glucose Level 73 MG/DL (74-106) L Calcium Level 8.4 MG/DL (8.5-10.1) L Phosphorus Level 3.7 MG/DL (2.5-4.9) Magnesium Level 2.1 MG/DL (1.8-2.4) Current Medications Medications (Trade) Dose Ordered Sig/Tess Route PRN Reason Start Time Stop Time Status Last Admin Dose Admin Acetaminophen (Tylenol) 650 mg Q4H PRN ORAL Mild Pain (Pain Scale 1-3) 01/20/19 01:00 02/14/19 16:59 Acetaminophen (Tylenol) 650 mg Q4H PRN ORAL fever 01/20/19 01:00 02/14/19 16:59 Acetaminophen/ Hydrocodone Bitart ([place] 5/325) 1 tab Q4H PRN ORAL For Pain 01/21/19 17:30 01/24/19 17:29 Albuterol/ Ipratropium (Albuterol/ Ipratropium) 3 ml Q4H PRN HHN Shortness of Breath 01/20/19 00:00 01/24/19 11:49 Amoxicillin/ Clavulanate Potassium (Augmentin) 875 mg EVERY 12 HOURS ORAL 01/20/19 09:00 01/26/19 20:59 01/20/19 21:44 Clonidine HCl (Catapres Tab) 0.1 mg Q4H PRN ORAL sbp more than 160 01/20/19 01:15 02/14/19 17:14 Clopidogrel Bisulfate (Plavix) 75 mg DAILY ORAL 01/20/19 09:00 02/15/19 08:59 01/20/19 09:26 Dextrose (Dextrose 50%) 25 ml Q30M PRN IV Hypoglycemia 01/19/19 21:30 02/14/19 16:59 Dextrose (Dextrose 50%) 50 ml Q30M PRN IV Hypoglycemia 01/19/19 21:30 02/14/19 16:59 Doxycycline Monohydrate (Doxycycline Monohydrate) 100 mg EVERY 12 HOURS ORAL 01/20/19 09:00 01/26/19 20:59 01/20/19 21:44 Dronabinol (Marinol) 2.5 mg BID ORAL 01/22/19 09:00 02/18/19 06:29 Glucagon (Glucagon) 1 mg DAILYPRN PRN IM BG < 65 if refusing juice/food 01/22/19 08:30 02/21/19 08:29 Heparin Sodium (Porcine) (Heparin 5000 units/ml) 5,000 units EVERY 12 HOURS SUBQ 01/20/19 09:00 02/14/19 20:59 Heparin Sodium (Porcine) (Heparin Sod 1000 units/ml 10ml) 2,000 unit ONCE IV 01/20/19 09:00 01/25/19 08:59 Hydralazine HCl (Apresoline) 25 mg BID ORAL 01/20/19 09:00 02/14/19 17:59 01/21/19 17:57 Insulin Aspart (NovoLOG) BEFORE MEALS AND HS SUBQ 01/20/19 06:30 02/14/19 20:59 01/21/19 20:22 Lorazepam (Ativan) 1 mg Q4H PRN ORAL For Anxiety 01/21/19 17:30 01/24/19 17:29 Meclizine HCl (Antivert) 25 mg THREE TIMES A DAY ORAL 01/20/19 09:00 02/14/19 17:59 01/21/19 17:57 Metoprolol Succinate (Toprol XL) 100 mg DAILY ORAL 01/20/19 09:00 02/15/19 08:59 01/20/19 09:26 Mirtazapine (Remeron) 7.5 mg BEDTIME PRN ORAL depression 01/20/19 21:00 02/14/19 16:59 Mirtazapine (Remeron) 30 mg BEDTIME ORAL 01/22/19 21:00 02/21/19 20:59 Morphine Sulfate (Morphine Sulfate) 2 mg Q4H PRN IVP severe pain 7-10 01/21/19 17:30 01/24/19 17:29 Nitroglycerin (Ntg) 0.4 mg Q5M X 3 DOSES PRN SL Prn Chest Pain 01/19/19 21:15 02/14/19 17:14 Ondansetron HCl (Zofran) 4 mg Q6H PRN IVP Nausea & Vomiting 01/19/19 23:00 02/14/19 16:59 Oxycodone/ Acetaminophen (Percocet 5-325) 1 tab Q6H PRN ORAL pain 4-10 01/21/19 17:30 01/24/19 17:29 Pantoprazole (Protonix) 40 mg DAILY ORAL 01/20/19 09:00 02/15/19 08:59 Polyethylene Glycol (Miralax) 17 gm HSPRN PRN ORAL Constipation 01/20/19 17:15 02/14/19 17:14 Sodium Chloride 1,000 ml @ 500 mls/hr Q2H PRN IVLG sbp<90 during hd 01/21/19 10:50 02/20/19 10:49 Temazepam (Restoril) 15 mg HSPRN PRN ORAL Insomnia 01/21/19 17:30 01/23/19 17:29 Vitamin B Complex/ Vit C/Folic Acid (Nephrovite) 1 tab DAILY ORAL 01/20/19 09:00 02/15/19 08:59 01/20/19 09:26 Kristina Elmore M.D. Jan 22, 2019 11:23
--- NOTE | 2019-01-22 11:30 | NUR ---
NURSE NOTES: Patient's blood sugar is 106mg/dl. Will continue to monitor.
[2019-01-22 12:00] VITALS: BP 127/56
--- NOTE | 2019-01-22 12:43 | Pulmonology Progress Note ---
Assessment/Plan Problems: (1) Sepsis (2) Refuses to eat (3) ESRD (end stage renal disease) (4) Chronic pancreatitis (5) Diabetic retinopathy (6) Diabetes mellitus Assessment/Plan afebrile, no new complains, still confuse still confused symptomatic treatment HD by scientific research manager neuro and psych evaluation. sliding scale check electrolytes refusing meds, refused HD Subjective ROS Limited/Unobtainable: Yes Constitutional: Reports: no symptoms HEENT: Repors: no symptoms Allergies: Coded Allergies: No Known Allergies (Unverified , 02/01/12) Objective Last 24 Hour Vital Signs Date Time Temp Pulse Resp B/P (MAP) Pulse Ox O2 Delivery O2 Flow Rate FiO2 01/22/19 12:00 96.8 87 18 127/56 (79) 98 01/22/19 09:00 Room Air 01/22/19 08:06 89 16 97 Room Air 21 01/22/19 08:00 97.1 93 17 129/67 (87) 100 01/22/19 04:00 97.0 93 19 123/54 (77) 98 01/22/19 00:00 98.4 97 18 92/45 (61) 98 01/21/19 21:00 Room Air 01/21/19 20:03 77 18 96 Room Air 21 01/21/19 20:00 96.9 99 19 119/51 (73) 99 01/21/19 17:57 141/73 01/21/19 16:00 98.3 96 18 141/73 (95) 100 Intake and Output 01/21/19 01/22/19 18:59 06:59 Intake Total 240 ml Balance 240 ml Intake Oral 240 ml # Voids 2 # Bowel Movements 2 General Appearance: WD/WN, no acute distress HEENT: normocephalic, atraumatic Respiratory/Chest: chest wall non-tender, normal breath sounds Cardiovascular: normal peripheral pulses, normal rate Abdomen: normal bowel sounds, soft, non tender Genitourinary: normal external genitalia Extremities: no clubbing Skin: no rash Laboratory Tests 01/22/19 06:10: White Blood Count 7.4, Red Blood Count 3.00L, Hemoglobin 9.0L, Hematocrit 28.2L , Mean Corpuscular Volume 94, Mean Corpuscular Hemoglobin 29.8, Mean Corpuscular Hemoglobin Concent 31.8L, Red Cell Distribution Width 16.0H, Platelet Count 218, Mean Platelet Volume 6.3L, Neutrophils (%) (Auto) 70.4, Lymphocytes (%) (Auto) 18.3L, Monocytes (%) (Auto) 10.3H, Eosinophils (%) (Auto ) 0.5, Basophils (%) (Auto) 0.5, Sodium Level 139, Potassium Level 3.7, Chloride Level 102, Carbon Dioxide Level 28, Anion Gap 9, Blood Urea Nitrogen 27H, Creatinine 4.6H, Estimat Glomerular Filtration Rate , Glucose Level 73L, Calcium Level 8.4L, Phosphorus Level 3.7, Magnesium Level 2.1 Current Medications Medications (Trade) Dose Ordered Sig/Tess Route PRN Reason Start Time Stop Time Status Last Admin Dose Admin Acetaminophen (Tylenol) 650 mg Q4H PRN ORAL Mild Pain (Pain Scale 1-3) 01/20/19 01:00 02/14/19 16:59 Acetaminophen (Tylenol) 650 mg Q4H PRN ORAL fever 01/20/19 01:00 02/14/19 16:59 Acetaminophen/ Hydrocodone Bitart ([place] 5/325) 1 tab Q4H PRN ORAL For Pain 01/21/19 17:30 01/24/19 17:29 Albuterol/ Ipratropium (Albuterol/ Ipratropium) 3 ml Q4H PRN HHN Shortness of Breath 01/20/19 00:00 01/24/19 11:49 Clonidine HCl (Catapres Tab) 0.1 mg Q4H PRN ORAL sbp more than 160 01/20/19 01:15 02/14/19 17:14 Clopidogrel Bisulfate (Plavix) 75 mg DAILY ORAL 01/20/19 09:00 02/15/19 08:59 01/20/19 09:26 Dextrose (Dextrose 50%) 25 ml Q30M PRN IV Hypoglycemia 01/19/19 21:30 02/14/19 16:59 Dextrose (Dextrose 50%) 50 ml Q30M PRN IV Hypoglycemia 01/19/19 21:30 02/14/19 16:59 Dronabinol (Marinol) 2.5 mg BID ORAL 01/22/19 09:00 02/18/19 06:29 Glucagon (Glucagon) 1 mg DAILYPRN PRN IM BG < 65 if refusing juice/food 01/22/19 08:30 02/21/19 08:29 Heparin Sodium (Porcine) (Heparin 5000 units/ml) 5,000 units EVERY 12 HOURS SUBQ 01/20/19 09:00 02/14/19 20:59 Heparin Sodium (Porcine) (Heparin Sod 1000 units/ml 10ml) 2,000 unit ONCE IV 01/20/19 09:00 01/25/19 08:59 Hydralazine HCl (Apresoline) 25 mg BID ORAL 01/20/19 09:00 02/14/19 17:59 01/21/19 17:57 Insulin Aspart (NovoLOG) BEFORE MEALS AND HS SUBQ 01/20/19 06:30 02/14/19 20:59 01/21/19 20:22 Lorazepam (Ativan) 1 mg Q4H PRN ORAL For Anxiety 01/21/19 17:30 01/24/19 17:29 Meclizine HCl (Antivert) 25 mg THREE TIMES A DAY ORAL 01/20/19 09:00 02/14/19 17:59 01/21/19 17:57 Metoprolol Succinate (Toprol XL) 100 mg DAILY ORAL 01/20/19 09:00 02/15/19 08:59 01/20/19 09:26 Mirtazapine (Remeron) 7.5 mg BEDTIME PRN ORAL depression 01/20/19 21:00 02/14/19 16:59 Mirtazapine (Remeron) 30 mg BEDTIME ORAL 01/22/19 21:00 02/21/19 20:59 Morphine Sulfate (Morphine Sulfate) 2 mg Q4H PRN IVP severe pain 7-10 01/21/19 17:30 01/24/19 17:29 Nitroglycerin (Ntg) 0.4 mg Q5M X 3 DOSES PRN SL Prn Chest Pain 01/19/19 21:15 02/14/19 17:14 Ondansetron HCl (Zofran) 4 mg Q6H PRN IVP Nausea & Vomiting 01/19/19 23:00 02/14/19 16:59 Oxycodone/ Acetaminophen (Percocet 5-325) 1 tab Q6H PRN ORAL pain 4-10 01/21/19 17:30 01/24/19 17:29 Pantoprazole (Protonix) 40 mg DAILY ORAL 01/20/19 09:00 02/15/19 08:59 Polyethylene Glycol (Miralax) 17 gm HSPRN PRN ORAL Constipation 01/20/19 17:15 02/14/19 17:14 Sodium Chloride 1,000 ml @ 500 mls/hr Q2H PRN IVLG sbp<90 during hd 01/21/19 10:50 02/20/19 10:49 Temazepam (Restoril) 15 mg HSPRN PRN ORAL Insomnia 01/21/19 17:30 01/23/19 17:29 Vitamin B Complex/ Vit C/Folic Acid (Nephrovite) 1 tab DAILY ORAL 01/20/19 09:00 02/15/19 08:59 01/20/19 09:26 Kevin Washington MD Jan 22, 2019 12:43
--- NOTE | 2019-01-22 13:55 | NUR ---
RD ASSESSMENT & RECOMMENDATIONS SEE CARE ACTIVITY FOR COMPLETE ASSESSMENT DAILY ESTIMATED NEEDS: Needs based on ESRD, HD + DM/ 58kg 25-35 kcals/kg 4771-7529 total kcals 1.25-1.8 g protein/kg 73-104 g total protein 20-22 mL/kg 7990-7723 total fluid mLs NUTRITION DIAGNOSIS: * Increased kcal/prot needs R/T HD dep as evidenced by h/o ESRD, on HD, refusing meals at this time * Swallowing difficulty R/T dysphagia as evidenced by pt on [facility] soft chopped texture diet. [facility] soft chopped PO DIET RECOMMENDATIONS: W/ current poor intake, rec liberalized REGULAR/ texture per DOBBY LOOM FIXER ADDITIONAL RECOMMENDATIONS: * Calibrated bedscale wt for accurate CBW * Monitor PO acceptance: refusing meals at this time * DOBBY LOOM FIXER eval for appropriate texture * Monitor BGs: 329 upon adm -> now w/ hypoglycemia * NEPRO TID w/ meals * If agreeable add HERLINDA BID for wound care ------ 48 HOUR KCAL COUNT: Meal 1: 0% total meal B1: 3 bites hot cereal, 1 juice (60kcal) D1: 0% total meal L1: unclear documentation, 25% (not specified- of meal, of item?) D2: 100% carrots (~40 kcal), 50% juice (30 kcal) ---- Per polst, no TF's. Pt also refusing appetite stimulants. Pt is not meeting est daily needs as above w/ oral diet. Will add NEPRO TID w/ meals.
--- NOTE | 2019-01-22 14:38 | Surgery Progress Note ---
Surgery Progress Note Subjective Symptoms: other Objective Last 24 Hour Vital Signs Date Time Temp Pulse Resp B/P (MAP) Pulse Ox O2 Delivery O2 Flow Rate FiO2 01/22/19 12:00 96.8 87 18 127/56 (79) 98 01/22/19 09:00 Room Air 01/22/19 08:06 89 16 97 Room Air 21 01/22/19 08:00 97.1 93 17 129/67 (87) 100 01/22/19 04:00 97.0 93 19 123/54 (77) 98 01/22/19 00:00 98.4 97 18 92/45 (61) 98 01/21/19 21:00 Room Air 01/21/19 20:03 77 18 96 Room Air 21 01/21/19 20:00 96.9 99 19 119/51 (73) 99 01/21/19 17:57 141/73 01/21/19 16:00 98.3 96 18 141/73 (95) 100 I&O Intake and Output 01/21/19 01/22/19 18:59 06:59 Intake Total 240 ml Balance 240 ml Intake Oral 240 ml # Voids 2 # Bowel Movements 2 Dressing: saturated, other Wound: other Cardiovascular: RSR Respiratory: decreased breath sounds Abdomen: soft, present bowel sounds Extremities: no cyanosis, other Laboratory Tests Test 01/22/19 06:10 White Blood Count 7.4 K/UL (4.8-10.8) Red Blood Count 3.00 M/UL (4.70-6.10) L Hemoglobin 9.0 G/DL (14.2-18.0) L Hematocrit 28.2 % (42.0-52.0) L Mean Corpuscular Volume 94 FL (80-99) Mean Corpuscular Hemoglobin 29.8 PG (27.0-31.0) Mean Corpuscular Hemoglobin Concent 31.8 G/DL (32.0-36.0) L Red Cell Distribution Width 16.0 % (11.6-14.8) H Platelet Count 218 K/UL (150-450) Mean Platelet Volume 6.3 FL (6.5-10.1) L Neutrophils (%) (Auto) 70.4 % (45.0-75.0) Lymphocytes (%) (Auto) 18.3 % (20.0-45.0) L Monocytes (%) (Auto) 10.3 % (1.0-10.0) H Eosinophils (%) (Auto) 0.5 % (0.0-3.0) Basophils (%) (Auto) 0.5 % (0.0-2.0) Sodium Level 139 MMOL/L (136-145) Potassium Level 3.7 MMOL/L (3.5-5.1) Chloride Level 102 MMOL/L (98-107) Carbon Dioxide Level 28 MMOL/L (21-32) Anion Gap 9 mmol/L (5-15) Blood Urea Nitrogen 27 mg/dL (7-18) H Creatinine 4.6 MG/DL (0.55-1.30) H Estimat Glomerular Filtration Rate mL/min (>60) Glucose Level 73 MG/DL (74-106) L Calcium Level 8.4 MG/DL (8.5-10.1) L Phosphorus Level 3.7 MG/DL (2.5-4.9) Magnesium Level 2.1 MG/DL (1.8-2.4) Plan Problems: (1) Decubitus skin ulcer Assessment & Plan: Pt presented on admission with boggy and non-blanchable R and L heels. R heel extends into plantar aspect at distal / lateral R foot an area of fluctuance with purple area in center noted. Sacrum is dry and intact without evidence of skin breakdown. Pt observed to keep both knees drawn but was able to extend lower ext. with PROM. Non complaint with care plan for wounds agitated and aggressive at times Overall prognosis guarded. Continue with care plan as below upon discharge. Tx.Plan: Apply Cavilon Skin Barrier to both heels ,malleoli and lateral aspects of both feet. Change every 7 days and prn. Apply Moisture Barrier to both heels. Cover Sacrum with Optifoam drsg. Change every 3 days and prn. Reposition at least every 2hours or as tolerated. Off-load heels with pillow. Ajit Saleem Jan 22, 2019 14:38
[2019-01-22 16:00] VITALS: BP 141/71
--- NOTE | 2019-01-22 16:30 | NUR ---
NURSE NOTES: Patint's blood sugar is 145mg/dl. Given 3 units of novolog.
--- NOTE | 2019-01-22 16:36 | NUR ---
SPEECH PATHOLOGY: PATIENT IS A 78 YEAR OLD MALE ADMITTED S/P MULTIPLE DAYS OF REFUSING MEDICATION/MEALS. DYSPHAGIA RISK FACTORS INCLUDE ADVANCED DEMENTIA, FAILURE TO THRIVE, OPPOSITIONAL TO P.O: LOSS OF APPETITE/REFUSAL TO EAT, SKIN INTEGRITY ALTERED. 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 TRIALS OF THIN (TSP/STRAW), NECTAR (TSP/CUP SIP), PUREE (2 OZ) AND SMALL PIECE OF SOFT CHEWABLE SOLID IMPRESSION: MILD/TO/MODERATE OROPHARYNGEAL DYSPHAGIA DECREASED MENTATION AND SENSORIMOTOR DEFICITS WHICH LEAD TO POOR BOLUS ACCEPTANCE, PROLONGED ORAL PREPARATION/ORAL TRANSIT TIME AND DELAY IN INITIATION OF PHARYNGEAL PHASE OF THE SWALLOW. NO OVERT S/S OF ASPIRATION BASED ON PATIENTS HX OF DEMENTIA, RISK OF SILENT ASPIRATION IS PRESENT RECOMMENDAQTIONS; 1. FOR QUAITY OF LIFE/ORAL GRATIFICATION, CONTINUE CURRENT DIET 2. ASPIRATION PRECAUTIONS POSTED AT BEDSIDE. 3. TOTAL ASSIST WITH MEALS 4. CRUSH CRUSHABLE MEDS/PRESENT IN PUREE 5. NO FURTHER SKILLED ST SERVICES RECOMMENDED AT THIS TIME. 6. RECOMMENDING A PALLIATIVE/COMFORT-CENTERED CARE REFERRAL.
--- NOTE | 2019-01-22 16:56 | Nephrology Progress Note ---
Assessment/Plan Assessment 1) ESRD 2) Dementia 3) bilateral knee pain 4) ? Uremia 5) Leukocytosis with underlying ? infection probably PNA improved 6) Diffuse pain most likely due to statin Plan: HD done today ATB per ID off of statin Subjective Subjective He had HD clay puddler today, no c/p , no sob, WBC is 7.4K Objective Objective Last 24 Hour Vital Signs Date Time Temp Pulse Resp B/P (MAP) Pulse Ox O2 Delivery O2 Flow Rate FiO2 01/22/19 12:00 96.8 87 18 127/56 (79) 98 01/22/19 09:00 Room Air 01/22/19 08:06 89 16 97 Room Air 21 01/22/19 08:00 97.1 93 17 129/67 (87) 100 01/22/19 04:00 97.0 93 19 123/54 (77) 98 01/22/19 00:00 98.4 97 18 92/45 (61) 98 01/21/19 21:00 Room Air 01/21/19 20:03 77 18 96 Room Air 21 01/21/19 20:00 96.9 99 19 119/51 (73) 99 01/21/19 17:57 141/73 Intake and Output 01/21/19 01/22/19 19:00 07:00 Intake Total 240 ml Balance 240 ml Intake Oral 240 ml # Voids 2 # Bowel Movements 2 Laboratory Tests 01/22/19 06:10: White Blood Count 7.4, Red Blood Count 3.00L, Hemoglobin 9.0L, Hematocrit 28.2L , Mean Corpuscular Volume 94, Mean Corpuscular Hemoglobin 29.8, Mean Corpuscular Hemoglobin Concent 31.8L, Red Cell Distribution Width 16.0H, Platelet Count 218, Mean Platelet Volume 6.3L, Neutrophils (%) (Auto) 70.4, Lymphocytes (%) (Auto) 18.3L, Monocytes (%) (Auto) 10.3H, Eosinophils (%) (Auto ) 0.5, Basophils (%) (Auto) 0.5, Sodium Level 139, Potassium Level 3.7, Chloride Level 102, Carbon Dioxide Level 28, Anion Gap 9, Blood Urea Nitrogen 27H, Creatinine 4.6H, Estimat Glomerular Filtration Rate , Glucose Level 73L, Calcium Level 8.4L, Phosphorus Level 3.7, Magnesium Level 2.1 Height (Feet): 5 Height (Inches): 7.00 Weight (Pounds): 100 General Appearance: WD/WN, no apparent distress, alert EENT: PERRL/EOMI Neck: non-tender, supple Cardiovascular: normal rate, regular rhythm Respiratory/Chest: chest wall non-tender, lungs clear Abdomen: normal bowel sounds, non tender, soft Neurologic: account service representative II-XII grossly normal, disoriented Yassine Alamo MD Jan 22, 2019 16:56
--- NOTE | 2019-01-22 17:20 | NUR ---
NURSE NOTES: Patient ate some of his food and drank some juice.
--- NOTE | 2019-01-22 17:45 | Consultation ---
DATE OF CONSULTATION: 01/22/2019 CONSULTING PHYSICIAN: Frank Aguilera M.D. HISTORY OF PRESENT ILLNESS: The patient is a 78-year-old male who is well known to me from the [facility]. The patient is presenting with depressed mood, anhedonia, worthlessness, hopelessness, decreased energy. The patient has not been eating. The patient also stating that he wants to . The patient has been chronically depressed. He has failed gradual dose reduction. The patient is denying any suicidal or homicidal ideation; however, he is disoriented to date and the situation he is in. PAST PSYCHIATRIC HISTORY: Depression, dementia. PAST MEDICAL HISTORY: End-stage renal failure, lupus, diabetes mellitus, sepsis, decubitus skin ulcer. ALLERGIES: No known drug allergies. SUBSTANCE ABUSE HISTORY: There is no history of illicit drug use or alcohol. MENTAL STATUS EXAMINATION: The patient is alert, oriented times self. He knows the month, disoriented to year, date, and situation. Mood is depressed. Affect is constricted, congruent with mood. Thought processes is concrete. Thought content, no suicidal or homicidal ideation. Cognition is impaired. Insight and judgment limited. ASSESSMENT: [place] I Major depressive disorder. Dementia with behavior disturbance. [place] II Deferred. [place] III As above. [place] IV Low. PLAN: 1. The patient's Remeron will be increased to 30 mg at bedtime to stimulate his appetite and treat his depressive symptoms. 2. Provide the patient with reality orientation and supportive therapy. Frank Aguilera M.D. DR: LEANNA JOB#: [id number] CC:
--- NOTE | 2019-01-22 18:30 | Internal Med Progress Note ---
Subjective Date of Service: Jan 22, 2019 Physician Name Watson Sutherland Attending Physician Eddie Peralta MD Current Medications Medications (Trade) Dose Ordered Sig/Tess Route PRN Reason Start Time Stop Time Status Last Admin Dose Admin Acetaminophen (Tylenol) 650 mg Q4H PRN ORAL Mild Pain (Pain Scale 1-3) 01/20/19 01:00 02/14/19 16:59 Acetaminophen (Tylenol) 650 mg Q4H PRN ORAL fever 01/20/19 01:00 02/14/19 16:59 Acetaminophen/ Hydrocodone Bitart ([place] 5/325) 1 tab Q4H PRN ORAL For Pain 01/21/19 17:30 01/24/19 17:29 Albuterol/ Ipratropium (Albuterol/ Ipratropium) 3 ml Q4H PRN HHN Shortness of Breath 01/20/19 00:00 01/24/19 11:49 Clonidine HCl (Catapres Tab) 0.1 mg Q4H PRN ORAL sbp more than 160 01/20/19 01:15 02/14/19 17:14 Clopidogrel Bisulfate (Plavix) 75 mg DAILY ORAL 01/20/19 09:00 02/15/19 08:59 01/20/19 09:26 Dextrose (Dextrose 50%) 25 ml Q30M PRN IV Hypoglycemia 01/19/19 21:30 02/14/19 16:59 Dextrose (Dextrose 50%) 50 ml Q30M PRN IV Hypoglycemia 01/19/19 21:30 02/14/19 16:59 Dronabinol (Marinol) 2.5 mg BID ORAL 01/22/19 09:00 02/18/19 06:29 Glucagon (Glucagon) 1 mg DAILYPRN PRN IM BG < 65 if refusing juice/food 01/22/19 08:30 02/21/19 08:29 Heparin Sodium (Porcine) (Heparin 5000 units/ml) 5,000 units EVERY 12 HOURS SUBQ 01/20/19 09:00 02/14/19 20:59 Heparin Sodium (Porcine) (Heparin Sod 1000 units/ml 10ml) 2,000 unit ONCE IV 01/20/19 09:00 01/25/19 08:59 Hydralazine HCl (Apresoline) 25 mg BID ORAL 01/20/19 09:00 02/14/19 17:59 01/21/19 17:57 Insulin Aspart (NovoLOG) BEFORE MEALS AND HS SUBQ 01/20/19 06:30 02/14/19 20:59 01/22/19 16:53 Lorazepam (Ativan) 1 mg Q4H PRN ORAL For Anxiety 01/21/19 17:30 01/24/19 17:29 Meclizine HCl (Antivert) 25 mg THREE TIMES A DAY ORAL 01/20/19 09:00 02/14/19 17:59 01/21/19 17:57 Metoprolol Succinate (Toprol XL) 100 mg DAILY ORAL 01/20/19 09:00 02/15/19 08:59 01/20/19 09:26 Mirtazapine (Remeron) 7.5 mg BEDTIME PRN ORAL depression 01/20/19 21:00 02/14/19 16:59 Mirtazapine (Remeron) 30 mg BEDTIME ORAL 01/22/19 21:00 02/21/19 20:59 Morphine Sulfate (Morphine Sulfate) 2 mg Q4H PRN IVP severe pain 7-10 01/21/19 17:30 01/24/19 17:29 Nitroglycerin (Ntg) 0.4 mg Q5M X 3 DOSES PRN SL Prn Chest Pain 01/19/19 21:15 02/14/19 17:14 Ondansetron HCl (Zofran) 4 mg Q6H PRN IVP Nausea & Vomiting 01/19/19 23:00 02/14/19 16:59 Oxycodone/ Acetaminophen (Percocet 5-325) 1 tab Q6H PRN ORAL pain 4-10 01/21/19 17:30 01/24/19 17:29 Pantoprazole (Protonix) 40 mg DAILY ORAL 01/20/19 09:00 02/15/19 08:59 Polyethylene Glycol (Miralax) 17 gm HSPRN PRN ORAL Constipation 01/20/19 17:15 02/14/19 17:14 Sodium Chloride 1,000 ml @ 500 mls/hr Q2H PRN IVLG sbp<90 during hd 01/21/19 10:50 02/20/19 10:49 Temazepam (Restoril) 15 mg HSPRN PRN ORAL Insomnia 01/21/19 17:30 01/23/19 17:29 Vitamin B Complex/ Vit C/Folic Acid (Nephrovite) 1 tab DAILY ORAL 01/20/19 09:00 02/15/19 08:59 01/20/19 09:26 Allergies: Coded Allergies: No Known Allergies (Unverified , 02/01/12) ROS Limited/Unobtainable: Yes Subjective 78 YO M admitted with chief complaint bilateral knee pain and gen weakness. Leukocytosis improving. Cover for Int Med-Dr Peralta. Refusing to eat Objective Last Vital Signs Date Time Temp Pulse Resp B/P (MAP) Pulse Ox O2 Delivery O2 Flow Rate FiO2 01/22/19 16:00 98.5 90 18 141/71 (94) 100 01/22/19 09:00 Room Air 01/22/19 08:06 21 Laboratory Tests Test 01/22/19 06:10 White Blood Count 7.4 K/UL (4.8-10.8) Red Blood Count 3.00 M/UL (4.70-6.10) L Hemoglobin 9.0 G/DL (14.2-18.0) L Hematocrit 28.2 % (42.0-52.0) L Mean Corpuscular Volume 94 FL (80-99) Mean Corpuscular Hemoglobin 29.8 PG (27.0-31.0) Mean Corpuscular Hemoglobin Concent 31.8 G/DL (32.0-36.0) L Red Cell Distribution Width 16.0 % (11.6-14.8) H Platelet Count 218 K/UL (150-450) Mean Platelet Volume 6.3 FL (6.5-10.1) L Neutrophils (%) (Auto) 70.4 % (45.0-75.0) Lymphocytes (%) (Auto) 18.3 % (20.0-45.0) L Monocytes (%) (Auto) 10.3 % (1.0-10.0) H Eosinophils (%) (Auto) 0.5 % (0.0-3.0) Basophils (%) (Auto) 0.5 % (0.0-2.0) Sodium Level 139 MMOL/L (136-145) Potassium Level 3.7 MMOL/L (3.5-5.1) Chloride Level 102 MMOL/L (98-107) Carbon Dioxide Level 28 MMOL/L (21-32) Anion Gap 9 mmol/L (5-15) Blood Urea Nitrogen 27 mg/dL (7-18) H Creatinine 4.6 MG/DL (0.55-1.30) H Estimat Glomerular Filtration Rate mL/min (>60) Glucose Level 73 MG/DL (74-106) L Calcium Level 8.4 MG/DL (8.5-10.1) L Phosphorus Level 3.7 MG/DL (2.5-4.9) Magnesium Level 2.1 MG/DL (1.8-2.4) Intake and Output 01/21/19 01/22/19 19:00 07:00 Intake Total 240 ml Balance 240 ml Intake Oral 240 ml # Voids 2 # Bowel Movements 2 Objective PHYSICAL EXAMINATION: GENERAL: The patient is a well-developed and well-nourished male, who is somnolent, but arousable. HEENT: Eyes, pupils are equal and responsive to light and accommodation. Extraocular movements are intact. NECK: Supple. No lymphadenopathy. CHEST: Lungs are clear to auscultation bilaterally without wheezes or rales. CARDIOVASCULAR: Regular rhythm and rate. S1, S2 are normal without murmurs, rubs, or gallops. ABDOMEN: Soft, nontender, and nondistended. Positive bowel sounds. No evidence of hepatosplenomegaly. Currently, no rebound or guarding noted. EXTREMITIES: Negative for clubbing, cyanosis, or edema. RECTAL/GENITAL: Not performed. NEUROLOGIC: Cranial nerves II through XII are grossly intact without focal deficits. Assessment/Plan Assessment/Plan ASSESSMENT: This is a 78-year-old male. 1. Bilateral knee pain. 2. Generalized weakness. 3. Diabetes type 2. 4. End-stage renal disease. 5. Chronic obstructive pulmonary disease. 6. Coronary artery disease. 7. Lupus anticoagulant. 8. Chronic pancreatitis. 9. Diabetic nephropathy. 10. Diabetic retinopathy. 11. Diabetic gastropathy. 12. Gastroesophageal reflux disease. 13. Dysphagia. 14. Major depression. 15. Hypercholesterolemia. 16. Diabetic neuropathy. 17. Anemia of chronic renal disease. 18. Protein-calorie malnutrition. 19. uncontrolled hypertension 20. Leukocytosis 21. Anorexia 22. Discharge planning TREATMENT: 1. Bilateral knee pain. Initial x-rays were negative for fracture. The patient does have contractures. The patient will be offered [place] as above for knee pain. 2. Weakness of bilateral lower extremities. The patient has permanent contractures of bilateral knees. 3. Diabetes type 2. NovoLog sliding scale has been instituted. 4. End-stage renal disease, on hemodialysis. A Nephrology consultation has been obtained with Dr. Alamo. We will follow recommendations of Nephrology. Hemodialysis 01/19/19 and again 01/20/19 due to hyperkalemia 5. Chronic obstructive pulmonary disease. 6. Coronary artery disease. The patient is status post percutaneous transluminal coronary angioplasty in December of 2017 with stent placement. 7. Lupus anticoagulant. 8. Chronic pancreatitis. 9. Diabetic nephropathy. 10. Diabetic gastroparesis. 11. Gastroesophageal reflux disease. 12. Dysphagia. 13. Major depression. 14. Hypercholesterolemia. 15. Diabetic neuropathy. 16. Vitamin D deficiency. 17. Anemia of renal failure. 18. Encephalopathy. 19. Chronic deep venous thrombosis. Continue Coumadin as above. 20. Continue hydralazine, clonidine and metoprolol 21. Continue zosyn per ID 22. discharge plan: Watson Jones MD Jan 22, 2019 18:30
[2019-01-22 20:00] VITALS: BP 99/44
--- NOTE | 2019-01-22 20:15 | NUR ---
NURSE NOTES: Patient refusing water or juice but able to tolerate apple sauce with meds. Will monitor blood sugar closely.
[2019-01-23] VITALS: BP 133/66
[2019-01-23 04:00] VITALS: BP 146/60
[2019-01-23] MEDS: NovoLOG Insulin Flexpen SUBQ SCH (06:30)
--- NOTE | 2019-01-23 06:35 | General Progress Note ---
Assessment/Plan Problem List: (1) Thyroid mass ICD Codes: E07.9 - Disorder of thyroid, unspecified SNOMED: 694800296 (2) ESRD (end stage renal disease) ICD Codes: N18.6 - End stage renal disease SNOMED: 21066846 (3) Diabetes mellitus ICD Codes: E11.9 - Type 2 diabetes mellitus without complications SNOMED: 78679096 (4) Subclinical hyperthyroidism ICD Codes: E05.90 - Thyrotoxicosis, unspecified without thyrotoxic crisis or storm SNOMED: 522836051 Assessment/Plan: reduce insulin dose continue glucose monitoring TSH is suppressed - free T4 is normal - free T3 is low thyroid US revealed a non suspicious 1 cm nodule without need for FNA - no need for anti thyroid medications - follow TSI and ATPO r/o Graves' - pending Subjective ROS Limited/Unobtainable: Yes Allergies: Coded Allergies: No Known Allergies (Unverified , 02/01/12) Subjective events noted hypoglycemia yesterday after 3 units of insulin not eating well Item Value Date Time Bedside Blood Glucose 94 mg/dl 01/23/19 0631 Bedside Blood Glucose 69 mg/dl L 01/22/19 2028 Bedside Blood Glucose 145 mg/dl H 01/22/19 1653 Bedside Blood Glucose 106 mg/dl 01/22/19 1130 Bedside Blood Glucose 121 mg/dl H 01/22/19 1020 Bedside Blood Glucose 74 mg/dl 01/22/19 0532 Objective Last 24 Hour Vital Signs Date Time Temp Pulse Resp B/P (MAP) Pulse Ox O2 Delivery O2 Flow Rate FiO2 01/23/19 04:00 98.7 95 19 146/60 (88) 99 01/23/19 00:04 87 18 99 Room Air 21 01/23/19 00:00 97.7 87 19 133/66 (88) 100 01/22/19 22:51 Room Air 01/22/19 20:00 97.7 86 18 99/44 (62) 100 01/22/19 18:00 118/66 01/22/19 16:00 98.5 90 18 141/71 (94) 100 01/22/19 12:00 96.8 87 18 127/56 (79) 98 01/22/19 09:00 Room Air 01/22/19 08:06 89 16 97 Room Air 21 01/22/19 08:00 97.1 93 17 129/67 (87) 100 Intake and Output 01/22/19 01/23/19 19:00 07:00 Intake Total 240 ml Balance 240 ml Intake Oral 240 ml # Voids 2 # Bowel Movements 1 Height (Feet): 5 Height (Inches): 7.00 Weight (Pounds): 104 General Appearance: no apparent distress Neck: normal alignment Cardiovascular: normal rate Respiratory/Chest: lungs clear Abdomen: normal bowel sounds Objective Current Medications Medications (Trade) Dose Ordered Sig/Tess Route PRN Reason Start Time Stop Time Status Last Admin Dose Admin Acetaminophen (Tylenol) 650 mg Q4H PRN ORAL Mild Pain (Pain Scale 1-3) 01/20/19 01:00 02/14/19 16:59 Acetaminophen (Tylenol) 650 mg Q4H PRN ORAL fever 01/20/19 01:00 02/14/19 16:59 Acetaminophen/ Hydrocodone Bitart ([place] 5/325) 1 tab Q4H PRN ORAL For Pain 01/21/19 17:30 01/24/19 17:29 Albuterol/ Ipratropium (Albuterol/ Ipratropium) 3 ml Q4H PRN HHN Shortness of Breath 01/20/19 00:00 01/24/19 11:49 Clonidine HCl (Catapres Tab) 0.1 mg Q4H PRN ORAL sbp more than 160 01/20/19 01:15 02/14/19 17:14 Clopidogrel Bisulfate (Plavix) 75 mg DAILY ORAL 01/20/19 09:00 02/15/19 08:59 01/20/19 09:26 Dextrose (Dextrose 50%) 25 ml Q30M PRN IV Hypoglycemia 01/19/19 21:30 02/14/19 16:59 Dextrose (Dextrose 50%) 50 ml Q30M PRN IV Hypoglycemia 01/19/19 21:30 02/14/19 16:59 Dronabinol (Marinol) 2.5 mg BID ORAL 01/22/19 09:00 02/18/19 06:29 01/22/19 18:42 Glucagon (Glucagon) 1 mg DAILYPRN PRN IM BG < 65 if refusing juice/food 01/22/19 08:30 02/21/19 08:29 Heparin Sodium (Porcine) (Heparin 5000 units/ml) 5,000 units EVERY 12 HOURS SUBQ 01/20/19 09:00 02/14/19 20:59 Heparin Sodium (Porcine) (Heparin Sod 1000 units/ml 10ml) 2,000 unit ONCE IV 01/20/19 09:00 01/25/19 08:59 Hydralazine HCl (Apresoline) 25 mg BID ORAL 01/20/19 09:00 02/14/19 17:59 01/21/19 17:57 Insulin Aspart (NovoLOG) BEFORE MEALS AND HS SUBQ 01/20/19 06:30 02/14/19 20:59 01/22/19 16:53 Lorazepam (Ativan) 1 mg Q4H PRN ORAL For Anxiety 01/21/19 17:30 01/24/19 17:29 Meclizine HCl (Antivert) 25 mg THREE TIMES A DAY ORAL 01/20/19 09:00 02/14/19 17:59 01/22/19 18:43 Metoprolol Succinate (Toprol XL) 100 mg DAILY ORAL 01/20/19 09:00 02/15/19 08:59 01/20/19 09:26 Mirtazapine (Remeron) 7.5 mg BEDTIME PRN ORAL depression 01/20/19 21:00 02/14/19 16:59 Mirtazapine (Remeron) 30 mg BEDTIME ORAL 01/22/19 21:00 02/21/19 20:59 01/22/19 21:17 Morphine Sulfate (Morphine Sulfate) 2 mg Q4H PRN IVP severe pain 7-10 01/21/19 17:30 01/24/19 17:29 Nitroglycerin (Ntg) 0.4 mg Q5M X 3 DOSES PRN SL Prn Chest Pain 01/19/19 21:15 02/14/19 17:14 Ondansetron HCl (Zofran) 4 mg Q6H PRN IVP Nausea & Vomiting 01/19/19 23:00 02/14/19 16:59 Oxycodone/ Acetaminophen (Percocet 5-325) 1 tab Q6H PRN ORAL pain 4-10 01/21/19 17:30 01/24/19 17:29 Pantoprazole (Protonix) 40 mg DAILY ORAL 01/20/19 09:00 02/15/19 08:59 Polyethylene Glycol (Miralax) 17 gm HSPRN PRN ORAL Constipation 01/20/19 17:15 02/14/19 17:14 Sodium Chloride 1,000 ml @ 500 mls/hr Q2H PRN IVLG sbp<90 during hd 01/21/19 10:50 02/20/19 10:49 Temazepam (Restoril) 15 mg HSPRN PRN ORAL Insomnia 01/21/19 17:30 01/23/19 17:29 Vitamin B Complex/ Vit C/Folic Acid (Nephrovite) 1 tab DAILY ORAL 01/20/19 09:00 02/15/19 08:59 01/20/19 09:26 Andrés Bansal MD Jan 23, 2019 06:35
--- NOTE | 2019-01-23 07:04 | NUR ---
HAND-OFF: Report given to ASHA Scott.
--- NOTE | 2019-01-23 07:05 | NUR ---
NURSE NOTES: Report received from overnight nurse. Report also given to nursing informatics clinical analyst. Bed side rounding done on patient. Patient repositioned and boosted in bed with help of nursing informatics clinical analyst. Patient appears not to be in distress, but does complain of bilateral knee pain. Patient states he is hungry and would like to eat breakfast. Sat patient up in Fowlers position in preparation for breakfast. Patient does not have IV access MD aware. Old upper AV shunt noted, patient does not use. Right upper chest perma cath used for hemodialysis. Bed in lowest position, locked, and alarmed. Call light within reach. Will follow protocol and give PRN pain medication.
[2019-01-23 07:12] LABS: BASOPHILS % (AUTO) 0.5 % (0.0-2.0); EOSINOPHILS % (AUTO) 1.2 % (0.0-3.0); HEMATOCRIT 28.2 % (42.0-52.0); HEMOGLOBIN 9.1 G/DL (14.2-18.0); LYMPHOCYTES % (AUTO) 22.9 % (20.0-45.0); MEAN CORPUSCULAR VOLUME 92 FL (80-99); MONOCYTES % (AUTO) 9.4 % (1.0-10.0); PLATELET COUNT 235 K/UL (150-450); RED BLOOD COUNT 3.06 M/UL (4.70-6.10); RED CELL DISTRIBUTION WIDTH 15.5 % (11.6-14.8); WHITE BLOOD COUNT 9.5 K/UL (4.8-10.8)
[2019-01-23 07:16] LABS: ANION GAP 16 mmol/L (5-15); BLOOD UREA NITROGEN 35 mg/dL (7-18); CALCIUM 8.2 MG/DL (8.5-10.1); CARBON DIOXIDE 24 MMOL/L (21-32); CHLORIDE 102 MMOL/L (98-107); CREATININE 6.2 MG/DL (0.55-1.30); POTASSIUM 3.6 MMOL/L (3.5-5.1); SODIUM 142 MMOL/L (136-145)
[2019-01-23 07:20] LABS: % IRON SATURATION 39 % (15-50); IRON 38 ug/dL (50-175); TOTAL IRON BINDING CAPACITY 98 ug/dL (250-450)
[2019-01-23 08:00] VITALS: BP 151/79
[2019-01-23] MEDS: Heparin Sod 1000 units/ml 10ml IV SCH (09:00)
[2019-01-23] MEDS: Dronabinol 2.5mg Cap ORAL SCH ×2 (09:00→09:06)
[2019-01-23] MEDS: Heparin 5000 units/ml inj SUBQ SCH (09:05)
[2019-01-23] MEDS: Meclizine 25mg tab ORAL SCH ×2 (09:07→13:00)
[2019-01-23] MEDS: Metoprolol Succinate XL 100mg tab ORAL SCH (09:08)
[2019-01-23] MEDS: Nephrovite tab (Rena-Vite) ORAL SCH (09:08)
[2019-01-23] MEDS: HydrALAZINE 25mg tab ORAL SCH (09:08)
--- NOTE | 2019-01-23 09:39 | NUR ---
DISCHARGE PLANNING: PATIENT HAS BEEN REFERRED TO [facility] T:[phone] CLINICALS HAVE BEEN FAXED; WAITING FOR RESPONSE.
--- NOTE | 2019-01-23 09:59 | NUR ---
DISCHARGE PLANNED: PATIENT HAS BEEN REFERRED BACK TO [facility] T: [phone] FOR NURSE TO NURSE REPORT ROOM# 11C INTERMEDIATE WAITING FOR DISCHARGE ORDER
--- NOTE | 2019-01-23 11:20 | Internal Med Progress Note ---
Subjective Date of Service: Jan 23, 2019 Physician Name Watson Sutherland Attending Physician Eddie Peralta MD Current Medications Medications (Trade) Dose Ordered Sig/Tess Route PRN Reason Start Time Stop Time Status Last Admin Dose Admin Acetaminophen (Tylenol) 650 mg Q4H PRN ORAL Mild Pain (Pain Scale 1-3) 01/20/19 01:00 02/14/19 16:59 Acetaminophen (Tylenol) 650 mg Q4H PRN ORAL fever 01/20/19 01:00 02/14/19 16:59 Acetaminophen/ Hydrocodone Bitart ([place] 5/325) 1 tab Q4H PRN ORAL For Pain 01/21/19 17:30 01/24/19 17:29 01/23/19 09:07 Albuterol/ Ipratropium (Albuterol/ Ipratropium) 3 ml Q4H PRN HHN Shortness of Breath 01/20/19 00:00 01/24/19 11:49 Clonidine HCl (Catapres Tab) 0.1 mg Q4H PRN ORAL sbp more than 160 01/20/19 01:15 02/14/19 17:14 Clopidogrel Bisulfate (Plavix) 75 mg DAILY ORAL 01/20/19 09:00 02/15/19 08:59 01/23/19 09:06 Dextrose (Dextrose 50%) 25 ml Q30M PRN IV Hypoglycemia 01/19/19 21:30 02/14/19 16:59 Dextrose (Dextrose 50%) 50 ml Q30M PRN IV Hypoglycemia 01/19/19 21:30 02/14/19 16:59 Dronabinol (Marinol) 2.5 mg BID ORAL 01/22/19 09:00 02/18/19 06:29 01/22/19 18:42 Glucagon (Glucagon) 1 mg DAILYPRN PRN IM BG < 65 if refusing juice/food 01/22/19 08:30 02/21/19 08:29 Heparin Sodium (Porcine) (Heparin 5000 units/ml) 5,000 units EVERY 12 HOURS SUBQ 01/20/19 09:00 02/14/19 20:59 01/23/19 09:05 Heparin Sodium (Porcine) (Heparin Sod 1000 units/ml 10ml) 2,000 unit ONCE IV 01/20/19 09:00 01/25/19 08:59 Hydralazine HCl (Apresoline) 25 mg BID ORAL 01/20/19 09:00 02/14/19 17:59 01/23/19 09:08 Insulin Aspart (NovoLOG) BEFORE MEALS AND HS SUBQ 01/23/19 11:30 02/14/19 20:59 Lorazepam (Ativan) 1 mg Q4H PRN ORAL For Anxiety 01/21/19 17:30 01/24/19 17:29 Meclizine HCl (Antivert) 25 mg THREE TIMES A DAY ORAL 01/20/19 09:00 02/14/19 17:59 01/23/19 09:07 Metoprolol Succinate (Toprol XL) 100 mg DAILY ORAL 01/20/19 09:00 02/15/19 08:59 01/23/19 09:08 Mirtazapine (Remeron) 7.5 mg BEDTIME PRN ORAL depression 01/20/19 21:00 02/14/19 16:59 Mirtazapine (Remeron) 30 mg BEDTIME ORAL 01/22/19 21:00 02/21/19 20:59 01/22/19 21:17 Morphine Sulfate (Morphine Sulfate) 2 mg Q4H PRN IVP severe pain 7-10 01/21/19 17:30 01/24/19 17:29 Nitroglycerin (Ntg) 0.4 mg Q5M X 3 DOSES PRN SL Prn Chest Pain 01/19/19 21:15 02/14/19 17:14 Ondansetron HCl (Zofran) 4 mg Q6H PRN IVP Nausea & Vomiting 01/19/19 23:00 02/14/19 16:59 Oxycodone/ Acetaminophen (Percocet 5-325) 1 tab Q6H PRN ORAL pain 4-10 01/21/19 17:30 01/24/19 17:29 Pantoprazole (Protonix) 40 mg DAILY ORAL 01/20/19 09:00 02/15/19 08:59 Polyethylene Glycol (Miralax) 17 gm HSPRN PRN ORAL Constipation 01/20/19 17:15 02/14/19 17:14 Sodium Chloride 1,000 ml @ 500 mls/hr Q2H PRN IVLG sbp<90 during hd 01/21/19 10:50 1/1/20 10:49 Temazepam (Restoril) 15 mg HSPRN PRN ORAL Insomnia 01/21/19 17:30 01/23/19 17:29 Vitamin B Complex/ Vit C/Folic Acid (Nephrovite) 1 tab DAILY ORAL 01/20/19 09:00 02/15/19 08:59 01/23/19 09:08 Allergies: Coded Allergies: No Known Allergies (Unverified , 02/01/12) Subjective 78 YO M admitted with chief complaint bilateral knee pain and gen weakness. Leukocytosis improving. Cover for Int Med-Dr Peralta. Refusing to eat Objective Last Vital Signs Date Time Temp Pulse Resp B/P (MAP) Pulse Ox O2 Delivery O2 Flow Rate FiO2 01/23/19 09:46 Room Air 01/23/19 09:08 96 151/79 01/23/19 08:00 97.3 17 100 01/23/19 00:04 21 Laboratory Tests Test 01/23/19 04:11 White Blood Count 9.5 K/UL (4.8-10.8) Red Blood Count 3.06 M/UL (4.70-6.10) L Hemoglobin 9.1 G/DL (14.2-18.0) L Hematocrit 28.2 % (42.0-52.0) L Mean Corpuscular Volume 92 FL (80-99) Mean Corpuscular Hemoglobin 29.7 PG (27.0-31.0) Mean Corpuscular Hemoglobin Concent 32.2 G/DL (32.0-36.0) Red Cell Distribution Width 15.5 % (11.6-14.8) H Platelet Count 235 K/UL (150-450) Mean Platelet Volume 5.9 FL (6.5-10.1) L Neutrophils (%) (Auto) 66.0 % (45.0-75.0) Lymphocytes (%) (Auto) 22.9 % (20.0-45.0) Monocytes (%) (Auto) 9.4 % (1.0-10.0) Eosinophils (%) (Auto) 1.2 % (0.0-3.0) Basophils (%) (Auto) 0.5 % (0.0-2.0) Sodium Level 142 MMOL/L (136-145) Potassium Level 3.6 MMOL/L (3.5-5.1) Chloride Level 102 MMOL/L (98-107) Carbon Dioxide Level 24 MMOL/L (21-32) Anion Gap 16 mmol/L (5-15) H Blood Urea Nitrogen 35 mg/dL (7-18) H Creatinine 6.2 MG/DL (0.55-1.30) H Estimat Glomerular Filtration Rate mL/min (>60) Glucose Level 66 MG/DL (74-106) L Calcium Level 8.2 MG/DL (8.5-10.1) L Iron Level 38 ug/dL (50-175) L Total Iron Binding Capacity 98 ug/dL (250-450) L Percent Iron Saturation 39 % (15-50) Unsaturated Iron Binding 60 ug/dL (112-346) L Intake and Output 01/22/19 01/23/19 19:00 07:00 Intake Total 240 ml Balance 240 ml Intake Oral 240 ml # Voids 2 # Bowel Movements 1 Objective PHYSICAL EXAMINATION: GENERAL: The patient is a well-developed and well-nourished male, who is somnolent, but arousable. HEENT: Eyes, pupils are equal and responsive to light and accommodation. Extraocular movements are intact. NECK: Supple. No lymphadenopathy. CHEST: Lungs are clear to auscultation bilaterally without wheezes or rales. CARDIOVASCULAR: Regular rhythm and rate. S1, S2 are normal without murmurs, rubs, or gallops. ABDOMEN: Soft, nontender, and nondistended. Positive bowel sounds. No evidence of hepatosplenomegaly. Currently, no rebound or guarding noted. EXTREMITIES: Negative for clubbing, cyanosis, or edema. RECTAL/GENITAL: Not performed. NEUROLOGIC: Cranial nerves II through XII are grossly intact without focal deficits. Assessment/Plan Assessment/Plan ASSESSMENT: This is a 78-year-old male. 1. Bilateral knee pain. 2. Generalized weakness. 3. Diabetes type 2. 4. End-stage renal disease. 5. Chronic obstructive pulmonary disease. 6. Coronary artery disease. 7. Lupus anticoagulant. 8. Chronic pancreatitis. 9. Diabetic nephropathy. 10. Diabetic retinopathy. 11. Diabetic gastropathy. 12. Gastroesophageal reflux disease. 13. Dysphagia. 14. Major depression. 15. Hypercholesterolemia. 16. Diabetic neuropathy. 17. Anemia of chronic renal disease. 18. Protein-calorie malnutrition. 19. uncontrolled hypertension 20. Leukocytosis 21. Anorexia 22. Discharge planning TREATMENT: 1. Bilateral knee pain. Initial x-rays were negative for fracture. The patient does have contractures. The patient will be offered [place] as above for knee pain. 2. Weakness of bilateral lower extremities. The patient has permanent contractures of bilateral knees. 3. Diabetes type 2. NovoLog sliding scale has been instituted. 4. End-stage renal disease, on hemodialysis. A Nephrology consultation has been obtained with Dr. Alamo. We will follow recommendations of Nephrology. Hemodialysis 01/19/19 and again 01/20/19 due to hyperkalemia 5. Chronic obstructive pulmonary disease. 6. Coronary artery disease. The patient is status post percutaneous transluminal coronary angioplasty in December of 2017 with stent placement. 7. Lupus anticoagulant. 8. Chronic pancreatitis. 9. Diabetic nephropathy. 10. Diabetic gastroparesis. 11. Gastroesophageal reflux disease. 12. Dysphagia. 13. Major depression. 14. Hypercholesterolemia. 15. Diabetic neuropathy. 16. Vitamin D deficiency. 17. Anemia of renal failure. 18. Encephalopathy. 19. Chronic deep venous thrombosis. Continue Coumadin as above. 20. Continue hydralazine, clonidine and metoprolol 21. Continue zosyn per ID 22. discharge plan: D/C to [facility] today Watson Sutherland MD Jan 23, 2019 11:20
[2019-01-23] MEDS ORDERED: MARINOL2.5 MG ORAL (11:23)
--- NOTE | 2019-01-23 11:24 | NUR ---
DISCHARGE PLANNED: PATIENT HAS BEEN ACCEPTED BACK [facility] T: [phone] FOR NURSE TO NURSE REPORT ROOM# 11C [facility] PICKUP TIME @ 1330 NURSES PLEASE MAKE FAMILY AWARE
[2019-01-23] MEDS ORDERED: NovoLOG Insulin Flexpen SUBQ SCH (11:30)
[2019-01-23 12:00] VITALS: BP 130/59
--- NOTE | 2019-01-23 13:06 | GI Progress Note ---
Assessment/Plan Problems: (1) Encounter for PEG (percutaneous endoscopic gastrostomy) ICD Codes: Z43.1 - Encounter for attention to gastrostomy SNOMED: 308645182, 074998220 (2) Dehydration ICD Codes: E86.0 - Dehydration SNOMED: 64554309 (3) Failure to thrive SNOMED: 74191951 (4) Refuses to eat ICD Codes: R63.3 - Feeding difficulties SNOMED: 332449165 Status: stable, unchanged Status Narrative Discussed with Dr. Durbin Assessment/Plan POLST reviewed >> NO artificial tubes or feeding. Calorie count is in progress. push PO PRN transfusion IV p.o. hydration plus electrolyte correction PPI We will follow on a daily basis with any additional recommendations increase Marinol to 2.5 mg BIB continue Remeron consider adding Megace dc planning The patient was seen and examined at bedside and all new and available data was reviewed in the patients chart. I agree with the above findings, impression and plan. (Patient seen earlier today. Signature stamp does not reflect patient encounter time.). - Varun Durbin MD Subjective Subjective Patient ate approximately 50% of breakfast Refused to eat any more further Objective Last 24 Hour Vital Signs Date Time Temp Pulse Resp B/P (MAP) Pulse Ox O2 Delivery O2 Flow Rate FiO2 01/23/19 12:00 97.6 96 18 130/59 (82) 100 01/23/19 09:46 Room Air 01/23/19 09:08 96 151/79 01/23/19 09:08 151/79 01/23/19 09:00 Room Air 01/23/19 08:00 97.3 96 17 151/79 (103) 100 01/23/19 04:00 98.7 95 19 146/60 (88) 99 01/23/19 00:04 87 18 99 Room Air 21 01/23/19 00:00 97.7 87 19 133/66 (88) 100 01/22/19 22:51 Room Air 01/22/19 20:00 97.7 86 18 99/44 (62) 100 01/22/19 18:00 118/66 01/22/19 16:00 98.5 90 18 141/71 (94) 100 Intake and Output 01/22/19 01/23/19 18:59 06:59 Intake Total 240 ml Balance 240 ml Intake Oral 240 ml # Voids 2 # Bowel Movements 1 Laboratory Tests Test 01/23/19 04:11 White Blood Count 9.5 K/UL (4.8-10.8) Red Blood Count 3.06 M/UL (4.70-6.10) L Hemoglobin 9.1 G/DL (14.2-18.0) L Hematocrit 28.2 % (42.0-52.0) L Mean Corpuscular Volume 92 FL (80-99) Mean Corpuscular Hemoglobin 29.7 PG (27.0-31.0) Mean Corpuscular Hemoglobin Concent 32.2 G/DL (32.0-36.0) Red Cell Distribution Width 15.5 % (11.6-14.8) H Platelet Count 235 K/UL (150-450) Mean Platelet Volume 5.9 FL (6.5-10.1) L Neutrophils (%) (Auto) 66.0 % (45.0-75.0) Lymphocytes (%) (Auto) 22.9 % (20.0-45.0) Monocytes (%) (Auto) 9.4 % (1.0-10.0) Eosinophils (%) (Auto) 1.2 % (0.0-3.0) Basophils (%) (Auto) 0.5 % (0.0-2.0) Sodium Level 142 MMOL/L (136-145) Potassium Level 3.6 MMOL/L (3.5-5.1) Chloride Level 102 MMOL/L (98-107) Carbon Dioxide Level 24 MMOL/L (21-32) Anion Gap 16 mmol/L (5-15) H Blood Urea Nitrogen 35 mg/dL (7-18) H Creatinine 6.2 MG/DL (0.55-1.30) H Estimat Glomerular Filtration Rate mL/min (>60) Glucose Level 66 MG/DL (74-106) L Calcium Level 8.2 MG/DL (8.5-10.1) L Iron Level 38 ug/dL (50-175) L Total Iron Binding Capacity 98 ug/dL (250-450) L Percent Iron Saturation 39 % (15-50) Unsaturated Iron Binding 60 ug/dL (112-346) L Height (Feet): 5 Height (Inches): 7.00 Weight (Pounds): 104 General Appearance: WD/WN, no apparent distress, alert Cardiovascular: normal rate Respiratory/Chest: normal breath sounds, no respiratory distress Abdominal Exam: normal bowel sounds, non tender, soft Extremities: normal range of motion, non-tender Donis Swan NP Jan 23, 2019 13:06
--- NOTE | 2019-01-23 13:24 | Infectious Diseases Prog Note ---
Assessment/Plan Assessment/Plan Assessment: Probable sepsis- ?source -01/17 Bcx Neg Leukocytosis; SP Afebrile -CXR: Basilar atelectatic changes. No acute process otherwise. Upper mediastinal mass deviating the trachea, demonstrated on multiple prior studies and seen on prior CT to represent an enlarged left thyroid lobe thyroid mass -thyroid US: Heterogeneous multinodular thyroid gland with a larger left lobe. Largest single lesion is 1 cm within the left lobe with a TIRADS score of 3. Per ACR recommendations, this lesion could be disregarded. B/l knee pain- limited examination as patient did not allowed me but does not appear to be septic- ?gout- sensitive even with the touch of the bedsheets -L knee xray: No obvious acute fracture. Severe chronic contraction deformity -R knee xray: Severe contraction deformity of the right knee which is flexed. No obvious acute fracture identified. 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 Largest single lesion is 1 cm within the left lobe with a TIRADS score of 3. Per ACR recommendations, this lesion could be disregarded. Interpretation is based on ACR Thyroid Imaging Reporting and Data System (ACR TI-RADS). hypercoagulable state (lupus anticoagulant) chronic pancreatitis dementia CAD s/p LAD PCI ESRD on HD via perma cath s/p AVG RUG DC resident Plan: -Continue to monitor off abx -01/22 SP Doxycycline and Augmentin #4 -01/19 SP Zosyn #2 -f/u cx -Monitor CBC/CMP, temperatures Thank you for this consultation. Will continue to follow along with you. Discussed with RN Subjective Allergies: Coded Allergies: No Known Allergies (Unverified , 02/01/12) Subjective afebrile no leukocytosis Bcx Neg Objective Vital Signs Last 24 Hour Vital Signs Date Time Temp Pulse Resp B/P (MAP) Pulse Ox O2 Delivery O2 Flow Rate FiO2 01/23/19 13:05 91 20 97 Room Air 21 01/23/19 12:00 97.6 96 18 130/59 (82) 100 01/23/19 09:46 Room Air 01/23/19 09:08 96 151/79 01/23/19 09:08 151/79 01/23/19 09:00 Room Air 01/23/19 08:00 97.3 96 17 151/79 (103) 100 01/23/19 04:00 98.7 95 19 146/60 (88) 99 01/23/19 00:04 87 18 99 Room Air 21 01/23/19 00:00 97.7 87 19 133/66 (88) 100 01/22/19 22:51 Room Air 01/22/19 20:00 97.7 86 18 99/44 (62) 100 01/22/19 18:00 118/66 01/22/19 16:00 98.5 90 18 141/71 (94) 100 Height (Feet): 5 Height (Inches): 7.00 Weight (Pounds): 104 Objective GENERAL: The patient is a well-developed and well-nourished male, who is somnolent, but arousable. HEENT: Eyes, pupils are equal and responsive to light and accommodation. Extraocular movements are intact. NECK: Supple. No lymphadenopathy. CHEST: Lungs are clear to auscultation bilaterally without wheezes or rales. CARDIOVASCULAR: Regular rhythm and rate. S1, S2 are normal without murmurs, rubs, or gallops. ABDOMEN: Soft, nontender, and nondistended. Positive bowel sounds. No evidence of hepatosplenomegaly. Currently, no rebound or guarding noted. EXTREMITIES: Negative for clubbing, cyanosis, or edema. Laboratory Tests Test 01/23/19 04:11 White Blood Count 9.5 K/UL (4.8-10.8) Red Blood Count 3.06 M/UL (4.70-6.10) L Hemoglobin 9.1 G/DL (14.2-18.0) L Hematocrit 28.2 % (42.0-52.0) L Mean Corpuscular Volume 92 FL (80-99) Mean Corpuscular Hemoglobin 29.7 PG (27.0-31.0) Mean Corpuscular Hemoglobin Concent 32.2 G/DL (32.0-36.0) Red Cell Distribution Width 15.5 % (11.6-14.8) H Platelet Count 235 K/UL (150-450) Mean Platelet Volume 5.9 FL (6.5-10.1) L Neutrophils (%) (Auto) 66.0 % (45.0-75.0) Lymphocytes (%) (Auto) 22.9 % (20.0-45.0) Monocytes (%) (Auto) 9.4 % (1.0-10.0) Eosinophils (%) (Auto) 1.2 % (0.0-3.0) Basophils (%) (Auto) 0.5 % (0.0-2.0) Sodium Level 142 MMOL/L (136-145) Potassium Level 3.6 MMOL/L (3.5-5.1) Chloride Level 102 MMOL/L (98-107) Carbon Dioxide Level 24 MMOL/L (21-32) Anion Gap 16 mmol/L (5-15) H Blood Urea Nitrogen 35 mg/dL (7-18) H Creatinine 6.2 MG/DL (0.55-1.30) H Estimat Glomerular Filtration Rate mL/min (>60) Glucose Level 66 MG/DL (74-106) L Calcium Level 8.2 MG/DL (8.5-10.1) L Iron Level 38 ug/dL (50-175) L Total Iron Binding Capacity 98 ug/dL (250-450) L Percent Iron Saturation 39 % (15-50) Unsaturated Iron Binding 60 ug/dL (112-346) L Current Medications Medications (Trade) Dose Ordered Sig/Tess Route PRN Reason Start Time Stop Time Status Last Admin Dose Admin Acetaminophen (Tylenol) 650 mg Q4H PRN ORAL Mild Pain (Pain Scale 1-3) 01/20/19 01:00 02/14/19 16:59 Acetaminophen (Tylenol) 650 mg Q4H PRN ORAL fever 01/20/19 01:00 02/14/19 16:59 Acetaminophen/ Hydrocodone Bitart (Green 5/325) 1 tab Q4H PRN ORAL For Pain 01/21/19 17:30 01/24/19 17:29 01/23/19 09:07 Albuterol/ Ipratropium (Albuterol/ Ipratropium) 3 ml Q4H PRN HHN Shortness of Breath 01/20/19 00:00 01/24/19 11:49 Clonidine HCl (Catapres Tab) 0.1 mg Q4H PRN ORAL sbp more than 160 01/20/19 01:15 02/14/19 17:14 Clopidogrel Bisulfate (Plavix) 75 mg DAILY ORAL 01/20/19 09:00 02/15/19 08:59 01/23/19 09:06 Dextrose (Dextrose 50%) 25 ml Q30M PRN IV Hypoglycemia 01/19/19 21:30 02/14/19 16:59 Dextrose (Dextrose 50%) 50 ml Q30M PRN IV Hypoglycemia 01/19/19 21:30 02/14/19 16:59 Dronabinol (Marinol) 2.5 mg BID ORAL 01/22/19 09:00 02/18/19 06:29 01/22/19 18:42 Glucagon (Glucagon) 1 mg DAILYPRN PRN IM BG < 65 if refusing juice/food 01/22/19 08:30 02/21/19 08:29 Heparin Sodium (Porcine) (Heparin 5000 units/ml) 5,000 units EVERY 12 HOURS SUBQ 01/20/19 09:00 02/14/19 20:59 01/23/19 09:05 Heparin Sodium (Porcine) (Heparin Sod 1000 units/ml 10ml) 2,000 unit ONCE IV 01/20/19 09:00 01/25/19 08:59 Hydralazine HCl (Apresoline) 25 mg BID ORAL 01/20/19 09:00 02/14/19 17:59 01/23/19 09:08 Insulin Aspart (NovoLOG) BEFORE MEALS AND HS SUBQ 01/23/19 11:30 02/14/19 20:59 Lorazepam (Ativan) 1 mg Q4H PRN ORAL For Anxiety 01/21/19 17:30 01/24/19 17:29 Meclizine HCl (Antivert) 25 mg THREE TIMES A DAY ORAL 01/20/19 09:00 02/14/19 17:59 01/23/19 09:07 Metoprolol Succinate (Toprol XL) 100 mg DAILY ORAL 01/20/19 09:00 02/15/19 08:59 01/23/19 09:08 Mirtazapine (Remeron) 7.5 mg BEDTIME PRN ORAL depression 01/20/19 21:00 02/14/19 16:59 Mirtazapine (Remeron) 30 mg BEDTIME ORAL 01/22/19 21:00 02/21/19 20:59 01/22/19 21:17 Morphine Sulfate (Morphine Sulfate) 2 mg Q4H PRN IVP severe pain 7-10 01/21/19 17:30 01/24/19 17:29 Nitroglycerin (Ntg) 0.4 mg Q5M X 3 DOSES PRN SL Prn Chest Pain 01/19/19 21:15 02/14/19 17:14 Ondansetron HCl (Zofran) 4 mg Q6H PRN IVP Nausea & Vomiting 01/19/19 23:00 02/14/19 16:59 Oxycodone/ Acetaminophen (Percocet 5-325) 1 tab Q6H PRN ORAL pain 4-10 01/21/19 17:30 01/24/19 17:29 Pantoprazole (Protonix) 40 mg DAILY ORAL 01/20/19 09:00 02/15/19 08:59 Polyethylene Glycol (Miralax) 17 gm HSPRN PRN ORAL Constipation 01/20/19 17:15 02/14/19 17:14 Sodium Chloride 1,000 ml @ 500 mls/hr Q2H PRN IVLG sbp<90 during hd 01/21/19 10:50 02/20/19 10:49 Temazepam (Restoril) 15 mg HSPRN PRN ORAL Insomnia 01/21/19 17:30 01/23/19 17:29 Vitamin B Complex/ Vit C/Folic Acid (Nephrovite) 1 tab DAILY ORAL 01/20/19 09:00 02/15/19 08:59 01/23/19 09:08 Kristina Elmore M.D. Jan 23, 2019 13:24
--- NOTE | 2019-01-23 13:45 | NUR ---
NURSE NOTES: Discharge orders placed for patient to return to [facility]. Report was given by Misael BARRY to [facility] ASHA Harden. Instructed to follow up with primary MD regarding medication list. Patient was cleaned prior to transfer to [facility] (formerly [facility] Skin was in tact, redness noted on right and left heal. Pictures take and optifoam put back in place. MRSA swab obtained via the nares. Patient was given belongings, ID removed, and family was informed. Patient was not in discomfort, and was informed he would be returning to [facility]. Report given to [facility].
--- NOTE | 2019-01-23 13:46 | NUR ---
NURSE NOTES: RN tried to swab for MRSA nares since patient was negative for MRSA during hospital stay, but patient let the RN to do from one nares.Swab was sent to lab.
--- NOTE | 2019-01-23 18:18 | Surgery Progress Note ---
Surgery Progress Note Subjective Additional Comments late entry as patient seen earlier doing well no acute events d/c planning for today okay to d/c please ensure care instructions below endorsed upon d/c as instructed Objective Last 24 Hour Vital Signs Date Time Temp Pulse Resp B/P (MAP) Pulse Ox O2 Delivery O2 Flow Rate FiO2 01/23/19 13:05 91 20 97 Room Air 21 01/23/19 12:00 97.6 96 18 130/59 (82) 100 01/23/19 09:46 Room Air 01/23/19 09:08 96 151/79 01/23/19 09:08 151/79 01/23/19 09:00 Room Air 01/23/19 08:00 97.3 96 17 151/79 (103) 100 01/23/19 04:00 98.7 95 19 146/60 (88) 99 01/23/19 00:04 87 18 99 Room Air 21 01/23/19 00:00 97.7 87 19 133/66 (88) 100 01/22/19 22:51 Room Air 01/22/19 20:00 97.7 86 18 99/44 (62) 100 I&O Intake and Output 01/22/19 01/23/19 18:59 06:59 Intake Total 240 ml Balance 240 ml Intake Oral 240 ml # Voids 2 # Bowel Movements 1 Laboratory Tests Test 01/23/19 04:11 White Blood Count 9.5 K/UL (4.8-10.8) Red Blood Count 3.06 M/UL (4.70-6.10) L Hemoglobin 9.1 G/DL (14.2-18.0) L Hematocrit 28.2 % (42.0-52.0) L Mean Corpuscular Volume 92 FL (80-99) Mean Corpuscular Hemoglobin 29.7 PG (27.0-31.0) Mean Corpuscular Hemoglobin Concent 32.2 G/DL (32.0-36.0) Red Cell Distribution Width 15.5 % (11.6-14.8) H Platelet Count 235 K/UL (150-450) Mean Platelet Volume 5.9 FL (6.5-10.1) L Neutrophils (%) (Auto) 66.0 % (45.0-75.0) Lymphocytes (%) (Auto) 22.9 % (20.0-45.0) Monocytes (%) (Auto) 9.4 % (1.0-10.0) Eosinophils (%) (Auto) 1.2 % (0.0-3.0) Basophils (%) (Auto) 0.5 % (0.0-2.0) Sodium Level 142 MMOL/L (136-145) Potassium Level 3.6 MMOL/L (3.5-5.1) Chloride Level 102 MMOL/L (98-107) Carbon Dioxide Level 24 MMOL/L (21-32) Anion Gap 16 mmol/L (5-15) H Blood Urea Nitrogen 35 mg/dL (7-18) H Creatinine 6.2 MG/DL (0.55-1.30) H Estimat Glomerular Filtration Rate mL/min (>60) Glucose Level 66 MG/DL (74-106) L Calcium Level 8.2 MG/DL (8.5-10.1) L Iron Level 38 ug/dL (50-175) L Total Iron Binding Capacity 98 ug/dL (250-450) L Percent Iron Saturation 39 % (15-50) Unsaturated Iron Binding 60 ug/dL (112-346) L Plan Problems: (1) Decubitus skin ulcer Assessment & Plan: Pt presented on admission with boggy and non-blanchable R and L heels. R heel extends into plantar aspect at distal / lateral R foot an area of fluctuance with purple area in center noted. Sacrum is dry and intact without evidence of skin breakdown. Pt observed to keep both knees drawn but was able to extend lower ext. with PROM. Non complaint with care plan for wounds agitated and aggressive at times Overall prognosis guarded. Continue with care plan as below upon discharge. Tx.Plan: Apply Cavilon Skin Barrier to both heels ,malleoli and lateral aspects of both feet. Change every 7 days and prn. Apply Moisture Barrier to both heels. Cover Sacrum with Optifoam drsg. Change every 3 days and prn. Reposition at least every 2hours or as tolerated. Off-load heels with pillow. Ajit Saleem Jan 23, 2019 18:18
--- NOTE | 2019-01-24 03:32 | Progress Note ---
DATE: 01/23/2019 SUBJECTIVE: The patient took his medication today, calmer, more redirectable. No behavior issues noted. He is more cooperative today. MENTAL STATUS EXAMINATION: The patient is alert, oriented times self, place, and did not know the date. Mood is dysphoric. Affect is constricted. Congruent with mood. Thought process is concrete. Thought content, no suicidal or homicidal ideation. ASSESSMENT: 1. Dementia. 2. Major depressive disorder. PLAN: 1. We will continue Remeron 30 mg at bedtime. 2. Provide the patient with reality orientation and supportive therapy. Frank Aguilera M.D. DR: Lucas JOB#: [id number] CC:
--- NOTE | 2019-01-24 09:54 | Discharge Summary ---
Discharge Summary Discharge Summary _ DATE OF ADMISSION: 01/15/2019 DATE OF DISCHARGE: 01/23/2019 DISCHARGED BY: Dr. Peralta REASON FOR ADMISSION: 78 years old male, resident of retirement facility, with past medical history of hypertension, diabetes mellitus type 2, end-stage renal disease on hemodialysis, coronary artery disease, status post PTCA with stent placement in December 2017, COPD, history of lupus anticoagulant, chronic pancreatitis, history of renal mass, hypercholesterolemia, dysphagia, GERD, diabetic nephropathy , neuropathy and gastroparesis, anemia of chronic renal disease, presented with a bilateral lower extremity pain and weakness. Patient also reported pain in bilateral knees. He denied any recent trauma or injury. Upon evaluation vital signs were stable. Laboratory work-up revealed leukocytosis WBC 15.8, hemoglobin 8.7, hematocrit 26.8, platelet count 179. Potassium 6.0 . BUN 94, creatinine 7.7. Uric acid 8.5. Glucose 186. Troponin 0.003 . EKG revealed normal sinus rhythm, no acute ischemic changes. Albumin 2.7. Stable LFT . TSH low 0.031 , free T4 0.99. X-ray right knee revealed severe contraction deformity , no obvious acute fracture . Extensive vascular disease/ X-ray of the left knee revealed no obvious acute fracture, severe chronic contracture deformity. Patient subsequently admitted for further management . CONSULTANTS: pulmonary/ facility specialist Dr. Washington ID specialist Dr. Elmore GI specialist Dr. Durbin tractor engine mechanic Dr. Alamo surgery Dr. Saleem endocrinology Dr. Bansal psychiatrist [facility]SE: Patient admitted and started on hemodialysis as per tractor engine mechanic with close monitoring of volumes, renal parameters and electrolytes. Electrolytes further corrected as needed. Pain management was addressed. Patient initially started on antibiotics. Leukocytosis resolved , no fevers. Blood cultures were negative. Antibiotic stopped. Supplemental oxygen provided and titrated to keep pulse oximetry above 92%. Chest x-ray revealed no acute cardiopulmonary pathology and showed basilar atelectasis. Bronchodilator treatment via handheld nebulizing therapy provided as needed. Pulse oximetry was stable on room air. Patient was reinforced compliance with renal and diabetic diet. Blood sugar was managed as per fresh work wrapper layer with Januvia and sliding scale of insulin. Hemoglobin A1c 5.8. Patient noted to have TSH suppressed , free T3 low and T4 normal. Thyroid ultrasound revealed heterogeneous multinodular thyroid gland. No need for fine-needle biopsy as per fresh work wrapper layer. Further labs were ordered to rule out Graves' disease. At the time of this dictation these labs were still pending. No need for antithyroid medication as per fresh work wrapper layer at this time. Patient was on antiplatelet therapy with aspirin , statin and beta-lusiito. DVT /GI prophylaxis provided. Wound care for deep tissue pressure injury bilateral heels , present on admission, provided as per surgeon recommendation. Continue wound care at the facility. GI specialist followed. Per NAVARRO no artificial tube for feeding. Calorie count implemented. Oral fluids were pushed. Patient also received IV hydration Patient started on Marinol. Bedside swallow evaluation revealed dysphagia, but low risk for aspiration. Diet continued with diet texture as per speech therapist recommendation with strict aspiration precaution and assistance with meals. Protein supplements implemented in plan of care as per registered nurse nursery recommendation . Hemoglobin and hematocrit were closely monitored with goal to keep hemoglobin above 7. Anemia work-up was consistent with anemia of chronic kidney disease. Hemoglobin and hematocrit remained at the baseline, prior to discharge hemoglobin 9.1 hematocrit 28.2. Psychiatrist followed. Patient started on Remeron. Reality orientation and supportive therapy provided. Patient clinically stabilized. Supportive care provided. Initial uremia resolved . BUN from 94 down to 35 and creatinine from 7.7 down to 6.2. All electrolytes stable. Patient clinically stabilized and was ready for transfer to retirement facility for continuation of care FINAL DIAGNOSES: Possible sepsis Leukocytosis Acute encephalopathy Diabetes mellitus [id number] with complications/neuropathy, nephropathy, retinopathy, gastroparesis End-stage renal disease , on hemodialysis Probably uremia Subclinical hypothyroidism Multinodular thyroid goiter Bilateral knee pain Chronic pancreatitis COPD Hypertension Deep tissue pressure injury bilateral heels, present on admission Dementia Hyperkalemia Failure to thrive Anorexia Dehydration Major depressive disorder DISCHARGE MEDICATIONS: See Medication Reconciliation list. DISCHARGE INSTRUCTIONS: Patient was discharged to the retirement facility. Follow up with medical doctor at the facility. Seda Matute NP Jan 24, 2019 09:54
== END 2019-01-23 14:05 | DRG 871 ==
LOC: EDBD 11:21 → EDUNIT# 11:21 → EMR 12:45 → EDBEDREQ 13:05 → 2E 13:13 → EDBEDREQ 13:42 → 4E 01-19 20:47
PROC: 5A1D70Z Performance of Urinary Filtration, Intermittent, Less than 6 Hours Per Day (ICD-10-PCS; principal; 2019-01-21)
DX: A41.9 Sepsis, unspecified organism (principal); N18.6 End stage renal disease; K85.90 Acute pancreatitis without necrosis or infection, unspecified; E46 Unspecified protein-calorie malnutrition; G93.40 Encephalopathy, unspecified; I82.509 Chronic embolism and thrombosis of unspecified deep veins of unspecified lower extremity; I12.0 Hypertensive chronic kidney disease with stage 5 chronic kidney disease or end stage renal disease; D68.62 Lupus anticoagulant syndrome; F03.91 Unspecified dementia, unspecified severity, with behavioral disturbance; Z68.1 Body mass index [BMI] 19.9 or less, adult; M24.562 Contracture, left knee; M24.561 Contracture, right knee; J44.9 Chronic obstructive pulmonary disease, unspecified; E11.22 Type 2 diabetes mellitus with diabetic chronic kidney disease; Z99.2 Dependence on renal dialysis; I25.10 Atherosclerotic heart disease of native coronary artery without angina pectoris; K21.9 Gastro-esophageal reflux disease without esophagitis; R13.10 Dysphagia, unspecified; F32.9 Major depressive disorder, single episode, unspecified; E11.40 Type 2 diabetes mellitus with diabetic neuropathy, unspecified; E55.9 Vitamin D deficiency, unspecified; Z79.01 Long term (current) use of anticoagulants; Z95.5 Presence of coronary angioplasty implant and graft; D63.1 Anemia in chronic kidney disease; E11.65 Type 2 diabetes mellitus with hyperglycemia; E04.2 Nontoxic multinodular goiter; M25.562 Pain in left knee; M25.561 Pain in right knee; L89.626 Pressure-induced deep tissue damage of left heel; L89.616 Pressure-induced deep tissue damage of right heel; E87.5 Hyperkalemia; R62.7 Adult failure to thrive; E86.0 Dehydration; E11.319 Type 2 diabetes mellitus with unspecified diabetic retinopathy without macular edema; K59.09 Other constipation; N28.89 Other specified disorders of kidney and ureter; Z79.4 Long term (current) use of insulin; E78.5 Hyperlipidemia, unspecified; R53.1 Weakness; E11.43 Type 2 diabetes mellitus with diabetic autonomic (poly)neuropathy; K31.84 Gastroparesis; E07.9 Disorder of thyroid, unspecified; E05.90 Thyrotoxicosis, unspecified without thyrotoxic crisis or storm; F29 Unspecified psychosis not due to a substance or known physiological condition; R63.0 Anorexia; Z66 Do not resuscitate
CPT/HCPCS: 36415; 71045; 76536; 80048; 80053; 82962; 83036; 83540; 83550; 83735; 83970; 84100; 84436; 84439; 84443; 84481; 84484; 84550; 85007; 85025; 85610; 85651; 85730; 86140; 86376; 87040; 87081; 87340; 93005; 94664; 96374; 99285; J1815